=== PATIENT | male | born 1965 | race Two or more races ===

== ENCOUNTER → 2020-05-09 14:07 | Outpatient (BNVA) | payer OTHER, SELFPAY | PROVIDERS: PCP Internal Medicine; Visit Provider Internal Medicine | DX: Z95.2 Presence of prosthetic heart valve (principal); Z51.81 Encounter for therapeutic drug level monitoring; Z79.01 Long term (current) use of anticoagulants | CPT/HCPCS: 85610 ==

== ENCOUNTER → 2020-05-24 10:32 | Outpatient (BNVA) | payer OTHER, SELFPAY | PROVIDERS: PCP Internal Medicine; Visit Provider Internal Medicine | DX: Z95.2 Presence of prosthetic heart valve (principal); Z51.81 Encounter for therapeutic drug level monitoring; Z79.01 Long term (current) use of anticoagulants | CPT/HCPCS: 85610; 99211 ==

== ENCOUNTER → 2020-06-07 09:34 | Outpatient (BNVA) | payer OTHER, SELFPAY | PROVIDERS: PCP Internal Medicine; Visit Provider Internal Medicine | DX: Z95.2 Presence of prosthetic heart valve (principal); Z51.81 Encounter for therapeutic drug level monitoring; Z79.01 Long term (current) use of anticoagulants | CPT/HCPCS: 85610; 99211 ==

== ENCOUNTER → 2020-06-11 14:53 | Outpatient (BNVA) | payer OTHER, SELFPAY | PROVIDERS: PCP Internal Medicine; Referring Provider Internal Medicine; Visit Provider Internal Medicine Cardiovascular Disease | DX: I10 Essential (primary) hypertension (principal); Z95.2 Presence of prosthetic heart valve; Z79.01 Long term (current) use of anticoagulants | CPT/HCPCS: 99212 ==

== ENCOUNTER → 2020-06-21 09:33 | Outpatient (BNVA) | payer OTHER, SELFPAY | PROVIDERS: PCP Internal Medicine; Visit Provider Internal Medicine | DX: Z95.2 Presence of prosthetic heart valve (principal); Z51.81 Encounter for therapeutic drug level monitoring; Z79.01 Long term (current) use of anticoagulants | CPT/HCPCS: 85610; 99211 ==

== ENCOUNTER → 2020-07-05 09:32 | Outpatient (BNVA) | payer OTHER, SELFPAY | PROVIDERS: PCP Internal Medicine; Visit Provider Internal Medicine | DX: Z95.2 Presence of prosthetic heart valve (principal); Z51.81 Encounter for therapeutic drug level monitoring; Z79.01 Long term (current) use of anticoagulants | CPT/HCPCS: 85610; 99211 ==

== ENCOUNTER → 2020-07-19 09:28 | Outpatient (BNVA) | payer OTHER, SELFPAY | PROVIDERS: PCP Internal Medicine; Visit Provider Internal Medicine | DX: Z95.2 Presence of prosthetic heart valve (principal); Z51.81 Encounter for therapeutic drug level monitoring; Z79.01 Long term (current) use of anticoagulants | CPT/HCPCS: 85610; 99211 ==

== ENCOUNTER → 2020-08-02 09:11 | Outpatient (BNVA) | payer OTHER, SELFPAY | PROVIDERS: PCP Internal Medicine; Visit Provider Internal Medicine | DX: Z95.2 Presence of prosthetic heart valve (principal); Z51.81 Encounter for therapeutic drug level monitoring; Z79.01 Long term (current) use of anticoagulants | CPT/HCPCS: 85610; 99211 ==

== ENCOUNTER → 2020-08-16 09:21 | Outpatient (BNVA) | payer OTHER, SELFPAY | PROVIDERS: PCP Internal Medicine; Visit Provider Internal Medicine | DX: Z95.2 Presence of prosthetic heart valve (principal); Z51.81 Encounter for therapeutic drug level monitoring; Z79.01 Long term (current) use of anticoagulants | CPT/HCPCS: 85610; 99211 ==

== ENCOUNTER 2020-08-17 15:05 | Emergency (ER) | payer OTHER, SELFPAY ==
[2020-08-17 15:28] VITALS: BP 144/91; PULSE 89; RESP 20; TEMP 37.6; O2SAT 96; BMI 31.4
--- NOTE | 2020-08-17 15:31 | XR_ITS ---
EXAMINATION: XR CHEST CLINICAL INFORMATION: Fever and cough. COMPARISON: Chest x-ray 12/01/2019 TECHNIQUE: Frontal view of the chest was obtained. FINDINGS: The lungs are well-expanded with patchy opacity seen in the right lung base likely infiltrate or atelectasis. Rest of lungs are clear. The heart size and pulmonary vascularity is normal. There are median sternotomy sutures and valvular prosthesis. No gross bony abnormality. XR/XR chest 1V IMPRESSION: New patchy opacity right lower lobe, question infiltrate.
--- NOTE | 2020-08-17 15:55 | ED.URI ---
HPI - URI/Sore Throat General Chief Complaint: Upper Respiratory Symptoms Stated Complaint: SORE THROAT Time Seen by Provider: 08/17/20 15:31 Source: patient Mode of arrival: ambulatory Limitations: no limitations History of Present Illness HPI Narrative: 54 y/o male with history of HTN, hx mitral valve replacement on Coumadin who presents with fever, sore throat and dry cough that started last night. No known sick contacts or exposure to COVID-19. He reports mild chills last night, headache and body aches. He had 1 episode of SOB associated with a coughing fit. No hemoptysis. No abdominal pain, N/V/D. No urinary symptoms. MD elicited complaint: fever, cough and sore throat Onset (ago): day(s) (1) Consistency: intermittent Severity: moderate Description of mucous: clear Able to tolerate fluids by mouth: Yes Exacerbating factors: exertion Relieving factors: nothing Associated symptoms: fever, chills, myalgias, headache, sore throat, cough and shortness of breath Treatments prior to arrival: none Related Data Home Medications Medication Instructions Recorded Confirmed aspirin 81 mg tablet,delayed 81 mg PO DAILY 06/11/20 06/11/20 release lisinopril 10 mg tablet 10 mg PO DAILY 06/11/20 06/11/20 famotidine 20 mg tablet mg PO 08/17/20 Previous Rx's Medication Instructions Recorded warfarin 5 mg tablet 5 mg PO DAILY #90 tab 05/09/20 metoprolol tartrate 25 mg tablet 25 mg PO BID #180 tab 06/01/20 sildenafil 50 mg tablet 50 mg PO DAILY PRN #10 tab 06/08/20 doxycycline monohydrate 100 mg PO BID #14 cap 08/17/20 Allergies Allergy/AdvReac Type Severity Reaction Status Date / Time No Known Allergies Allergy Verified 08/17/20 14:28 [No Known Allergies*] Review of Systems Review of Systems: Constitutional: + Fever, + Chills ENT/Mouth: + sore throat, No Rhinorrhea, No Swallowing Difficulty Cardiovascular: No Chest Pain, + SOB, No Orthopnea, No Edema Respiratory:+ Cough, No Sputum, No Wheezing, No dyspnea Gastrointestinal: No Nausea, No Vomiting, No Diarrhea, No abdominal Pain Genitourinary: No Dysuria, No Urinary Frequency, No Hematuria Musculoskeletal: No joint pain, + Myalgias Skin: No Skin Lesions, No rash Neuro: No Weakness, No Numbness, No Dizziness, + Headache Psych: No Anxiety/Panic, No Depression [facility] Past Medical History Medical History HTN (hypertension) Surgical History H/O cardiac catheterization (~2018) H/O mitral valve repair H/O mitral valve replacement with mechanical valve Hx of varicose vein ligation and stripping Family History Family History Father CVD (cardiovascular disease) Mother HTN (hypertension) CVD (cardiovascular disease) Diabetes Social History Social History (Updated 08/17/20 @ 14:29 by MICHAEL Moore) Alcohol intake: never Smoking Status: Never smoker Advance Directives: No Advance Directives Information Provided: Yes Physical Exam Vital Signs: Vital Signs: Last Vital Signs Temp 99.7 F 08/17/20 15:28 Pulse 89 08/17/20 15:28 Resp 20 08/17/20 15:28 BP 144/91 H 08/17/20 15:28 Pulse Ox 96 08/17/20 15:28 Body Mass Index 31.4 Appearance: Alert. Oriented X3. No acute distress. Eyes: Pupils equal, round and reactive to light. ENT: Pharynx with moderate generalized erythema with bilateral tonsillar swelling, no exudates. voice is normal. Neck: Normal inspection. Neck supple. CVS: Normal heart rate and rhythm. Pulses normal. Respiratory: No respiratory distress. Breath sounds normal. Abdomen: Soft and nontender. +BS x4 Skin: Skin warm and dry. Normal skin color. Normal skin turgor. No rashes. Extremities: No lower extremity edema. Neuro: Oriented X 3. Non-focal Course Course Course Narrative: 54 y/o male presenting with fever, cough, sore throat x1 day. Low grade fever on arrival, otherwise VS and PE are unremarkable. Will get CXR, Resp panel and strep swab. Reevaluation(s) Reevaluation #1: COVID positive. CXR with ?RLL infiltrate - will treat with Doxycycline for possible evolving CAP. VSS. No hypoxia or respiratory distress. He has been counseled on his diagnosis, management and warning signs to prompt return to the ER. Stable for discharge. MDM - URI/Sore Throat Lab Data Labs: Lab Results 08/17/20 Range/Units 15:37 Coronavirus (PCR) POSITIVE A (Negative) Influenza Type A (PCR) NEGATIVE (Negative) Influenza Type B (PCR) NEGATIVE (Negative) RSV RNA Qual (PCR) NEGATIVE (Negative) Discharge Plan Discharge Clinical Impression: COVID-19 Patient Disposition: Home, Self-Care Instructions: COVID-19 (Coronavirus Disease 2019) (ED) Additional Instructions: You were found to be COVID-19 POSITIVE. Your chest x-ray showed a possible small area of pneumonia as well so you are being started on antibiotics for this. Take them as directed. Take over the counter cold/flu medications as needed for your symptoms. Take Tylenol every 6 hours for fever and body aches. Rest and stay hydrated. Follow up with your doctor next week. If you develop shortness of breath, difficulty breathing or any other concerning symptom come back to the ER for further evaluation. Prescriptions: New doxycycline monohydrate 100 mg capsule 100 mg PO BID Qty: 14 RF: 0 No Action metoprolol tartrate 25 mg tablet 25 mg PO BID Qty: 180 RF: 3 sildenafil 50 mg tablet 50 mg PO DAILY PRN (Reason: sexual activity) Qty: 10 RF: 3 famotidine 20 mg tablet PO RF: 0 aspirin 81 mg tablet,delayed release (DR/EC) 81 mg PO DAILY RF: 0 lisinopril 10 mg tablet 10 mg PO DAILY RF: 0 warfarin 5 mg tablet 5 mg PO DAILY Qty: 90 RF: 0
[2020-08-17 16:28] LABS: Influenza A PCR NEGATIVE (Negative); Influenza B PCR NEGATIVE (Negative); Resp Syncy Virus RNA Qual PCR NEGATIVE (Negative); SARS COV2 PCR INHOUSE POSITIVE (Negative)
== END 2020-08-17 16:49 | disposition home or self-care (01) ==
PROVIDERS: Physician Assistant; Emergency Provider Emergency Medicine; PCP Internal Medicine
DX: U07.1 COVID-19 (principal); I10 Essential (primary) hypertension; Z95.2 Presence of prosthetic heart valve; Z79.01 Long term (current) use of anticoagulants
CPT/HCPCS: 0241U; 36415; 71045; 87071; 87880; 99283

== ENCOUNTER → 2020-08-30 08:58 | Outpatient (BNVA) | payer OTHER, SELFPAY | PROVIDERS: PCP Internal Medicine; Visit Provider Internal Medicine | DX: Z95.2 Presence of prosthetic heart valve (principal); Z51.81 Encounter for therapeutic drug level monitoring; Z79.01 Long term (current) use of anticoagulants | CPT/HCPCS: 85610; 99211 ==

== ENCOUNTER → 2020-09-03 08:43 | Outpatient (BNVA) | payer OTHER, SELFPAY | PROVIDERS: PCP Internal Medicine; Visit Provider Internal Medicine | DX: Z95.2 Presence of prosthetic heart valve (principal); Z51.81 Encounter for therapeutic drug level monitoring; Z79.01 Long term (current) use of anticoagulants | CPT/HCPCS: 85610; 99211 ==

== ENCOUNTER → 2020-09-10 09:17 | Outpatient (BNVA) | payer OTHER, SELFPAY | PROVIDERS: PCP Internal Medicine; Visit Provider Internal Medicine | DX: Z95.2 Presence of prosthetic heart valve (principal); Z51.81 Encounter for therapeutic drug level monitoring; Z79.01 Long term (current) use of anticoagulants | CPT/HCPCS: 85610; 99211 ==

== ENCOUNTER → 2020-09-24 09:35 | Outpatient (BNVA) | payer OTHER, SELFPAY | PROVIDERS: PCP Internal Medicine; Visit Provider Internal Medicine | DX: Z95.2 Presence of prosthetic heart valve (principal); Z51.81 Encounter for therapeutic drug level monitoring; Z79.01 Long term (current) use of anticoagulants | CPT/HCPCS: 85610; 99211 ==

== ENCOUNTER → 2020-10-08 08:49 | Outpatient (BNVA) | payer OTHER, SELFPAY | PROVIDERS: PCP Internal Medicine; Visit Provider Internal Medicine | DX: Z95.2 Presence of prosthetic heart valve (principal); Z51.81 Encounter for therapeutic drug level monitoring; Z79.01 Long term (current) use of anticoagulants | CPT/HCPCS: 85610; 99211 ==

== ENCOUNTER → 2020-10-22 08:52 | Outpatient (BNVA) | payer OTHER, SELFPAY | PROVIDERS: PCP Internal Medicine; Visit Provider Internal Medicine | DX: Z95.2 Presence of prosthetic heart valve (principal); Z51.81 Encounter for therapeutic drug level monitoring; Z79.01 Long term (current) use of anticoagulants | CPT/HCPCS: 85610; 99211 ==

== ENCOUNTER 2020-10-24 09:44 | Outpatient (REF) | payer OTHER, SELFPAY ==
--- NOTE | ~2020-10-24 | XR_ITS ---
EXAMINATION: XR CHEST CLINICAL INFORMATION: Shortness of breath. Covid 19. COMPARISON: None TECHNIQUE: 2 views of the chest were obtained. FINDINGS: The lungs are well-expanded with patchy opacity seen right middle lobe. Rest of lungs are clear and expanded. The heart size and pulmonary vascularity is normal. There are median sternotomy sutures and aortic valve prosthesis in place. No gross bony abnormality seen. XR/XR chest 2V IMPRESSION: Stable right middle lobe patchy opacity likely atelectasis or scarring.
[2020-10-24 11:11] LABS: MANUAL DIFF FLAG NO
[2020-10-24 11:26] LABS: Basophils Percent Auto 0.4 % (0-2); Eosinophils Absolute Auto 0.2 X10*3/uL (0.0-0.4); Eosinophils Percent Auto 2.1 % (0-4); Hemoglobin 14.2 g/dl (14.0-18.0); Imm Gran Abs Auto 0.06 X10*3/uL (0.00-0.03); Imm Gran Pct Auto 0.7 % (0.0-0.4); Lymphocytes Absolute Auto 2.4 X10*3/uL (1.2-4.9); Lymphocytes Percent Auto 29.1 % (20-40); Mean Corpuscular HGB Conc 30.9 g/dl (31.0-36.0); Mean Corpuscular Hemoglobin 26.4 pg (27.0-33.0); Mean Corpuscular Volume 85.5 fL (80-98); Mean Platelet Volume 10.3 fL (9.4-12.4); Monocytes Absolute Auto 1.1 X10*3/uL (0.1-1.2); Monocytes Percent Auto 13.3 % (2-11); Neutrophils Absolute Auto 4.5 X10*3/uL (2.0-8.3); Neutrophils Percent Auto 54.4 % (45-73); Platelet Count 290 X10*3/uL (160-400); Red Blood Count 5.38 X10*6/uL (4.60-5.80); White Blood Count 8.3 X10*3/uL (4.8-10.8)
[2020-10-24 11:48] LABS: B Type Natriuretic Peptide 41 pg/mL (<100)
[2020-10-24 12:12] LABS: Thyroid Stimulating Hormone 2.07 uIU/mL (0.32-4.0)
[2020-10-24 12:13] LABS: Alanine Aminotransferase 23 U/L (0-40); Albumin Level 4.2 g/dL (3.5-5.0); Alkaline Phosphatase 83 U/L (39-117); Anion Gap 15 (12-20); Aspartate Amino Transferase 28 U/L (5-37); Bilirubin Total 0.8 mg/dL (0.0-1.0); Blood Urea Nitrogen 18 mg/dL (9-16); Calcium 9.2 mg/dL (8.4-10.2); Carbon Dioxide 25 mmol/L (22-29); Chloride 106 mmol/L (96-108); Estimated Glomerular Filt Rate > 60; Glucose Random 108 mg/dL (60-115); Potassium 4.5 mmol/L (3.3-5.1); Sodium 141 mmol/L (135-145); Total Protein 7.3 g/dL (6.5-8.0)
== END 2020-10-24 09:45 | disposition home or self-care (01) ==
LOC: HO.HMGCLDS 09:44
PROVIDERS: PCP Internal Medicine; Visit Provider Internal Medicine
DX: U07.1 COVID-19 (principal); Z95.2 Presence of prosthetic heart valve
CPT/HCPCS: 36415; 71046; 80053; 83880; 84443; 85025

== ENCOUNTER → 2020-11-06 08:29 | Outpatient (BNVA) | payer OTHER, SELFPAY | PROVIDERS: PCP Internal Medicine; Visit Provider Internal Medicine | DX: Z95.2 Presence of prosthetic heart valve (principal); Z79.01 Long term (current) use of anticoagulants; Z51.81 Encounter for therapeutic drug level monitoring | CPT/HCPCS: 85610; 99211 ==

== ENCOUNTER → 2020-11-20 09:49 | Outpatient (BNVA) | payer OTHER, SELFPAY | PROVIDERS: PCP Internal Medicine; Visit Provider Internal Medicine | DX: Z95.2 Presence of prosthetic heart valve (principal); Z79.01 Long term (current) use of anticoagulants; Z51.81 Encounter for therapeutic drug level monitoring | CPT/HCPCS: 85610; 99211 ==

== ENCOUNTER → 2020-11-27 08:45 | Outpatient (BNVA) | payer OTHER, SELFPAY | PROVIDERS: PCP Internal Medicine; Visit Provider Internal Medicine | DX: Z95.2 Presence of prosthetic heart valve (principal); Z51.81 Encounter for therapeutic drug level monitoring; Z79.01 Long term (current) use of anticoagulants | CPT/HCPCS: 85610; 99211 ==

== ENCOUNTER → 2020-12-11 09:01 | Outpatient (BNVA) | payer OTHER, SELFPAY | PROVIDERS: PCP Internal Medicine; Visit Provider Internal Medicine | DX: Z95.2 Presence of prosthetic heart valve (principal); Z51.81 Encounter for therapeutic drug level monitoring; Z79.01 Long term (current) use of anticoagulants | CPT/HCPCS: 85610; 99211 ==

== ENCOUNTER → 2020-12-13 08:18 | Outpatient (REF) | payer OTHER, SELFPAY ==
--- NOTE | 2020-12-13 08:23 | CA_ITS ---
Transthoracic Echocardiogram Patient (Last, First, Middle): Cinda Erazo, Gender: Male Date of : 1965 Age: 55 Procedure Date: 12/13/2020 Procedure Type: Transthoracic Echocardiogram Location: OP Height: 182.88 cm Weight: 102.51 kg BSA: 2.24 m2 Heart Rate: bpm BP: 134 / 90 mmHg Publishing Director: ERICA Referring MD: Juan David Samaniego MD Cement Loader: Juan David Samaniego MD Symptoms: Z95.2 - Presence of prosthetic heart valve Study Quality: Fair ECG Rhythm: Sinus Conclusions: - 1. Low normal LV systolic function with mild LVH with normal filling pattern 2. Left atrium at least mildly dilated 3. Mechanical mitral valve with mean gradient of 7 mm Hg, increased compared to last year's study 4. Normal RV systolic pressure 5. No pericardial effusion Findings Procedure Information The patient receives contrast. Left Ventricle Normal left ventricular cavity size. There is mildly increased left ventricular wall thickness. The left ventricular systolic function is low normal. The visually estimated ejection fraction is between 50-55%. Spectral Doppler is indicative of a pseudonormal filling pattern. Right Ventricle Normal right ventricular cavity size and systolic function. Atria The left atrium is mildly dilated. Interatrial shunt cannot be excluded. The right atrium is normal in size. Aortic Valve Normal aortic valve structure and function. There is no aortic valve stenosis. There is no aortic valve regurgitation. Mitral Valve The mechanical valve in the mitral position is seated well without any abnormal rocking motion. The leaflets are not well visualized. Mean gradient is 7 mm Hg which is increased compared to last year which was at 4 mm of mercury. There is no significant mitral regurgitation noted. Pulmonic Valve The pulmonic valve was not well visualized. There is trace to mild pulmonic valve regurgitation. Tricuspid Valve Normal tricuspid valve structure. There is mild tricuspid valve regurgitation. The right ventricular systolic pressure is normal. The right ventricular systolic pressure is 25 mmHg. There is no evidence of pulmonary hypertension. Great Vessels The pulmonary artery was not well visualized. There is mild dilatation of the ascending aorta measuring 3.90 cm. Venous The inferior vena cava is normal in size and collapses greater than 50% with inspiration. Pericardium/Pleural There is no evidence of pericardial effusion. Prior Study Comparison Changes noted compared to prior study dated: 09/06/2019. Mean gradient across the mitral prosthesis is increased to 7 mm of mercury. Measurements 2D Linear Measurements RVIDd: 3.15 RVIDd Index: 1.41 IVSd: 1.23 0.6-0.9/0.6-1.0 cm LVIDd: 5.86 3.9-5.3/4.2-5.9 cm LVIDd Index: 2.62 2.4-3.2/2.2-3.1 cm/m2 LVIDs: 4.02 2.0-3.6 cm LVPWd: 1.25 0.7-1.1 cm Ao Root: 3.80 2.1-3.5 cm LA Diam: 5.90 2.7-3.8/3.0-4.0 cm LAIDs Index: 2.63 1.5-2.3 cm/m2 LV Mass: 394.02 67-162/88-224 g LV Mass Index: 175.90 43-95/49-115 g/m2 LVOT Diam: 2.40 3.0+(-)1.3 cm 2D Systolic Function EF 4C: 39.20 >55% EF 2C: 53.00 >55% Mitral Valve MV VTI: 0.51 MV Pk Stewart: 1.89 MV Mn Stewart: 1.22 MV Pk Grad: 14.00 MV Mn Grad: 7.00 MV Pk E: 1.60 MV PK A: 1.39 MV Decel Time: 440.00 E/A: 1.20 E'Lateral: 4.54 E'Medial: 4.84 E/E' Med: 33.10 E/E' Lat: 35.20 PHT: 133.00 MVA PHT: 1.65 MVA Continuity: 1.66 Decel Russell: 4.12 Aortic Valve AoV Pk Stweart: 1.04 AoV Mn Stewart: 0.80 AoV VTI: 0.21 AoV Pk Grad: 4.00 Aov Mn Grad: 3.00 MINAL Cont.VTI: 4.03 LVOT LVOT Pk Stewart: 0.96 LVOT Mn Stewart: 0.57 LVOT VTI: 0.19 LVOT Pk Grad: 4.00 LVOT Mn Grad: 2.00 LVOT Diam: 2.40 LVOT Area: 4.52 Diastolic Function MV Pk E: 1.60 MV Pk A: 1.39 E/A: 1.20 E'Medial: 4.84 E/E' Med: 33.10 E' Laterial: 4.54 E/E' Lat: 35.20 Tricuspid Valve TR Pk Stewart: 2.32 TR Pk Grad: 22.00 RA Press: 3.00 RVSP: 25.00 Great Vessels Aorta Ao Root-2D: 3.80 2.0-3.7 cm Ao Asc: 3.90 2.1-3.4 cm Ao Arch: 3.50 Updated in Other Vendor System with Status of Final Juan David Samaniego MD electronically signed on 12/14/2020 12:32:58 PM with status of Final
== END ==
LOC: HO.CARD 08:18
PROVIDERS: PCP Internal Medicine; Visit Provider Internal Medicine
DX: I10 Essential (primary) hypertension (principal); Z95.2 Presence of prosthetic heart valve
CPT/HCPCS: 93306; Q9957

== ENCOUNTER → 2020-12-18 15:04 | Outpatient (BNVA) | payer OTHER, SELFPAY | PROVIDERS: PCP Internal Medicine; Referring Provider Internal Medicine; Visit Provider Internal Medicine Cardiovascular Disease | DX: I10 Essential (primary) hypertension (principal); R10.31 Right lower quadrant pain | CPT/HCPCS: 99212 ==

== ENCOUNTER → 2020-12-25 08:50 | Outpatient (BNVA) | payer OTHER, SELFPAY | PROVIDERS: PCP Internal Medicine; Visit Provider Internal Medicine | DX: Z95.2 Presence of prosthetic heart valve (principal); Z51.81 Encounter for therapeutic drug level monitoring; Z79.01 Long term (current) use of anticoagulants | CPT/HCPCS: 85610; 99211 ==

== ENCOUNTER 2021-01-07 | Outpatient (REF) | payer OTHER, SELFPAY | END 2021-01-07 00:01 | disposition home or self-care (01) | LOC: CF | PROVIDERS: Visit Provider Internal Medicine | DX: Z95.2 Presence of prosthetic heart valve (principal); Z51.81 Encounter for therapeutic drug level monitoring; Z79.01 Long term (current) use of anticoagulants | CPT/HCPCS: 85610; 99211 ==

== ENCOUNTER 2021-01-21 13:20 | Outpatient (REF) | payer OTHER, SELFPAY ==
--- NOTE | ~2021-01-21 | US_ITS ---
EXAMINATION: ULTRASOUND OF A RIGHT THIGH PALPABLE ABNORMALITY. CLINICAL INFORMATION: This is a 55-year-old male with pain in the thigh. COMPARISON: None TECHNIQUE: Ultrasound of the proximal thigh was performed and directed at the area of pain. Color Doppler flow was utilized with spectral waveform analysis. FINDINGS: There is a 2.7 x 0.8 x 1.7 cm soft tissue density seen that corresponds to the area of pain. The etiology for this soft tissue abnormality is not clearly identified with ultrasound. It may represent a lymph node. No pseudoaneurysm is seen. Good flow is seen within the adjacent vessels. US/US arterial duplex LE RT IMPRESSION: 1. The area indicated by the patient in the right thigh corresponds to a 2.7 x 0.8 x 1.7 cm oval soft tissue mass. The etiology for the mass is unclear. A follow-up study in one month is recommended to demonstrate resolution or better clarity.
== END 2021-01-21 13:21 | disposition home or self-care (01) ==
LOC: HO.US 13:20
PROVIDERS: Visit Provider Internal Medicine Cardiovascular Disease
DX: R10.31 Right lower quadrant pain (principal)
CPT/HCPCS: 85610; 93926; 99211

== ENCOUNTER 2021-02-05 08:45 | Outpatient (REF) | payer OTHER, SELFPAY ==
--- NOTE | ~2021-02-05 | US_ITS ---
EXAMINATION: ULTRASOUND EXTREMITY NONVASCULAR CLINICAL INFORMATION: Question soft tissue mass seen by ultrasound. Patient presents for biopsy. COMPARISON: Previous right lower extremity arterial ultrasound 01/21/2021 TECHNIQUE: Grayscale and color imaging of the right medial thigh using a linear transducer FINDINGS: There are 2 right thigh lymph nodes. The largest is measures 2.7 x 0.9 x 1.8 cm in sagittal AP and transverse dimension. This demonstrates a very thin cortex, largest central fatty hilum and normal hilar flow. This does not appear appreciably changed in size from January 2021 exam. There is an adjacent smaller lymph node. US/US extremity nonvascular lynn IMPRESSION: 2 right upper medial thigh lymph nodes. These demonstrate normal ultrasound morphology with fatty hilum and very thin peripheral cortex. This is similar to January 2021 exam. No soft tissue mass seen. Ultrasound-guided biopsy/fine-needle aspiration was not performed. Short-term follow-up exam in 3-6 months is recommended.
== END 2021-02-05 08:46 | disposition home or self-care (01) ==
LOC: HO.US 08:45
PROVIDERS: PCP Internal Medicine; Visit Provider Internal Medicine Medical Oncology
DX: R19.09 Other intra-abdominal and pelvic swelling, mass and lump (principal)
CPT/HCPCS: 76882

== ENCOUNTER → 2021-02-08 08:30 | Outpatient (BNVA) | payer OTHER, SELFPAY | PROVIDERS: PCP Internal Medicine; Visit Provider Internal Medicine | DX: Z95.2 Presence of prosthetic heart valve (principal); Z51.81 Encounter for therapeutic drug level monitoring; Z79.01 Long term (current) use of anticoagulants | CPT/HCPCS: 85610; 99211 ==

== ENCOUNTER → 2021-02-11 08:52 | Outpatient (BNVA) | payer OTHER, SELFPAY | PROVIDERS: PCP Internal Medicine; Visit Provider Internal Medicine | DX: Z95.2 Presence of prosthetic heart valve (principal); Z51.81 Encounter for therapeutic drug level monitoring; Z79.01 Long term (current) use of anticoagulants | CPT/HCPCS: 85610; 99211 ==

== ENCOUNTER → 2021-02-12 09:12 | Outpatient (BNVA) | payer OTHER, SELFPAY | PROVIDERS: PCP Internal Medicine; Visit Provider Internal Medicine | DX: Z95.2 Presence of prosthetic heart valve (principal); Z51.81 Encounter for therapeutic drug level monitoring; Z79.01 Long term (current) use of anticoagulants | CPT/HCPCS: 85610; 99211 ==

== ENCOUNTER → 2021-02-19 09:18 | Outpatient (BNVA) | payer OTHER, SELFPAY | PROVIDERS: PCP Internal Medicine; Visit Provider Internal Medicine | DX: Z95.2 Presence of prosthetic heart valve (principal); Z51.81 Encounter for therapeutic drug level monitoring; Z79.01 Long term (current) use of anticoagulants | CPT/HCPCS: 85610; 99211 ==

== ENCOUNTER → 2021-02-22 08:38 | Outpatient (BNVA) | payer OTHER, SELFPAY | PROVIDERS: PCP Internal Medicine; Visit Provider Internal Medicine | DX: Z95.2 Presence of prosthetic heart valve (principal); Z51.81 Encounter for therapeutic drug level monitoring; Z79.01 Long term (current) use of anticoagulants | CPT/HCPCS: 85610; 99211 ==

== ENCOUNTER → 2021-03-01 08:13 | Outpatient (BNVA) | payer OTHER, SELFPAY | PROVIDERS: PCP Internal Medicine; Visit Provider Internal Medicine | DX: Z95.2 Presence of prosthetic heart valve (principal); Z51.81 Encounter for therapeutic drug level monitoring; Z79.01 Long term (current) use of anticoagulants | CPT/HCPCS: 85610; 99211 ==

== ENCOUNTER → 2021-03-08 08:36 | Outpatient (BNVA) | payer OTHER, SELFPAY | PROVIDERS: PCP Internal Medicine; Visit Provider Internal Medicine | DX: Z95.2 Presence of prosthetic heart valve (principal); Z51.81 Encounter for therapeutic drug level monitoring; Z79.01 Long term (current) use of anticoagulants | CPT/HCPCS: 85610; 99211 ==

== ENCOUNTER → 2021-03-15 08:26 | Outpatient (BNVA) | payer OTHER, SELFPAY | PROVIDERS: PCP Internal Medicine; Visit Provider Internal Medicine | DX: Z95.2 Presence of prosthetic heart valve (principal); Z51.81 Encounter for therapeutic drug level monitoring; Z79.01 Long term (current) use of anticoagulants | CPT/HCPCS: 85610; 99212 ==

== ENCOUNTER → 2021-03-29 08:37 | Outpatient (BNVA) | payer OTHER, SELFPAY | PROVIDERS: PCP Internal Medicine; Visit Provider Internal Medicine | DX: Z95.2 Presence of prosthetic heart valve (principal); Z51.81 Encounter for therapeutic drug level monitoring; Z79.01 Long term (current) use of anticoagulants | CPT/HCPCS: 85610; 99211 ==

== ENCOUNTER → 2021-04-04 08:44 | Outpatient (BNVA) | payer OTHER, SELFPAY | PROVIDERS: PCP Internal Medicine; Visit Provider Internal Medicine | DX: Z95.2 Presence of prosthetic heart valve (principal); Z51.81 Encounter for therapeutic drug level monitoring; Z79.01 Long term (current) use of anticoagulants | CPT/HCPCS: 85610; 99211 ==

== ENCOUNTER → 2021-04-18 08:33 | Outpatient (BNVA) | payer OTHER, SELFPAY | PROVIDERS: PCP Internal Medicine; Visit Provider Internal Medicine | DX: Z95.2 Presence of prosthetic heart valve (principal); Z51.81 Encounter for therapeutic drug level monitoring; Z79.01 Long term (current) use of anticoagulants | CPT/HCPCS: 85610; 99211 ==

== ENCOUNTER → 2021-05-02 08:55 | Outpatient (BNVA) | payer OTHER, SELFPAY | PROVIDERS: PCP Internal Medicine; Visit Provider Internal Medicine | DX: Z95.2 Presence of prosthetic heart valve (principal); Z51.81 Encounter for therapeutic drug level monitoring; Z79.01 Long term (current) use of anticoagulants | CPT/HCPCS: 85610; 99211 ==

== ENCOUNTER → 2021-05-17 08:37 | Outpatient (BNVA) | payer OTHER, SELFPAY | PROVIDERS: PCP Internal Medicine; Visit Provider Internal Medicine | DX: Z95.2 Presence of prosthetic heart valve (principal); Z51.81 Encounter for therapeutic drug level monitoring; Z79.01 Long term (current) use of anticoagulants | CPT/HCPCS: 85610; 99211 ==

== ENCOUNTER 2021-05-28 08:07 | Outpatient (REF) | payer OTHER, SELFPAY ==
--- NOTE | ~2021-05-28 | US_ITS ---
CLINICAL INFORMATION: EXAMINATION: RIGHT and LEFT LOWER EXTREMITY VENOUS ULTRASOUND (Reflux Exam) CLINICAL INDICATION: Follow-up right thigh mass COMPARISON: Previous ultrasounds January and January 2021 TECHNIQUE: Color flow triplex imaging and compression Doppler was performed to evaluate both the deep and the superficial systems bilaterally. To evaluate the superficial system, the examination was performed in the upright position. Color-flow Doppler ultrasound and compression ultrasound were utilized. In addition, maneuvers were utilized to demonstrate reflux. FINDINGS: 1. DEEP VENOUS ULTRASOUND OF THE RIGHT LOWER EXTREMITY: Respiratory variation, normal compression and augmented flow are noted in the right common and mid femoral vein as well as the right popliteal vein and there is no evidence of deep venous thrombosis at these locations. There is no evidence of reflux in the deep system in either the common femoral vein or the popliteal vein. There is reflux in the mid femoral vein measuring 1.5 seconds. There is no evidence of a Peralta's cyst. 2. SUPERFICIAL ULTRASOUND WITH DOPPLER OF RIGHT LOWER EXTREMITY: The right great saphenous vein at the saphenofemoral junction measures 5 mm. The remainder of the right greater saphenous vein is not seen. There is an accessory lateral greater saphenous vein that measures 3 to 4 mm and does not demonstrate reflux. The right small saphenous vein measures 7-16 mm and demonstrates diffuse reflux, measuring maximum 2.5 seconds in the distal calf. There is a orthotist prosthetist in the distal calf that measures 6 mm and does not demonstrate reflux. There are 2 varicosities in the distal calf that measure 4 mm. One demonstrates 1.1 seconds reflux. No right thigh lymphadenopathy is seen. 3. DEEP VENOUS ULTRASOUND OF THE LEFT LOWER EXTREMITY: Respiratory variation, normal compression and augmented flow are noted in the left common and mid femoral vein as well as the left popliteal vein and there is no evidence of deep venous thrombosis at these locations. There is mid femoral vein reflux measuring 3.1 seconds. There is no evidence of reflux in the deep system in either the common femoral vein or the popliteal vein. . There is no evidence of a Peralta's cyst. 4. SUPERFICIAL ULTRASOUND WITH DOPPLER OF LEFT LOWER EXTREMITY: Left great saphenous vein at the saphenofemoral junction measures 9 mm, at the mid thigh 3 mm, [id number] 4 mm, [id number] 1 mm. The left greater saphenous vein is not seen in the mid calf and ankle. There is left greater saphenous vein reflux above the knee and at the knee measuring 0.9 and 0.8 seconds. There is an accessory lateral greater saphenous vein that measures 4 mm and does not demonstrate reflux.. The left small saphenous vein measures 6-12 mm and demonstrates reflux measuring maximum greater than 3.4 seconds at the saphenofemoral popliteal junction. There are perforators in the calf and thigh. There is a orthotist prosthetist in the mid calf that measures 3 mm and demonstrates 1.2 seconds reflux. There are varicosities in the calf that measure between 3 and 7 mm and demonstrate reflux, maximum 1.9 seconds. There is a varicosity There is a small left thigh lymph node that measures 2 x 0.7 x 0.9 cm in sagittal AP and transverse dimension. This is normal ultrasound morphology and flow. US/US venous duplex LE BI IMPRESSION: Right thigh lymph node not seen. Small normal-appearing left thigh lymph node. Right: Right greater saphenous vein is not seen. Dilated right lesser saphenous vein with reflux measuring maximum 2.5 seconds. Varicosity in the calf with reflux. Deep venous reflux in the right mid popliteal vein. Left: Left greater saphenous vein reflux. Dilated left lesser saphenous vein and reflux measuring maximum greater than 3.4 seconds. Floorworker and varicosities in the calf with reflux measuring maximum 1.9 seconds. Deep venous reflux in the mid left femoral vein.
== END 2021-05-28 08:08 | disposition home or self-care (01) ==
LOC: HO.US 08:07
PROVIDERS: PCP Internal Medicine; Visit Provider Internal Medicine Medical Oncology
DX: R19.09 Other intra-abdominal and pelvic swelling, mass and lump (principal)
CPT/HCPCS: 93970; 93971

== ENCOUNTER 2021-05-30 07:53 | Outpatient (REF) | payer OTHER, SELFPAY ==
[2021-05-30 11:20] LABS: MANUAL DIFF FLAG NO
[2021-05-30 11:24] LABS: Basophils Percent Auto 0.4 % (0-2); Eosinophils Absolute Auto 0.1 X10*3/uL (0.0-0.4); Eosinophils Percent Auto 1.8 % (0-4); Hematocrit 45.9 % (42-52); Hemoglobin 14.1 g/dl (14.0-18.0); Imm Gran Abs Auto 0.03 X10*3/uL (0.00-0.03); Imm Gran Pct Auto 0.4 % (0.0-0.4); Immature Retic Fraction 14.5 % (2.3-13.4); Lymphocytes Absolute Auto 2.2 X10*3/uL (1.2-4.9); Lymphocytes Percent Auto 28.5 % (20-40); Mean Corpuscular HGB Conc 30.7 g/dl (31.0-36.0); Mean Corpuscular Hemoglobin 26.2 pg (27.0-33.0); Mean Corpuscular Volume 85.3 fL (80-98); Mean Platelet Volume 10.3 fL (9.4-12.4); Monocytes Absolute Auto 0.9 X10*3/uL (0.1-1.2); Monocytes Percent Auto 12.3 % (2-11); Neutrophils Absolute Auto 4.3 X10*3/uL (2.0-8.3); Neutrophils Percent Auto 56.6 % (45-73); Platelet Count 281 X10*3/uL (160-400); Red Blood Count 5.38 X10*6/uL (4.60-5.80); Red Cell Distribution Width 15.4 % (11.0-16.0); Retic HGB Equivalent 30.6 pg (30.0-35.0); Reticulocyte Percent 1.7 % (0.5-1.8); Reticulocytes Absolute 0.093 X10*6/uL (0.026-0.095); White Blood Count 7.6 X10*3/uL (4.8-10.8)
[2021-05-30 11:36] LABS: Estimated Average Glucose 120 mg/dL; Hemoglobin A1c % 5.8 %
[2021-05-30 11:39] LABS: B Type Natriuretic Peptide 32 pg/mL (<100)
[2021-05-30 11:48] LABS: Alanine Aminotransferase 28 U/L (0-40); Albumin Level 4.1 g/dL (3.5-5.0); Alkaline Phosphatase 83 U/L (39-117); Anion Gap 11 (12-20); Aspartate Amino Transferase 28 U/L (5-37); Bilirubin Total 0.7 mg/dL (0.0-1.0); Blood Urea Nitrogen 18 mg/dL (9-16); Calcium 9.1 mg/dL (8.4-10.2); Carbon Dioxide 27 mmol/L (22-29); Chloride 109 mmol/L (96-108); Cholesterol 155 mg/dL; Estimated Glomerular Filt Rate > 60; Glucose Random 114 mg/dL (60-115); HDL Cholesterol 34 mg/dL; Iron 79 mcg/dL (45-160); LDL Cholesterol Calculated 94 mg/dl; Percent Iron Saturation 27 % (15-50); Potassium 4.7 mmol/L (3.3-5.1); Sodium 142 mmol/L (135-145); Total Iron Binding Capacity 297 mcg/dL (228-428); Total Protein 7.2 g/dL (6.5-8.0); Triglycerides 136 mg/dL; Unsaturated Iron Binding 218 ug/dL; Uric Acid 8.1 mg/dL (3.4-7.0)
[2021-05-30 12:03] LABS: Free T4 (Free Thyroxine) 0.98 ng/dL (0.71-1.85); Prostate Specific Antigen Scr 0.95 ng/mL (<0.05-4.0); Thyroid Stimulating Hormone 3.57 uIU/mL (0.32-4.0)
[2021-05-30 12:11] LABS: Folate 14.7 ng/mL (> or = 4.0); Vitamin B12 429 pg/mL (200-900)
[2021-05-30 12:33] LABS: Ferritin 125 ng/mL (20-250)
== END 2021-05-30 07:54 | disposition home or self-care (01) ==
LOC: HO.HMGCLDS 07:53
PROVIDERS: PCP Internal Medicine; Visit Provider Internal Medicine
DX: Z12.5 Encounter for screening for malignant neoplasm of prostate (principal); I10 Essential (primary) hypertension; R73.02 Impaired glucose tolerance (oral); E78.00 Pure hypercholesterolemia, unspecified
CPT/HCPCS: 36415; 80053; 80061; 82607; 82728; 82746; 83036; 83540; 83880; 84153; 84439; 84443; 84550; 85025; 85045

== ENCOUNTER → 2021-06-07 08:50 | Outpatient (BNVA) | payer OTHER, SELFPAY | PROVIDERS: PCP Internal Medicine; Visit Provider Internal Medicine | DX: Z95.2 Presence of prosthetic heart valve (principal); Z51.81 Encounter for therapeutic drug level monitoring; Z79.01 Long term (current) use of anticoagulants | CPT/HCPCS: 85610; 99211 ==

== ENCOUNTER → 2021-06-18 08:23 | Outpatient (BNVA) | payer OTHER, SELFPAY | PROVIDERS: PCP Internal Medicine; Referring Provider Internal Medicine; Visit Provider Internal Medicine Cardiovascular Disease | DX: I10 Essential (primary) hypertension (principal); I45.2 Bifascicular block; E66.3 Overweight; Z68.30 Body mass index [BMI] 30.0-30.9, adult; Z95.2 Presence of prosthetic heart valve; Z82.49 Family history of ischemic heart disease and other diseases of the circulatory system; Z83.3 Family history of diabetes mellitus; Z79.82 Long term (current) use of aspirin; Z79.01 Long term (current) use of anticoagulants; Z79.899 Other long term (current) drug therapy | CPT/HCPCS: 93005; 99212 ==

== ENCOUNTER → 2021-06-21 08:44 | Outpatient (BNVA) | payer OTHER, SELFPAY | PROVIDERS: PCP Internal Medicine; Visit Provider Internal Medicine | DX: Z95.2 Presence of prosthetic heart valve (principal); Z51.81 Encounter for therapeutic drug level monitoring; Z79.01 Long term (current) use of anticoagulants | CPT/HCPCS: 85610; 99211 ==

== ENCOUNTER → 2021-07-11 08:52 | Outpatient (BNVA) | payer OTHER, SELFPAY | PROVIDERS: PCP Internal Medicine; Visit Provider Internal Medicine | DX: Z95.2 Presence of prosthetic heart valve (principal); Z51.81 Encounter for therapeutic drug level monitoring; Z79.01 Long term (current) use of anticoagulants | CPT/HCPCS: 85610; 99211 ==

== ENCOUNTER → 2021-07-25 08:32 | Outpatient (BNVA) | payer OTHER, SELFPAY | PROVIDERS: PCP Internal Medicine; Visit Provider Internal Medicine | DX: Z95.2 Presence of prosthetic heart valve (principal); Z51.81 Encounter for therapeutic drug level monitoring; Z79.01 Long term (current) use of anticoagulants | CPT/HCPCS: 85610; 99211 ==

== ENCOUNTER → 2021-08-01 08:22 | Outpatient (BNVA) | payer OTHER, SELFPAY | PROVIDERS: PCP Internal Medicine; Visit Provider Internal Medicine | DX: Z95.2 Presence of prosthetic heart valve (principal); Z51.81 Encounter for therapeutic drug level monitoring; Z79.01 Long term (current) use of anticoagulants | CPT/HCPCS: 85610; 99211 ==

== ENCOUNTER → 2021-08-15 08:29 | Outpatient (BNVA) | payer OTHER, SELFPAY | PROVIDERS: PCP Internal Medicine; Visit Provider Internal Medicine | DX: Z95.2 Presence of prosthetic heart valve (principal); Z51.81 Encounter for therapeutic drug level monitoring; Z79.01 Long term (current) use of anticoagulants | CPT/HCPCS: 85610; 99211 ==

== ENCOUNTER 2021-09-03 10:39 | Outpatient (REF) | payer OTHER, SELFPAY ==
--- NOTE | ~2021-09-03 | US_ITS ---
EXAMINATION: ULTRASOUND EXTREMITY NON-VASCULAR CLINICAL INFORMATION: Right inguinal lymphadenopathy. COMPARISON: Previous right lower extremity venous ultrasound January 2021. TECHNIQUE: Grayscale and color imaging of the right inguinal region/upper thigh using a linear transducer FINDINGS: There are 3 small lymph nodes seen. These measure 2.8 x 0.7 x 1.8 cm, 2.2 x 0.6 x 1.2 cm and 0.9 x 1.6 x 2.4 cm. These demonstrate normal ultrasound morphology and flow. US/US extremity nonvascular lynn IMPRESSION: Stable normal-appearing right groin/inner thigh lymph nodes.
== END 2021-09-03 10:40 | disposition home or self-care (01) ==
LOC: HO.US 10:39
PROVIDERS: PCP Internal Medicine; Visit Provider Internal Medicine Medical Oncology
DX: R19.00 Intra-abdominal and pelvic swelling, mass and lump, unspecified site (principal)
CPT/HCPCS: 76882

== ENCOUNTER → 2021-09-05 08:41 | Outpatient (BNVA) | payer OTHER, SELFPAY | PROVIDERS: PCP Internal Medicine; Visit Provider Internal Medicine | DX: Z95.2 Presence of prosthetic heart valve (principal); Z51.81 Encounter for therapeutic drug level monitoring; Z79.01 Long term (current) use of anticoagulants | CPT/HCPCS: 85610; 99211 ==

== ENCOUNTER → 2021-09-19 09:25 | Outpatient (BNVA) | payer OTHER, SELFPAY | PROVIDERS: PCP Internal Medicine; Visit Provider Internal Medicine | DX: Z95.2 Presence of prosthetic heart valve (principal); Z51.81 Encounter for therapeutic drug level monitoring; Z79.01 Long term (current) use of anticoagulants | CPT/HCPCS: 85610; 99211 ==

== ENCOUNTER → 2021-10-02 08:31 | Outpatient (BNVA) | payer OTHER, SELFPAY | PROVIDERS: PCP Internal Medicine; Visit Provider Internal Medicine | DX: Z95.2 Presence of prosthetic heart valve (principal); Z51.81 Encounter for therapeutic drug level monitoring; Z79.01 Long term (current) use of anticoagulants | CPT/HCPCS: 85610; 99211 ==

== ENCOUNTER 2021-10-12 09:42 | Emergency (ER) | payer OTHER, SELFPAY ==
--- NOTE | ~2021-10-12 | XR_ITS ---
EXAMINATION: XR CHEST CLINICAL INFORMATION: Fever COMPARISON: None TECHNIQUE: Frontal view of the chest was obtained. FINDINGS: The lungs are well-expanded and clear of acute process. Heart size and pulmonary vascularity is normal. There are median sternotomy sutures from previous intervention. No gross bony abnormality seen. XR/XR chest 1V IMPRESSION: Unremarkable chest examination.
--- NOTE | 2021-10-12 10:41 | ECG_ITS ---
Test Reason : FEVER Blood Pressure : / mmHG Vent. Rate : 063 BPM Atrial Rate : 063 BPM P-R Int : 184 ms QRS Dur : 110 ms QT Int : 412 ms P-R-T Axes : 010 016 050 degrees QTc Int : 421 ms Normal sinus rhythm Possible Anterior infarct , age undetermined Abnormal ECG When compared with ECG of 29-NOV-2019 12:15, T wave amplitude has increased in Lateral leads Referred By: Juana Reed Electronically Signed By:ABRAHAM ARCEO MD
[2021-10-12 10:48] VITALS: BP 134/74; PULSE 66; RESP 19; TEMP 37.3; O2SAT 97; BMI 30.2
--- NOTE | 2021-10-12 10:49 | ED_ITS ---
HPI - General Adult General Chief complaint: Fever Stated complaint: Fever/rash Time Seen by Provider: 10/12/21 10:32 Source: patient and family (Spouse) Mode of arrival: ambulatory Limitations: no limitations History of Present Illness HPI narrative: 56-year-old male came in for evaluation of generalized weakness, fever, rash. Patient was on cruise trip with his last week, patient ate a beckham sandwich over there, shortly after felt abdominal pain and diarrhea, patient also had intermittent fever with rash, patient's symptoms resolved 2 days later, when patient come back home start to have intermittent fever and chills, patient overall feeling generalized weakness. Patient also admitted to sitting in the sun without good oral hydration while he was in his trip which was hot and humid. No sick contact. Complaining of mild headache, mild intermittent nonproductive cough. Also maculopapular rash on extremities that comes and goes currently in the ED there is no rash. Patient otherwise declined severe headache, no chest pain, no shortness of breath, no abdominal pain, no nausea, no vomiting, no diarrhea. No dysuria, no urinary frequency. Patient did not get medical consultation or advise before his travel, patient received 3 COVID vaccination. Related Data Home Medications Medication Instructions Recorded Confirmed aspirin 81 mg tablet,delayed 81 mg PO DAILY 06/11/20 10/01/21 release Previous Rx's Medication Instructions Recorded warfarin 5 mg tablet 5 mg PO DAILY #90 tab 11/04/20 sildenafil 50 mg tablet 50 mg PO DAILY PRN #10 tab 03/20/21 metoprolol tartrate 25 mg tablet 25 mg PO BID #180 tab 05/20/21 blood pressure monitor (Blood #1 ea 06/06/21 Pressure Kit) lisinopril 20 mg tablet 20 mg PO DAILY #90 tab 09/02/21 amoxicillin 500 mg capsule 2,000 mg PO ONCE #4 cap 09/17/21 Allergies Allergy/AdvReac Type Severity Reaction Status Date / Time No Known Allergies Allergy Verified 10/02/21 08:33 [No Known Allergies*] Review of Systems Review of Systems: All other systems are reviewed and are negative Constitutional: Reports as per HPI and Reports no additional constitutional complaints Eyes: Reports as per HPI and Reports no additional eye complaints Reports system reviewed and no additional complaints, except as documented Cardiovascular: Reports as per HPI and Reports no additional cardiovascular complaints Respiratory: Reports as per HPI and Reports no additional respiratory complaints Gastrointestinal: Reports as per HPI and Reports no additional gastrointestinal complaints Genitourinary: Reports no additional female genitourinary complaints Musculoskeletal: Reports no additional musculoskeletal complaints Skin/Breast: Reports system reviewed and no additional complaints, except as docu Psychiatric: Reports no additional psychiatric complaints Endocrine: Reports no additional endocrine complaints Hematologic/Lymphatic: Reports no additional hematologic/lymphatic complaints Allergic/Immunologic: Reports no additional allergic/immunologic complaints Reports system reviewed and no additional complaints, except as documented and Reports Abnormal speech present [facility] Past Medical History Medical History Anxiety COVID-19 Erectile dysfunction GERD (gastroesophageal reflux disease) HTN (hypertension) Impaired glucose tolerance Obesity (BMI 30-39.9) Overweight (BMI 25.0-29.9) Surgical History H/O cardiac catheterization (~2018) H/O mitral valve repair H/O mitral valve replacement with mechanical valve Hx laparoscopic cholecystectomy Hx of varicose vein ligation and stripping Family History Family History Father CVD (cardiovascular disease) Mother HTN (hypertension) CVD (cardiovascular disease) Diabetes Social History Social History Household Members: Spouse Housing: House Are you a primary post acute care nurse practitioner to a significant other at home: No Do you presently have visiting nurse or other home services: No Alcohol intake: former Patient Tobacco Use Status: Never used Tobacco e-Cigarette/Vaping Use: Never Used Second Hand Smoke Exposure: No Advance Directives: No Advance Directives Information Provided: No service: No Current occupational status: employed Current occupation: [employer] Physical Exam ED Vital Signs: Vital Signs - 24 hr 10/12/21 10:48 Temperature 99.2 F Pulse Rate 66 Respiratory Rate 19 Blood Pressure 134/74 Pulse Oximetry 97 BMI result Body Mass Index 30.2 Vital signs have been reviewed as appeared to be correct. Blood pressure no rmal. Heart rate normal. Respiration rate normal. Temperature normal. Oxygen saturation normal. Appearance: Alert. Oriented X3. No acute distress. Head: Normal external exam. Normocephalic. Atraumatic. No [place] signs noted. No raccoon eyes noted Eyes: PERRLA. EOMI. Conjunctiva and sclera normal. Eyelids normal. ENT: TM's Normal. Pharynx normal. Uvula midline. Dry mucous membranes. No trismus noted. No drooling noted. No muffled voice noted. Neck: Normal inspection. Neck supple. FROM. No adenopathy. Thyroid Normal. No meningeal signs. No neck mass noted. CVS: Normal heart rate and rhythm. Heart sound normal. No murmurs noted. Pulses normal throughout. Respiratory: No respiratory distress. Painless inspiration. Breath sounds normal. No wheezes/rales/rhonchi noted. Chest nontender. No accessory muscle usage noted or decreased air movement noted. Abdomen: Soft and nontender. Bowel sounds normal in all 4 quadrants. No distention noted. No organomegaly noted. No visible injury noted. Back: No CVA tenderness. Full range of motion noted. Skin: Skin warm and dry. Normal skin color. Normal skin turgor. No rashes/lesions/lacerations noted. Extremities: No lower extremity edema. Extremities exhibit normal range of motion. Extremities nontender. Neuro: Oriented X 3. Cranial nerve exam: II-XII are grossly intact No motor deficit. No sensory deficit. Reflexes normal. Course Course Course Narrative: Assessment and plan. 56-year-old male had a recent travel out of [facility], came back with subjective fever, generalized body ache, nonspecific rash, patient also was exposed recently to hot humid weather and bent outside in the sun for a longer time with decreased oral hydration as per patient. Patient emergency department received 2 L of IV fluid with significant improvement of patient's symptoms, patient now feels more energetic and hungry with good appetite able to tolerate p.o. intake in the ED. Patient remained afebrile with stable vital signs while in the emergency department, labs significant for leukocytosis which is likely reactionary to recent viral symptoms or dehydration. Patient was instructed to return to the ED if fever, coughing, persistent diarrhea or vomiting. Medical Decision Making Medical Records Medical records reviewed: Yes I reviewed the patient's medical records. Lab Data Lab results reviewed: Yes I reviewed the patient's lab results. Result diagrams: 10/12/21 11:08 10/12/21 11:08 Labs: Lab Results 10/12/21 10/12/21 10/12/21 Range/Units 11:08 11:08 11:08 WBC 14.5 H (4.8-10.8) X10*3/uL RBC 5.05 (4.60-5.80) X10*6/uL Hgb 13.3 L (14.0-18.0) g/dl Hct 42.3 (42.0-52.0) % MCV 83.8 (80.0-98.0) fL MCH 26.3 L (27.0-33.0) pg MCHC 31.4 (31.0-36.0) g/dl RDW 15.6 (11.0-16.0) % Plt Count 289 (160-400) X10*3/uL MPV 9.5 (9.4-12.4) fL Immature Gran % (Auto) 0.8 H (0.0-0.4) % Neut % (Auto) 76.0 H (45-73) % Lymph % (Auto) 9.7 L (20-40) % [place] % (Auto) 12.2 H (2-11) % Eos % (Auto) 0.9 (0-4) % Baso % (Auto) 0.4 (0-2) % Lymph # (Auto) 1.4 (1.2-4.9) X10*3/uL [place] # (Auto) 1.8 H (0.1-1.2) X10*3/uL Eos # (Auto) 0.1 (0.0-0.4) X10*3/uL Baso # (Auto) 0.1 (0.0-0.2) X10*3/uL Abs Immat Gran (auto) 0.12 H (0.00-0.03) X10*3/uL Absolute Neuts (auto) 11.0 H (2.0-8.3) x10*3/uL Absolute Nucleated RBC 0.000 (0.0-0.012) X10*3/uL Nucleated RBC % (auto) 0.0 (0.0-0.2) /100WBC Smear Tech's Comments VERIFIED PT (9.9-13.0) SEC INR (0.9-1.1) Sodium 139 (135-145) mmol/L Potassium 4.4 (3.3-5.1) mmol/L Chloride 106 (96-108) mmol/L Carbon Dioxide 25 (22-29) mmol/L Anion Gap 12 (12-20) BUN 15 (9-16) mg/dL Creatinine 1.08 (0.5-1.4) mg/dL Estim Creat Clear Calc 93.9 Estimated GFR > 60 Random Glucose 107 (60-115) mg/dL Calcium 8.9 (8.4-10.2) mg/dL Total Bilirubin 0.7 (0.0-1.0) mg/dL Direct Bilirubin 0.3 (0.0-0.5) mg/dL AST 30 (5-37) U/L ALT 36 (0-40) U/L Alkaline Phosphatase 101 D (39-117) U/L Troponin I High Sens 5.7 (<3.5-35.0) ng/L B-Natriuretic Peptide (<100) pg/mL Total Protein 6.7 (6.5-8.0) g/dL Albumin 3.5 (3.5-5.0) g/dL Lipase 22 (8-78) U/L Urine Color Urine Appearance Urine pH (5.0-8.0) Ur Specific [place] (1.005-1.025) Urine Protein (NEG-TRACE) MG/DL Urine Glucose (UA) (NEG) MG/DL Urine Ketones (NEG) MG/DL Urine Blood (NEG) Urine Nitrite (NEG) Ur Leukocyte Esterase (NEG) Urine RBC (0) /HPF Urine WBC (0-4) /HPF Ur Squamous Epith Cells /LPF Urine Bacteria /LPF Urine Mucus /LPF Influenza Type A (PCR) Influenza Type B (PCR) RSV RNA Qual (PCR) SARS-CoV-2 RNA (RT-PCR) 10/12/21 10/12/21 10/12/21 Range/Units 11:08 11:08 11:08 WBC (4.8-10.8) X10*3/uL RBC (4.60-5.80) X10*6/uL Hgb (14.0-18.0) g/dl Hct (42.0-52.0) % MCV (80.0-98.0) fL MCH (27.0-33.0) pg MCHC (31.0-36.0) g/dl RDW (11.0-16.0) % Plt Count (160-400) X10*3/uL MPV (9.4-12.4) fL Immature Gran % (Auto) (0.0-0.4) % Neut % (Auto) (45-73) % Lymph % (Auto) (20-40) % [place] % (Auto) (2-11) % Eos % (Auto) (0-4) % Baso % (Auto) (0-2) % Lymph # (Auto) (1.2-4.9) X10*3/uL [place] # (Auto) (0.1-1.2) X10*3/uL Eos # (Auto) (0.0-0.4) X10*3/uL Baso # (Auto) (0.0-0.2) X10*3/uL Abs Immat Gran (auto) (0.00-0.03) X10*3/uL Absolute Neuts (auto) (2.0-8.3) x10*3/uL Absolute Nucleated RBC (0.0-0.012) X10*3/uL Nucleated RBC % (auto) (0.0-0.2) /100WBC Smear Tech's Comments PT (9.9-13.0) SEC INR (0.9-1.1) Sodium (135-145) mmol/L Potassium (3.3-5.1) mmol/L Chloride (96-108) mmol/L Carbon Dioxide (22-29) mmol/L Anion Gap (12-20) BUN (9-16) mg/dL Creatinine (0.5-1.4) mg/dL Estim Creat Clear Calc Estimated GFR Random Glucose (60-115) mg/dL Calcium (8.4-10.2) mg/dL Total Bilirubin (0.0-1.0) mg/dL Direct Bilirubin (0.0-0.5) mg/dL AST (5-37) U/L ALT (0-40) U/L Alkaline Phosphatase (39-117) U/L Troponin I High Sens (<3.5-35.0) ng/L B-Natriuretic Peptide 138 H (<100) pg/mL Total Protein (6.5-8.0) g/dL Albumin (3.5-5.0) g/dL Lipase (8-78) U/L Urine Color YELLOW Urine Appearance HAZY Urine pH 6.5 (5.0-8.0) Ur Specific [place] 1.020 (1.005-1.025) Urine Protein NEG (NEG-TRACE) MG/DL Urine Glucose (UA) NEG (NEG) MG/DL Urine Ketones NEG (NEG) MG/DL Urine Blood 2+ H (NEG) Urine Nitrite NEG (NEG) Ur Leukocyte Esterase NEG (NEG) Urine RBC 1-4 (0) /HPF Urine WBC 0-2 (0-4) /HPF Ur Squamous Epith Cells 1+ /LPF Urine Bacteria NONE /LPF Urine Mucus 1+ /LPF Influenza Type A (PCR) Cancelled Influenza Type B (PCR) Cancelled RSV RNA Qual (PCR) Cancelled SARS-CoV-2 RNA (RT-PCR) Cancelled 10/12/21 Range/Units 11:18 WBC (4.8-10.8) X10*3/uL RBC (4.60-5.80) X10*6/uL Hgb (14.0-18.0) g/dl Hct (42.0-52.0) % MCV (80.0-98.0) fL MCH (27.0-33.0) pg MCHC (31.0-36.0) g/dl RDW (11.0-16.0) % Plt Count (160-400) X10*3/uL MPV (9.4-12.4) fL Immature Gran % (Auto) (0.0-0.4) % Neut % (Auto) (45-73) % Lymph % (Auto) (20-40) % [place] % (Auto) (2-11) % Eos % (Auto) (0-4) % Baso % (Auto) (0-2) % Lymph # (Auto) (1.2-4.9) X10*3/uL [place] # (Auto) (0.1-1.2) X10*3/uL Eos # (Auto) (0.0-0.4) X10*3/uL Baso # (Auto) (0.0-0.2) X10*3/uL Abs Immat Gran (auto) (0.00-0.03) X10*3/uL Absolute Neuts (auto) (2.0-8.3) x10*3/uL Absolute Nucleated RBC (0.0-0.012) X10*3/uL Nucleated RBC % (auto) (0.0-0.2) /100WBC Smear Tech's Comments PT 41.4 H (9.9-13.0) SEC INR 3.5 H (0.9-1.1) Sodium (135-145) mmol/L Potassium (3.3-5.1) mmol/L Chloride (96-108) mmol/L Carbon Dioxide (22-29) mmol/L Anion Gap (12-20) BUN (9-16) mg/dL Creatinine (0.5-1.4) mg/dL Estim Creat Clear Calc Estimated GFR Random Glucose (60-115) mg/dL Calcium (8.4-10.2) mg/dL Total Bilirubin (0.0-1.0) mg/dL Direct Bilirubin (0.0-0.5) mg/dL AST (5-37) U/L ALT (0-40) U/L Alkaline Phosphatase (39-117) U/L Troponin I High Sens (<3.5-35.0) ng/L B-Natriuretic Peptide (<100) pg/mL Total Protein (6.5-8.0) g/dL Albumin (3.5-5.0) g/dL Lipase (8-78) U/L Urine Color Urine Appearance Urine pH (5.0-8.0) Ur Specific [place] (1.005-1.025) Urine Protein (NEG-TRACE) MG/DL Urine Glucose (UA) (NEG) MG/DL Urine Ketones (NEG) MG/DL Urine Blood (NEG) Urine Nitrite (NEG) Ur Leukocyte Esterase (NEG) Urine RBC (0) /HPF Urine WBC (0-4) /HPF Ur Squamous Epith Cells /LPF Urine Bacteria /LPF Urine Mucus /LPF Influenza Type A (PCR) Influenza Type B (PCR) RSV RNA Qual (PCR) SARS-CoV-2 RNA (RT-PCR) Imaging Data Chest x-ray: Attestation: I personally reviewed and interpreted this imaging study as follows: Radiologist's impression: Unremarkable chest examination. ECG Data Attestation: I personally reviewed and interpreted this ECG as follows: Interpretation: Normal sinus rhythm at 63 beats per minute, normal intervals, no ST-T changes. Discharge Plan Discharge Clinical Impression: Dehydration, Acute viral syndrome Patient Disposition: Home, Self-Care Instructions: Viral Syndrome (ED) Prescriptions: No Action warfarin 5 mg tablet 5 mg PO DAILY Qty: 90 3RF Protocol: Dose Management Condition: Thursday (Week One) Dose/Route: 5 mg Instruction: 1 x 5 mg tablet Condition: Thursday Dose/Route: 5 mg Instruction: 1 x 5 mg tablet Condition: Thursday Dose/Route: 5 mg Instruction: 1 x 5 mg tablet Condition: Thursday Dose/Route: 7.5 mg Instruction: 1.5 x 5 mg tablets Condition: Dose/Route: 5 mg Instruction: 1 x 5 mg tablet Condition: Thursday Dose/Route: 5 mg Instruction: 1 x 5 mg tablet Condition: Thursday Dose/Route: 5 mg Instruction: 1 x 5 mg tablet Condition: Thursday (Week Two) Dose/Route: 5 mg Instruction: 1 x 5 mg tablet Condition: Thursday Dose/Route: 5 mg Instruction: 1 x 5 mg tablet Condition: Thursday Dose/Route: 5 mg Instruction: 1 x 5 mg tablet Condition: Thursday Dose/Route: 7.5 mg Instruction: 1.5 x 5 mg tablets Condition: Dose/Route: 5 mg Instruction: 1 x 5 mg tablet Condition: Thursday Dose/Route: 5 mg Instruction: 1 x 5 mg tablet Condition: Thursday Dose/Route: 5 mg Instruction: 1 x 5 mg tablet Protocol Text: Adjustment Start Date: Thursday10/02/21 INR Value: 3.2 INR Date: 10/02/21 Recheck Date: 10/16/21 Additional Instructions: CONT REG DOSING CALL WITH ANY MEDICATION CHANGES sildenafil 50 mg tablet 50 mg PO DAILY PRN (Reason: sexual activity) Qty: 10 4RF metoprolol tartrate 25 mg tablet 25 mg PO BID Qty: 180 3RF lisinopril 20 mg tablet 20 mg PO DAILY Qty: 90 2RF amoxicillin 500 mg capsule 2,000 mg PO ONCE Qty: 4 3RF Rx Instructions: Take 4 capsule 30 min to 1 hr prior to dental work (DME) blood pressure monitor [Blood Pressure Kit] Kit See Rx Instructions .ROUTE .MEDSUPPLY Qty: 1 0RF Rx Instructions: As directed aspirin 81 mg tablet,delayed release (DR/EC) 81 mg PO DAILY 0RF Referrals: Po,Kuldip Hung MD [Primary Care Provider] - 2 days
[2021-10-12] MEDS: 0.9 % Sodium Chloride 1,000 ML 999 ML IV ×2 (11:16→12:46)
[2021-10-12 11:21] LABS: Basophils Absolute Auto 0.1 X10*3/uL (0.0-0.2); Basophils Percent Auto 0.4 % (0-2); Eosinophils Absolute Auto 0.1 X10*3/uL (0.0-0.4); Eosinophils Percent Auto 0.9 % (0-4); Hematocrit 42.3 % (42.0-52.0); Hemoglobin 13.3 g/dl (14.0-18.0); Imm Gran Abs Auto 0.12 X10*3/uL (0.00-0.03); Imm Gran Pct Auto 0.8 % (0.0-0.4); Lymphocytes Absolute Auto 1.4 X10*3/uL (1.2-4.9); Lymphocytes Percent Auto 9.7 % (20-40); MANUAL DIFF FLAG SCAN; Mean Corpuscular HGB Conc 31.4 g/dl (31.0-36.0); Mean Corpuscular Hemoglobin 26.3 pg (27.0-33.0); Mean Corpuscular Volume 83.8 fL (80.0-98.0); Mean Platelet Volume 9.5 fL (9.4-12.4); Monocytes Absolute Auto 1.8 X10*3/uL (0.1-1.2); Monocytes Percent Auto 12.2 % (2-11); Platelet Count 289 X10*3/uL (160-400); Red Blood Count 5.05 X10*6/uL (4.60-5.80); Red Cell Distribution Width 15.6 % (11.0-16.0); SCAN SMEAR FLAG 1; White Blood Count 14.5 X10*3/uL (4.8-10.8)
[2021-10-12 11:24] LABS: Appearance Urine HAZY; Color Urine YELLOW; Glucose Urine UA NEG (NEG); Leukocyte Esterase Urine NEG (NEG); Nitrite Urine NEG (NEG); PH 6.5 (5.0-8.0); UACC Culture Trigger NO; Urine Blood 2+ (NEG); Urine Ketones NEG (NEG); Urine Protein NEG (NEG-TRACE)
[2021-10-12 11:32] LABS: INTERNATIONAL NORM RATIO 3.5 (0.9-1.1); Prothrombin Time 41.4 SEC (9.9-13.0)
[2021-10-12 11:37] LABS: Alanine Aminotransferase 36 U/L (0-40); Albumin Level 3.5 g/dL (3.5-5.0); Alkaline Phosphatase 101 U/L (39-117); Anion Gap 12 (12-20); Aspartate Amino Transferase 30 U/L (5-37); Bilirubin Direct 0.3 mg/dL (0.0-0.5); Bilirubin Total 0.7 mg/dL (0.0-1.0); Blood Urea Nitrogen 15 mg/dL (9-16); Calcium 8.9 mg/dL (8.4-10.2); Carbon Dioxide 25 mmol/L (22-29); Chloride 106 mmol/L (96-108); Creatinine Clr Calc Pharmacy 93.9; Estimated Glomerular Filt Rate > 60; Glucose Random 107 mg/dL (60-115); Lipase 22 U/L (8-78); Potassium 4.4 mmol/L (3.3-5.1); Sodium 139 mmol/L (135-145); Total Protein 6.7 g/dL (6.5-8.0)
[2021-10-12 11:41] LABS: SLIDE REVIEW VERIFIED
[2021-10-12 11:43] LABS: B Type Natriuretic Peptide 138 pg/mL (<100); Mucus Urine 1+ /LPF; Squamous Epithelial Cell Urine 1+ /LPF; Troponin-I High Sensitivity 5.7 ng/L (<3.5-35.0); WBC Urine 0-2 /HPF (0-4)
[2021-10-12 14:35] VITALS: BP 154/87; PULSE 79; RESP 18; TEMP 36.9; O2SAT 98
== END 2021-10-12 14:37 | disposition home or self-care (01) ==
PROVIDERS: Emergency Provider Emergency Medicine; PCP Internal Medicine
DX: R78.81 Bacteremia (principal); B34.9 Viral infection, unspecified; E86.0 Dehydration; R50.9 Fever, unspecified; R53.1 Weakness; I10 Essential (primary) hypertension; Z95.2 Presence of prosthetic heart valve; Z79.01 Long term (current) use of anticoagulants; Z79.82 Long term (current) use of aspirin
CPT/HCPCS: 36415; 71045; 80048; 80076; 81001; 83690; 83880; 84484; 85025; 85610; 87040; 87077; 87186; 87205; 93005; 96360; 96361; 99283; 99284

== ENCOUNTER 2021-10-13 10:51 | Inpatient (IN) | payer OTHER, SELFPAY ==
--- NOTE | ~2021-10-13 | CT_ITS ---
EXAMINATION: CT LUMBAR SPINE CLINICAL INFORMATION: Pain, bacteremia, question abscess COMPARISON: None TECHNIQUE: 85 mL Omnipaque 350 intravenous contrast was utilized. Multidetector helical imaging was performed through the lumbar spine. Coronal and sagittal reformatted images were created. This CT examination was performed using dose optimization techniques as appropriate, variously including the following: *Automated exposure control *Adjustment of mA and/or kV according to patient size (this includes techniques or standardized protocols for targeted exams where dose is matched to indication/reason for exam; i.e. extremities or head) *Use of iterative reconstruction technique DLP: 558 mGy-cm FINDINGS: There is grade 2 anterolisthesis of L5 on S1 with bilateral L5 pars defects. There is associated disc space narrowing and surrounding degenerative endplate change. Bilateral neural foraminal narrowing suspected at L5-S1. Remainder of the lumbar vertebral bodies demonstrate anatomic alignment. Vertebral body heights are maintained. No acute fracture is seen. Remaining intervertebral disc spaces are maintained. No abscess identified. Intramuscular lipoma noted in the right paraspinal musculature. Right renal calculi are present without hydronephrosis; these are difficult to measure due to motion artifact. Patient appears to be status post cholecystectomy. Trace atherosclerotic calcification noted. CT/CT lumbar spine w con IMPRESSION: 1. No abscess identified. If clinically warranted, MRI would provide better evaluation for possible abscess as well as for any changes of discitis/osteomyelitis. 2. Bilateral L5 pars defects with anterolisthesis of L5 on S1. Bilateral neural foraminal narrowing suspected.
--- NOTE | ~2021-10-13 | XR_ITS ---
EXAMINATION: XR CHEST CLINICAL INFORMATION: Bacteremia COMPARISON: Chest 10/12/2021 TECHNIQUE: Frontal view of the chest was obtained. FINDINGS: The lungs are well-expanded with slightly patchy density in the right middle lobe likely more obvious than previous exam suspicious for developing infiltrate. Rest of lungs are clear. The heart size and pulmonary vascularity is normal. There are median sternotomy sutures from previous intervention. No gross bony abnormality. XR/XR chest 1V IMPRESSION: Subtle small ill-defined opacity right middle lobe suspicious for developing infiltrate.
[2021-10-13 11:10] VITALS: BP 156/93; PULSE 70; RESP 20; TEMP 36.7; O2SAT 98; BMI 30.6
[2021-10-13 11:29] VITALS: BP 159/84; PULSE 67; RESP 19; TEMP 36.7; O2SAT 95
--- NOTE | 2021-10-13 11:31 | ED.RECABL ---
HPI - Recheck/Abnormal Lab/Rx General Chief Complaint: Recheck/Abnormal Lab/Rx Stated Complaint: blood work Time Seen by Provider: 10/13/21 11:15 Source: patient and family (Spouse) Mode of arrival: ambulatory Limitations: no limitations History of Present Illness HPI narrative: 56-year-old male return to the emergency department for further evaluation after had positive blood culture. Patient was in the emergency department yesterday for evaluation of generalized weakness and fever with unclear source, patient had a recent cruise trip that he start to develop fever and generalized weakness and overall not feeling well, no source of infection was found yesterday and patient felt better after 2 L of IV hydration, 2 bottles of blood culture tested positive for g positive cocci, patient last night still have low-grade fever and feeling generalized weakness with intermittent chills. Otherwise no other new symptoms. Patient is on Coumadin for metallic mitral valve. Related Data Home Medications Medication Instructions Recorded Confirmed aspirin 81 mg tablet,delayed 81 mg PO DAILY 06/11/20 10/13/21 release Previous Rx's Medication Instructions Recorded warfarin 5 mg tablet 5 mg PO DAILY #90 tab 11/04/20 sildenafil 50 mg tablet 50 mg PO DAILY PRN #10 tab 03/20/21 metoprolol tartrate 25 mg tablet 25 mg PO BID #180 tab 05/20/21 blood pressure monitor (Blood #1 ea 06/06/21 Pressure Kit) lisinopril 20 mg tablet 20 mg PO DAILY #90 tab 09/02/21 amoxicillin 500 mg capsule 2,000 mg PO ONCE #4 cap 09/17/21 Allergies Allergy/AdvReac Type Severity Reaction Status Date / Time No Known Allergies Allergy Verified 10/02/21 08:33 [No Known Allergies*] Review of Systems Review of Systems: All other systems are reviewed and are negative Constitutional: Reports as per HPI and Reports no additional constitutional complaints Eyes: Reports as per HPI and Reports no additional eye complaints Reports system reviewed and no additional complaints, except as documented Cardiovascular: Reports as per HPI and Reports no additional cardiovascular complaints Respiratory: Reports as per HPI and Reports no additional respiratory complaints Gastrointestinal: Reports as per HPI and Reports no additional gastrointestinal complaints Genitourinary: Reports no additional female genitourinary complaints Musculoskeletal: Reports no additional musculoskeletal complaints Skin/Breast: Reports system reviewed and no additional complaints, except as docu Psychiatric: Reports no additional psychiatric complaints Endocrine: Reports no additional endocrine complaints Hematologic/Lymphatic: Reports no additional hematologic/lymphatic complaints Allergic/Immunologic: Reports no additional allergic/immunologic complaints Reports system reviewed and no additional complaints, except as documented and Reports Abnormal speech present [facility] Past Medical History Medical History Anxiety COVID-19 Erectile dysfunction GERD (gastroesophageal reflux disease) HTN (hypertension) Impaired glucose tolerance Obesity (BMI 30-39.9) Overweight (BMI 25.0-29.9) Surgical History H/O cardiac catheterization (~2018) H/O mitral valve repair H/O mitral valve replacement with mechanical valve Hx laparoscopic cholecystectomy Hx of varicose vein ligation and stripping Family History Family History Father CVD (cardiovascular disease) Mother HTN (hypertension) CVD (cardiovascular disease) Diabetes Social History Social History Household Members: Spouse Housing: House Are you a primary coronary care unit nurse to a significant other at home: No Do you presently have visiting nurse or other home services: No Alcohol intake: never Patient Tobacco Use Status: Never used Tobacco e-Cigarette/Vaping Use: Never Used Second Hand Smoke Exposure: No Use of substances other than those prescribed or required for medical reasons: No Advance Directives: No Advance Directives Information Provided: No service: No Current occupational status: employed Current occupation: [employer] Physical Exam Vital Signs: Vital Signs: Last Vital Signs Temp 98.1 F 10/13/21 11:29 Pulse 67 10/13/21 11:29 Resp 19 10/13/21 11:29 BP 159/84 H 10/13/21 11:29 Pulse Ox 95 10/13/21 11:29 BMI result Body Mass Index 30.6 Vital signs have been reviewed as appeared to be correct. Blood pressure normal. Heart rate normal. Respiration rate normal. Temperature normal. Oxygen saturation normal. Appearance: Alert. Oriented X3. No acute distress. Head: Normal external exam. Normocephalic. Atraumatic. No [place] signs noted. No raccoon eyes noted Eyes: PERRLA. EOMI. Conjunctiva and sclera normal. Eyelids normal. ENT: TM's Normal. Pharynx normal. Uvula midline. Moist mucous membranes. No trismus noted. No drooling noted. No muffled voice noted. Neck: Normal inspection. Neck supple. FROM. No adenopathy. Thyroid Normal. No meningeal signs. No neck mass noted. CVS: Normal heart rate and rhythm. Heart sound normal. No murmurs noted. Pulses normal throughout. Respiratory: No respiratory distress. Painless inspiration. Breath sounds normal. No wheezes/rales/rhonchi noted. Chest nontender. No accessory muscle usage noted or decreased air movement noted. Abdomen: Soft and nontender. Bowel sounds normal in all 4 quadrants. No distention noted. No organomegaly noted. No visible injury noted. Back: No CVA tenderness. Full range of motion noted. Skin: Skin warm and dry. Normal skin color. Normal skin turgor. No rashes/lesions/lacerations noted. Extremities: No lower extremity edema. Extremities exhibit normal range of motion. Extremities nontender. Neuro: Oriented X 3. Cranial nerve exam: II-XII are grossly intact No motor deficit. No sensory deficit. Reflexes normal. Course Course Course Narrative: Assessment and plan. 56-year-old male recent cruise trip came in for fever, chills, rash, had leukocytosis, no source of infection, 2 bottles of his blood culture were positive patient was called to come back. Today's chest x-ray is showing had developing pneumonia is covered with Zosyn/vancomycin/zithromax, since patient has metallic mitral valve replaced. Admit the patient until negative cultures. MDM - Recheck/Abnormal Lab/Rx Lab Data Attestation: I reviewed the patient's lab results. Result diagrams: 10/13/21 11:50 10/13/21 11:50 Labs: Lab Results 10/13/21 10/13/21 10/13/21 Range/Units 11:50 11:50 11:50 WBC 11.8 H (4.8-10.8) X10*3/uL RBC 4.98 (4.60-5.80) X10*6/uL Hgb 13.0 L (14.0-18.0) g/dl Hct 42.2 (42.0-52.0) % MCV 84.7 (80.0-98.0) fL MCH 26.1 L (27.0-33.0) pg MCHC 30.8 L (31.0-36.0) g/dl RDW 15.6 (11.0-16.0) % Plt Count 337 (160-400) X10*3/uL MPV 9.3 L (9.4-12.4) fL Immature Gran % (Auto) 2.4 H (0.0-0.4) % Neut % (Auto) 65.3 (45-73) % Lymph % (Auto) 16.2 L (20-40) % [place] % (Auto) 13.4 H (2-11) % Eos % (Auto) 2.2 (0-4) % Baso % (Auto) 0.5 (0-2) % Lymph # (Auto) 1.9 (1.2-4.9) X10*3/uL [place] # (Auto) 1.6 H (0.1-1.2) X10*3/uL Eos # (Auto) 0.3 (0.0-0.4) X10*3/uL Baso # (Auto) 0.1 (0.0-0.2) X10*3/uL Abs Immat Gran (auto) 0.28 H (0.00-0.03) X10*3/uL Absolute Neuts (auto) 7.7 (2.0-8.3) x10*3/uL Absolute Nucleated RBC 0.000 (0.0-0.012) X10*3/uL Nucleated RBC % (auto) 0.0 (0.0-0.2) /100WBC Smear Tech's Comments VERIFIED PT (9.9-13.0) SEC INR (0.9-1.1) APTT (24.1-38.0) SEC Sodium 139 (135-145) mmol/L Potassium 4.1 (3.3-5.1) mmol/L Chloride 107 (96-108) mmol/L Carbon Dioxide 24 (22-29) mmol/L Anion Gap 12 (12-20) BUN 12 (9-16) mg/dL Creatinine 0.98 (0.5-1.4) mg/dL Estim Creat Clear Calc 104.2 Estimated GFR > 60 Random Glucose 122 H (60-115) mg/dL Calcium 8.9 (8.4-10.2) mg/dL Total Bilirubin 0.7 (0.0-1.0) mg/dL Direct Bilirubin 0.3 (0.0-0.5) mg/dL AST 30 (5-37) U/L ALT 44 H (0-40) U/L Alkaline Phosphatase 104 (39-117) U/L Troponin I High Sens 3.7 (<3.5-35.0) ng/L Total Protein 6.7 (6.5-8.0) g/dL Albumin 3.5 (3.5-5.0) g/dL COVID-19 (JEANNE) (Negative) COVID-19 Clin Com 10/13/21 10/13/21 Range/Units 11:50 11:50 WBC (4.8-10.8) X10*3/uL RBC (4.60-5.80) X10*6/uL Hgb (14.0-18.0) g/dl Hct (42.0-52.0) % MCV (80.0-98.0) fL MCH (27.0-33.0) pg MCHC (31.0-36.0) g/dl RDW (11.0-16.0) % Plt Count (160-400) X10*3/uL MPV (9.4-12.4) fL Immature Gran % (Auto) (0.0-0.4) % Neut % (Auto) (45-73) % Lymph % (Auto) (20-40) % [place] % (Auto) (2-11) % Eos % (Auto) (0-4) % Baso % (Auto) (0-2) % Lymph # (Auto) (1.2-4.9) X10*3/uL [place] # (Auto) (0.1-1.2) X10*3/uL Eos # (Auto) (0.0-0.4) X10*3/uL Baso # (Auto) (0.0-0.2) X10*3/uL Abs Immat Gran (auto) (0.00-0.03) X10*3/uL Absolute Neuts (auto) (2.0-8.3) x10*3/uL Absolute Nucleated RBC (0.0-0.012) X10*3/uL Nucleated RBC % (auto) (0.0-0.2) /100WBC Smear Tech's Comments PT 41.6 H (9.9-13.0) SEC INR 3.6 H (0.9-1.1) APTT 47.9 H (24.1-38.0) SEC Sodium (135-145) mmol/L Potassium (3.3-5.1) mmol/L Chloride (96-108) mmol/L Carbon Dioxide (22-29) mmol/L Anion Gap (12-20) BUN (9-16) mg/dL Creatinine (0.5-1.4) mg/dL Estim Creat Clear Calc Estimated GFR Random Glucose (60-115) mg/dL Calcium (8.4-10.2) mg/dL Total Bilirubin (0.0-1.0) mg/dL Direct Bilirubin (0.0-0.5) mg/dL AST (5-37) U/L ALT (0-40) U/L Alkaline Phosphatase (39-117) U/L Troponin I High Sens (<3.5-35.0) ng/L Total Protein (6.5-8.0) g/dL Albumin (3.5-5.0) g/dL COVID-19 (JEANNE) Negative (Negative) COVID-19 Clin Com See Note Imaging Data Chest x-ray: Attestation: I personally reviewed and interpreted this imaging study as follows: Radiologist's impression: Subtle small ill-defined opacity right middle lobe suspicious for developing infiltrate. ? Discharge Plan Discharge Clinical Impression: Bacteremia, Pneumonia Patient Disposition: Admitted As Inpatient Prescriptions: No Action warfarin 5 mg tablet 5 mg PO DAILY Qty: 90 3RF Protocol: Dose Management Condition: Thursday (Week One) Dose/Route: 5 mg Instruction: 1 x 5 mg tablet Condition: Thursday Dose/Route: 5 mg Instruction: 1 x 5 mg tablet Condition: Thursday Dose/Route: 5 mg Instruction: 1 x 5 mg tablet Condition: Thursday Dose/Route: 7.5 mg Instruction: 1.5 x 5 mg tablets Condition: Dose/Route: 5 mg Instruction: 1 x 5 mg tablet Condition: Thursday Dose/Route: 5 mg Instruction: 1 x 5 mg tablet Condition: Thursday Dose/Route: 5 mg Instruction: 1 x 5 mg tablet Condition: Thursday (Week Two) Dose/Route: 5 mg Instruction: 1 x 5 mg tablet Condition: Thursday Dose/Route: 5 mg Instruction: 1 x 5 mg tablet Condition: Thursday Dose/Route: 5 mg Instruction: 1 x 5 mg tablet Condition: Thursday Dose/Route: 7.5 mg Instruction: 1.5 x 5 mg tablets Condition: Dose/Route: 5 mg Instruction: 1 x 5 mg tablet Condition: Thursday Dose/Route: 5 mg Instruction: 1 x 5 mg tablet Condition: Thursday Dose/Route: 5 mg Instruction: 1 x 5 mg tablet Protocol Text: Adjustment Start Date: Thursday10/02/21 INR Value: 3.2 INR Date: 10/02/21 Recheck Date: 10/16/21 Additional Instructions: CONT REG DOSING CALL WITH ANY MEDICATION CHANGES sildenafil 50 mg tablet 50 mg PO DAILY PRN (Reason: sexual activity) Qty: 10 4RF metoprolol tartrate 25 mg tablet 25 mg PO BID Qty: 180 3RF lisinopril 20 mg tablet 20 mg PO DAILY Qty: 90 2RF amoxicillin 500 mg capsule 2,000 mg PO ONCE Qty: 4 3RF Rx Instructions: Take 4 capsule 30 min to 1 hr prior to dental work (DME) blood pressure monitor [Blood Pressure Kit] Kit See Rx Instructions .ROUTE .MEDSUPPLY Qty: 1 0RF Rx Instructions: As directed aspirin 81 mg tablet,delayed release (DR/EC) 81 mg PO DAILY 0RF
--- NOTE | 2021-10-13 11:33 | PHA.MEDREC ---
Pharmacy Consult ? Medication Reconciliation Pharmacy has completed the medication reconciliation.
[2021-10-13 12:01] LABS: Basophils Absolute Auto 0.1 X10*3/uL (0.0-0.2); Basophils Percent Auto 0.5 % (0-2); Eosinophils Absolute Auto 0.3 X10*3/uL (0.0-0.4); Eosinophils Percent Auto 2.2 % (0-4); Hematocrit 42.2 % (42.0-52.0); Imm Gran Abs Auto 0.28 X10*3/uL (0.00-0.03); Imm Gran Pct Auto 2.4 % (0.0-0.4); Lymphocytes Absolute Auto 1.9 X10*3/uL (1.2-4.9); Lymphocytes Percent Auto 16.2 % (20-40); MANUAL DIFF FLAG SCAN; Mean Corpuscular HGB Conc 30.8 g/dl (31.0-36.0); Mean Corpuscular Hemoglobin 26.1 pg (27.0-33.0); Mean Corpuscular Volume 84.7 fL (80.0-98.0); Mean Platelet Volume 9.3 fL (9.4-12.4); Monocytes Absolute Auto 1.6 X10*3/uL (0.1-1.2); Monocytes Percent Auto 13.4 % (2-11); Neutrophils Absolute Auto 7.7 x10*3/uL (2.0-8.3); Neutrophils Percent Auto 65.3 % (45-73); Platelet Count 337 X10*3/uL (160-400); Red Blood Count 4.98 X10*6/uL (4.60-5.80); Red Cell Distribution Width 15.6 % (11.0-16.0); SCAN SMEAR FLAG 1; White Blood Count 11.8 X10*3/uL (4.8-10.8)
[2021-10-13] MEDS: 0.9 % Sodium Chloride 1,000 ML 999 ML IV (12:02)
[2021-10-13] MEDS: Piperacillin Sodium/Tazobactam 4.5 GM in 0.9 % Sodium Chloride 100 ML IV ×2 (12:04→18:37)
[2021-10-13 12:08] LABS: INTERNATIONAL NORM RATIO 3.6 (0.9-1.1); Prothrombin Time 41.6 SEC (9.9-13.0)
[2021-10-13 12:11] LABS: Partial Thromboplastin Time 47.9 SEC (24.1-38.0)
[2021-10-13 12:15] LABS: COVID-19 Test Negative (Negative); IDNOW Serial# 16C4AD1C
[2021-10-13 12:21] LABS: Alanine Aminotransferase 44 U/L (0-40); Albumin Level 3.5 g/dL (3.5-5.0); Alkaline Phosphatase 104 U/L (39-117); Anion Gap 12 (12-20); Aspartate Amino Transferase 30 U/L (5-37); Bilirubin Direct 0.3 mg/dL (0.0-0.5); Bilirubin Total 0.7 mg/dL (0.0-1.0); Blood Urea Nitrogen 12 mg/dL (9-16); Calcium 8.9 mg/dL (8.4-10.2); Carbon Dioxide 24 mmol/L (22-29); Chloride 107 mmol/L (96-108); Creatinine Clr Calc Pharmacy 104.2; Estimated Glomerular Filt Rate > 60; Glucose Random 122 mg/dL (60-115); Potassium 4.1 mmol/L (3.3-5.1); Sodium 139 mmol/L (135-145); Total Protein 6.7 g/dL (6.5-8.0); Troponin-I High Sensitivity 3.7 ng/L (<3.5-35.0)
[2021-10-13 12:32] LABS: SLIDE REVIEW VERIFIED
[2021-10-13 13:14] VITALS: BP 167/97; PULSE 59; RESP 18; TEMP 36.8; O2SAT 97
--- NOTE | 2021-10-13 13:31 | PM.IMHP ---
History of Present Illness Date of Service: 10/13/21 Chief Complaint: Gram positive bacteremia 56-year-old male return to the emergency department for further evaluation after had positive blood culture.? Patient was in the emergency department yesterday for evaluation of generalized weakness and fever with unclear source, patient had a recent cruise trip that he start to develop fever and generalized weakness and overall not feeling well, no source of infection was found yesterday and patient felt better after 2 L of IV hydration, 2 bottles of blood culture tested positive for g positive cocci, patient last night still have low-grade fever and feeling generalized weakness with intermittent chills.? Otherwise no other new symptoms. Patient is on Coumadin for metallic mitral valve. In ER, CXR consistant with RML infilterate. Review of Systems Review of Systems: Denies chest pain Denies shortness of breath Denies nausea vomiting diarrhea Admits to fever chills and overall fatigue PMFSH Medical History Anxiety COVID-19 Erectile dysfunction GERD (gastroesophageal reflux disease) HTN (hypertension) Impaired glucose tolerance Obesity (BMI 30-39.9) Overweight (BMI 25.0-29.9) Family History Father CVD (cardiovascular disease) Mother HTN (hypertension) CVD (cardiovascular disease) Diabetes Surgical History H/O cardiac catheterization (~2019) H/O mitral valve repair H/O mitral valve replacement with mechanical valve Hx laparoscopic cholecystectomy Hx of varicose vein ligation and stripping Social History Household Members: Spouse Housing: House Are you a primary critical care nurse specialist to a significant other at home: No Do you presently have visiting nurse or other home services: No Alcohol intake: never Patient Tobacco Use Status: Never used Tobacco e-Cigarette/Vaping Use: Never Used Second Hand Smoke Exposure: No Use of substances other than those prescribed or required for medical reasons: No Advance Directives: No Advance Directives Information Provided: No service: No Current occupational status: employed Current occupation: [employer] Allergies Allergy/AdvReac Type Severity Reaction Status Date / Time No Known Allergies Allergy Verified 10/02/21 08:33 [No Known Allergies*] Active Medications: Current Medications Acetaminophen (Acetaminophen 325 Mg Tablet) 650 mg PO Q6H PRN PRN Reason: Pain, Mild (Pain Scale 1-3) Aspirin (Aspirin Enteric Coated 81 Mg Tablet.Dr) 81 mg PO DAILY [facility] Azithromycin 500 mg/ Sodium (Chloride) 250 mls @ 125 mls/hr IV ONCE ONE Stop: 10/13/21 15:09 Vancomycin HCl 1,000 mg/ (Sodium Chloride) 270 mls @ 270 mls/hr IV ONCE ONE Stop: 10/13/21 14:13 Piperacillin Sod/Tazobactam (Sod 4.5 gm/ Sodium Chloride) 100 mls @ 200 mls/hr IV RQ6H ONE Stop: 10/13/21 13:58 Lisinopril (Lisinopril 20 Mg Tablet) 20 mg PO DAILY [facility]; Protocol Melatonin (Melatonin 3 Mg Tablet) 6 mg PO BEDTIME PRN PRN Reason: Insomnia Metoprolol Tartrate (Metoprolol Tartrate 25 Mg Tablet) 25 mg PO BID [facility]; Protocol Ondansetron HCl (Ondansetron Hcl 4 Mg/2 Ml Vial) 4 mg IVPUSH Q8H PRN PRN Reason: Nausea and Vomiting Pharmacy Consult (Consult Rx Perform Med Rec) 1 each MISCELLANE ONCE PRN PRN Reason: Consult order Pharmacy Consult (Consult Rx Vancomycin Dosing) 1 each MISCELLANE DAILY PRN PRN Reason: Consult order Pharmacy Consult (Consult Rx Vancomycin Dosing) 1 each MISCELLANE DAILY PRN PRN Reason: Consult order Sodium Chloride (0.9 % Sodium Chloride Flush 3 Ml Syringe) 3 ml IVFLUSH QSHIFT [facility] Warfarin Sodium (Warfarin Sodium 5 Mg Tablet) 5 mg PO DAILY [facility] Home Medications Medication Instructions Recorded Confirmed Last Taken Type aspirin 81 mg tablet,delayed 81 mg PO DAILY 06/11/20 10/13/21 Unknown History release Physical Exam Vital Signs and Narrative: Vital Signs: Last Vital Signs Temp 98.3 F 10/13/21 13:14 Pulse 59 10/13/21 13:14 Resp 18 10/13/21 13:14 BP 167/97 H 10/13/21 13:14 Pulse Ox 97 10/13/21 13:14 BMI result Body Mass Index 30.6 Const: Other: Awake alert oriented x3 no acute distress Neck: Other: No JVD Resp: Other: Clear to auscultation bilaterally. No rales rhonchi or wheezes Cardio: Other: Mechanical heart sounds; no S4; positive S1-S2; no S3 murmurs rubs or gallops GI: Other: Soft nontender nondistended with normoactive bowel sounds x4 quadrants Neuro: Other: Cranial nerves 2-12 grossly intact as tested. Motor is 5/5 all extremities. Sensation intact. Cognition appropriate Extrem: Other: No edema bilaterally Results Labs CBC and Chem 7: 10/13/21 11:50 10/13/21 11:50 Labs: Laboratory Results - last 24 hr 10/13/21 10/13/21 10/13/21 11:50 11:50 11:50 MCV 84.7 MCH 26.1 L MCHC 30.8 L RDW 15.6 Plt Count 337 MPV 9.3 L Immature Gran % (Auto) 2.4 H Neut % (Auto) 65.3 Lymph % (Auto) 16.2 L [place] % (Auto) 13.4 H Eos % (Auto) 2.2 Baso % (Auto) 0.5 Lymph # (Auto) 1.9 [place] # (Auto) 1.6 H Eos # (Auto) 0.3 Baso # (Auto) 0.1 Abs Immat Gran (auto) 0.28 H Absolute Neuts (auto) 7.7 Absolute Nucleated RBC 0.000 Nucleated RBC % (auto) 0.0 Smear Tech's Comments VERIFIED PT INR APTT Anion Gap 12 Estim Creat Clear Calc 104.2 Estimated GFR > 60 Random Glucose 122 H Calcium 8.9 Total Bilirubin 0.7 Direct Bilirubin 0.3 AST 30 ALT 44 H Alkaline Phosphatase 104 Total Protein 6.7 Albumin 3.5 COVID-19 (JEANNE) Negative COVID-19 Clin Com See Note 10/13/21 11:50 MCV MCH MCHC RDW Plt Count MPV Immature Gran % (Auto) Neut % (Auto) Lymph % (Auto) [place] % (Auto) Eos % (Auto) Baso % (Auto) Lymph # (Auto) [place] # (Auto) Eos # (Auto) Baso # (Auto) Abs Immat Gran (auto) Absolute Neuts (auto) Absolute Nucleated RBC Nucleated RBC % (auto) Smear Tech's Comments PT 41.6 H INR 3.6 H APTT 47.9 H Anion Gap Estim Creat Clear Calc Estimated GFR Random Glucose Calcium Total Bilirubin Direct Bilirubin AST ALT Alkaline Phosphatase Total Protein Albumin COVID-19 (JEANNE) COVID-19 Clin Com Imaging Radiologist's Impressions: Impressions Chest X-Ray 10/13/21 12:18 IMPRESSION: Subtle small ill-defined opacity right middle lobe suspicious for developing infiltrate. Assessment and Plan (1) Bacteremia: Status: Acute (2) Pneumonia: Status: Acute (3) H/O mitral valve replacement with mechanical valve: Status: Acute (4) HTN (hypertension): Qualifiers: Hypertension type: essential hypertension Qualified Code(s): I10 - Essential (primary) hypertension Status: Acute Plan 56-year-old male with history of mitral valve replacement with mechanical valve approximately 2 years remote presents the emergency department secondary to call back for positive blood cultures. Patient was seen 312 for complaints of fever chills and overall unwellness. At that time workup was negative. This a.m. 2/2 bottles positive for Gram-positive cocci along with likely right middle lobe infiltrate. He will be admitted for treatment of same 1. Gram positive bacteremia -will cover with Vanco/Zosyn pending cultures -check 2d echo in am -conitinue coumadin with goal INR 2.5-3.5 -daily INRs 2. RML infiltrate -likely sourse of bacteremia -cover with Vanco/Zosyn pending ID/Sens -ID consult 3.HTN -acceptable control on current therapies -continue outpt regimen -adjust as indicated -follow renals/divalents Full code Coumadin Requires inpatient hospitalization secondary to Gram-positive bacteremia in the backdrop of mechanical valve. Will be admitted for IV antibiotics and ID consult Quality Stroke Does the patient have a stroke diagnosis?: No VTE Prior VTE?: No VTE Risk Level:: Medical - moderate - high VTE Device Contraindication: Treatment Not Indicated VTE Drug Contraindication: N/A - Med Ordered
[2021-10-13 13:52] VITALS: BP 167/73; PULSE 61; RESP 21; TEMP 36.6; O2SAT 97
[2021-10-13] MEDS: Azithromycin 500 MG in 0.9 % Sodium Chloride 250 ML 125 MG IV (14:12)
[2021-10-13] MEDS: Acetaminophen 325 MG TABLET 650 MG PO ×2 (15:52→21:06)
[2021-10-13] MEDS: 0.9 % Sodium Chloride Flush 3 ML SYRINGE IVFLUSH (16:27)
[2021-10-13] MEDS: vancomycin HCL 1,000 MG, vancomycin HCL 750 MG in 0.9 % Sodium Chloride 500 ML 267.5 MG IV (16:27)
[2021-10-13 19:46] VITALS: BP 138/84; PULSE 63; RESP 18; TEMP 37; O2SAT 97
[2021-10-13] MEDS: Metoprolol Tartrate 25 MG TABLET PO (20:58)
[2021-10-13] MEDS: hydrOXYzine HCL 25 MG TABLET PO (23:59)
[2021-10-13] MEDS: diphenhydrAMINE HCL 25 MG TABLET PO (23:59)
[2021-10-14] MEDS: Piperacillin Sodium/Tazobactam 4.5 GM in 0.9 % Sodium Chloride 100 ML IV ×5 (00:04→23:29)
[2021-10-14] MEDS: iohexoL 350 MG/ML 100 ML INFUS..BTL 85 ML IV (01:22)
[2021-10-14] MEDS: vancomycin HCL 1,000 MG in 0.9 % Sodium Chloride 250 ML 270 MG IV (03:07)
--- NOTE | 2021-10-14 03:11 | PC.NURSE ---
Patient's urinal emptied and antibiotic running.
[2021-10-14 04:00] VITALS: BP 140/92; PULSE 63; RESP 19; O2SAT 97
[2021-10-14] MEDS: Acetaminophen 325 MG TABLET 650 MG PO (05:41)
--- NOTE | 2021-10-14 05:43 | PC.NURSE ---
Patient complaining of back pain and asked for tylenol. Tylenol given for patient's back pain
[2021-10-14 07:13] LABS: Basophils Absolute Auto 0.1 X10*3/uL (0.0-0.2); Basophils Percent Auto 0.6 % (0-2); Eosinophils Absolute Auto 0.2 X10*3/uL (0.0-0.4); Eosinophils Percent Auto 2.2 % (0-4); Hematocrit 40.2 % (42.0-52.0); Hemoglobin 12.6 g/dl (14.0-18.0); Lymphocytes Percent Auto 19.7 % (20-40); MANUAL DIFF FLAG SCAN; Mean Corpuscular HGB Conc 31.3 g/dl (31.0-36.0); Mean Corpuscular Hemoglobin 26.2 pg (27.0-33.0); Mean Corpuscular Volume 83.6 fL (80.0-98.0); Mean Platelet Volume 9.3 fL (9.4-12.4); Monocytes Absolute Auto 1.5 X10*3/uL (0.1-1.2); Monocytes Percent Auto 14.8 % (2-11); Neutrophils Absolute Auto 6.2 x10*3/uL (2.0-8.3); Neutrophils Percent Auto 60.7 % (45-73); Platelet Count 372 X10*3/uL (160-400); Red Blood Count 4.81 X10*6/uL (4.60-5.80); Red Cell Distribution Width 15.4 % (11.0-16.0); SCAN SMEAR FLAG 1; White Blood Count 10.2 X10*3/uL (4.8-10.8)
[2021-10-14 07:20] LABS: Prothrombin Time 47.3 SEC (9.9-13.0)
[2021-10-14 07:37] LABS: Anion Gap 13 (12-20); Blood Urea Nitrogen 12 mg/dL (9-16); Calcium 8.9 mg/dL (8.4-10.2); Carbon Dioxide 24 mmol/L (22-29); Chloride 108 mmol/L (96-108); Creatinine Clr Calc Pharmacy 107.5; Estimated Glomerular Filt Rate > 60; Glucose Random 121 mg/dL (60-115); Sodium 140 mmol/L (135-145)
[2021-10-14 07:57] LABS: SLIDE REVIEW VERIFIED
[2021-10-14 08:00] VITALS: BP 144/90; PULSE 64; RESP 20; TEMP 36.7; O2SAT 96
[2021-10-14] MEDS: lisinopriL 20 MG TABLET PO (09:08)
[2021-10-14] MEDS: Metoprolol Tartrate 25 MG TABLET PO ×2 (09:08→21:01)
[2021-10-14] MEDS: 0.9 % Sodium Chloride Flush 3 ML SYRINGE IVFLUSH ×3 (09:08→21:01)
[2021-10-14] MEDS: Aspirin Enteric Coated 81 MG TABLET.DR PO (09:08)
--- NOTE | 2021-10-14 09:41 | MHC.CM.PN ---
met with pt and his with whom he lives pt is independent had no previous services and is not expected to need services when dcd pt will have own transportation home he is vax ax[facility] home no services..
[2021-10-14 11:03] VITALS: BP 161/88; PULSE 60; RESP 20; TEMP 36.9; O2SAT 94
[2021-10-14] MEDS: oxyCODONE HCl Immed Release 5 MG TABLET PO ×2 (13:06→19:43)
[2021-10-14 13:56] LABS: Vancomycin Trough 9.2 mcg/mL (10.0-20.0)
--- NOTE | 2021-10-14 14:14 | HE.PHANOTE ---
Patient level is 9.2, increase to 1250 mg q12 predicted auc is 424 and trough 7.7, next level to be drawn 10/15@1300
[2021-10-14] MEDS: vancomycin HCL 1,250 MG in 0.9 % Sodium Chloride 250 ML 166.67 MG IV (14:32)
[2021-10-14 15:17] VITALS: BP 142/77; PULSE 65; RESP 17; TEMP 37.4; O2SAT 95
--- NOTE | 2021-10-14 15:18 | P.PNIM_ITS ---
Subjective Subjective Date of Service: 10/14/21 Interval History: Feels better this a.m.. Remains afebrile Review of Systems Denies chest pain Denies shortness of breath Denies nausea vomiting diarrhea Denies fever chills and overall fatigue Physical Exam Vital Signs: Vital Signs: Last Vital Signs Temp 98.5 F 10/14/21 11:03 Pulse 60 10/14/21 11:03 Resp 20 10/14/21 11:03 BP 161/88 H 10/14/21 11:03 Pulse Ox 94 10/14/21 11:03 BMI result Body Mass Index 30.6 Const: Other: Awake alert oriented x3 no acute distress Neck: Other: No JVD Resp: Other: Clear to auscultation bilaterally. No rales rhonchi or wheezes Cardio: Other: Mechanical heart sounds; no S4; positive S1-S2; no S3 murmurs rubs or gallops GI: Other: Soft nontender nondistended with normoactive bowel sounds x4 quadrants Neuro: Other: Cranial nerves 2-12 grossly intact as tested. Motor is 5/5 all extremities. Sensation intact. Cognition appropriate Extrem: Other: No edema bilaterally Objective Data Active Medications Acetaminophen (Acetaminophen 325 Mg Tablet) 650 mg PO Q6H PRN PRN Reason: Pain, Mild (Pain Scale 1-3) Last Admin: 10/14/21 05:41 Dose: 650 mg Documented by: PRERNA Aspirin (Aspirin Enteric Coated 81 Mg Tablet.) 81 mg PO DAILY [facility] Last Admin: 10/14/21 09:08 Dose: 81 mg Documented by: ELHAM Hydroxyzine HCl (Hydroxyzine Hcl 25 Mg Tablet) 25 mg PO Q6H PRN PRN Reason: anxiety/restlessness Last Admin: 10/13/21 23:59 Dose: 25 mg Documented by: PRERNA Piperacillin Sod/Tazobactam (Sod 4.5 gm/ Sodium Chloride) 100 mls @ 200 mls/hr IV Q6H [facility] Last Infusion: 10/14/21 12:55 Dose: 0 mls/hr Documented by: AHSAN Vancomycin HCl 1,250 mg/ (Sodium Chloride) 250 mls @ 166.667 mls/hr IV Q12H [facility] Last Admin: 10/14/21 14:32 Dose: 166.67 mls/hr Documented by: AHSAN Lisinopril (Lisinopril 20 Mg Tablet) 20 mg PO DAILY [facility]; Protocol Last Admin: 10/14/21 09:08 Dose: 20 mg Documented by: ELHAM Melatonin (Melatonin 3 Mg Tablet) 6 mg PO BEDTIME PRN PRN Reason: Insomnia Metoprolol Tartrate (Metoprolol Tartrate 25 Mg Tablet) 25 mg PO BID [facility]; Protocol Last Admin: 10/14/21 09:08 Dose: 25 mg Documented by: ELHAM Ondansetron HCl (Ondansetron Hcl 4 Mg/2 Ml Vial) 4 mg IVPUSH Q8H PRN PRN Reason: Nausea and Vomiting Oxycodone HCl (Oxycodone Hcl Immed Release 5 Mg Tablet) 5 mg PO Q4H PRN PRN Reason: Pain, Moderate (Pain Scale 4-6 Last Admin: 10/14/21 13:06 Dose: 5 mg Documented by: AHSAN Pharmacy Consult (Consult Rx Perform Med Rec) 1 each MISCELLANE ONCE PRN PRN Reason: Consult order Pharmacy Consult (Consult Rx Vancomycin Dosing) 1 each MISCELLANE DAILY PRN PRN Reason: Consult order Pharmacy Consult (Consult Rx Other Drug Dosing) 1 each MISCELLANE DAILY PRN PRN Reason: Consult order Sodium Chloride (0.9 % Sodium Chloride Flush 3 Ml Sy[facility]) [facility] Last Admin: 10/14/21 09:08 Dose: 3 ml Documented by: ELHAM Warfarin Sodium (Warfarin Sodium 5 Mg Tablet) 5 mg PO DAILY@1800 [facility] Labs CBC & Chem 7: 10/14/21 06:51 10/14/21 06:51 Labs: Laboratory Results - last 24 hr 10/14/21 10/14/21 10/14/21 06:51 06:51 06:51 MCV 83.6 MCH 26.2 L MCHC 31.3 RDW 15.4 Plt Count 372 MPV 9.3 L Immature Gran % (Auto) 2.0 H Neut % (Auto) 60.7 Lymph % (Auto) 19.7 L Pepin % (Auto) 14.8 H Eos % (Auto) 2.2 Baso % (Auto) 0.6 Lymph # (Auto) 2.0 Pepin # (Auto) 1.5 H Eos # (Auto) 0.2 Baso # (Auto) 0.1 Abs Immat Gran (auto) 0.20 H Absolute Neuts (auto) 6.2 Absolute Nucleated RBC 0.000 Nucleated RBC % (auto) 0.0 Smear Tech's Comments VERIFIED PT 47.3 H INR 4.0 H Anion Gap 13 Estim Creat Clear Calc 107.5 Estimated GFR > 60 Random Glucose 121 H Calcium 8.9 Vancomycin Trough 10/14/21 13:01 MCV MCH MCHC RDW Plt Count MPV Immature Gran % (Auto) Neut % (Auto) Lymph % (Auto) Pepin % (Auto) Eos % (Auto) Baso % (Auto) Lymph # (Auto) Pepin # (Auto) Eos # (Auto) Baso # (Auto) Abs Immat Gran (auto) Absolute Neuts (auto) Absolute Nucleated RBC Nucleated RBC % (auto) Smear Tech's Comments PT INR Anion Gap Estim Creat Clear Calc Estimated GFR Random Glucose Calcium Vancomycin Trough 9.2 L Assessment and Plan (1) Bacteremia: Status: Acute (2) Pneumonia: Status: Acute (3) H/O mitral valve replacement with mechanical valve: Status: Acute (4) HTN (hypertension): Status: Acute Plan 56-year-old male with history of mitral valve replacement with mechanical valve approximately 2 years remote presents the emergency department secondary to call back for positive blood cultures. Patient was seen 312 for complaints of fever chills and overall unwellness. At that time workup was negative. This a.m. 2/2 bottles positive for Gram-positive cocci along with likely right middle lobe infiltrate. He will be admitted for treatment of same 1. Gram positive bacteremia( enterococcus) -will cover with Vanco/Zosyn -check 2d echo in am -conitinue coumadin with goal INR 2.5-3.5 -daily INRs 2. RML infiltrate -likely sourse of bacteremia -cover with Vanco/Zosyn pending ID -ID consult 3.HTN -acceptable control on current therapies -continue outpt regimen -adjust as indicated -follow renals/divalents Full code Coumadin Requires inpatient hospitalization likely 2 midnights going forward secondary to Gram-positive bacteremia in the backdrop of mechanical valve. Quality Stroke Does the patient have a stroke diagnosis?: No VTE Prior VTE?: No VTE Risk Level:: Medical - moderate - high VTE Device Contraindication: Treatment Not Indicated VTE Drug Contraindication: N/A - Med Ordered
--- NOTE | 2021-10-14 15:48 | W.PM.IDCN ---
History of Present Illness Data of Consult Service Date: 10/14/21 Requesting physician: Garfield Dominguez Primary Care Provider: Kuldip Pendleton MD HPI Reason for consult: bacteremia?enterococcus He presents with weakness and chills to ER He had been on a cruise ship one week ago. He has had fever at home and diarrhea and abdominal discomfort. Review of Systems Review of Systems: Yes all other systems are reviewed and are negative PMFSH Past Medical History Medical History Anxiety COVID-19 Erectile dysfunction GERD (gastroesophageal reflux disease) HTN (hypertension) Impaired glucose tolerance Obesity (BMI 30-39.9) Overweight (BMI 25.0-29.9) Family History Family History Father CVD (cardiovascular disease) Mother HTN (hypertension) CVD (cardiovascular disease) Diabetes Family history: reviewed and not pertinent Surgical History Surgical History H/O cardiac catheterization (~2018) H/O mitral valve repair H/O mitral valve replacement with mechanical valve Hx laparoscopic cholecystectomy Hx of varicose vein ligation and stripping Social History Social History Household Members: Spouse Housing: House Are you a primary home health aide caregiver to a significant other at home: No Do you presently have visiting nurse or other home services: No Alcohol intake: never Patient Tobacco Use Status: Never used Tobacco e-Cigarette/Vaping Use: Never Used Second Hand Smoke Exposure: No Use of substances other than those prescribed or required for medical reasons: No Currently Displaying Signs/Symptoms of Drug Intoxication Withdrawal: No Have you been hit, kicked, punched, or otherwise hurt by someone within the past year? If so, by whom?: No Do you feel safe in your current relationship?: Yes Is there a partner from a previous relationship who is making you feel unsafe now?: No Are you made to feel afraid or neglected: No Advance Directives: No Advance Directives Information Provided: No Do you have thoughts of harming others: None Do you have a plan to hurt others: No Plan Recently lost weight without trying: Yes How much weight loss: 2-13 pounds Eating poorly because of decreased appetite: Yes Nutrition screen score: 4 Nutrition Risks: No Nutritional Risk Poor oral hygiene: No service: No Current occupational status: employed Current occupation: [email or web address] Allergies Allergy/AdvReac Type Severity Reaction Status Date / Time No Known Allergies Allergy Verified 10/02/21 08:33 [No Known Allergies*] Active Medications: Current Medications Acetaminophen (Acetaminophen 325 Mg Tablet) 650 mg PO Q6H PRN PRN Reason: Pain, Mild (Pain Scale 1-3) Last Admin: 10/14/21 05:41 Dose: 650 mg Documented by: Aspirin (Aspirin Enteric Coated 81 Mg Tablet.) 81 mg PO DAILY [facility] Last Admin: 10/14/21 09:08 Dose: 81 mg Documented by: Hydroxyzine HCl (Hydroxyzine Hcl 25 Mg Tablet) 25 mg PO Q6H PRN PRN Reason: anxiety/restlessness Last Admin: 10/13/21 23:59 Dose: 25 mg Documented by: Piperacillin Sod/Tazobactam (Sod 4.5 gm/ Sodium Chloride) 100 mls @ 200 mls/hr IV Q6H [facility] Last Infusion: 10/14/21 12:55 Dose: Infused Documented by: Vancomycin HCl 1,250 mg/ (Sodium Chloride) 250 mls @ 166.667 mls/hr IV Q12H [facility] Last Admin: 10/14/21 14:32 Dose: 166.67 mls/hr Documented by: Lisinopril (Lisinopril 20 Mg Tablet) 20 mg PO DAILY [facility]; Protocol Last Admin: 10/14/21 09:08 Dose: 20 mg Documented by: Melatonin (Melatonin 3 Mg Tablet) 6 mg PO BEDTIME PRN PRN Reason: Insomnia Metoprolol Tartrate (Metoprolol Tartrate 25 Mg Tablet) 25 mg PO BID [facility]; Protocol Last Admin: 10/14/21 09:08 Dose: 25 mg Documented by: Ondansetron HCl (Ondansetron Hcl 4 Mg/2 Ml Vial) 4 mg IVPUSH Q8H PRN PRN Reason: Nausea and Vomiting Oxycodone HCl (Oxycodone Hcl Immed Release 5 Mg Tablet) 5 mg PO Q4H PRN PRN Reason: Pain, Moderate (Pain Scale 4-6 Last Admin: 10/14/21 13:06 Dose: 5 mg Documented by: Pharmacy Consult (Consult Rx Perform Med Rec) 1 each MISCELLANE ONCE PRN PRN Reason: Consult order Pharmacy Consult (Consult Rx Vancomycin Dosing) 1 each MISCELLANE DAILY PRN PRN Reason: Consult order Pharmacy Consult (Consult Rx Other Drug Dosing) 1 each MISCELLANE DAILY PRN PRN Reason: Consult order Sodium Chloride (0.9 % Sodium Chloride Flush 3 Ml Syringe) 3 ml IVFLUSH QSHIFT [facility] Last Admin: 10/14/21 09:08 Dose: 3 ml Documented by: Warfarin Sodium (Warfarin Sodium 5 Mg Tablet) 5 mg PO DAILY@1800 [facility] Home Medications Medication Instructions Recorded Confirmed Last Taken Type aspirin 81 mg tablet,delayed 81 mg PO DAILY 06/11/20 10/13/21 Unknown History release Physical Exam Vital Signs: Vital Signs: Last Vital Signs Temp 99.3 F 10/14/21 15:17 Pulse 65 10/14/21 15:17 Resp 17 10/14/21 15:17 BP 142/77 H 10/14/21 15:17 Pulse Ox 95 10/14/21 15:17 BMI result Body Mass Index 30.6 Const: General: cooperative HENMT: Head: Yes normal to inspection Mouth: Normal oral and palatal mucosa present Eyes: Pupils: Equal, round and reactive pupils present Resp: Effort & Inspection: normal respiratory effort Cardio: Rate: regular rate Rhythm: regular rhythm Heart sounds: Murmur heart sound present (2/6 BARBIE) GI: Palpation (GI): Soft to palpation and nontender Skin: General skin exam: no rashes or lesions noted Neuro: Cranial nerves: Yes Equal, round and reactive pupils present Results Labs CBC & Chem 7: 10/14/21 06:51 10/14/21 06:51 Labs: Short CBC 10/14/21 Range/Units 06:51 WBC 10.2 (4.8-10.8) X10*3/uL Hgb 12.6 L (14.0-18.0) g/dl Hct 40.2 L (42.0-52.0) % Plt Count 372 (160-400) X10*3/uL BMP 10/14/21 06:51 Sodium 140 Potassium 5.0 D Chloride 108 Carbon Dioxide 24 BUN 12 Creatinine 0.95 Calcium 8.9 Assessment and Plan (1) Bacteremia: Status: Acute He has mechanical valve and concern over endocarditis. He has enterococcus possibility. Pneumonia can be contributory (2) Pneumonia: Status: Acute Plan Vancomycin for six weeks depends on culture. Follow with Cardiology
[2021-10-14 19:37] VITALS: BP 157/90; PULSE 64; RESP 17; TEMP 36.6; O2SAT 96
[2021-10-15] VITALS: BP 130/83; PULSE 59; RESP 18; TEMP 37.1; O2SAT 96
[2021-10-15] MEDS: vancomycin HCL 1,250 MG in 0.9 % Sodium Chloride 250 ML 166.67 MG IV (02:45)
[2021-10-15] MEDS: oxyCODONE HCl Immed Release 5 MG TABLET PO ×2 (02:51→21:56)
[2021-10-15 03:04] VITALS: BP 129/81; PULSE 63; RESP 18; TEMP 36.9; O2SAT 95
[2021-10-15] MEDS: Piperacillin Sodium/Tazobactam 4.5 GM in 0.9 % Sodium Chloride 100 ML IV (05:38)
[2021-10-15 07:01] LABS: MANUAL DIFF FLAG NO
[2021-10-15 07:05] LABS: Basophils Absolute Auto 0.1 X10*3/uL (0.0-0.2); Eosinophils Absolute Auto 0.3 X10*3/uL (0.0-0.4); Eosinophils Percent Auto 3.8 % (0-4); Hematocrit 40.6 % (42.0-52.0); Hemoglobin 12.5 g/dl (14.0-18.0); Imm Gran Abs Auto 0.24 X10*3/uL (0.00-0.03); Imm Gran Pct Auto 2.7 % (0.0-0.4); Lymphocytes Percent Auto 22.3 % (20-40); Mean Corpuscular HGB Conc 30.8 g/dl (31.0-36.0); Mean Corpuscular Hemoglobin 26.2 pg (27.0-33.0); Mean Corpuscular Volume 84.9 fL (80.0-98.0); Mean Platelet Volume 9.2 fL (9.4-12.4); Monocytes Absolute Auto 1.2 X10*3/uL (0.1-1.2); Monocytes Percent Auto 13.9 % (2-11); Neutrophils Percent Auto 56.3 % (45-73); Platelet Count 439 X10*3/uL (160-400); Red Blood Count 4.78 X10*6/uL (4.60-5.80); Red Cell Distribution Width 15.6 % (11.0-16.0); White Blood Count 8.9 X10*3/uL (4.8-10.8)
[2021-10-15 07:24] LABS: Anion Gap 12 (12-20); Blood Urea Nitrogen 16 mg/dL (9-16); Calcium 8.6 mg/dL (8.4-10.2); Carbon Dioxide 26 mmol/L (22-29); Chloride 109 mmol/L (96-108); Creatinine Clr Calc Pharmacy 87.3; Estimated Glomerular Filt Rate > 60; Glucose Random 102 mg/dL (60-115); Potassium 4.8 mmol/L (3.3-5.1); Sodium 142 mmol/L (135-145)
[2021-10-15 07:30] LABS: Prothrombin Time 34.6 SEC (9.9-13.0)
--- NOTE | 2021-10-15 07:39 | CA_ITS ---
Transthoracic Echocardiogram Patient (Last, First, Middle): Cinda Erazo, Gender: Male Date of : 1965 Age: 56 Procedure Date: 10/15/2021 Procedure Type: Transthoracic Echocardiogram Location: [facility] Height: 182.88 cm Weight: 102.51 kg BSA: 2.24 m2 Heart Rate: bpm BP: 129 / 81 mmHg Manager Appointment: CP-TO Referring MD: Garfield Dominguez DO Symptoms: Enterococcus bacteremia Study Quality: Fair ECG Rhythm: Sinus Conclusions: - The left ventricular systolic function is normal. The calculated ejection fraction is 56% by biplane method. - A mechanical prosthetic mitral valve is present. The prosthetic mitral valve appears to be functioning normally. Findings Left Ventricle Mildly increased left ventricular cavity size. There is mildly increased left ventricular wall thickness. The left ventricular systolic function is normal. The calculated ejection fraction is 56% by biplane method. There is no evidence of regional wall motion abnormalities. Diastolic function is indeterminate on the basis of available data. Right Ventricle Mildly increased right ventricular cavity size. There is normal right ventricular systolic function. Atria The left atrium is moderately dilated. The right atrium is normal in size. Aortic Valve There is a normal trileaflet aortic valve. There is no aortic valve stenosis. There is trace (trivial) aortic valve regurgitation. Mitral Valve A mechanical prosthetic mitral valve is present. The prosthetic mitral valve appears to be functioning normally. Mean gradient across the mitral valve 6 mm Hg at 59/Min- similar to prior study. No significant regurgitation. Pulmonic Valve The pulmonic valve was not well visualized. Tricuspid Valve Normal tricuspid valve structure. There is trace tricuspid valve regurgitation. The pulmonary artery systolic pressure is normal. Great Vessels There is mild dilatation of the sinuses of Valsalva measuring 3.98 cm, no dilatation of the ascending aorta measuring 3.60 cm, and no dilatation of the aortic arch measuring 3.50 cm. Venous The inferior vena cava is normal in size and collapses greater than 50% with inspiration. Pericardium/Pleural There is no evidence of pericardial effusion. Prior Study Comparison No significant change compared to prior study dated: 12/13/2020. Recommendations, Care & Conclusions Consider a [place] if clinically appropriate. Measurements 2D Linear Measurements IVSd: 1.07 0.6-0.9/0.6-1.0 cm LVIDd: 6.11 3.9-5.3/4.2-5.9 cm LVIDd Index: 2.73 2.4-3.2/2.2-3.1 cm/m2 LVIDs: 3.49 2.0-3.6 cm LVPWd: 1.10 0.7-1.1 cm LA Diam: 5.80 2.7-3.8/3.0-4.0 cm LAIDs Index: 2.59 1.5-2.3 cm/m2 LV Mass: 353.15 67-162/88-224 g LV Mass Index: 157.65 43-95/49-115 g/m2 LVOT Diam: 2.40 3.0+(-)1.3 cm 2D Systolic Function EF 4C: 52.80 >55% EF 2C: 58.30 >55% EF BiP: 55.80 >55% Mitral Valve MV VTI: 0.69 MV Pk Stewart: 1.79 MV Mn Stewart: 1.20 MV Pk Grad: 13.00 MV Mn Grad: 6.00 MV Pk E: 1.74 MV PK A: 1.53 MV Decel Time: 553.00 E/A: 1.10 E'Lateral: 4.57 E'Medial: 5.11 E/E' Med: 34.10 E/E' Lat: 38.10 PHT: 162.00 MVA PHT: 1.36 MVA Continuity: 1.53 Decel Boundary: 3.15 Aortic Valve AoV Pk Stewart: 1.17 AoV Mn Stewart: 0.77 AoV VTI: 0.27 AoV Pk Grad: 5.00 Aov Mn Grad: 3.00 MINAL Cont.VTI: 3.88 LVOT LVOT Pk Stewart: 1.02 LVOT Mn Stewart: 0.76 LVOT VTI: 0.23 LVOT Pk Grad: 4.00 LVOT Mn Grad: 3.00 LVOT Diam: 2.40 LVOT Area: 4.52 Diastolic Function MV Pk E: 1.74 MV Pk A: 1.53 E/A: 1.10 E'Medial: 5.11 E/E' Med: 34.10 E' Laterial: 4.57 E/E' Lat: 38.10 Right Ventricle TAPSE (mm): 19.40 TVS' Stewart: 17.40 Tricuspid Valve TR Pk Stewart: 1.47 TR Pk Grad: 9.00 RA Press: 8.00 RVSP: 17.00 Great Vessels Aorta Sinus of Valsalva: 3.98 2.0-3.[address] [place]: 3.44 1.7-3.4 cm Ao Asc: 3.60 2.1-3.4 cm Ao Arch: 3.50 Updated in Other Vendor System with Status of Final Mitchell Gomez MD electronically signed on 10/15/2021 4:29:59 PM with status of Final
[2021-10-15 07:40] VITALS: BP 143/78; PULSE 60; RESP 16; TEMP 36.4; O2SAT 96
[2021-10-15] MEDS: Metoprolol Tartrate 25 MG TABLET PO ×2 (08:40→21:56)
[2021-10-15] MEDS: Acetaminophen 325 MG TABLET 650 MG PO ×2 (08:40→14:52)
[2021-10-15] MEDS: lisinopriL 20 MG TABLET PO (08:40)
[2021-10-15] MEDS: Aspirin Enteric Coated 81 MG TABLET.DR PO (08:41)
[2021-10-15] MEDS: 0.9 % Sodium Chloride Flush 3 ML SYRINGE IVFLUSH ×3 (08:41→21:57)
[2021-10-15 11:52] VITALS: BP 155/78; PULSE 57; RESP 16; TEMP 36.1; O2SAT 93
[2021-10-15 14:46] LABS: Vancomycin Trough 14.2 mcg/mL (10.0-20.0)
--- NOTE | 2021-10-15 14:52 | HE.PHANOTE ---
PT scr significantly jumped from 0.94 to 1.17, trough today was 14.2, lowering dose to 1000 mg q12 predicted auc 480, trough 17.4
--- NOTE | 2021-10-15 15:05 | P.PNIM_ITS ---
Subjective Subjective Date of Service: 10/15/21 Interval History: Feels better this a.m.. Remains afebrile Review of Systems Denies chest pain Denies shortness of breath Denies nausea vomiting diarrhea Denies fever chills and overall fatigue Physical Exam Vital Signs: Vital Signs: Last Vital Signs Temp 97.0 F 10/15/21 11:52 Pulse 57 10/15/21 11:52 Resp 16 10/15/21 11:52 BP 155/78 H 10/15/21 11:52 Pulse Ox 93 10/15/21 11:52 BMI result Body Mass Index 30.6 Const: Other: Awake alert oriented x3 no acute distress Neck: Other: No JVD Resp: Other: Clear to auscultation bilaterally. No rales rhonchi or wheezes Cardio: Other: Mechanical heart sounds; no S4; positive S1-S2; no S3 murmurs rubs or gallops GI: Other: Soft nontender nondistended with normoactive bowel sounds x4 quadrants Neuro: Other: Cranial nerves 2-12 grossly intact as tested. Motor is 5/5 all extremities. Sensation intact. Cognition appropriate Extrem: Other: No edema bilaterally Objective Data Active Medications Acetaminophen (Acetaminophen 325 Mg Tablet) 650 mg PO Q6H PRN PRN Reason: Pain, Mild (Pain Scale 1-3) Last Admin: 10/15/21 14:52 Dose: 650 mg Documented by: TOMMIE Aspirin (Aspirin Enteric Coated 81 Mg Tablet.) 81 mg PO DAILY [facility] Last Admin: 10/15/21 08:41 Dose: 81 mg Documented by: TOMMIE Hydroxyzine HCl (Hydroxyzine Hcl 25 Mg Tablet) 25 mg PO Q6H PRN PRN Reason: anxiety/restlessness Last Admin: 10/13/21 23:59 Dose: 25 mg Documented by: PRERNA Vancomycin HCl 1,000 mg/ (Sodium Chloride) 270 mls @ 270 mls/hr IV Q12H [facility] Lisinopril (Lisinopril 20 Mg Tablet) 20 mg PO DAILY [facility]; Protocol Last Admin: 10/15/21 08:40 Dose: 20 mg Documented by: TOMMIE Melatonin (Melatonin 3 Mg Tablet) 6 mg PO BEDTIME PRN PRN Reason: Insomnia Metoprolol Tartrate (Metoprolol Tartrate 25 Mg Tablet) 25 mg PO BID [facility]; Protocol Last Admin: 10/15/21 08:40 Dose: 25 mg Documented by: TOMMIE Ondansetron HCl (Ondansetron Hcl 4 Mg/2 Ml Vial) 4 mg IVPUSH Q8H PRN PRN Reason: Nausea and Vomiting Oxycodone HCl (Oxycodone Hcl Immed Release 5 Mg Tablet) 5 mg PO Q4H PRN PRN Reason: Pain, Moderate (Pain Scale 4-6 Last Admin: 10/15/21 02:51 Dose: 5 mg Documented by: RASHARD Pharmacy Consult (Consult Rx Perform Med Rec) 1 each MISCELLANE ONCE PRN PRN Reason: Consult order Pharmacy Consult (Consult Rx Vancomycin Dosing) 1 each MISCELLANE DAILY PRN PRN Reason: Consult order Pharmacy Consult (Consult Rx Other Drug Dosing) 1 each MISCELLANE DAILY PRN PRN Reason: Consult order Sodium Chloride (0.9 % Sodium Chloride Flush 3 Ml Syringe) 3 ml IVFLUSH [facility] Last Admin: 10/15/21 08:41 Dose: 3 ml Documented by: TOMMIE Warfarin Sodium (Warfarin Sodium 5 Mg Tablet) 5 mg PO DAILY@1800 [facility] Labs CBC & Chem 7: 10/15/21 06:35 10/15/21 06:35 Labs: Laboratory Results - last 24 hr 10/15/21 10/15/21 10/15/21 06:35 06:35 06:35 MCV 84.9 MCH 26.2 L MCHC 30.8 L RDW 15.6 Plt Count 439 H MPV 9.2 L Immature Gran % (Auto) 2.7 H Neut % (Auto) 56.3 Lymph % (Auto) 22.3 Lee % (Auto) 13.9 H Eos % (Auto) 3.8 Baso % (Auto) 1.0 Lymph # (Auto) 2.0 Lee # (Auto) 1.2 Eos # (Auto) 0.3 Baso # (Auto) 0.1 Abs Immat Gran (auto) 0.24 H Absolute Neuts (auto) 5.0 Absolute Nucleated RBC 0.000 Nucleated RBC % (auto) 0.0 PT 34.6 H INR 3.0 H Anion Gap 12 Estim Creat Clear Calc 87.3 Estimated GFR > 60 Random Glucose 102 Calcium 8.6 Vancomycin Trough 10/15/21 13:30 MCV MCH MCHC RDW Plt Count MPV Immature Gran % (Auto) Neut % (Auto) Lymph % (Auto) Lee % (Auto) Eos % (Auto) Baso % (Auto) Lymph # (Auto) Lee # (Auto) Eos # (Auto) Baso # (Auto) Abs Immat Gran (auto) Absolute Neuts (auto) Absolute Nucleated RBC Nucleated RBC % (auto) PT INR Anion Gap Estim Creat Clear Calc Estimated GFR Random Glucose Calcium Vancomycin Trough 14.2 Assessment and Plan (1) Bacteremia: Status: Acute (2) Pneumonia: Status: Acute Plan 56-year-old male with history of mitral valve replacement with mechanical valve approximately 2 years remote presents the emergency department secondary to call back for positive blood cultures. Patient was seen 312 for complaints of fever chills and overall unwellness. At that time workup was negative. This a.m. 2/2 bottles positive for Gram-positive cocci along with likely right middle lobe infiltrate. He will be admitted for treatment of same 1. Gram positive bacteremia( enterococcus) -will cover with Vanco (6 wekks) -check 2d echo in am -conitinue coumadin with goal INR 2.5-3.5 -daily INRs 2. RML infiltrate -likely sourse of bacteremia -cover with Vanco/Zosyn pending ID -ID consult 3.HTN -acceptable control on current therapies -continue outpt regimen -adjust as indicated -follow renals/divalents Full code Coumadin Requires inpatient hospitalization likely 2 midnights going forward secondary to Gram-positive bacteremia in the backdrop of mechanical valve. Quality Stroke Does the patient have a stroke diagnosis?: No VTE Prior VTE?: No VTE Risk Level:: Medical - moderate - high VTE Device Contraindication: Treatment Not Indicated VTE Drug Contraindication: N/A - Med Ordered
[2021-10-15] MEDS: vancomycin HCL 1,000 MG in 0.9 % Sodium Chloride 250 ML 270 MG IV (15:49)
[2021-10-15] MEDS: Warfarin Sodium 5 MG TABLET PO (17:22)
[2021-10-15 19:55] VITALS: BP 133/84; PULSE 68; RESP 16; TEMP 36.5; O2SAT 94
[2021-10-15 23:12] VITALS: BP 127/82; PULSE 70; RESP 16; TEMP 37; O2SAT 94
[2021-10-16 03:20] VITALS: BP 140/83; PULSE 67; RESP 18; TEMP 36.9; O2SAT 96
[2021-10-16] MEDS: vancomycin HCL 1,000 MG in 0.9 % Sodium Chloride 250 ML 270 MG IV ×2 (03:25→15:15)
[2021-10-16] MEDS: oxyCODONE HCl Immed Release 5 MG TABLET PO ×2 (03:25→20:15)
[2021-10-16 06:39] LABS: MANUAL DIFF FLAG NO
[2021-10-16 06:45] LABS: Basophils Absolute Auto 0.1 X10*3/uL (0.0-0.2); Basophils Percent Auto 0.8 % (0-2); Eosinophils Absolute Auto 0.4 X10*3/uL (0.0-0.4); Hematocrit 41.6 % (42.0-52.0); Hemoglobin 12.9 g/dl (14.0-18.0); Imm Gran Abs Auto 0.28 X10*3/uL (0.00-0.03); Imm Gran Pct Auto 2.3 % (0.0-0.4); Lymphocytes Absolute Auto 2.1 X10*3/uL (1.2-4.9); Lymphocytes Percent Auto 17.7 % (20-40); Mean Corpuscular Hemoglobin 26.3 pg (27.0-33.0); Mean Corpuscular Volume 84.7 fL (80.0-98.0); Monocytes Absolute Auto 1.3 X10*3/uL (0.1-1.2); Monocytes Percent Auto 10.5 % (2-11); Neutrophils Absolute Auto 7.8 x10*3/uL (2.0-8.3); Neutrophils Percent Auto 65.7 % (45-73); Platelet Count 476 X10*3/uL (160-400); Red Blood Count 4.91 X10*6/uL (4.60-5.80); Red Cell Distribution Width 15.7 % (11.0-16.0)
[2021-10-16 06:51] LABS: INTERNATIONAL NORM RATIO 2.5 (0.9-1.1); Prothrombin Time 28.4 SEC (9.9-13.0)
[2021-10-16 07:08] LABS: Blood Urea Nitrogen 21 mg/dL (9-16)
[2021-10-16 07:11] LABS: Anion Gap 10 (12-20); Calcium 9.3 mg/dL (8.4-10.2); Carbon Dioxide 26 mmol/L (22-29); Chloride 111 mmol/L (96-108); Creatinine Clr Calc Pharmacy 86.5; Estimated Glomerular Filt Rate > 60; Glucose Random 111 mg/dL (60-115); Potassium 4.9 mmol/L (3.3-5.1); Sodium 142 mmol/L (135-145)
[2021-10-16 07:19] VITALS: BP 123/87; PULSE 71; RESP 18; TEMP 36.6; O2SAT 98
[2021-10-16] MEDS: Acetaminophen 325 MG TABLET 650 MG PO ×2 (09:52→15:20)
[2021-10-16] MEDS: lisinopriL 20 MG TABLET PO (09:53)
[2021-10-16] MEDS: Aspirin Enteric Coated 81 MG TABLET.DR PO (09:53)
[2021-10-16] MEDS: 0.9 % Sodium Chloride Flush 3 ML SYRINGE IVFLUSH ×3 (09:54→20:15)
[2021-10-16] MEDS: Metoprolol Tartrate 25 MG TABLET PO ×2 (09:54→20:14)
--- NOTE | 2021-10-16 10:28 | P.PNIM_ITS ---
Subjective Subjective Date of Service: 10/16/21 Interval History: Feels better this a.m.. Remains afebrile Review of Systems Denies chest pain Denies shortness of breath Denies nausea vomiting diarrhea Denies fever chills and overall fatigue Physical Exam Vital Signs: Vital Signs: Last Vital Signs Temp 97.8 F 10/16/21 07:19 Pulse 71 10/16/21 07:19 Resp 18 10/16/21 07:19 BP 123/87 10/16/21 07:19 Pulse Ox 98 10/16/21 07:19 BMI result Body Mass Index 30.6 Const: Other: Awake alert oriented x3 no acute distress Neck: Other: No JVD Resp: Other: Clear to auscultation bilaterally. No rales rhonchi or wheezes Cardio: Other: Mechanical heart sounds; no S4; positive S1-S2; no S3 murmurs rubs or gallops GI: Other: Soft nontender nondistended with normoactive bowel sounds x4 quadrants Neuro: Other: Cranial nerves 2-12 grossly intact as tested. Motor is 5/5 all extremities. Sensation intact. Cognition appropriate Extrem: Other: No edema bilaterally Objective Data Active Medications Acetaminophen (Acetaminophen 325 Mg Tablet) 650 mg PO Q6H PRN PRN Reason: Pain, Mild (Pain Scale 1-3) Last Admin: 10/16/21 09:52 Dose: 650 mg Documented by: NATTY Aspirin (Aspirin Enteric Coated 81 Mg Tablet.) 81 mg PO DAILY [facility] Last Admin: 10/16/21 09:53 Dose: 81 mg Documented by: NATTY Hydroxyzine HCl (Hydroxyzine Hcl 25 Mg Tablet) 25 mg PO Q6H PRN PRN Reason: anxiety/restlessness Last Admin: 10/13/21 23:59 Dose: 25 mg Documented by: PRERNA Vancomycin HCl 1,000 mg/ (Sodium Chloride) 270 mls @ 270 mls/hr IV Q12H [facility] Last Infusion: 10/16/21 04:44 Dose: 0 mls/hr Documented by: DIOGENES Lisinopril (Lisinopril 20 Mg Tablet) 20 mg PO DAILY [facility]; Protocol Last Admin: 10/16/21 09:53 Dose: 20 mg Documented by: NATTY Melatonin (Melatonin 3 Mg Tablet) 6 mg PO BEDTIME PRN PRN Reason: Insomnia Metoprolol Tartrate (Metoprolol Tartrate 25 Mg Tablet) 25 mg PO BID [facility]; Protocol Last Admin: 10/16/21 09:54 Dose: 25 mg Documented by: NATTY Ondansetron HCl (Ondansetron Hcl 4 Mg/2 Ml Vial) 4 mg IVPUSH Q8H PRN PRN Reason: Nausea and Vomiting Oxycodone HCl (Oxycodone Hcl Immed Release 5 Mg Tablet) 5 mg PO Q4H PRN PRN Reason: Pain, Moderate (Pain Scale 4-6 Last Admin: 10/16/21 03:25 Dose: 5 mg Documented by: DIOGENES Pharmacy Consult (Consult Rx Perform Med Rec) 1 each MISCELLANE ONCE PRN PRN Reason: Consult order Pharmacy Consult (Consult Rx Vancomycin Dosing) 1 each MISCELLANE DAILY PRN PRN Reason: Consult order Pharmacy Consult (Consult Rx Other Drug Dosing) 1 each MISCELLANE DAILY PRN PRN Reason: Consult order Sodium Chloride (0.9 % Sodium Chloride Flush 3 Ml Syringe) 3 ml IVFLUSH QSHIFT [facility] Last Admin: 10/16/21 09:54 Dose: 3 ml Documented by: NATTY Warfarin Sodium (Warfarin Sodium 5 Mg Tablet) 5 mg PO DAILY@1800 [facility] Last Admin: 10/15/21 17:22 Dose: 5 mg Documented by: TOMMIE Labs CBC & Chem 7: 10/16/21 06:23 10/16/21 06:23 Labs: Laboratory Results - last 24 hr 10/15/21 10/16/21 10/16/21 13:30 06:23 06:23 MCV 84.7 MCH 26.3 L MCHC 31.0 RDW 15.7 Plt Count 476 H MPV 9.0 L Immature Gran % (Auto) 2.3 H Neut % (Auto) 65.7 Lymph % (Auto) 17.7 L [place] % (Auto) 10.5 Eos % (Auto) 3.0 Baso % (Auto) 0.8 Lymph # (Auto) 2.1 [place] # (Auto) 1.3 H Eos # (Auto) 0.4 Baso # (Auto) 0.1 Abs Immat Gran (auto) 0.28 H Absolute Neuts (auto) 7.8 Absolute Nucleated RBC 0.000 Nucleated RBC % (auto) 0.0 PT INR Anion Gap 10 L Estim Creat Clear Calc 86.5 Estimated GFR > 60 Random Glucose 111 Calcium 9.3 D Vancomycin Trough 14.2 10/16/21 06:23 MCV MCH MCHC RDW Plt Count MPV Immature Gran % (Auto) Neut % (Auto) Lymph % (Auto) [place] % (Auto) Eos % (Auto) Baso % (Auto) Lymph # (Auto) [place] # (Auto) Eos # (Auto) Baso # (Auto) Abs Immat Gran (auto) Absolute Neuts (auto) Absolute Nucleated RBC Nucleated RBC % (auto) PT 28.4 H INR 2.5 H Anion Gap Estim Creat Clear Calc Estimated GFR Random Glucose Calcium Vancomycin Trough Assessment and Plan (1) Bacteremia: Status: Acute (2) Pneumonia: Status: Acute Plan 56-year-old male with history of mitral valve replacement with mechanical valve approximately 2 years remote presents the emergency department secondary to call back for positive blood cultures. Patient was seen 312 for complaints of fever chills and overall unwellness. At that time workup was negative. This a.m. 2/2 bottles positive for Gram-positive cocci along with likely right middle lobe inf iltrate. He will be admitted for treatment of same 1. Gram positive bacteremia( enterococcus) -will cover with Vanco (6 wekks) -2d echo unremarkable -conitinue coumadin with goal INR 2.5-3.5 -daily INRs -PICC line in am 2. RML infiltrate -likely sourse of bacteremia -cover with Vanco/Zosyn pending ID -ID consult 3.HTN -acceptable control on current therapies -continue outpt regimen -adjust as indicated -follow renals/divalents Full code Coumadin Requires inpatient hospitalization likely 1 midnights going forward secondary to Gram-positive bacteremia ;cultures negative x 24. Will book PICC for am Quality Stroke Does the patient have a stroke diagnosis?: No VTE Prior VTE?: No VTE Risk Level:: Medical - moderate - high VTE Device Contraindication: Treatment Not Indicated VTE Drug Contraindication: N/A - Med Ordered
[2021-10-16 11:38] VITALS: BP 126/81; PULSE 65; RESP 18; TEMP 36.4; O2SAT 98
[2021-10-16 13:59] LABS: Vancomycin Random 11.2 mcg/mL (15-20)
--- NOTE | 2021-10-16 14:06 | HE.PHANOTE ---
Vancomycin Dosing Addendum Based on Random of 11.2 10/16 dose continued at 1 gram q 12h for a predicted AUC for 473. Next trough of 10/17 @ 1300
--- NOTE | 2021-10-16 14:13 | MHC.CM.PN ---
Male 44DX Gram+ Bacteremia DP home with IV Vanco x 6 weeks. [facility] is the Home infusion Co. The liason is here to teach the Pt and his . A VNA has not yet been obtained. Multiple referrals have been added to the original referral. [facility] is checking into the availability of their nurse. CM will continue to search for a home care agency.
[2021-10-16 15:03] VITALS: BP 140/86; PULSE 68; RESP 20; TEMP 36.8; O2SAT 94
[2021-10-16] MEDS: Warfarin Sodium 5 MG TABLET PO (17:44)
[2021-10-16 19:50] VITALS: BP 135/80; PULSE 63; RESP 18; TEMP 37.1; O2SAT 96
[2021-10-16 23:34] VITALS: BP 133/79; PULSE 62; RESP 16; TEMP 37.1; O2SAT 96
[2021-10-17] MEDS: oxyCODONE HCl Immed Release 5 MG TABLET PO ×2 (02:55→20:34)
[2021-10-17] MEDS: vancomycin HCL 1,000 MG in 0.9 % Sodium Chloride 250 ML 270 MG IV (02:55)
[2021-10-17 03:18] VITALS: BP 140/89; PULSE 102; RESP 16; TEMP 36.3; O2SAT 95
[2021-10-17 06:15] LABS: MANUAL DIFF FLAG NO
[2021-10-17 06:19] LABS: Basophils Absolute Auto 0.1 X10*3/uL (0.0-0.2); Basophils Percent Auto 0.6 % (0-2); Eosinophils Absolute Auto 0.4 X10*3/uL (0.0-0.4); Eosinophils Percent Auto 3.4 % (0-4); Hematocrit 40.3 % (42.0-52.0); Hemoglobin 12.2 g/dl (14.0-18.0); Imm Gran Abs Auto 0.25 X10*3/uL (0.00-0.03); Lymphocytes Absolute Auto 1.9 X10*3/uL (1.2-4.9); Lymphocytes Percent Auto 15.3 % (20-40); Mean Corpuscular HGB Conc 30.3 g/dl (31.0-36.0); Mean Corpuscular Hemoglobin 25.7 pg (27.0-33.0); Mean Platelet Volume 8.8 fL (9.4-12.4); Monocytes Absolute Auto 1.1 X10*3/uL (0.1-1.2); Monocytes Percent Auto 9.3 % (2-11); Neutrophils Absolute Auto 8.6 x10*3/uL (2.0-8.3); Neutrophils Percent Auto 69.4 % (45-73); Platelet Count 472 X10*3/uL (160-400); Red Blood Count 4.74 X10*6/uL (4.60-5.80); Red Cell Distribution Width 15.6 % (11.0-16.0); White Blood Count 12.3 X10*3/uL (4.8-10.8)
[2021-10-17 06:41] LABS: Alanine Aminotransferase 69 U/L (0-40); Albumin Level 3.2 g/dL (3.5-5.0); Alkaline Phosphatase 179 U/L (39-117); Anion Gap 11 (12-20); Aspartate Amino Transferase 35 U/L (5-37); Bilirubin Total 0.5 mg/dL (0.0-1.0); Blood Urea Nitrogen 21 mg/dL (9-16); Calcium 9.3 mg/dL (8.4-10.2); Carbon Dioxide 25 mmol/L (22-29); Chloride 109 mmol/L (96-108); Creatinine Clr Calc Pharmacy 86.5; Estimated Glomerular Filt Rate > 60; Glucose Fasting 104 mg/dL (60-99); Sodium 140 mmol/L (135-145); Total Protein 6.2 g/dL (6.5-8.0)
[2021-10-17 07:45] VITALS: BP 135/92; PULSE 69; RESP 18; TEMP 36.7; O2SAT 96
[2021-10-17 08:49] LABS: INTERNATIONAL NORM RATIO 2.9 (0.9-1.1); Prothrombin Time 33.6 SEC (9.9-13.0)
[2021-10-17] MEDS: 0.9 % Sodium Chloride Flush 3 ML SYRINGE IVFLUSH ×3 (09:54→20:35)
[2021-10-17] MEDS: lisinopriL 20 MG TABLET PO (09:55)
[2021-10-17] MEDS: Aspirin Enteric Coated 81 MG TABLET.DR PO (09:55)
[2021-10-17] MEDS: Metoprolol Tartrate 25 MG TABLET PO ×2 (09:55→20:35)
[2021-10-17] MEDS: Acetaminophen 325 MG TABLET 650 MG PO (09:55)
--- NOTE | 2021-10-17 10:55 | P.CONCA_ITS ---
History of Present Illness History of Present Illness Date of Service: 10/17/21 Chief complaint: Gram positive bactermia Narrative: This is a cardiology consultation regarding bacteremia. Patient has a history of mechanical mitral valve placement. It seems that he actually had mitral re pair 1st but then had recurrent mitral regurgitation leading to a mitral valve replacement. Few months ago, he was seen by Dr. 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 It seems that he came for generalized weakness and fever. He went for recent cruise trip and then developed fever and weakness and not feeling well. Blood cultures had shown positive for enterococci. Then he was admitted. It seems that the 1st set of cultures are positive but the seconds that has come back n egative. He is on IV antibiotics as get by ID. We have been asked to see him because of the prosthetic valve. Patient himself has no specific symptoms from cardiac including shortness of breath or palpitations or in fact anything else. Review of Systems Review of Systems: Yes all other systems are reviewed and are negative Cardiovascular: Cardiovascular: Reports as per HPI, Reports no additional cardiovascular complaints, Denies acrocyanosis, Denies cool extremities, Denies chest pain, Denies diaphoresis, Denies syncope, Denies claudication, Denies leg edema, Denies lightheadedness, Denies palpitations and Denies dyspnea Respiratory: Respiratory: Denies dyspnea Neurologic: Denies syncope Endocrine: Endocrine: Denies palpitations PMFSH Past Medical History Medical History Anxiety COVID-19 Erectile dysfunction GERD (gastroesophageal reflux disease) HTN (hypertension) Impaired glucose tolerance Obesity (BMI 30-39.9) Overweight (BMI 25.0-29.9) Family History Family History Father CVD (cardiovascular disease) Mother HTN (hypertension) CVD (cardiovascular disease) Diabetes Family history: reviewed and not pertinent Surgical History Surgical History H/O cardiac catheterization (~2019) H/O mitral valve repair H/O mitral valve replacement with mechanical valve Hx laparoscopic cholecystectomy Hx of varicose vein ligation and stripping Social History Social History Household Members: Spouse Housing: House Are you a primary overnight caregiver to a significant other at home: No Do you presently have visiting nurse or other home services: No Alcohol intake: never Patient Tobacco Use Status: Never used Tobacco e-Cigarette/Vaping Use: Never Used Second Hand Smoke Exposure: No Use of substances other than those prescribed or required for medical reasons: No Currently Displaying Signs/Symptoms of Drug Intoxication Withdrawal: No Have you been hit, kicked, punched, or otherwise hurt by someone within the past year? If so, by whom?: No Do you feel safe in your current relationship?: Yes Is there a partner from a previous relationship who is making you feel unsafe now?: No Are you made to feel afraid or neglected: No Advance Directives: No Advance Directives Information Provided: No Do you have thoughts of harming others: None Do you have a plan to hurt others: No Plan Recently lost weight without trying: Yes How much weight loss: 2-13 pounds Eating poorly because of decreased appetite: Yes Nutrition screen score: 4 Nutrition Risks: No Nutritional Risk Poor oral hygiene: No service: No Current occupational status: employed Current occupation: [employer] Allergies Allergy/AdvReac Type Severity Reaction Status Date / Time No Known Allergies Allergy Verified 10/02/21 08:33 [No Known Allergies*] Active Medications: Current Medications Acetaminophen (Acetaminophen 325 Mg Tablet) 650 mg PO Q6H PRN PRN Reason: Pain, Mild (Pain Scale 1-3) Last Admin: 10/17/21 09:55 Dose: 650 mg Documented by: Aspirin (Aspirin Enteric Coated 81 Mg Tablet.) 81 mg PO DAILY [facility] Last Admin: 10/17/21 09:55 Dose: 81 mg Documented by: Hydroxyzine HCl (Hydroxyzine Hcl 25 Mg Tablet) 25 mg PO Q6H PRN PRN Reason: anxiety/restlessness Last Admin: 10/13/21 23:59 Dose: 25 mg Documented by: Vancomycin HCl 1,000 mg/ (Sodium Chloride) 270 mls @ 270 mls/hr IV Q12H [facility] Last Infusion: 10/17/21 04:08 Dose: Infused Documented by: Lisinopril (Lisinopril 20 Mg Tablet) 20 mg PO DAILY [facility]; Protocol Last Admin: 10/17/21 09:55 Dose: 20 mg Documented by: Melatonin (Melatonin 3 Mg Tablet) 6 mg PO BEDTIME PRN PRN Reason: Insomnia Metoprolol Tartrate (Metoprolol Tartrate 25 Mg Tablet) 25 mg PO BID [facility]; Protocol Last Admin: 10/17/21 09:55 Dose: 25 mg Documented by: Ondansetron HCl (Ondansetron Hcl 4 Mg/2 Ml Vial) 4 mg IVPUSH Q8H PRN PRN Reason: Nausea and Vomiting Oxycodone HCl (Oxycodone Hcl Immed Release 5 Mg Tablet) 5 mg PO Q4H PRN PRN Reason: Pain, Moderate (Pain Scale 4-6 Last Admin: 10/17/21 02:55 Dose: 5 mg Documented by: Pharmacy Consult (Consult Rx Perform Med Rec) 1 each MISCELLANE ONCE PRN PRN Reason: Consult order Pharmacy Consult (Consult Rx Vancomycin Dosing) 1 each MISCELLANE DAILY PRN PRN Reason: Consult order Pharmacy Consult (Consult Rx Other Drug Dosing) 1 each MISCELLANE DAILY PRN PRN Reason: Consult order Sodium Chloride (0.9 % Sodium Chloride Flush 3 Ml Syringe) 3 ml IVFLUSH QSHIFT [facility] Last Admin: 10/17/21 09:54 Dose: 3 ml Documented by: Warfarin Sodium (Warfarin Sodium 5 Mg Tablet) 5 mg PO DAILY@1800 [facility] Last Admin: 10/16/21 17:44 Dose: 5 mg Documented by: Home Medications Medication Instructions Recorded Confirmed Last Taken Type aspirin 81 mg tablet,delayed 81 mg PO DAILY 06/11/20 10/13/21 Unknown History release Physical Exam Vital Signs: Vital Signs: Last Vital Signs Temp 98.1 F 10/17/21 07:45 Pulse 69 10/17/21 07:45 Resp 18 10/17/21 07:45 BP 135/92 H 10/17/21 07:45 Pulse Ox 96 10/17/21 07:45 BMI result Body Mass Index 30.6 Const: General: comfortable HENMT: Other: Unremarkable Neck: Neck: Yes normal visual inspection Chest: Chest palpation & inspection: normal inspection of the chest Resp: Auscultation: clear to auscultation bilaterally Cardio: Other: Normal prosthetic valve sounds without any clear signs of valvular dysfunction on examination. There is also no signs of any emboli in skin, skin rash petechial bleeds extra. Palpation: normal PMI GI: Palpation (GI): Soft to palpation Back/Spine/Pelvis: Other: unremarkable Skin: Lesions: other Neuro: General: other Extrem: General: Yes other Psych: Mental Status: other Objective Labs and Meds Result diagrams: 10/17/21 05:56 10/17/21 05:56 Lab results: Laboratory Results - last 24 hr 10/16/21 10/17/21 10/17/21 13:17 05:56 05:56 WBC 12.3 H RBC 4.74 Hgb 12.2 L Hct 40.3 L MCV 85.0 MCH 25.7 L MCHC 30.3 L RDW 15.6 Plt Count 472 H MPV 8.8 L Immature Gran % (Auto) 2.0 H Neut % (Auto) 69.4 Lymph % (Auto) 15.3 L [place] % (Auto) 9.3 Eos % (Auto) 3.4 Baso % (Auto) 0.6 Lymph # (Auto) 1.9 [place] # (Auto) 1.1 Eos # (Auto) 0.4 Baso # (Auto) 0.1 Abs Immat Gran (auto) 0.25 H Absolute Neuts (auto) 8.6 H Absolute Nucleated RBC 0.000 Nucleated RBC % (auto) 0.0 PT INR Sodium 140 Potassium 5.0 Chloride 109 H Carbon Dioxide 25 Anion Gap 11 L BUN 21 H Creatinine 1.18 Estim Creat Clear Calc 86.5 Estimated GFR > 60 Fasting Glucose 104 H Calcium 9.3 Total Bilirubin 0.5 AST 35 ALT 69 H Alkaline Phosphatase 179 H D Total Protein 6.2 L Albumin 3.2 L Random Vancomycin 11.2 L 10/17/21 08:28 WBC RBC Hgb Hct MCV MCH MCHC RDW Plt Count MPV Immature Gran % (Auto) Neut % (Auto) Lymph % (Auto) [place] % (Auto) Eos % (Auto) Baso % (Auto) Lymph # (Auto) [place] # (Auto) Eos # (Auto) Baso # (Auto) Abs Immat Gran (auto) Absolute Neuts (auto) Absolute Nucleated RBC Nucleated RBC % (auto) PT 33.6 H INR 2.9 H Sodium Potassium Chloride Carbon Dioxide Anion Gap BUN Creatinine Estim Creat Clear Calc Estimated GFR Fasting Glucose Calcium Total Bilirubin AST ALT Alkaline Phosphatase Total Protein Albumin Random Vancomycin ECG Interpretation: EKG with sinus rhythm at 63/Min; mild nonspecific QRS widening. Otherwise unremarkable. Assessment and Plan (1) Bacteremia: Status: Acute (2) H/O mitral valve replacement with mechanical valve: Status: Acute Plan Chest x-ray suspected to have a right middle lobe infiltrate. Labs reviewed. With regard to microbiology, cultures from 10/12-came back for Enterococcus faecalis x2. However, subsequent blood cultures from 10/15 are negative. In the transthoracic echocardiogram, LVEF was 56%. The mechanical mitral valve appeared to be functioning normally. The mean gradient across the valve was 6 mm Hg and there was no significant regurgitation on Doppler. Clinically, he does not seem toxic and there is no evidence of any peripheral embolic phenomenon. Overall, low suspicion of any endocarditis. Discussed with ID as well. At this time, there is already a plan for PICC line and IV antibiotic course of at least 6 weeks. As there is already clearance of blood cultures and no other signs of valvular dysfunction or embolic phenomenon, no absolute indication for [place] at this time and clarified this with ID. If however, any further repeat blood cultures indeed come back positive or any other concerns like embolic phenomenon, then will certainly need a [place]. Procedures Date of Service Date of Service: 10/17/21
[2021-10-17 11:12] VITALS: BP 138/83; PULSE 77; RESP 18; TEMP 37.2; O2SAT 96
--- NOTE | 2021-10-17 14:03 | HO.PM.IMPN ---
Subjective Subjective Date of Service: 10/17/21 Interval History: No fever/cough No dyspnea No chest pain BCx cleared @ 48hr per Micro Review of Systems Review of Systems: Yes all other systems are reviewed and are negative Physical Exam Vital Signs: Vital Signs: Last Vital Signs Temp 99.0 F 10/17/21 11:12 Pulse 77 10/17/21 11:12 Resp 18 10/17/21 11:12 BP 138/83 10/17/21 11:12 Pulse Ox 96 10/17/21 11:12 BMI result Body Mass Index 30.6 Gen: in no acute distress HEENT: sclera anicteric, moist mucus membranes Neck: supple Lungs: clear to auscultation bilaterally Heart: regular rate and rhythm, mechanical S1, no murmurs Abd: soft, non-tender, non-distended Ext: no edema Skin: warm/well-perfused Neuro: alert and oriented x3, no focal findings Psych: appropriate affect Objective Data Active Medications Acetaminophen (Acetaminophen 325 Mg Tablet) 650 mg PO Q6H PRN PRN Reason: Pain, Mild (Pain Scale 1-3) Last Admin: 10/17/21 09:55 Dose: 650 mg Documented by: ADELA Aspirin (Aspirin Enteric Coated 81 Mg Tablet.) 81 mg PO DAILY [facility] Last Admin: 10/17/21 09:55 Dose: 81 mg Documented by: ADELA Hydroxyzine HCl (Hydroxyzine Hcl 25 Mg Tablet) 25 mg PO Q6H PRN PRN Reason: anxiety/restlessness Last Admin: 10/13/21 23:59 Dose: 25 mg Documented by: PRERNA Vancomycin HCl 1,000 mg/ (Sodium Chloride) 270 mls @ 270 mls/hr IV Q12H [facility] Last Infusion: 10/17/21 04:08 Dose: 0 mls/hr Documented by: SIVA Lisinopril (Lisinopril 20 Mg Tablet) 20 mg PO DAILY [facility]; Protocol Last Admin: 10/17/21 09:55 Dose: 20 mg Documented by: ADELA Melatonin (Melatonin 3 Mg Tablet) 6 mg PO BEDTIME PRN PRN Reason: Insomnia Metoprolol Tartrate (Metoprolol Tartrate 25 Mg Tablet) 25 mg PO BID [facility]; Protocol Last Admin: 10/17/21 09:55 Dose: 25 mg Documented by: ADELA Ondansetron HCl (Ondansetron Hcl 4 Mg/2 Ml Vial) 4 mg IVPUSH Q8H PRN PRN Reason: Nausea and Vomiting Oxycodone HCl (Oxycodone Hcl Immed Release 5 Mg Tablet) 5 mg PO Q4H PRN PRN Reason: Pain, Moderate (Pain Scale 4-6 Last Admin: 10/17/21 02:55 Dose: 5 mg Documented by: SIVA Pharmacy Consult (Consult Rx Perform Med Rec) 1 each MISCELLANE ONCE PRN PRN Reason: Consult order Pharmacy Consult (Consult Rx Vancomycin Dosing) 1 each MISCELLANE DAILY PRN PRN Reason: Consult order Pharmacy Consult (Consult Rx Other Drug Dosing) 1 each MISCELLANE DAILY PRN PRN Reason: Consult order Sodium Chloride (0.9 % Sodium Chloride Flush 3 Ml Syringe) 3 ml IVFLUSH QSHIFT [facility] Last Admin: 10/17/21 09:54 Dose: 3 ml Documented by: ADELA Warfarin Sodium (Warfarin Sodium 5 Mg Tablet) 5 mg PO DAILY@1800 [facility] Last Admin: 10/16/21 17:44 Dose: 5 mg Documented by: NATTY Labs CBC & Chem 7: 10/17/21 05:56 10/17/21 05:56 Labs: Laboratory Results - last 24 hr 10/17/21 10/17/21 10/17/21 05:56 05:56 08:28 MCV 85.0 MCH 25.7 L MCHC 30.3 L RDW 15.6 Plt Count 472 H MPV 8.8 L Immature Gran % (Auto) 2.0 H Neut % (Auto) 69.4 Lymph % (Auto) 15.3 L [place] % (Auto) 9.3 Eos % (Auto) 3.4 Baso % (Auto) 0.6 Lymph # (Auto) 1.9 [place] # (Auto) 1.1 Eos # (Auto) 0.4 Baso # (Auto) 0.1 Abs Immat Gran (auto) 0.25 H Absolute Neuts (auto) 8.6 H Absolute Nucleated RBC 0.000 Nucleated RBC % (auto) 0.0 PT 33.6 H INR 2.9 H Anion Gap 11 L Estim Creat Clear Calc 86.5 Estimated GFR > 60 Fasting Glucose 104 H Calcium 9.3 Total Bilirubin 0.5 AST 35 ALT 69 H Alkaline Phosphatase 179 H D Total Protein 6.2 L Albumin 3.2 L Microbiology Microbiology Results: Microbiology 10/15/21 10:47 Blood Culture - Preliminary Blood - Venous No growth after 48 hours. 10/15/21 10:47 Blood Culture - Preliminary Blood - Venous No growth after 48 hours. Assessment and Plan (1) Bacteremia: Status: Acute (2) Pneumonia: Status: Acute Plan hospital d#5 56yo M with mechanical mitral valve called back to hospital for positive blood cultures, found to have Enterococcus faecalis bacteremia # Enterococcus faecalis bacteremia # RML PNA - concern for prosthetic valve IE. BCx cleared. on vancomycin d#5. discuss final ABX plan with ID and will get PICC today # mechanical mitral valve - continue warfarin, goal INR 2.5-3.5 - continue ASA # HTN - continue metoprolol + lisinopril # VTE ppx - warfarin In my clinical judgment, the patient requires continued hospitalization for the following reasons: IV antibiotics, PICC line placement Quality Stroke Does the patient have a stroke diagnosis?: No VTE Prior VTE?: No VTE Risk Level:: Medical - moderate - high VTE Device Contraindication: Treatment Not Indicated VTE Drug Contraindication: N/A - Med Ordered
--- NOTE | 2021-10-17 14:34 | HO.PICC ---
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 Following completion of [place] Protocol the skin and soft tissues were anesthetized with 1% Lidocaine plain. Using ultrasound guidance, [right basilic] vein access was obtained in single attempt by this RN. Over an 0.018 wire through peel-away sheath, a [4 cymraes single lumen] PICC line was positioned. Catheter length is [49 cm] internal length, [1 cm ] external length, for a total trimmed length of [50 cm]. The procedure was performed in [S272]. Tip verification was performed by Matt Harris with [employer] 3CG. Tip located in SVC. Ultrasound was used to document vein patency and for needle entry. A formal ultrasound picture and cardiac rhythm strip was recorded. Vascular Shake Splitter has released the line for use and it is currently dressed with a StatLock, Tegaderm, and CHG disc. Verification has been performed for blood return and line patency. Arm Circumference: [33 cm] Equipment: AppTrigger Powerpicc solo Catheter Type: [4 cymraes single lumen PASV ] Lot #: [[id number]]
--- NOTE | 2021-10-17 14:53 | MHC.CM.PN ---
PICC line insertion complete. Documentation of PICC insertion sent to [facility]. The final med will be VANCO. The patient will receive AM dose here @ [facility]. He will discharge home. Supplies will be delivered. The 2nd infusion will be administered at home, in the evening. [facility] is providing a nurse for education, labs and dressing changes. Referral were sent for a VNA. Short staffing issues were the explanation of denial.
[2021-10-17 15:38] LABS: Vancomycin Trough 10.6 mcg/mL (10.0-20.0)
[2021-10-17 16:00] VITALS: BP 145/87; PULSE 65; RESP 16; TEMP 37.2; O2SAT 97
--- NOTE | 2021-10-17 16:08 | HE.PHANOTE ---
vancomycin addenedum: Level came back at 10.6 and estimated AUC of 398, increased dose back to 1250 mg q 12 hours, pt still has elevated wbc
[2021-10-17] MEDS: vancomycin HCL 1,250 MG in 0.9 % Sodium Chloride 250 ML 166.67 MG IV (17:18)
[2021-10-17] MEDS: Warfarin Sodium 5 MG TABLET PO (17:18)
[2021-10-17 19:35] VITALS: BP 163/91; PULSE 68; RESP 18; TEMP 37.4; O2SAT 99
[2021-10-17 23:29] VITALS: BP 134/67; PULSE 63; RESP 16; TEMP 35.9; O2SAT 94
[2021-10-18] MEDS: oxyCODONE HCl Immed Release 5 MG TABLET PO (00:23)
[2021-10-18 03:16] VITALS: BP 121/60; PULSE 74; RESP 16; TEMP 37.1; O2SAT 95
[2021-10-18] MEDS: vancomycin HCL 1,250 MG in 0.9 % Sodium Chloride 250 ML 166.67 MG IV (05:29)
[2021-10-18] MEDS: Acetaminophen 325 MG TABLET 650 MG PO (05:32)
[2021-10-18 06:31] LABS: MANUAL DIFF FLAG NO
[2021-10-18 07:05] LABS: Basophils Absolute Auto 0.1 X10*3/uL (0.0-0.2); Basophils Percent Auto 0.6 % (0-2); Eosinophils Absolute Auto 0.3 X10*3/uL (0.0-0.4); Eosinophils Percent Auto 2.2 % (0-4); Hematocrit 40.4 % (42.0-52.0); Hemoglobin 12.6 g/dl (14.0-18.0); Imm Gran Abs Auto 0.17 X10*3/uL (0.00-0.03); Imm Gran Pct Auto 1.1 % (0.0-0.4); Lymphocytes Absolute Auto 1.3 X10*3/uL (1.2-4.9); Lymphocytes Percent Auto 8.7 % (20-40); Mean Corpuscular HGB Conc 31.2 g/dl (31.0-36.0); Mean Corpuscular Hemoglobin 26.2 pg (27.0-33.0); Mean Platelet Volume 8.9 fL (9.4-12.4); Monocytes Absolute Auto 1.4 X10*3/uL (0.1-1.2); Monocytes Percent Auto 8.8 % (2-11); Neutrophils Percent Auto 78.6 % (45-73); Platelet Count 503 X10*3/uL (160-400); Red Blood Count 4.81 X10*6/uL (4.60-5.80); Red Cell Distribution Width 15.3 % (11.0-16.0); White Blood Count 15.3 X10*3/uL (4.8-10.8)
[2021-10-18 07:22] VITALS: BP 137/87; PULSE 67; RESP 18; TEMP 36.7; O2SAT 95
[2021-10-18 07:31] LABS: Alanine Aminotransferase 98 U/L (0-40); Albumin Level 3.4 g/dL (3.5-5.0); Alkaline Phosphatase 201 U/L (39-117); Anion Gap 16 (12-20); Aspartate Amino Transferase 67 U/L (5-37); Bilirubin Total 0.7 mg/dL (0.0-1.0); Blood Urea Nitrogen 19 mg/dL (9-16); Calcium 9.4 mg/dL (8.4-10.2); Carbon Dioxide 22 mmol/L (22-29); Chloride 107 mmol/L (96-108); Creatinine Clr Calc Pharmacy 94.5; Estimated Glomerular Filt Rate > 60; Glucose Fasting 118 mg/dL (60-99); Potassium 4.5 mmol/L (3.3-5.1); Sodium 140 mmol/L (135-145); Total Protein 6.5 g/dL (6.5-8.0)
--- NOTE | 2021-10-18 07:45 | HE.PHANOTE ---
VANCOMYCIN DOSING ADDENDUM: Patients Scr is 1.08 and current regimen is predicting a AUC of 450/trough of 11.3. Will continue with current regimen of 1250 mg Q12H. Next trough is set to be drawn 10/19 @ 0300.
[2021-10-18 08:31] LABS: INTERNATIONAL NORM RATIO 3.2 (0.9-1.1); Prothrombin Time 37.4 SEC (9.9-13.0)
[2021-10-18] MEDS: Metoprolol Tartrate 25 MG TABLET PO (09:13)
[2021-10-18] MEDS: 0.9 % Sodium Chloride Flush 3 ML SYRINGE IVFLUSH (09:13)
[2021-10-18] MEDS: lisinopriL 20 MG TABLET PO (09:13)
[2021-10-18] MEDS: Aspirin Enteric Coated 81 MG TABLET.DR PO (09:13)
[2021-10-18] MEDS: 0.9 % Sodium Chloride Flush 10 ML SYRINGE 5 ML IVFLUSH (09:26)
--- NOTE | 2021-10-18 10:17 | P.F2F_ITS ---
Service Date Service Date: 10/18/21 Encounter Date of encounter: 10/18/21 Reasons for Services Signs and symptoms assessed: IV ABX INR monitoring Reason for detention: administration of IV, SQ, or IM injection, central line care, monitoring of PT/INR and medication treatment MD Overseeing Care: Kuldip Pendleton Homebound: Leaving the home is medically contraindicated at this time without the asist of a device and/or another person due th the listed conditions above and below. Reason homebound: immunosuppression / infection risk and other (IV antibiotic infusion) Certification: Based on the above findings, I certify that this patient is confined to the home and needs intermittent detention care, physical therapy and/or speech therapy, or continues to need occupational therapy. The patient is under my care, and I have initiated the establishment of the plan of care. The patient will be followed by a physician who will periodically review the plan of care.
--- NOTE | 2021-10-18 10:34 | PM.DS ---
DS: Providers Provider Date of Service: 10/18/21 Date of admission: 10/13/21 13:24 Date of discharge: 10/18/21 Primary care physician: Kuldip Pendleton MD Consults: 10/14/21 08:56 Consult to Infectious Diseases Routine Consulting Provider: Sandrine Chou Reason for consultation: enterococcus bacteremia Has provider been notified: No 10/17/21 08:49 Consult to Cardiology Routine Consulting Provider: [facility] Reason for consultation: Pt with mechanical MV admitted with Enterococcus faecalis bateremia; cleare DS: Diagnosis Discharge Diagnosis (1) Bacteremia: Status: Acute (2) Pneumonia: Status: Acute (3) Enterococcus faecalis infection: Status: Acute (4) H/O mitral valve replacement with mechanical valve: Status: Acute (5) Current use of anticoagulant therapy: Status: Acute DS: Summary Hospital Course Hospital Course: from admission history and physical by hospitalist Garfield Dominguez DO, 10/13/21: 56-year-old male return to the emergency department for further evaluation after had positive blood culture.? Patient was in the emergency department yesterday for evaluation of generalized weakness and fever with unclear source, patient had a recent cruise trip that he start to develop fever and generalized weakness and overall not feeling well, no source of infection was found yesterday and patient felt better after 2 L of IV hydration, 2 bottles of blood culture tested positive for g positive cocci, patient last night still have low-grade fever and feeling generalized weakness with intermittent chills.? Otherwise no other new symptoms. Patient is on Coumadin for metallic mitral valve. This 56yo M with a mechanical mitral valve was called back to hospital for positive blood cultures. He was found to have Enterococcus faecalis bacteremia. ID was consulted. Recommendation was for 42 days of IV vancomycin after culture clearance, which was 10/15/21. TTE negative for vegetations and there were no embolic events. He had evidence of RML pneumonia on CXR, though did not have cough or dyspnea. Fever and chills resolved. PICC was placed. He was discharged home with VNA services to complete antibiotic therapy at home. He needs weekly labs while on vancomycin: CBCd, CMP, vancomycin trough [target 15-20], and PT/INR [target 2.5-3.5]. 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 Time Spent with Patient Time attestation: Total time spent providing and/or coordinating discharge services: Discharge coordination time: Greater than 30 minutes Quality: Stroke Does the patient have a stroke diagnosis?: No Physical Exam Vital Signs: Vital Signs: Last Vital Signs Temp 98.1 F 10/18/21 07:22 Pulse 67 10/18/21 07:22 Resp 18 10/18/21 07:22 BP 137/87 10/18/21 07:22 Pulse Ox 95 10/18/21 07:22 BMI result Body Mass Index 30.6 Gen: in no acute distress HEENT: sclera anicteric, moist mucus membranes Neck: supple Lungs: clear to auscultation bilaterally Heart: regular rate and rhythm, mechanical S1, no murmurs Abd: soft, non-tender, non-distended Ext: no edema, RUE PICC Skin: warm/well-perfused Neuro: alert and oriented x3, no focal findings Psych: appropriate affect DS: Data Data Completed and Pending Completed studies during hospitalization [Text1]: Microbiology 10/15/21 10:47 Blood - Venous Blood Culture - Preliminary No growth after 48 hours. 10/15/21 10:47 Blood - Venous Blood Culture - Preliminary No growth after 48 hours. 10/12/21 Organism 1 Enterococcus faecalis Results of Blood Culture gram stain called to and read back by JALEN at 0317 on 10/13/21 by ASHLEY. Enterococcus Faecalis Synergy Screen Gentamicin High Level (synergy) SACHI: INTERPRETATION: SYN-S SUSCEPTIBLE Streptomycin High Level (synergy) SACHI: INTERPRETATION: SYN-S SUSCEPTIBLE E faecalis M.I.C. RX --------- --- Ampicillin <=2 S Vancomycin 1 S Laboratory Results WBC 15.3 X10*3/uL (4.8-10.8) H 10/18/21 06:18 RBC 4.81 X10*6/uL (4.60-5.80) 10/18/21 06:18 Hgb 12.6 g/dl (14.0-18.0) L 10/18/21 06:18 Hct 40.4 % (42.0-52.0) L 10/18/21 06:18 MCV 84.0 fL (80.0-98.0) 10/18/21 06:18 MCH 26.2 pg (27.0-33.0) L 10/18/21 06:18 MCHC 31.2 g/dl (31.0-36.0) 10/18/21 06:18 RDW 15.3 % (11.0-16.0) 10/18/21 06:18 Plt Count 503 X10*3/uL (160-400) H 10/18/21 06:18 MPV 8.9 fL (9.4-12.4) L 10/18/21 06:18 Immature Gran % (Auto) 1.1 % (0.0-0.4) H 10/18/21 06:18 Neut % (Auto) 78.6 % (45-73) H 10/18/21 06:18 Lymph % (Auto) 8.7 % (20-40) L 10/18/21 06:18 Stearns % (Auto) 8.8 % (2-11) 10/18/21 06:18 Eos % (Auto) 2.2 % (0-4) 10/18/21 06:18 Baso % (Auto) 0.6 % (0-2) 10/18/21 06:18 Lymph # (Auto) 1.3 X10*3/uL (1.2-4.9) 10/18/21 06:18 Stearns # (Auto) 1.4 X10*3/uL (0.1-1.2) H 10/18/21 06:18 Eos # (Auto) 0.3 X10*3/uL (0.0-0.4) 10/18/21 06:18 Baso # (Auto) 0.1 X10*3/uL (0.0-0.2) 10/18/21 06:18 Abs Immat Gran (auto) 0.17 X10*3/uL (0.00-0.03) H 10/18/21 06:18 Absolute Neuts (auto) 12.0 x10*3/uL (2.0-8.3) H 10/18/21 06:18 Absolute Nucleated RBC 0.000 X10*3/uL (0.0-0.012) 10/18/21 06:18 Nucleated RBC % (auto) 0.0 /100WBC (0.0-0.2) 10/18/21 06:18 Smear Tech's Comments VERIFIED 10/14/21 06:51 PT 37.4 SEC (9.9-13.0) H 10/18/21 08:16 INR 3.2 (0.9-1.1) H 10/18/21 08:16 APTT 47.9 SEC (24.1-38.0) H 10/13/21 11:50 Sodium 140 mmol/L (135-145) 10/18/21 06:18 Potassium 4.5 mmol/L (3.3-5.1) 10/18/21 06:18 Chloride 107 mmol/L (96-108) 10/18/21 06:18 Carbon Dioxide 22 mmol/L (22-29) 10/18/21 06:18 Anion Gap 16 (12-20) 10/18/21 06:18 BUN 19 mg/dL (9-16) H 10/18/21 06:18 Creatinine 1.08 mg/dL (0.5-1.4) 10/18/21 06:18 Estim Creat Clear Calc 94.5 10/18/21 06:18 Estimated GFR > 60 10/18/21 06:18 Random Glucose 111 mg/dL (60-115) 10/16/21 06:23 Fasting Glucose 118 mg/dL (60-99) H 10/18/21 06:18 Calcium 9.4 mg/dL (8.4-10.2) 10/18/21 06:18 Total Bilirubin 0.7 mg/dL (0.0-1.0) 10/18/21 06:18 Direct Bilirubin 0.3 mg/dL (0.0-0.5) 10/13/21 11:50 AST 67 U/L (5-37) H 10/18/21 06:18 ALT 98 U/L (0-40) H 10/18/21 06:18 Alkaline Phosphatase 201 U/L (39-117) H 10/18/21 06:18 Troponin I High Sens 3.7 ng/L (<3.5-35.0) 10/13/21 11:50 Total Protein 6.5 g/dL (6.5-8.0) 10/18/21 06:18 Albumin 3.4 g/dL (3.5-5.0) L 10/18/21 06:18 Vancomycin Trough 10.6 mcg/mL (10.0-20.0) 10/17/21 14:46 Random Vancomycin 11.2 mcg/mL (15-20) L 10/16/21 13:17 COVID-19 (JEANNE) Negative (Negative) 10/13/21 11:50 COVID-19 Clin Com See Note 10/13/21 11:50 Impressions Chest X-Ray 10/13/21 12:18 IMPRESSION: Subtle small ill-defined opacity right middle lobe suspicious for developing infiltrate. Lumbar Spine CT 10/14/21 01:15 IMPRESSION: 1. No abscess identified. If clinically warranted, MRI would provide better evaluation for possible abscess as well as for any changes of discitis/osteomyelitis. 2. Bilateral L5 pars defects with anterolisthesis of L5 on S1. Bilateral neural foraminal narrowing suspected. Discharge Plan Discharge Patient Disposition: Home Health Service Discharge Diagnosis: Enterococcus faecalis bacteremia with prosthetic mitral valve in place Referrals: Sandrine Chou MD [Physician] - 2 Weeks Po,Kuldip Hung MD [Primary Care Provider] - 1 Week Juan David Samaniego MD [Physician] - 2 Weeks Discharge Medications: New oxycodone 5 mg Tablet 5 mg PO Q12H PRN (Reason: Pain, Moderate (Pain Scale 4-6) Qty: 6 0RF sodium chloride 0.9 % (flush) [Normal Saline Flush] Syringe 5 ml IVFLUSH TID Qty: 111 0RF vancomycin 1.25 gram recon soln 1.25 g IV Q12H 38 Days Qty: 76 0RF Continued warfarin 5 mg tablet 5 mg PO DAILY Qty: 90 3RF Protocol: Dose Management Condition: Thursday (Week One) Dose/Route: 5 mg Instruction: 1 x 5 mg tablet Condition: Thursday Dose/Route: 5 mg Instruction: 1 x 5 mg tablet Condition: Thursday Dose/Route: 5 mg Instruction: 1 x 5 mg tablet Condition: Thursday Dose/Route: 7.5 mg Instruction: 1.5 x 5 mg tablets Condition: Dose/Route: 5 mg Instruction: 1 x 5 mg tablet Condition: Thursday Dose/Route: 5 mg Instruction: 1 x 5 mg tablet Condition: Thursday Dose/Route: 5 mg Instruction: 1 x 5 mg tablet Condition: Thursday (Week Two) Dose/Route: 5 mg Instruction: 1 x 5 mg tablet Condition: Thursday Dose/Route: 5 mg Instruction: 1 x 5 mg tablet Condition: Thursday Dose/Route: 5 mg Instruction: 1 x 5 mg tablet Condition: Thursday Dose/Route: 7.5 mg Instruction: 1.5 x 5 mg tablets Condition: Dose/Route: 5 mg Instruction: 1 x 5 mg tablet Condition: Thursday Dose/Route: 5 mg Instruction: 1 x 5 mg tablet Condition: Thursday Dose/Route: 5 mg Instruction: 1 x 5 mg tablet Protocol Text: Adjustment Start Date: Thursday10/02/21 INR Value: 3.2 INR Date: 10/02/21 Recheck Date: 10/16/21 Additional Instructions: CONT REG DOSING CALL WITH ANY MEDICATION CHANGES sildenafil 50 mg tablet 50 mg PO DAILY PRN (Reason: sexual activity) Qty: 10 4RF metoprolol tartrate 25 mg tablet 25 mg PO BID Qty: 180 3RF lisinopril 20 mg tablet 20 mg PO DAILY Qty: 90 2RF amoxicillin 500 mg capsule 2,000 mg PO ONCE Qty: 4 3RF Rx Instructions: Take 4 capsule 30 min to 1 hr prior to dental work (DME) blood pressure monitor [Blood Pressure Kit] Kit See Rx Instructions .ROUTE .MEDSUPPLY Qty: 1 0RF Rx Instructions: As directed aspirin 81 mg tablet,delayed release (DR/EC) 81 mg PO DAILY 0RF Discharge Orders: Discharge Order (Routine); Ordered 10/18/21 Ordered By: Viky Nunn Diet: advance to usual diet Activity on Discharge: As tolerated Stand Alone Forms: Patient Portal Discharge page Other Ambulatory Orders: Complete Blood Count Auto Diff (QWEEK) Timeframe: 20211021 Facility: [facility] - Location: Laboratory Ordered By: Viky Nunn Complete Blood Count Auto Diff (QWEEK) Timeframe: 20211028 Facility: [facility] - Location: Laboratory Ordered By: Viky Nunn Complete Blood Count Auto Diff (QWEEK) Timeframe: 20211104 Facility: [facility] - Location: Laboratory Ordered By: Viky Nunn Complete Blood Count Auto Diff (QWEEK) Timeframe: 20211111 Facility: [facility] - Location: Laboratory Ordered By: Viky Nunn Complete Blood Count Auto Diff (QWEEK) Timeframe: 20211118 Facility: [facility] - Location: Laboratory Ordered By: Maria De Jesusygold Arline Comprehensive Met. Panel (DAILY@0600) Timeframe: 20211022 Facility: [facility] - Location: Laboratory Ordered By: Maria De Jesusygold Arline Comprehensive Met. Panel (DAILY@0600) Timeframe: 20211023 Facility: [facility] - Location: Laboratory Ordered By: Jossehyun Arline Comprehensive Met. Panel (DAILY@0600) Timeframe: 20211024 Facility: [facility] - Location: Laboratory Ordered By: Maria De Jesusygold Arline Comprehensive Met. Panel (DAILY@0600) Timeframe: 20211025 Facility: [facility] - Location: Laboratory Ordered By: Viky Arline Comprehensive Met. Panel (DAILY@0600) Timeframe: 20211026 Facility: [facility] - Location: Laboratory Ordered By: Viky Arline Prothrombin Time INR (QWEEK) Timeframe: 20211021 Facility: [facility] - Location: Laboratory Ordered By: Maria De Jesusygold Arline Prothrombin Time INR (QWEEK) Timeframe: 20211028 Facility: [facility] - Location: Laboratory Ordered By: Jossehyun Arline Prothrombin Time INR (QWEEK) Timeframe: 20211104 Facility: [facility] - Location: Laboratory Ordered By: Maria De Jesusygold Arline Prothrombin Time INR (QWEEK) Timeframe: 20211111 Facility: [facility] - Location: Laboratory Ordered By: Jaehyun Arline Prothrombin Time INR (QWEEK) Timeframe: [id number] Facility: [facility] - Location: Laboratory Ordered By: Jossehyun Arline Vancomycin Trough (QWEEK) Timeframe: 20211028 Facility: [facility] - Location: Laboratory Ordered By: Jaehyun Arline Vancomycin Trough (QWEEK) Timeframe: 20211104 Facility: [facility] - Location: Laboratory Ordered By: Jaehyun Arline Vancomycin Trough (QWEEK) Timeframe: 20211111 Facility: [facility] - Location: Laboratory Ordered By: Jaehyun Arline Vancomycin Trough (QWEEK) Timeframe: [id number] Facility: [facility] - Location: Laboratory Ordered By: Viky Nunn Vancomycin Trough (QWEEK) Timeframe: 20211021 Facility: [facility] - Location: Laboratory Ordered By: Viky Nunn Care Plan Goals: cure of bacteremia prevention of valve infection/thrombosis Health Concerns: Enterococcus faecalis bacteremia, prosthetic mitral valve Plan of Treatment: vancomycin 1.25 grams IV every 12 hours, start date 10/15/21, end date 11/26/21 weekly labs while on vancomycin: CBCd, CMP, vancomycin trough [goal 15-20], PT/INR [goal 2.5-3.5] see your primary care doctor in 1-2 weeks, your employment assistant in 2 weeks, and the infectious disease specialist in 2 weeks Assessment: see Discharge Summary Patient Instructions: Bacteremia (DC), PICC (Peripherally Inserted Central Catheter) (DC)
--- NOTE | 2021-10-18 11:58 | MHC.CM.PN ---
Male 56 DX Bacteremia discharged today to home. [facility] will provide Medication, supplies and a nurse for IV home infusion education, lab draws and dressing changes. The patients provided transport home. All dc info has been sent to [facility].
== END 2021-10-18 11:41 | disposition home health service (06) | DRG 139 ==
LOC: HO.ED 13:15 → HO.EDOVER 13:34 → HO.IMC 10-14 07:38
PROVIDERS: Admitting Provider Hospitalist; Emergency Provider Emergency Medicine; PCP Internal Medicine; Visit Provider Family Medicine
DX: J18.9 Pneumonia, unspecified organism (principal); R78.81 Bacteremia; B95.2 Enterococcus as the cause of diseases classified elsewhere; I10 Essential (primary) hypertension; K21.9 Gastro-esophageal reflux disease without esophagitis; Z20.822 Contact with and (suspected) exposure to COVID-19; Z86.16 Personal history of COVID-19; Z95.2 Presence of prosthetic heart valve; Z79.01 Long term (current) use of anticoagulants; Z79.82 Long term (current) use of aspirin; Z79.899 Other long term (current) drug therapy
CPT/HCPCS: 36415; 36573; 71045; 72132; 80048; 80053; 80076; 80202; 84484; 85025; 85610; 85730; 87040; 87635; 93306; 96361; 96365; 96366; 96375; 99285; C1751; J0456; J2543; J3370; Q0163; Q9967

== ENCOUNTER 2021-11-06 14:51 | Outpatient (REF) | payer OTHER, SELFPAY | END 2021-11-06 14:52 | disposition home or self-care (01) | LOC: HO.LAB 14:51 | PROVIDERS: PCP Internal Medicine; Visit Provider Internal Medicine | DX: I38 Endocarditis, valve unspecified (principal); B95.2 Enterococcus as the cause of diseases classified elsewhere; R78.81 Bacteremia | CPT/HCPCS: 87040; 99212 ==

== ENCOUNTER → 2021-11-08 08:34 | Outpatient (BNVA) | payer OTHER, SELFPAY | PROVIDERS: PCP Internal Medicine; Visit Provider Internal Medicine | DX: Z95.2 Presence of prosthetic heart valve (principal); Z51.81 Encounter for therapeutic drug level monitoring; Z79.01 Long term (current) use of anticoagulants | CPT/HCPCS: 85610; 99211 ==

== ENCOUNTER → 2021-11-15 08:10 | Outpatient (BNVA) | payer OTHER, SELFPAY | PROVIDERS: PCP Internal Medicine; Visit Provider Internal Medicine | DX: Z95.2 Presence of prosthetic heart valve (principal); Z79.01 Long term (current) use of anticoagulants; Z51.81 Encounter for therapeutic drug level monitoring | CPT/HCPCS: 85610; 99211 ==

== ENCOUNTER → 2021-11-20 14:09 | Outpatient (BNVA) | payer OTHER, SELFPAY | PROVIDERS: PCP Internal Medicine; Visit Provider Internal Medicine | DX: I38 Endocarditis, valve unspecified (principal); B95.2 Enterococcus as the cause of diseases classified elsewhere | CPT/HCPCS: 99212 ==

== ENCOUNTER → 2021-11-22 08:17 | Outpatient (BNVA) | payer OTHER, SELFPAY | PROVIDERS: PCP Internal Medicine; Visit Provider Internal Medicine | DX: Z95.2 Presence of prosthetic heart valve (principal); Z79.01 Long term (current) use of anticoagulants; Z51.81 Encounter for therapeutic drug level monitoring | CPT/HCPCS: 85610; 99211 ==

== ENCOUNTER → 2021-11-29 09:09 | Outpatient (BNVA) | payer OTHER, SELFPAY | PROVIDERS: PCP Internal Medicine; Visit Provider Internal Medicine | DX: Z95.2 Presence of prosthetic heart valve (principal); Z79.01 Long term (current) use of anticoagulants; Z51.81 Encounter for therapeutic drug level monitoring | CPT/HCPCS: 85610; 99211 ==

== ENCOUNTER → 2021-12-06 08:46 | Outpatient (BNVA) | payer OTHER, SELFPAY | PROVIDERS: PCP Internal Medicine; Visit Provider Internal Medicine | DX: Z95.2 Presence of prosthetic heart valve (principal); Z79.01 Long term (current) use of anticoagulants; Z51.81 Encounter for therapeutic drug level monitoring | CPT/HCPCS: 85610; 99211 ==

== ENCOUNTER → 2021-12-17 08:19 | Outpatient (BNVA) | payer OTHER, SELFPAY | PROVIDERS: PCP Internal Medicine; Referring Provider Internal Medicine; Visit Provider Internal Medicine Cardiovascular Disease | DX: I10 Essential (primary) hypertension (principal); Z95.2 Presence of prosthetic heart valve | CPT/HCPCS: 99212 ==

== ENCOUNTER → 2021-12-18 08:30 | Outpatient (BNVA) | payer OTHER, SELFPAY | PROVIDERS: PCP Internal Medicine; Visit Provider Internal Medicine | DX: Z95.2 Presence of prosthetic heart valve (principal); Z79.01 Long term (current) use of anticoagulants; Z51.81 Encounter for therapeutic drug level monitoring | CPT/HCPCS: 85610; 99211 ==

== ENCOUNTER → 2022-01-01 08:57 | Outpatient (BNVA) | payer OTHER, SELFPAY | PROVIDERS: PCP Internal Medicine; Visit Provider Internal Medicine | DX: Z95.2 Presence of prosthetic heart valve (principal); Z79.01 Long term (current) use of anticoagulants; Z51.81 Encounter for therapeutic drug level monitoring | CPT/HCPCS: 85610; 99211 ==

== ENCOUNTER 2022-01-02 08:20 | Outpatient (REF) | payer OTHER, SELFPAY ==
--- NOTE | ~2022-01-02 | XR_ITS ---
EXAMINATION: XR CHEST CLINICAL INFORMATION: Presence of prosthetic heart valve. COMPARISON: 10/13/2021 TECHNIQUE: 2 views of the chest were obtained. FINDINGS: Median sternotomy wires appear intact. Mitral annular hardware. The lungs are well expanded. Partial improvement of the previously visualized right middle lobe opacity, with minimal streaky opacity remaining. No edema or effusion. No pneumothorax. The cardiomediastinal silhouette is within normal limits. No acute osseous abnormality. XR/XR chest 2V IMPRESSION: Improving right middle lobe opacity, with minimal streaky appearance remaining.
[2022-01-02 11:19] LABS: MANUAL DIFF FLAG NO
[2022-01-02 11:27] LABS: Basophils Percent Auto 0.6 % (0-2); Eosinophils Absolute Auto 0.2 X10*3/uL (0.0-0.4); Eosinophils Percent Auto 2.3 % (0-4); Hematocrit 45.2 % (42.0-52.0); Hemoglobin 14.1 g/dl (14.0-18.0); Imm Gran Abs Auto 0.02 X10*3/uL (0.00-0.03); Imm Gran Pct Auto 0.3 % (0.0-0.4); Lymphocytes Absolute Auto 2.1 X10*3/uL (1.2-4.9); Mean Corpuscular HGB Conc 31.2 g/dl (31.0-36.0); Mean Corpuscular Hemoglobin 26.4 pg (27.0-33.0); Mean Corpuscular Volume 84.5 fL (80.0-98.0); Mean Platelet Volume 10.4 fL (9.4-12.4); Monocytes Absolute Auto 0.9 X10*3/uL (0.1-1.2); Neutrophils Percent Auto 55.8 % (45-73); Platelet Count 270 X10*3/uL (160-400); Red Blood Count 5.35 X10*6/uL (4.60-5.80); Red Cell Distribution Width 15.6 % (11.0-16.0); White Blood Count 7.1 X10*3/uL (4.8-10.8)
[2022-01-02 12:03] LABS: Alanine Aminotransferase 25 U/L (0-40); Albumin Level 4.1 g/dL (3.5-5.0); Alkaline Phosphatase 90 U/L (39-117); Anion Gap 12 (12-20); Aspartate Amino Transferase 27 U/L (5-37); Blood Urea Nitrogen 19 mg/dL (9-16); Calcium 9.4 mg/dL (8.4-10.2); Carbon Dioxide 21 mmol/L (22-29); Chloride 109 mmol/L (96-108); Estimated Glomerular Filt Rate > 60; Glucose Random 113 mg/dL (60-115); Potassium 4.1 mmol/L (3.3-5.1); Sodium 138 mmol/L (135-145); Thyroid Stimulating Hormone 2.95 uIU/mL (0.32-4.0); Total Protein 7.4 g/dL (6.5-8.0)
== END 2022-01-02 08:21 | disposition home or self-care (01) ==
LOC: HO.HMGCX 08:20
PROVIDERS: Absent Provider Internal Medicine; PCP Internal Medicine; Visit Provider Internal Medicine
DX: B95.2 Enterococcus as the cause of diseases classified elsewhere (principal); Z95.2 Presence of prosthetic heart valve
CPT/HCPCS: 36415; 71046; 80053; 84443; 85025; 87040

== ENCOUNTER → 2022-01-16 08:04 | Outpatient (BNVA) | payer OTHER, SELFPAY | PROVIDERS: PCP Internal Medicine; Visit Provider Internal Medicine | DX: Z95.2 Presence of prosthetic heart valve (principal); Z79.01 Long term (current) use of anticoagulants; Z51.81 Encounter for therapeutic drug level monitoring | CPT/HCPCS: 85610; 99211 ==

== ENCOUNTER → 2022-01-30 08:47 | Outpatient (BNVA) | payer OTHER, SELFPAY | PROVIDERS: PCP Internal Medicine; Visit Provider Internal Medicine | DX: Z95.2 Presence of prosthetic heart valve (principal); Z51.81 Encounter for therapeutic drug level monitoring; Z79.01 Long term (current) use of anticoagulants | CPT/HCPCS: 85610; 99211 ==

== ENCOUNTER → 2022-02-04 09:49 | Outpatient (BNVA) | payer OTHER, SELFPAY | PROVIDERS: PCP Internal Medicine; Visit Provider Internal Medicine | DX: Z95.2 Presence of prosthetic heart valve (principal); Z51.81 Encounter for therapeutic drug level monitoring; Z79.01 Long term (current) use of anticoagulants | CPT/HCPCS: 85610; 99211 ==

== ENCOUNTER → 2022-02-13 08:14 | Outpatient (BNVA) | payer OTHER, SELFPAY | PROVIDERS: PCP Internal Medicine; Visit Provider Internal Medicine | DX: Z95.2 Presence of prosthetic heart valve (principal); Z51.81 Encounter for therapeutic drug level monitoring; Z79.01 Long term (current) use of anticoagulants | CPT/HCPCS: 85610; 99211 ==

== ENCOUNTER → 2022-02-20 08:35 | Outpatient (BNVA) | payer OTHER, SELFPAY | PROVIDERS: PCP Internal Medicine; Visit Provider Internal Medicine | DX: Z95.2 Presence of prosthetic heart valve (principal); Z51.81 Encounter for therapeutic drug level monitoring; Z79.01 Long term (current) use of anticoagulants | CPT/HCPCS: 85610; 99211 ==

== ENCOUNTER → 2022-03-06 08:36 | Outpatient (BNVA) | payer OTHER, SELFPAY | PROVIDERS: PCP Internal Medicine; Visit Provider Internal Medicine | DX: Z95.2 Presence of prosthetic heart valve (principal); Z79.01 Long term (current) use of anticoagulants; Z51.81 Encounter for therapeutic drug level monitoring | CPT/HCPCS: 85610; 99211 ==

== ENCOUNTER → 2022-03-13 08:36 | Outpatient (BNVA) | payer OTHER, SELFPAY | PROVIDERS: PCP Internal Medicine; Visit Provider Internal Medicine | DX: Z95.2 Presence of prosthetic heart valve (principal); Z79.01 Long term (current) use of anticoagulants; Z51.81 Encounter for therapeutic drug level monitoring | CPT/HCPCS: 85610; 99211 ==

== ENCOUNTER → 2022-03-18 11:21 | Outpatient (BNVA) | payer OTHER, SELFPAY | PROVIDERS: PCP Internal Medicine; Visit Provider Internal Medicine | DX: Z95.2 Presence of prosthetic heart valve (principal); Z79.01 Long term (current) use of anticoagulants; Z51.81 Encounter for therapeutic drug level monitoring | CPT/HCPCS: 85610; 99211 ==

== ENCOUNTER → 2022-03-25 09:06 | Outpatient (BNVA) | payer OTHER, SELFPAY | PROVIDERS: PCP Internal Medicine; Visit Provider Internal Medicine | DX: Z95.2 Presence of prosthetic heart valve (principal); Z51.81 Encounter for therapeutic drug level monitoring; Z79.01 Long term (current) use of anticoagulants | CPT/HCPCS: 85610; 99211 ==

== ENCOUNTER → 2022-04-08 08:45 | Outpatient (BNVA) | payer OTHER, SELFPAY | PROVIDERS: PCP Internal Medicine; Visit Provider Internal Medicine | DX: Z95.2 Presence of prosthetic heart valve (principal); Z79.01 Long term (current) use of anticoagulants; Z51.81 Encounter for therapeutic drug level monitoring | CPT/HCPCS: 85610; 99211 ==

== ENCOUNTER → 2022-04-22 09:07 | Outpatient (BNVA) | payer OTHER, SELFPAY | PROVIDERS: PCP Internal Medicine; Visit Provider Internal Medicine | DX: Z95.2 Presence of prosthetic heart valve (principal); Z79.01 Long term (current) use of anticoagulants; Z51.81 Encounter for therapeutic drug level monitoring | CPT/HCPCS: 85610; 99211 ==

== ENCOUNTER → 2022-05-06 09:04 | Outpatient (BNVA) | payer OTHER, SELFPAY | PROVIDERS: PCP Internal Medicine; Visit Provider Internal Medicine | DX: Z95.2 Presence of prosthetic heart valve (principal); Z51.81 Encounter for therapeutic drug level monitoring; Z79.01 Long term (current) use of anticoagulants | CPT/HCPCS: 85610; 99211 ==

== ENCOUNTER → 2022-05-22 09:36 | Outpatient (BNVA) | payer OTHER, SELFPAY | PROVIDERS: PCP Internal Medicine; Visit Provider Internal Medicine | DX: Z95.2 Presence of prosthetic heart valve (principal); Z79.01 Long term (current) use of anticoagulants; Z51.81 Encounter for therapeutic drug level monitoring | CPT/HCPCS: 85610; 99211 ==

== ENCOUNTER → 2022-06-04 08:56 | Outpatient (BNVA) | payer OTHER, SELFPAY | PROVIDERS: PCP Internal Medicine; Visit Provider Internal Medicine | DX: Z95.2 Presence of prosthetic heart valve (principal); Z79.01 Long term (current) use of anticoagulants; Z51.81 Encounter for therapeutic drug level monitoring | CPT/HCPCS: 85610; 99211 ==

== ENCOUNTER → 2022-06-18 08:36 | Outpatient (BNVA) | payer OTHER, SELFPAY | PROVIDERS: PCP Internal Medicine; Visit Provider Internal Medicine | DX: Z95.2 Presence of prosthetic heart valve (principal); Z79.01 Long term (current) use of anticoagulants; Z51.81 Encounter for therapeutic drug level monitoring | CPT/HCPCS: 85610; 99211 ==

== ENCOUNTER → 2022-07-02 08:27 | Outpatient (BNVA) | payer OTHER, SELFPAY | PROVIDERS: PCP Internal Medicine; Visit Provider Internal Medicine | DX: Z95.2 Presence of prosthetic heart valve (principal); Z79.01 Long term (current) use of anticoagulants; Z51.81 Encounter for therapeutic drug level monitoring | CPT/HCPCS: 85610; 99211 ==

== ENCOUNTER → 2022-07-16 08:44 | Outpatient (BNVA) | payer OTHER, SELFPAY | PROVIDERS: PCP Internal Medicine; Visit Provider Internal Medicine | DX: Z95.2 Presence of prosthetic heart valve (principal); Z51.81 Encounter for therapeutic drug level monitoring; Z79.01 Long term (current) use of anticoagulants | CPT/HCPCS: 85610; 99211 ==

== ENCOUNTER → 2022-07-30 08:42 | Outpatient (BNVA) | payer OTHER, SELFPAY | PROVIDERS: PCP Internal Medicine; Visit Provider Internal Medicine | DX: Z95.2 Presence of prosthetic heart valve (principal); Z79.01 Long term (current) use of anticoagulants; Z51.81 Encounter for therapeutic drug level monitoring | CPT/HCPCS: 85610; 99211 ==

== ENCOUNTER → 2022-08-13 08:33 | Outpatient (BNVA) | payer OTHER, SELFPAY | PROVIDERS: PCP Internal Medicine; Visit Provider Internal Medicine | DX: Z95.2 Presence of prosthetic heart valve (principal); Z51.81 Encounter for therapeutic drug level monitoring; Z79.01 Long term (current) use of anticoagulants | CPT/HCPCS: 85610; 99211 ==

== ENCOUNTER → 2022-08-27 08:41 | Outpatient (BNVA) | payer OTHER, SELFPAY | PROVIDERS: PCP Internal Medicine; Visit Provider Internal Medicine | DX: Z95.2 Presence of prosthetic heart valve (principal); Z79.01 Long term (current) use of anticoagulants; Z51.81 Encounter for therapeutic drug level monitoring | CPT/HCPCS: 85610; 99211 ==

== ENCOUNTER → 2022-09-10 08:54 | Outpatient (BNVA) | payer OTHER, SELFPAY | PROVIDERS: PCP Internal Medicine; Visit Provider Internal Medicine | DX: Z95.2 Presence of prosthetic heart valve (principal); Z79.01 Long term (current) use of anticoagulants; Z51.81 Encounter for therapeutic drug level monitoring | CPT/HCPCS: 85610; 99211 ==

== ENCOUNTER → 2022-09-24 08:43 | Outpatient (BNVA) | payer OTHER, SELFPAY | PROVIDERS: PCP Internal Medicine; Visit Provider Internal Medicine | DX: Z95.2 Presence of prosthetic heart valve (principal); Z79.01 Long term (current) use of anticoagulants; Z51.81 Encounter for therapeutic drug level monitoring | CPT/HCPCS: 85610; 99211 ==

== ENCOUNTER 2022-10-07 06:33 | Outpatient (REF) | payer OTHER, SELFPAY ==
[2022-10-07 11:25] LABS: MANUAL DIFF FLAG NO
[2022-10-07 11:44] LABS: Basophils Absolute Auto 0.1 X10*3/uL (0.0-0.2); Basophils Percent Auto 0.6 % (0-2); Eosinophils Absolute Auto 0.2 X10*3/uL (0.0-0.4); Eosinophils Percent Auto 2.1 % (0-4); Hematocrit 44.7 % (42.0-52.0); Hemoglobin 14.2 g/dl (14.0-18.0); Imm Gran Abs Auto 0.03 X10*3/uL (0.00-0.03); Imm Gran Pct Auto 0.4 % (0.0-0.4); Lymphocytes Absolute Auto 2.5 X10*3/uL (1.2-4.9); Lymphocytes Percent Auto 30.7 % (20-40); Mean Corpuscular HGB Conc 31.8 g/dl (31.0-36.0); Mean Corpuscular Hemoglobin 26.8 pg (27.0-33.0); Mean Corpuscular Volume 84.5 fL (80.0-98.0); Mean Platelet Volume 10.6 fL (9.4-12.4); Neutrophils Absolute Auto 4.4 x10*3/uL (2.0-8.3); Neutrophils Percent Auto 54.2 % (45-73); Platelet Count 282 X10*3/uL (160-400); Red Blood Count 5.29 X10*6/uL (4.60-5.80); Red Cell Distribution Width 15.5 % (11.0-16.0); White Blood Count 8.1 X10*3/uL (4.8-10.8)
[2022-10-07 12:45] LABS: Alanine Aminotransferase 25 U/L (0-40); Albumin Level 3.9 g/dL (3.5-5.0); Alkaline Phosphatase 78 U/L (39-117); Anion Gap 11 (12-20); Aspartate Amino Transferase 27 U/L (5-37); Bilirubin Total 0.9 mg/dL (0.0-1.0); Blood Urea Nitrogen 24 mg/dL (9-16); Calcium 8.5 mg/dL (8.4-10.2); Carbon Dioxide 26 mmol/L (22-29); Chloride 110 mmol/L (96-108); Cholesterol 170 mg/dL; Estimated Glomerular Filt Rate > 60; Glucose Random 104 mg/dL (60-115); HDL Cholesterol 37 mg/dL; LDL Cholesterol Calculated 102 mg/dl; Potassium 4.6 mmol/L (3.3-5.1); Sodium 142 mmol/L (135-145); Total Protein 6.8 g/dL (6.5-8.0); Triglycerides 155 mg/dL
[2022-10-07 13:06] LABS: Free T4 (Free Thyroxine) 0.95 ng/dL (0.71-1.85); Prostate Specific Antigen Scr 1.32 ng/mL (<0.05-4.0); Thyroid Stimulating Hormone 3.17 uIU/mL (0.32-4.0); Vitamin B12 445 pg/mL (200-900)
== END 2022-10-07 06:34 | disposition home or self-care (01) ==
LOC: HO.HMGCLDS 06:33
PROVIDERS: PCP Internal Medicine; Visit Provider Internal Medicine
DX: Z12.5 Encounter for screening for malignant neoplasm of prostate (principal); R73.02 Impaired glucose tolerance (oral); E78.00 Pure hypercholesterolemia, unspecified
CPT/HCPCS: 36415; 80053; 80061; 82607; 82746; 84153; 84439; 84443; 85025

== ENCOUNTER → 2022-10-08 08:31 | Outpatient (BNVA) | payer OTHER, SELFPAY | PROVIDERS: PCP Internal Medicine; Visit Provider Internal Medicine | DX: Z95.2 Presence of prosthetic heart valve (principal); Z79.01 Long term (current) use of anticoagulants; Z51.81 Encounter for therapeutic drug level monitoring | CPT/HCPCS: 85610; 99211 ==

== ENCOUNTER → 2022-10-16 09:48 | Outpatient (REF) | payer OTHER, SELFPAY ==
--- NOTE | 2022-10-16 09:52 | CA_ITS ---
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 Normal LV systolic function with impaired relaxation filling pattern 2. Mildly dilated left atrium 3. Mechanical prosthesis in mitral position with mean good of 6 mm Hg which is stable compared to prior study in appears to have normal function 4. Normal RV systolic pressure 5. Mildly dilated ascending aorta 6. No pericardial effusion Findings Left Ventricle Normal left ventricular size, thickness, and systolic function. The visually estimated ejection fraction is between 55-60%. Diastolic function is indeterminate on the basis of available data. Spectral Doppler is indicative of an impaired relaxation filling pattern. Right Ventricle Normal right ventricular cavity size. There is moderately decreased right ventricular systolic function. Atria The left atrium is mildly dilated. There is no evidence of interatrial shunt. The right atrium is normal in size. Aortic Valve The aortic valve structure and function is likely normal. There is no aortic valve stenosis. There is no aortic valve regurgitation. Mitral Valve A mechanical prosthetic mitral valve is present. The prosthetic mitral valve appears to be functioning normally. The mean mitral valve gradient is 6.00 mmHg. The mechanical prosthetic valve is well seated without abnormal rocking motion with mean gradient of 6 mm Hg which are pretty much stable compared to prior year's study. Stable function Pulmonic Valve The pulmonic valve was not well visualized. Tricuspid Valve Normal tricuspid valve structure. There is mild tricuspid valve regurgitation. The right ventricular systolic pressure is normal. The right ventricular systolic pressure is 26 mmHg. Normal right atrial pressure. There is no evidence of pulmonary hypertension. Great Vessels The pulmonary artery was not well visualized. There is mild dilatation of the ascending aorta measuring 4.10 cm. Venous The inferior vena cava is normal in size and collapses greater than 50% with inspiration. Pericardium/Pleural There is no evidence of pericardial effusion. Prior Study Comparison Changes noted compared to prior study dated: 10/15/2021. ascending aorta is measured at 4.1 cm on this study Measurements 2D Linear Measurements IVSd: 1.45 0.6-0.9/0.6-1.0 cm LVIDd: 5.74 3.9-5.3/4.2-5.9 cm LVIDd Index: 2.60 2.4-3.2/2.2-3.1 cm/m2 LVIDs: 3.66 2.0-3.6 cm LVPWd: 1.04 0.7-1.1 cm LA Diam: 5.30 2.7-3.8/3.0-4.0 cm LAIDs Index: 2.40 1.5-2.3 cm/m2 LV Mass: 383.06 67-162/88-224 g LV Mass Index: 173.33 43-95/49-115 g/m2 LVOT Diam: 2.30 3.0+(-)1.3 cm 2D Systolic Function EF 4C: 55.50 >55% EF 2C: 53.40 >55% EF BiP: 55.60 >55% Mitral Valve MV VTI: 0.58 MV Pk Stewart: 1.86 MV Mn Stewart: 1.12 MV Pk Grad: 14.00 MV Mn Grad: 6.00 MV Pk E: 1.60 MV PK A: 1.28 MV Decel Time: 453.00 E/A: 1.30 E'Lateral: 5.00 E'Medial: 4.90 E/E' Med: 32.70 E/E' Lat: 32.00 PHT: 133.00 MVA PHT: 1.65 MVA Continuity: 1.59 Decel Swain: 3.53 Aortic Valve AoV Pk Stewart: 1.15 AoV Mn Stewart: 0.81 AoV VTI: 0.26 AoV Pk Grad: 5.00 Aov Mn Grad: 3.00 MINAL Cont.VTI: 3.58 LVOT LVOT Pk Stewart: 0.92 LVOT Mn Stewart: 0.66 LVOT VTI: 0.22 LVOT Pk Grad: 3.00 LVOT Mn Grad: 2.00 LVOT Diam: 2.30 LVOT Area: 4.15 Diastolic Function MV Pk E: 1.60 MV Pk A: 1.28 E/A: 1.30 E'Medial: 4.90 E/E' Med: 32.70 E' Laterial: 5.00 E/E' Lat: 32.00 Right Ventricle TVS' Stewart: 11.20 Tricuspid Valve TR Pk Stewart: 2.39 TR Pk Grad: 23.00 RA Press: 3.00 RVSP: 26.00 Great Vessels Aorta Sinus of Valsalva: 4.05 2.0-3.[address] Ridge: 3.42 1.7-3.4 cm Ao Asc: 4.10 2.1-3.4 cm Updated in Other Vendor System with Status of Final Juan David Samaniego MD electronically signed on 10/17/2022 9:48:24 AM with status of Final
== END ==
LOC: HO.CARD 09:48
PROVIDERS: Visit Provider Internal Medicine Cardiovascular Disease
DX: Z95.2 Presence of prosthetic heart valve (principal)
CPT/HCPCS: 93306

== ENCOUNTER → 2022-10-22 08:46 | Outpatient (BNVA) | payer OTHER, SELFPAY | PROVIDERS: PCP Internal Medicine; Visit Provider Internal Medicine | DX: Z95.2 Presence of prosthetic heart valve (principal); Z79.01 Long term (current) use of anticoagulants; Z51.81 Encounter for therapeutic drug level monitoring | CPT/HCPCS: 85610; 99211 ==

== ENCOUNTER → 2022-11-05 08:48 | Outpatient (BNVA) | payer OTHER, SELFPAY | PROVIDERS: PCP Internal Medicine; Visit Provider Internal Medicine | DX: Z95.2 Presence of prosthetic heart valve (principal); Z79.01 Long term (current) use of anticoagulants; Z51.81 Encounter for therapeutic drug level monitoring | CPT/HCPCS: 85610; 99211 ==

== ENCOUNTER → 2022-11-19 08:50 | Outpatient (BNVA) | payer OTHER, SELFPAY | PROVIDERS: PCP Internal Medicine; Visit Provider Internal Medicine | DX: Z95.2 Presence of prosthetic heart valve (principal); Z79.01 Long term (current) use of anticoagulants; Z51.81 Encounter for therapeutic drug level monitoring | CPT/HCPCS: 85610; 99211 ==

== ENCOUNTER → 2022-12-03 08:49 | Outpatient (BNVA) | payer OTHER, SELFPAY | PROVIDERS: PCP Internal Medicine; Visit Provider Internal Medicine | DX: Z95.2 Presence of prosthetic heart valve (principal); Z79.01 Long term (current) use of anticoagulants; Z51.81 Encounter for therapeutic drug level monitoring | CPT/HCPCS: 85610; 99211 ==

== ENCOUNTER → 2022-12-17 08:35 | Outpatient (BNVA) | payer OTHER, SELFPAY | PROVIDERS: PCP Internal Medicine; Visit Provider Internal Medicine | DX: Z95.2 Presence of prosthetic heart valve (principal); Z79.01 Long term (current) use of anticoagulants; Z51.81 Encounter for therapeutic drug level monitoring | CPT/HCPCS: 85610; 99211 ==

== ENCOUNTER → 2022-12-31 08:24 | Outpatient (BNVA) | payer OTHER, SELFPAY | PROVIDERS: PCP Internal Medicine; Visit Provider Internal Medicine | DX: Z95.2 Presence of prosthetic heart valve (principal); Z79.01 Long term (current) use of anticoagulants; Z51.81 Encounter for therapeutic drug level monitoring | CPT/HCPCS: 85610; 99211 ==

== ENCOUNTER → 2023-01-05 08:44 | Outpatient (BNVA) | payer OTHER, SELFPAY | PROVIDERS: PCP Internal Medicine; Referring Provider Internal Medicine; Visit Provider Internal Medicine Cardiovascular Disease | DX: I10 Essential (primary) hypertension (principal); Z95.2 Presence of prosthetic heart valve | CPT/HCPCS: 93005; 99212 ==

== ENCOUNTER → 2023-01-14 08:33 | Outpatient (BNVA) | payer OTHER, SELFPAY | PROVIDERS: PCP Internal Medicine; Visit Provider Internal Medicine | DX: Z95.2 Presence of prosthetic heart valve (principal); Z79.01 Long term (current) use of anticoagulants; Z51.81 Encounter for therapeutic drug level monitoring | CPT/HCPCS: 85610; 99211 ==

== ENCOUNTER → 2023-02-04 08:30 | Outpatient (BNVA) | payer OTHER, SELFPAY | PROVIDERS: PCP Internal Medicine; Visit Provider Internal Medicine | DX: Z95.2 Presence of prosthetic heart valve (principal); Z79.01 Long term (current) use of anticoagulants; Z51.81 Encounter for therapeutic drug level monitoring | CPT/HCPCS: 85610; 99211 ==

== ENCOUNTER 2023-02-11 08:35 | Outpatient (AMB) | payer OTHER, SELFPAY ==
--- NOTE | 2023-02-11 08:43 | MHC.OFFVISCO ---
Intake Intake Visit Reasons: Anticoagulation Allergies No Known Allergies [No Known Allergies*] Allergy (Verified 02/11/23 08:40) Medication List - Last Reconciled 02/11/23 by Jossie Robbins RN amoxicillin 2,000 mg PO DIRECTED aspirin 81 mg PO DAILY lisinopril 20 mg PO DAILY metoprolol tartrate 25 mg PO BID sildenafil 50 mg PO DAILY PRN warfarin 5 mg See Protocol PO DAILY Nursing Note INR: 3.2-in therapeutic range Medications and supplements reviewed- no changes No changes in health, diet, medications, or supplements, Denies any signs and symptoms of bleeding or bruising or clotting. 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
[2023-02-11 08:44] LABS: Prothrombin Time Whole Bld POC 38.6 sec (11.1-13.5); ~PT, ~INR - Anti Coag Clinic 3.2 (0.9-1.1)
== END 2023-02-11 08:47 | disposition home or self-care (01) ==
LOC: HO.ACS 08:35
PROVIDERS: PCP Internal Medicine; Visit Provider Internal Medicine
DX: Z79.01 Long term (current) use of anticoagulants (principal)

== ENCOUNTER → 2023-02-11 08:35 | Outpatient (BNVA) | payer OTHER, SELFPAY | PROVIDERS: PCP Internal Medicine; Visit Provider Internal Medicine | DX: Z95.2 Presence of prosthetic heart valve (principal); Z79.01 Long term (current) use of anticoagulants; Z51.81 Encounter for therapeutic drug level monitoring | CPT/HCPCS: 85610; 99211 ==

== ENCOUNTER 2023-02-25 08:24 | Outpatient (AMB) | payer OTHER, SELFPAY ==
[2023-02-25 08:39] LABS: Prothrombin Time Whole Bld POC 47.6 sec (11.1-13.5)
--- NOTE | 2023-02-25 08:43 | MHC.OFFVISCO ---
Intake Intake Visit Reasons: Anticoagulation Allergies No Known Allergies [No Known Allergies*] Allergy (Verified 02/25/23 08:35) Medication List - Last Reconciled 02/25/23 by Kamla Petersen RN amoxicillin 2,000 mg PO DIRECTED aspirin 81 mg PO DAILY lisinopril 20 mg PO DAILY metoprolol tartrate 25 mg PO BID sildenafil 50 mg PO DAILY PRN warfarin 5 mg See Protocol PO DAILY Nursing Note PT.STATES THAT HE HAS HAD LARGE AMTS.OF MELON. NO CP,SOB,MED CHANGES,FALLS OR SX OF BLEEDING. DECREASE TO 5MGM TODAY THEN RESUME USUAL DOSING AND FOLLOW-UP IN 2 WEEKS. GOOD UNDERSTANDING OF DOSING INSTR. 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
== END 2023-02-25 08:45 | disposition home or self-care (01) ==
LOC: HO.ACS 08:24
PROVIDERS: PCP Internal Medicine; Visit Provider Internal Medicine
DX: Z79.01 Long term (current) use of anticoagulants (principal)

== ENCOUNTER → 2023-02-25 08:24 | Outpatient (BNVA) | payer OTHER, SELFPAY | PROVIDERS: PCP Internal Medicine; Visit Provider Internal Medicine | DX: Z95.2 Presence of prosthetic heart valve (principal); Z79.01 Long term (current) use of anticoagulants; Z51.81 Encounter for therapeutic drug level monitoring | CPT/HCPCS: 85610; 99211 ==

== ENCOUNTER 2023-03-11 08:45 | Outpatient (AMB) | payer OTHER, SELFPAY ==
--- NOTE | 2023-03-11 08:48 | MHC.OFFVISCO ---
Intake Intake Visit Reasons: Anticoagulation Allergies No Known Allergies [No Known Allergies*] Allergy (Verified 03/11/23 08:46) Medication List - Last Reconciled 03/11/23 by Jossie Robbins RN amoxicillin 2,000 mg PO DIRECTED aspirin 81 mg PO DAILY lisinopril 20 mg PO DAILY metoprolol tartrate 25 mg PO BID sildenafil 50 mg PO DAILY PRN warfarin 5 mg See Protocol PO DAILY Nursing Note INR: 2.9- in therapeutic range Medications and supplements reviewed- no changes No changes in health, diet, medications, or supplements, Denies any signs and symptoms of bleeding or bruising or clotting. Bleeding, bruising, clotting discussed Nutritional guidance given Dose: 7.5mg x 1, 5mg x 6 F/U INR: pt req 2 weeks Patient verbalizes understanding of instructions given Anti-Coag Initial Assessment Social Hx Patient Tobacco Use Status: Never used Tobacco alcohol intake: never Alcohol intake frequency: does not drink Coding Level of Care Code Est Patient Level 1 Diagnoses Current use of anticoagulant therapy Z79.01 Results AMB INR Fingerstick AMB INR Fingerstick 2.9 Last Edit by Jossie Robbins RN on 03/11/23 08:50 Assessment & Plan Assessment & Plan (1) Current use of anticoagulant therapy: Code(s): Z79.01 - 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
[2023-03-11 08:50] LABS: Prothrombin Time Whole Bld POC 34.6 sec (11.1-13.5); ~PT, ~INR - Anti Coag Clinic 2.9 (0.9-1.1)
== END 2023-03-11 08:55 | disposition home or self-care (01) ==
LOC: HO.ACS 08:45
PROVIDERS: PCP Internal Medicine; Visit Provider Internal Medicine
DX: Z79.01 Long term (current) use of anticoagulants (principal)

== ENCOUNTER → 2023-03-11 08:45 | Outpatient (BNVA) | payer OTHER, SELFPAY | PROVIDERS: PCP Internal Medicine; Visit Provider Internal Medicine | DX: Z95.2 Presence of prosthetic heart valve (principal); Z79.01 Long term (current) use of anticoagulants; Z51.81 Encounter for therapeutic drug level monitoring | CPT/HCPCS: 85610; 99211 ==

== ENCOUNTER 2023-03-25 08:41 | Outpatient (AMB) | payer OTHER, SELFPAY ==
[2023-03-25 08:53] LABS: Prothrombin Time Whole Bld POC 43.7 sec (11.1-13.5); ~PT, ~INR - Anti Coag Clinic 3.6 (0.9-1.1)
--- NOTE | 2023-03-25 08:54 | MHC.OFFVISCO ---
Intake Intake Visit Reasons: Anticoagulation Allergies No Known Allergies [No Known Allergies*] Allergy (Verified 03/25/23 08:49) Medication List - Last Reconciled 03/25/23 by Kamla Petersen RN amoxicillin 2,000 mg PO DIRECTED aspirin 81 mg PO DAILY lisinopril 20 mg PO DAILY metoprolol tartrate 25 mg PO BID sildenafil 50 mg PO DAILY PRN warfarin 5 mg See Protocol PO DAILY Nursing Note NO CP,SOB,DIET/MED CHANGES,FALLS OR SX OF BLEEDING. CONTINUE PRESENT DOSE AND FOLLOW-UP IN 2 WEEKS. GOOD UNDERSTANDING OF DOSING INSTR. Anti-Coag Initial Assessment Social Hx Patient Tobacco Use Status: Never used Tobacco alcohol intake: never Alcohol intake frequency: does not drink Coding Level of Care Code Est Patient Level 1 Diagnoses Current use of anticoagulant therapy Z79.01 Assessment & Plan Assessment & Plan (1) Current use of anticoagulant therapy: Code(s): Z79.01 - [facility] (current) use of anticoagulants Category: Medical
== END 2023-03-25 08:58 | disposition home or self-care (01) ==
LOC: HO.ACS 08:41
PROVIDERS: PCP Internal Medicine; Visit Provider Internal Medicine
DX: Z79.01 Long term (current) use of anticoagulants (principal)

== ENCOUNTER → 2023-03-25 08:41 | Outpatient (BNVA) | payer OTHER, SELFPAY | PROVIDERS: PCP Internal Medicine; Visit Provider Internal Medicine | DX: Z95.2 Presence of prosthetic heart valve (principal); Z79.01 Long term (current) use of anticoagulants; Z51.81 Encounter for therapeutic drug level monitoring | CPT/HCPCS: 85610; 99211 ==

== ENCOUNTER 2023-04-08 08:46 | Outpatient (AMB) | payer OTHER, SELFPAY ==
--- NOTE | 2023-04-08 08:49 | MHC.OFFVISCO ---
Intake Intake Visit Reasons: Anticoagulation Allergies No Known Allergies [No Known Allergies*] Allergy (Verified 04/08/23 08:46) Medication List - Last Reconciled 04/08/23 by Jossie Robbins RN amoxicillin 2,000 mg PO DIRECTED aspirin 81 mg PO DAILY lisinopril 20 mg PO DAILY metoprolol tartrate 25 mg PO BID sildenafil 50 mg PO DAILY PRN warfarin 5 mg See Protocol PO DAILY Nursing Note INR: 3.3- in therapeutic range Medications and supplements reviewed No changes in health, diet, medications, or supplements, Denies any signs and symptoms of bleeding or bruising or clotting. Bleeding, bruising, clotting discussed Nutritional guidance given Dose: 5mg x 6, 7.5mg x 1 F/U INR: 2 weeks Patient verbalizes understanding of instructions given upcoming cruise 04/23/23 Anti-Coag Initial Assessment Social Hx Patient Tobacco Use Status: Never used Tobacco alcohol intake: never Alcohol intake frequency: does not drink Coding Level of Care Code Est Patient Level 1 Diagnoses Current use of anticoagulant therapy Z79.01 Assessment & Plan Assessment & Plan (1) Current use of anticoagulant therapy: Code(s): Z79.01 - long-term (current) use of anticoagulants Category: Medical
[2023-04-08 08:50] LABS: Prothrombin Time Whole Bld POC 39.6 sec (11.1-13.5); ~PT, ~INR - Anti Coag Clinic 3.3 (0.9-1.1)
== END 2023-04-08 08:56 | disposition home or self-care (01) ==
LOC: HO.ACS 08:46
PROVIDERS: PCP Internal Medicine; Visit Provider Internal Medicine
DX: Z79.01 Long term (current) use of anticoagulants (principal)

== ENCOUNTER → 2023-04-08 08:46 | Outpatient (BNVA) | payer OTHER, SELFPAY | PROVIDERS: PCP Internal Medicine; Visit Provider Internal Medicine | DX: Z95.2 Presence of prosthetic heart valve (principal); Z79.01 Long term (current) use of anticoagulants; Z51.81 Encounter for therapeutic drug level monitoring | CPT/HCPCS: 85610; 99211 ==

== ENCOUNTER 2023-04-15 09:56 | Outpatient (AMB) | payer OTHER, SELFPAY ==
[2023-04-15 10:08] VITALS: BP 130/68; PULSE 75; O2SAT 98; BMI 30.4
--- NOTE | 2023-04-15 10:08 | MHC.PC.OV ---
Vital Signs 04/15/23 10:08 Height 6 ft Weight 224 lb BMI 30.4 BP 130/68 Blood Pressure Location Lt brachial Position Sitting Pulse 75 Pulse Source Pulse Oximeter Pulse Oximetry (%) 98 Oxygen Delivery Method Room Air Intake Visit Reasons: MVR Allergies No Known Allergies [No Known Allergies*] Allergy (Verified 04/15/23 10:09) Medication List - Last Reconciled 04/15/23 by Kuldip Pendleton MD alprazolam 0.25 mg PO DAILY PRN amoxicillin 2,000 mg PO DIRECTED lisinopril 20 mg PO DAILY metoprolol tartrate 25 mg PO BID sildenafil 50 mg PO DAILY PRN warfarin 5 mg See Protocol PO DAILY Tobacco use date assessed: 10/10/22 Dental Screening Dental Screen Date: 04/15/23 Did you have a dental visit in the last 12 months?: Yes Did you have a dental problem in the last 6 months where you did not have access to dental care?: No Was dental information given to patient?: Patient has dentist HPI MVR HPI Details 57-year-old obese male with GERD impaired glucose tolerance mechanical valve replacement for the mitral hypertension coming in for follow-up last seen in October 2022. Colonoscopy is up-to-date patient has followed up with Cardiology January 2023 echocardiogram October normal mechanical mitral valve on anticoagulation INR goal of 2.5-3.5 blood pressure on lisinopril/metoprolol. PAtient is going for a trip [place] and Psychiatric Medical History Anxiety COVID-19 Erectile dysfunction GERD (gastroesophageal reflux disease) HTN (hypertension) Impaired glucose tolerance Obesity (BMI 30-39.9) Obesity (BMI 30-39.9) Overweight (BMI 25.0-29.9) Pneumonia Surgical History H/O cardiac catheterization (~2019) H/O mitral valve repair H/O mitral valve replacement with mechanical valve Hx laparoscopic cholecystectomy Hx of varicose vein ligation and stripping Family History Father CVD (cardiovascular disease) Mother HTN (hypertension) CVD (cardiovascular disease) Diabetes Social History Household Members: Spouse Housing: House Are you a primary healthcare management to a significant other at home: No Do you presently have visiting nurse or other home services: No Alcohol intake: never Patient Tobacco Use Status: Never used Tobacco e-Cigarette/Vaping Use: Never Used Second Hand Smoke Exposure: No service: No Current occupational status: employed Current occupation: Cognitive needs: No Hearing needs: No Vision needs: Yes (reading glasses) Questionnaire PHQ-9 Over the last 2 weeks, how often have you been bothered by any of the following problems? 1. Little interest or pleasure in doing things: not at all 2. Feeling down, depressed, or hopeless: not at all 3. Trouble falling or staying asleep, or sleeping too much: not at all 4. Feeling tired or having little energy: not at all 5. Poor appetite or overeating: not at all 6. Feeling bad about yourself - or that you are a failure or have let yourself or your family down: not at all 7. Trouble concentrating on things, such as reading the newspaper or watching television: not at all 8. Moving or speaking so slowly that other people could have noticed. Or the opposite - being so fidgety or restless that you have been moving around a lot more than usual: not at all 9. Thoughts that you would be better off or of hurting yourself in some way: not at all Total score: 0 Depression Screening Interpretation: Negative Source: Developed by Drs. Jasper Hanna, Amber Cooper, Sumanth Zhang and colleagues, with an educational reuben from [employer]. Thrive Questionnaire Date Thrive assessed: 10/10/22 AUDIT C Alcohol Use Questionnaire (AUDIT-C) 1. How often do you have a drink containing alcohol?: Never 2. How many drinks containing alcohol do you have on a typical day when you are drinking?: 1 or 2 (0) 3. How often do you have six or more drinks on one occasion?: Never Total Score: 0 LISET-7 AMB Questionnaire LISET-7 Date LISET - 7 assessed: 10/10/22 Source: Developed by Drs. Jasper Hanna, Amber Cooper, Sumanth Zhang and colleagues, with an educational reuben from [employer]. Physical exam (Primary Care) Vital Signs: Last Vital Signs Pulse 75 04/15/23 10:08 BP 130/68 04/15/23 10:08 Pulse Ox 98 04/15/23 10:08 Oxygen Delivery Method Room Air 04/15/23 10:08 BMI result Body Mass Index 30.4 Tobacco/Smoking Status: Tobacco use Status Tobacco use date assessed 10/10/22 04/15/23 10:11 Patient Tobacco Use Status Never used Tobacco 04/15/23 10:11 e-Cigarette/Vaping Use Never Used 04/15/23 10:11 PHQ-9: PHQ-9 Score PHQ-9: Total score 0 04/15/23 12:10 Depression Screening Interpretation: Negative Thrive Assessment: Date of Thrive Assessment Date Thrive assessed 10/10/22 04/15/23 10:11 Const General: alert; No acute distress Eyes Conjunctivae: conjunctivae normal Resp Auscultation: clear to auscultation bilaterally Cardio Rate: regular rate Rhythm: regular rhythm GI Inspection: Yes normal to inspection Extrem General: Yes normal to inspection and No edema Assessment and Plan Assessment & Plan (1) HTN (hypertension): Code(s): I10 - Essential (primary) hypertension Qualifiers: Hypertension type: essential hypertension Qualified Code(s): I10 - Essential (primary) hypertension Plan: Continue with blood pressure medication. Decrease salt intake and exercise patient is presently on lisinopril 20 mg once a day and metoprolol 25 mg twice a day (2) H/O mitral valve replacement with mechanical valve: Comment: recurrent mitral regurgitation leading to [place] mitral valve replacement with 25 mm valve INR 2.5-3.5 Code(s): Z95.2 - Presence of prosthetic heart valve Plan: Continue with anticoagulation with Coumadin INR goal of 2.5-3.5 (3) Obesity (BMI 30.0-34.9): Code(s): E66.9 - Obesity, unspecified Plan: Diet and exercise (4) GERD (gastroesophageal reflux disease): Code(s): K21.9 - Gastro-esophageal reflux disease without esophagitis Qualifiers: Esophagitis presence: without esophagitis Qualified Code(s): K21.9 - Gastro-esophageal reflux disease without esophagitis Plan: Avoid the foods that causes that usually spicy foods, tomato products, juices, coffee, soda and foods that your sensitive to. After eating do not lie down, allow 3-4 hours before in lie down. And keep the head of bed above 30 degrees to avoid the acid from going up. (5) Impaired glucose tolerance: Code(s): R73.02 - Impaired glucose tolerance (oral) Plan: Decrease the amount of carbohydrate intake, pasta, bread, rice and potatoes are all sugar and that is aside from all the sweet stuff, remember that fruits are good but they are Sweet also. Orders: Orders Lipid Panel Today E78.00 - Pure hypercholesterolemia, unspecified, R73.02 - Impaired glucose tolerance (oral) Thyroid Stimulating Hormone Today R73.02 - Impaired glucose tolerance (oral) Free T4 (Free Thyroxine) Today R73.02 - Impaired glucose tolerance (oral) Complete Blood Count Auto Diff Today R73.02 - Impaired glucose tolerance (oral) Comprehensive Met. Panel Today R73.02 - Impaired glucose tolerance (oral) Hemoglobin A1c Today R73.02 - Impaired glucose tolerance (oral) Medications: New alprazolam 0.25 mg PO DAILY PRN 10 tabs 0RF anxiety Refilled metoprolol tartrate 25 mg PO BID 180 tabs 3RF R73.02 - Impaired glucose tolerance (oral) Coding Level of Care Code Est Pt Level 4 (44822) Diagnoses Essential hypertension I10 Hypertension type: essential hypertension H/O mitral valve replacement with mechanical valve Z95.2 Obesity (BMI 30.0-34.9) E66.9 Gastroesophageal reflux disease without esophagitis K21.9 Esophagitis presence: without esophagitis Impaired glucose tolerance R73.02
== END 2023-04-15 10:49 | disposition home or self-care (01) ==
PROVIDERS: PCP Internal Medicine; Visit Provider Internal Medicine
DX: I10 Essential (primary) hypertension (principal); E66.9 Obesity, unspecified; K21.9 Gastro-esophageal reflux disease without esophagitis; Z68.30 Body mass index [BMI] 30.0-30.9, adult; Z95.2 Presence of prosthetic heart valve; R73.02 Impaired glucose tolerance (oral)
CPT/HCPCS: 99214

== ENCOUNTER 2023-04-22 08:43 | Outpatient (AMB) | payer OTHER, SELFPAY ==
[2023-04-22 08:55] LABS: Prothrombin Time Whole Bld POC 39.3 sec (11.1-13.5); ~PT, ~INR - Anti Coag Clinic 3.3 (0.9-1.1)
--- NOTE | 2023-04-22 09:00 | MHC.OFFVISCO ---
Intake Intake Visit Reasons: Anticoagulation Allergies No Known Allergies [No Known Allergies*] Allergy (Verified 04/22/23 08:50) Medication List - Last Reconciled 04/22/23 by Kamla Petersen RN alprazolam 0.25 mg PO DAILY PRN amoxicillin 2,000 mg PO DIRECTED lisinopril 20 mg PO DAILY metoprolol tartrate 25 mg PO BID sildenafil 50 mg PO DAILY PRN warfarin 5 mg See Protocol PO DAILY Nursing Note ASA IS DC'D PER . NO CP,SOB,DIET/MED CHANGES,FALLS OR SX OF BLEEDING. CONTINUE PRESENTY DOSE AND FOLLOW UP IN 2 WEEKS. GOOD UNDETRSTANDING OF DOSING INSTR. LEAVING TOMORROW FOR HEIDI FOR 10 DAYS. 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
== END 2023-04-22 09:02 | disposition home or self-care (01) ==
LOC: HO.ACS 08:43
PROVIDERS: PCP Internal Medicine; Visit Provider Internal Medicine
DX: Z79.01 Long term (current) use of anticoagulants (principal)

== ENCOUNTER → 2023-04-22 08:43 | Outpatient (BNVA) | payer OTHER, SELFPAY | PROVIDERS: PCP Internal Medicine; Visit Provider Internal Medicine | DX: Z95.2 Presence of prosthetic heart valve (principal); Z51.81 Encounter for therapeutic drug level monitoring; Z79.01 Long term (current) use of anticoagulants | CPT/HCPCS: 85610; 99211 ==

== ENCOUNTER → 2023-05-04 15:08 | Outpatient (BNVA) | payer OTHER, SELFPAY | PROVIDERS: PCP Internal Medicine; Visit Provider Internal Medicine ==

== ENCOUNTER → 2023-05-07 10:21 | Outpatient (BNVA) | payer OTHER, SELFPAY | PROVIDERS: PCP Internal Medicine; Visit Provider Internal Medicine ==

== ENCOUNTER 2023-05-13 08:44 | Outpatient (AMB) | payer OTHER, SELFPAY ==
--- NOTE | 2023-05-13 09:00 | MHC.OFFVISCO ---
Intake Intake Visit Reasons: Anticoagulation Allergies No Known Allergies [No Known Allergies*] Allergy (Verified 05/13/23 08:48) Medication List - Last Reconciled 05/13/23 by Ingrid Cisneros RN alprazolam 0.25 mg PO DAILY PRN amoxicillin 2,000 mg PO DIRECTED lisinopril 20 mg PO DAILY metoprolol tartrate 25 mg PO BID nirmatrelvir-ritonavir 300 mg (150 mg x 2)-100 mg (Paxlovid) 0 ea PO sildenafil 50 mg PO DAILY PRN warfarin 5 mg See Protocol PO DAILY Nursing Note INR: 3.7 just out of therapeutic range Derrek brought home meter in for correlation his meter 3.8 - his usually performs , gave brief instructions with good technique s/p covid and paxlovid last week - he only took paxlovid x 3 days, feeling better just fatigued Medications and supplements reviewed - off aspirin x 1 month appetite is good Denies any signs and symptoms of bleeding or bruising or clotting. Bleeding, bruising, clotting discussed Nutritional guidance given - eat greens today. Dose: keep dose the same 7.5mg x 1 day/ 10mg x 6 days - rather INR slightly higher due to covid and paxlovid F/U INR: 1 week Patient verbalizes understanding of instructions given Anti-Coag Initial Assessment Social Hx Patient Tobacco Use Status: Never used Tobacco alcohol intake: never Alcohol intake frequency: does not drink Coding Level of Care Code Est Patient Level 1 Diagnoses Current use of anticoagulant therapy Z79.01 Assessment & Plan Assessment & Plan (1) Current use of anticoagulant therapy: Code(s): Z79.01 - retirement (current) use of anticoagulants Category: Medical
== END 2023-05-13 09:05 | disposition home or self-care (01) ==
LOC: HO.ACS 08:44
PROVIDERS: PCP Internal Medicine; Visit Provider Internal Medicine
DX: Z79.01 Long term (current) use of anticoagulants (principal)

== ENCOUNTER → 2023-05-13 08:44 | Outpatient (BNVA) | payer OTHER, SELFPAY | PROVIDERS: PCP Internal Medicine; Visit Provider Internal Medicine | DX: Z95.2 Presence of prosthetic heart valve (principal); Z79.01 Long term (current) use of anticoagulants; Z51.81 Encounter for therapeutic drug level monitoring | CPT/HCPCS: 85610; 99211 ==

== ENCOUNTER 2023-05-21 08:28 | Outpatient (AMB) | payer OTHER, SELFPAY ==
--- NOTE | 2023-05-21 08:33 | MHC.OFFVISCO ---
Intake Intake Visit Reasons: Anticoagulation Allergies No Known Allergies [No Known Allergies*] Allergy (Verified 05/21/23 08:29) Medication List - Last Reconciled 05/21/23 by Jossie Robbins RN alprazolam 0.25 mg PO DAILY PRN amoxicillin 2,000 mg PO DIRECTED lisinopril 20 mg PO DAILY metoprolol tartrate 25 mg PO BID sildenafil 50 mg PO DAILY PRN warfarin 5 mg See Protocol PO DAILY Nursing Note INR 5.0-?? out of therapeutic range- ref lab draw Medications and supplements reviewed Patient status: pt s/p covid/paxlovid Medications or supplements: asa d/c, flu shot yesterday Diet: appetite is good Denies any signs and symptoms of bleeding or clotting or unusual bruising Bleeding, bruising, clotting discussed - aware at risk for bleeding, avoid high risk activity Nutritional guidance given: eat greens today Dose: hold warfarin today, check inr tomm with home meter F/U INR Date : tomm 05/22/23?? Patient verbalizing understanding of instructions given. pcp dr infante- called with elev inr/dosing and retest tomm. 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
[2023-05-21 08:34] LABS: Prothrombin Time Whole Bld POC 60.4 sec (11.1-13.5)
== END 2023-05-21 08:44 | disposition home or self-care (01) ==
LOC: HO.ACS 08:28
PROVIDERS: PCP Internal Medicine; Visit Provider Internal Medicine
DX: Z79.01 Long term (current) use of anticoagulants (principal)

== ENCOUNTER → 2023-05-21 08:28 | Outpatient (BNVA) | payer OTHER, SELFPAY | PROVIDERS: PCP Internal Medicine; Visit Provider Internal Medicine | DX: Z95.2 Presence of prosthetic heart valve (principal); Z79.01 Long term (current) use of anticoagulants; Z51.81 Encounter for therapeutic drug level monitoring | CPT/HCPCS: 85610; 99211 ==

== ENCOUNTER → 2023-05-22 14:30 | Outpatient (BNVA) | payer OTHER, SELFPAY | PROVIDERS: PCP Internal Medicine; Visit Provider Internal Medicine ==

== ENCOUNTER 2023-05-25 10:07 | Outpatient (AMB) | payer OTHER, SELFPAY ==
[2023-05-25 10:14] LABS: Prothrombin Time Whole Bld POC 39.4 sec (11.1-13.5); ~PT, ~INR - Anti Coag Clinic 3.3 (0.9-1.1)
--- NOTE | 2023-05-25 10:20 | MHC.OFFVISCO ---
Intake Intake Visit Reasons: Anticoagulation Allergies No Known Allergies [No Known Allergies*] Allergy (Verified 05/25/23 10:08) Medication List - Last Reconciled 05/25/23 by Ingrid Cisneros RN alprazolam 0.25 mg PO DAILY PRN amoxicillin 2,000 mg PO DIRECTED lisinopril 20 mg PO DAILY metoprolol tartrate 25 mg PO BID sildenafil 50 mg PO DAILY PRN warfarin 5 mg See Protocol PO DAILY Nursing Note INR: 3.3 in therapeutic range S/P COVID AND 3 DAY COURSE OF PAXLOVID, HE HAD WARFARIN DOSES HELD LAST Thu- MAY STILL HAVE EFFECT ON INR TOMORROW AND THU. PT ADIVSED TO WAIT A FEW DAYS BEFORE EATING GREENS Medications and supplements reviewed No changes in health, diet, medications, or supplements, Denies any signs and symptoms of bleeding or bruising or clotting. 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
== END 2023-05-25 10:25 | disposition home or self-care (01) ==
LOC: HO.ACS 10:07
PROVIDERS: PCP Internal Medicine; Visit Provider Internal Medicine
DX: Z79.01 Long term (current) use of anticoagulants (principal)

== ENCOUNTER → 2023-05-25 10:07 | Outpatient (BNVA) | payer OTHER, SELFPAY | PROVIDERS: PCP Internal Medicine; Visit Provider Internal Medicine | DX: Z95.2 Presence of prosthetic heart valve (principal); Z79.01 Long term (current) use of anticoagulants; Z51.81 Encounter for therapeutic drug level monitoring | CPT/HCPCS: 85610; 99211 ==

== ENCOUNTER 2023-06-02 09:28 | Outpatient (AMB) | payer OTHER, SELFPAY ==
--- NOTE | 2023-06-02 09:32 | MHC.OFFVISCO ---
Intake Intake Visit Reasons: Anticoagulation Allergies No Known Allergies [No Known Allergies*] Allergy (Verified 06/02/23 09:28) Medication List - Last Reconciled 06/02/23 by Jossie Robbins RN alprazolam 0.25 mg PO DAILY PRN amoxicillin 2,000 mg PO DIRECTED lisinopril 20 mg PO DAILY metoprolol tartrate 25 mg PO BID sildenafil 50 mg PO DAILY PRN warfarin 5 mg See Protocol PO DAILY Nursing Note INR 4.0-?? out of therapeutic range 2.5-3.5 Medications and supplements reviewed Patient status: pt s/p covid Medications or supplements: no changes Diet: good Denies any signs and symptoms of bleeding or clotting or unusual bruising Bleeding, bruising, clotting discussed Nutritional guidance given: eat a green today, no reds for 2 days Dose: 2.5mg today then cont reg dosing 7.5mg x 1, 5mg x 6 F/U INR Date : 1 week Patient verbalizing understanding of instructions given. 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
== END 2023-06-02 09:37 | disposition home or self-care (01) ==
LOC: HO.ACS 09:28
PROVIDERS: PCP Internal Medicine; Visit Provider Internal Medicine
DX: Z79.01 Long term (current) use of anticoagulants (principal)

== ENCOUNTER → 2023-06-02 09:28 | Outpatient (BNVA) | payer OTHER, SELFPAY | PROVIDERS: PCP Internal Medicine; Visit Provider Internal Medicine | DX: Z95.2 Presence of prosthetic heart valve (principal); Z79.01 Long term (current) use of anticoagulants; Z51.81 Encounter for therapeutic drug level monitoring | CPT/HCPCS: 85610; 99211 ==

== ENCOUNTER 2023-06-10 08:46 | Outpatient (AMB) | payer OTHER, SELFPAY ==
--- NOTE | 2023-06-10 09:00 | MHC.OFFVISCO ---
Intake Intake Visit Reasons: Anticoagulation Allergies No Known Allergies [No Known Allergies*] Allergy (Verified 06/10/23 08:55) Medication List - Last Reconciled 06/10/23 by Jossie Robbins RN alprazolam 0.25 mg PO DAILY PRN amoxicillin 2,000 mg PO DIRECTED lisinopril 20 mg PO DAILY metoprolol tartrate 25 mg PO BID sildenafil 50 mg PO DAILY PRN warfarin 5 mg See Protocol PO DAILY Nursing Note INR 3.7-?? out of therapeutic range of 2.5- 3.5 Medications and supplements reviewed Patient status: no c.o Medications or supplements: no changes Diet: no changes, pt states diet is consistent Denies any signs and symptoms of bleeding or clotting or unusual bruising Bleeding, bruising, clotting discussed Nutritional guidance given: pt req dietary management to lower inr, eat greens to lower inr Dose: 5mg x 6, 7.5mg x 1 F/U INR Date : 1 week Patient verbalizing understanding of instructions given. 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
[2023-06-10 09:01] LABS: Prothrombin Time Whole Bld POC 44.3 sec (11.1-13.5); ~PT, ~INR - Anti Coag Clinic 3.7 (0.9-1.1)
== END 2023-06-10 09:07 | disposition home or self-care (01) ==
LOC: HO.ACS 08:46
PROVIDERS: PCP Internal Medicine; Visit Provider Internal Medicine
DX: Z79.01 Long term (current) use of anticoagulants (principal)

== ENCOUNTER → 2023-06-10 08:46 | Outpatient (BNVA) | payer OTHER, SELFPAY | PROVIDERS: PCP Internal Medicine; Visit Provider Internal Medicine | DX: Z95.2 Presence of prosthetic heart valve (principal); Z79.01 Long term (current) use of anticoagulants; Z51.81 Encounter for therapeutic drug level monitoring | CPT/HCPCS: 85610; 99211 ==

== ENCOUNTER 2023-06-17 09:04 | Outpatient (AMB) | payer OTHER, SELFPAY ==
--- NOTE | 2023-06-17 09:15 | MHC.OFFVISCO ---
Intake Intake Visit Reasons: Anticoagulation Allergies No Known Allergies [No Known Allergies*] Allergy (Verified 06/17/23 09:12) Medication List - Last Reconciled 06/17/23 by Jossie Robbins RN alprazolam 0.25 mg PO DAILY PRN amoxicillin 2,000 mg PO DIRECTED lisinopril 20 mg PO DAILY metoprolol tartrate 25 mg PO BID sildenafil 50 mg PO DAILY PRN warfarin 5 mg See Protocol PO DAILY Nursing Note INR: 3.3- in therapeutic range of 2.5-3.5 Medications and supplements reviewed- no changes No changes in health, diet, medications, or supplements, Denies any signs and symptoms of bleeding or bruising or clotting. 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
[2023-06-18 13:34] LABS: Prothrombin Time Whole Bld POC 39.4 sec (11.1-13.5); ~PT, ~INR - Anti Coag Clinic 3.3 (0.9-1.1)
== END 2023-06-17 09:22 | disposition home or self-care (01) ==
LOC: HO.ACS 09:04
PROVIDERS: PCP Internal Medicine; Visit Provider Internal Medicine
DX: Z79.01 Long term (current) use of anticoagulants (principal)

== ENCOUNTER → 2023-06-17 09:04 | Outpatient (BNVA) | payer OTHER, SELFPAY | PROVIDERS: PCP Internal Medicine; Visit Provider Internal Medicine | DX: Z95.2 Presence of prosthetic heart valve (principal); Z79.01 Long term (current) use of anticoagulants; Z51.81 Encounter for therapeutic drug level monitoring | CPT/HCPCS: 85610; 99211 ==

== ENCOUNTER 2023-07-01 09:01 | Outpatient (AMB) | payer OTHER, SELFPAY ==
--- NOTE | 2023-07-01 09:11 | MHC.OFFVISCO ---
Intake Intake Visit Reasons: Anticoagulation Allergies No Known Allergies [No Known Allergies*] Allergy (Verified 07/01/23 09:08) Medication List - Last Reconciled 07/01/23 by Jossie Robbins RN alprazolam 0.25 mg PO DAILY PRN amoxicillin 2,000 mg PO DIRECTED lisinopril 20 mg PO DAILY metoprolol tartrate 25 mg PO BID sildenafil 50 mg PO DAILY PRN warfarin 5 mg See Protocol PO DAILY Nursing Note INR: 3.4- in therapeutic range of 2.5-3.5 Medications and supplements reviewed- no changes No changes in health, diet, medications, or supplements, Denies any signs and symptoms of bleeding or bruising or clotting. Bleeding, bruising, clotting discussed Nutritional guidance given Dose: 5mg x 6, 7.5mg x 1 F/U INR: 2 weeks Patient verbalizes understanding of instructions given pt traveling 07/09/23- will check poc inr prior Anti-Coag Initial Assessment Social Hx Patient Tobacco Use Status: Never used Tobacco alcohol intake: never Alcohol intake frequency: does not drink Coding Level of Care Code Est Patient Level 1 Results AMB INR Fingerstick AMB INR Fingerstick 3.4 Last Edit by Jossie Robbins RN on 07/01/23 09:12
[2023-07-01 09:13] LABS: Prothrombin Time Whole Bld POC 40.6 sec (11.1-13.5); ~PT, ~INR - Anti Coag Clinic 3.4 (0.9-1.1)
== END 2023-07-01 09:18 | disposition home or self-care (01) ==
LOC: HO.ACS 09:01
PROVIDERS: PCP Internal Medicine; Visit Provider Internal Medicine
DX: Z79.01 Long term (current) use of anticoagulants (principal)

== ENCOUNTER → 2023-07-01 09:01 | Outpatient (BNVA) | payer OTHER, SELFPAY | PROVIDERS: PCP Internal Medicine; Visit Provider Internal Medicine | DX: Z95.2 Presence of prosthetic heart valve (principal); Z79.01 Long term (current) use of anticoagulants; Z51.81 Encounter for therapeutic drug level monitoring | CPT/HCPCS: 85610; 99211 ==

== ENCOUNTER 2023-07-08 08:57 | Outpatient (AMB) | payer OTHER, SELFPAY ==
[2023-07-08 09:11] LABS: Prothrombin Time Whole Bld POC 36.7 sec (11.1-13.5); ~PT, ~INR - Anti Coag Clinic 3.1 (0.9-1.1)
--- NOTE | 2023-07-08 09:13 | MHC.OFFVISCO ---
Intake Intake Visit Reasons: Anticoagulation Allergies No Known Allergies [No Known Allergies*] Allergy (Verified 07/08/23 09:07) Medication List - Last Reconciled 07/08/23 by Kamla Petersen RN alprazolam 0.25 mg PO DAILY PRN amoxicillin 2,000 mg PO DIRECTED lisinopril 20 mg PO DAILY metoprolol tartrate 25 mg PO BID sildenafil 50 mg PO DAILY PRN warfarin 5 mg See Protocol PO DAILY Nursing Note NO CP,SOB,DIET/MED CHANGES,FALLS OR SX OF BLEEDING. CONTINUE PRESENT DOSE AND FOLLOW-UP IN 2 WEEKS AFTER RETURNING FROM TRIP GOOD UNDERSTANDING OF DOSING INSTR. 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
== END 2023-07-08 09:16 | disposition home or self-care (01) ==
LOC: HO.ACS 08:57
PROVIDERS: PCP Internal Medicine; Visit Provider Internal Medicine
DX: Z79.01 Long term (current) use of anticoagulants (principal)

== ENCOUNTER → 2023-07-08 08:57 | Outpatient (BNVA) | payer OTHER, SELFPAY | PROVIDERS: PCP Internal Medicine; Visit Provider Internal Medicine | DX: Z95.2 Presence of prosthetic heart valve (principal); Z79.01 Long term (current) use of anticoagulants; Z51.81 Encounter for therapeutic drug level monitoring | CPT/HCPCS: 85610; 99211 ==

== ENCOUNTER 2023-07-08 09:30 | Outpatient (AMB) | payer OTHER, SELFPAY ==
--- NOTE | 2023-07-08 10:54 | AM.OFFWIN_ITS ---
Intake Vital Signs 07/08/23 10:55 Height 6 ft Weight 101.605 kg BMI 30.4 BP 140/80 H Blood Pressure Location Rt brachial Position Sitting Pulse 68 Pulse Source Pulse Oximeter Temp 98.0 F Temp Source Temporal Artery Scan Pulse Oximetry (%) 97 Oxygen Delivery Method Room Air Intake Visit Reasons: EP body ache sore throat [id number] Intake Note: pt is here for c.o sore throat and body ache Patient Tobacco Use Status: Never used Tobacco Allergies No Known Allergies [No Known Allergies*] Allergy (Verified 07/08/23 10:55) Do you need a note to return to daycare/school/sports/work: Yes HPI HPI Comments History of Present Illness Details [id number] 57-year-old male presents with fatigue, malaise, myalgias, sore throat w/ radiation to ears when swallowing, ongoing for the past few days (3). The sore throat is worse when eating and swallowing. No known sick contacts. No changes in voice, drooling, fevers, chills, chest pain, shortness of breath, nausea, vomiting, abdominal pain, cough, ear pain. physical examination with erythematous oropharynx. No abscess, or exudate noted. Uvula midline. Speaking full sentences controlling secretions well. Likely viral illness versus strep pharyngitis. Unlikely retropharyngeal abscess, peritonsillar abscess, epiglottitis, threat to airway. Plan will discharge home with antibiotics despite negative rapid strep test due to high suspicion for strep pharyngitis based on patient history and physical exam. Will also add prednisone Educated patient on diagnosis and treatment plan, answered all question, patient verbalizes understanding. At this time patient will be discharged home, advised to return with new or worsening symptoms. Educated on worrisome signs and symptoms and when to return. At this time I feel comfortable discharge home. [facility] Medical History Pneumonia Obesity (BMI 30-39.9) Overweight (BMI 25.0-29.9) GERD (gastroesophageal reflux disease) Erectile dysfunction Obesity (BMI 30-39.9) Impaired glucose tolerance Anxiety COVID-19 HTN (hypertension) Surgical History Hx laparoscopic cholecystectomy H/O mitral valve replacement with mechanical valve H/O mitral valve repair Hx of varicose vein ligation and stripping H/O cardiac catheterization (~2019) Family History Father CVD (cardiovascular disease) Mother HTN (hypertension) CVD (cardiovascular disease) Diabetes Social History Household Members: Spouse Housing: House Are you a primary acute care nursing assistant to a significant other at home: No Do you presently have visiting nurse or other home services: No Alcohol intake: never Patient Tobacco Use Status: Never used Tobacco e-Cigarette/Vaping Use: Never Used Second Hand Smoke Exposure: No service: No Current occupational status: employed Current occupation: [employer] Cognitive needs: No Hearing needs: No Vision needs: Yes (reading glasses) Review of Systems Const Details: Constitutional : No Weight loss, No Fever, No Chills, + Fatigue, + Malaise ENT/Mouth : + sore throat, No Rhinorrhea Eyes: No Eye Pain, No Swelling, No Redness Cardiovascular : No Chest Pain, No SOB, No Dyspnea on Exertion, No Orthopnea, No Edema, No Palpitations Respiratory : No Cough, No Sputum, No Wheezing Gastrointestinal : No Nausea, No Vomiting, No Diarrhea, No Constipation, No abdominal Pain, No Hematochezia, No Melena Genitourinary : No Dysuria, No Urinary Frequency, No Hematuria, Musculoskeletal : No joint pain, No Myalgias, No Joint Swelling Skin : No Skin Lesions, No rash Neuro : No Weakness, No Numbness, No Dizziness, No Headache Psych : No Anxiety/Panic, No Depression All other systems reviewed and are negative All systems reviewed & are unremarkable except as noted in HPI and below Physical Exam Vital Signs: Last Vital Signs Temp 98.0 F 07/08/23 10:55 Pulse 68 07/08/23 10:55 BP 140/80 H 07/08/23 10:55 Pulse Ox 97 07/08/23 10:55 Oxygen Delivery Method Room Air 07/08/23 10:55 BMI result Body Mass Index 30.4 vss Appearance: Alert.? Oriented X3.? No acute distress.? Head: Normocephalic, atraumatic, no step-offs or deformities Eyes: Pupils equal, round and reactive to light.? ENT: Pharynx normal.? erythematous oropharynx. No abscess, or exudate noted. Uvula midline. Speaking full sentences controlling secretions well. Neck: Normal inspection.? Neck supple.? CVS: Normal heart rate and rhythm.? Pulses normal.? Respiratory: No respiratory distress.? Breath sounds normal.? Abdomen: Soft and nontender.? Skin: Skin warm and dry.? Normal skin color.? Normal skin turgor.? Extremities: No lower extremity edema.? No calf ttp. 5/5 strength to bilateral upper and lower extremities Neuro: Oriented X 3.? No motor deficit.? No sensory deficit. CN 2-12 intact Results AMB Rapid Strep AMB Rapid Strep Negative Last Edit by Jeramie Ridley CMA on 07/08/23 11 :07 Results Reviewed Results Reviewed: Laboratory Last Values Strep Scn Rapid Clinic Negative 07/08/23 11:06 Assessment & Plan Assessment & Plan (1) Pharyngitis: Code(s): J02.9 - Acute pharyngitis, unspecified Plan Take your medications as prescribed. If you were prescribed antibiotics today, it is important that you take your medication to their entirety, do not skip any doses, do not finish them early. Follow-up with your primary care provider this week. Return to the emergency department with new or worsening symptoms. In case of emergency call 911 Orders: Orders AMB Rapid Strep Screen Today Z13.9 - Encounter for screening, unspecified Medications: New prednisone 20 mg PO DAILY 5 days 5 tabs 0RF amoxicillin-pot clavulanate 875-125 mg 1 tab PO BID 10 days 20 tabs 0RF Coding Level of Care Code Est Pt Level 3 (57943) Diagnoses Pharyngitis J02.9
[2023-07-08 10:55] VITALS: BP 140/80; PULSE 68; TEMP 36.7; O2SAT 97; BMI 30.4
== END 2023-07-08 11:30 | disposition home or self-care (01) ==
PROVIDERS: PCP Internal Medicine; Visit Provider Physician Assistant
DX: J02.9 Acute pharyngitis, unspecified (principal)
CPT/HCPCS: 87880; 99213

== ENCOUNTER 2023-07-22 09:00 | Outpatient (AMB) | payer OTHER, SELFPAY ==
[2023-07-22 09:08] LABS: Prothrombin Time Whole Bld POC 30.1 sec (11.1-13.5); ~PT, ~INR - Anti Coag Clinic 2.5 (0.9-1.1)
--- NOTE | 2023-07-22 09:10 | MHC.OFFVISCO ---
Intake Intake Visit Reasons: Anticoagulation Allergies No Known Allergies [No Known Allergies*] Allergy (Verified 07/22/23 09:01) Medication List - Last Reconciled 07/22/23 by Ingrid Cisneros RN alprazolam 0.25 mg PO DAILY PRN lisinopril 20 mg PO DAILY metoprolol tartrate 25 mg PO BID sildenafil 50 mg PO DAILY PRN warfarin 5 mg See Protocol PO DAILY Nursing Note Pt is s/p URI had sore throat and cough, put on prednisone and antbx - has 2 more days of antbx left -can have delayed onset with effecting the INR INR: 2.5 in therapeutic range Medications and supplements reviewed No changes in health, diet, medications, or supplements, Denies any signs and symptoms of bleeding or bruising or clotting. Bleeding, bruising, clotting discussed Nutritional guidance given - increase greens next week due to delayed onset with effecting the INR - pt can chk INR at home prn and can call to be seen if elevated Dose: keep same for now 7.5mg x 1 day/ 5mg x 6 days F/U INR: 2 weeks Patient verbalizes understanding of instructions given Anti-Coag Initial Assessment Social Hx Patient Tobacco Use Status: Never used Tobacco alcohol intake: never Alcohol intake frequency: does not drink Coding Level of Care Code Est Patient Level 1 Diagnoses Current use of anticoagulant therapy Z79.01 Assessment & Plan Assessment & Plan (1) Current use of anticoagulant therapy: Code(s): Z79.01 - half-way (current) use of anticoagulants Category: Medical
== END 2023-07-22 09:17 | disposition home or self-care (01) ==
LOC: HO.ACS 09:00
PROVIDERS: PCP Internal Medicine; Visit Provider Internal Medicine
DX: Z79.01 Long term (current) use of anticoagulants (principal)

== ENCOUNTER → 2023-07-22 09:00 | Outpatient (BNVA) | payer OTHER, SELFPAY | PROVIDERS: PCP Internal Medicine; Visit Provider Internal Medicine | DX: Z95.2 Presence of prosthetic heart valve (principal); Z51.81 Encounter for therapeutic drug level monitoring; Z79.01 Long term (current) use of anticoagulants | CPT/HCPCS: 85610; 99211 ==

== ENCOUNTER 2023-08-05 08:34 | Outpatient (AMB) | payer OTHER, SELFPAY ==
--- NOTE | 2023-08-05 08:39 | MHC.OFFVISCO ---
Intake Intake Visit Reasons: Anticoagulation Allergies No Known Allergies [No Known Allergies*] Allergy (Verified 08/05/23 08:36) Medication List - Last Reconciled 08/05/23 by Jossie Robbins RN alprazolam 0.25 mg PO DAILY PRN lisinopril 20 mg PO DAILY metoprolol tartrate 25 mg PO BID sildenafil 50 mg PO DAILY PRN warfarin 5 mg See Protocol PO DAILY Nursing Note INR: 3.2- in therapeutic range of 2.5-3.5 Medications and supplements reviewed No changes in health, diet, medications, or supplements, Denies any signs and symptoms of bleeding or bruising or clotting. Bleeding, bruising, clotting discussed Nutritional guidance given Dose: 5mg x 6, 7.5mg x 1 F/U INR: 2 weeks Patient verbalizes understanding of instructions given Anti-Coag Initial Assessment Social Hx Patient Tobacco Use Status: Never used Tobacco alcohol intake: never Alcohol intake frequency: does not drink Coding Level of Care Code Est Patient Level 1 Diagnoses Current use of anticoagulant therapy Z79.01 Results AMB INR Fingerstick AMB INR Fingerstick 3.2 Last Edit by Jossie Robbins RN on 08/05/23 08:40 Assessment & Plan Assessment & Plan (1) Current use of anticoagulant therapy: Code(s): 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
[2023-08-05 08:40] LABS: Prothrombin Time Whole Bld POC 38.3 sec (11.1-13.5); ~PT, ~INR - Anti Coag Clinic 3.2 (0.9-1.1)
== END 2023-08-05 08:48 | disposition home or self-care (01) ==
LOC: HO.ACS 08:34
PROVIDERS: PCP Internal Medicine; Visit Provider Internal Medicine
DX: Z79.01 Long term (current) use of anticoagulants (principal)

== ENCOUNTER → 2023-08-05 08:34 | Outpatient (BNVA) | payer OTHER, SELFPAY | PROVIDERS: PCP Internal Medicine; Visit Provider Internal Medicine | DX: Z95.2 Presence of prosthetic heart valve (principal); Z51.81 Encounter for therapeutic drug level monitoring; Z79.01 Long term (current) use of anticoagulants | CPT/HCPCS: 85610; 99211 ==

== ENCOUNTER 2023-08-19 08:39 | Outpatient (AMB) | payer OTHER, SELFPAY ==
[2023-08-19 08:45] LABS: Prothrombin Time Whole Bld POC 36.3 sec (11.1-13.5)
--- NOTE | 2023-08-19 08:47 | MHC.OFFVISCO ---
Intake Intake Visit Reasons: Anticoagulation Allergies No Known Allergies [No Known Allergies*] Allergy (Verified 08/19/23 08:40) Medication List - Last Reconciled 08/19/23 by Kamla Petersen RN alprazolam 0.25 mg PO DAILY PRN lisinopril 20 mg PO DAILY metoprolol tartrate 25 mg PO BID sildenafil 50 mg PO DAILY PRN warfarin 5 mg See Protocol PO DAILY Nursing Note NO CP,SOB,DIET/MED CHANGES,FALLS OR SX OF BLEEDING.\CONTINUE PREWSENT DOSE AND FOLLOW-UP IN 2 WEEKS. 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
== END 2023-08-19 08:49 | disposition home or self-care (01) ==
LOC: HO.ACS 08:39
PROVIDERS: PCP Internal Medicine; Visit Provider Internal Medicine
DX: Z79.01 Long term (current) use of anticoagulants (principal)

== ENCOUNTER → 2023-08-19 08:39 | Outpatient (BNVA) | payer OTHER, SELFPAY | PROVIDERS: PCP Internal Medicine; Visit Provider Internal Medicine | DX: Z95.2 Presence of prosthetic heart valve (principal); Z79.01 Long term (current) use of anticoagulants; Z51.81 Encounter for therapeutic drug level monitoring | CPT/HCPCS: 85610; 99211 ==

== ENCOUNTER 2023-09-02 08:46 | Outpatient (AMB) | payer OTHER, SELFPAY ==
--- NOTE | 2023-09-02 08:58 | MHC.OFFVISCO ---
Intake Intake Visit Reasons: Anticoagulation Allergies No Known Allergies [No Known Allergies*] Allergy (Verified 09/02/23 08:55) Medication List - Last Reconciled 09/02/23 by Jossie Robbins RN alprazolam 0.25 mg PO DAILY PRN lisinopril 20 mg PO DAILY metoprolol tartrate 25 mg PO BID sildenafil 50 mg PO DAILY PRN warfarin 5 mg See Protocol PO DAILY Nursing Note INR: 3.1- in therapeutic range of 2.5-3.5 Medications and supplements reviewed- no changes No changes in health, diet, medications, or supplements, Denies any signs and symptoms of bleeding or bruising or clotting. Bleeding, bruising, clotting discussed Nutritional guidance given Dose: 5mg x 6, 7.5mg x 1 F/U INR: 2 weeks Patient verbalizes understanding of instructions given Anti-Coag Initial Assessment Social Hx Patient Tobacco Use Status: Never used Tobacco alcohol intake: never Alcohol intake frequency: does not drink Coding Level of Care Code Est Patient Level 1 Diagnoses Current use of anticoagulant therapy Z79.01 Results AMB INR Fingerstick AMB INR Fingerstick 3.1 Last Edit by Jossie Robbins RN on 09/02/23 09:00 Assessment & Plan Assessment & Plan (1) Current use of anticoagulant therapy: Code(s): Z79.01 - 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
[2023-09-02 09:00] LABS: Prothrombin Time Whole Bld POC 37.3 sec (11.1-13.5); ~PT, ~INR - Anti Coag Clinic 3.1 (0.9-1.1)
== END 2023-09-02 09:03 | disposition home or self-care (01) ==
LOC: HO.ACS 08:46
PROVIDERS: PCP Internal Medicine; Visit Provider Internal Medicine
DX: Z79.01 Long term (current) use of anticoagulants (principal)

== ENCOUNTER → 2023-09-02 08:46 | Outpatient (BNVA) | payer OTHER, SELFPAY | PROVIDERS: PCP Internal Medicine; Visit Provider Internal Medicine | DX: Z95.2 Presence of prosthetic heart valve (principal); Z79.01 Long term (current) use of anticoagulants; Z51.81 Encounter for therapeutic drug level monitoring | CPT/HCPCS: 85610; 99211 ==

== ENCOUNTER 2023-09-16 08:44 | Outpatient (AMB) | payer OTHER, SELFPAY ==
--- NOTE | 2023-09-16 08:49 | MHC.OFFVISCO ---
Intake Intake Visit Reasons: Anticoagulation Allergies No Known Allergies [No Known Allergies*] Allergy (Verified 09/16/23 08:45) Medication List - Last Reconciled 09/16/23 by Josise Robbins RN alprazolam 0.25 mg PO DAILY PRN lisinopril 20 mg PO DAILY metoprolol tartrate 25 mg PO BID sildenafil 50 mg PO DAILY PRN warfarin 5 mg See Protocol PO DAILY Nursing Note INR: 3.4- in therapeutic range of 2.5-3.5 Medications and supplements reviewed- no changes No changes in health, diet, medications, or supplements pt has home meter- he states he check poc inr last week and it was 4.0 and he ate greens to lower Denies any signs and symptoms of bleeding or bruising or clotting. some bruising Bleeding, bruising, clotting discussed Nutritional guidance given Dose: 7.5mg x 1. 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
[2023-09-16 08:51] LABS: Prothrombin Time Whole Bld POC 40.5 sec (11.1-13.5); ~PT, ~INR - Anti Coag Clinic 3.4 (0.9-1.1)
== END 2023-09-16 08:55 | disposition home or self-care (01) ==
LOC: HO.ACS 08:44
PROVIDERS: PCP Internal Medicine; Visit Provider Internal Medicine
DX: Z79.01 Long term (current) use of anticoagulants (principal)

== ENCOUNTER → 2023-09-16 08:44 | Outpatient (BNVA) | payer OTHER, SELFPAY | PROVIDERS: PCP Internal Medicine; Visit Provider Internal Medicine | DX: Z95.2 Presence of prosthetic heart valve (principal); Z79.01 Long term (current) use of anticoagulants; Z51.81 Encounter for therapeutic drug level monitoring | CPT/HCPCS: 85610; 99211 ==

== ENCOUNTER 2023-09-30 08:44 | Outpatient (AMB) | payer OTHER, SELFPAY ==
[2023-09-30 09:01] LABS: Prothrombin Time Whole Bld POC 32.8 sec (11.1-13.5); ~PT, ~INR - Anti Coag Clinic 2.7 (0.9-1.1)
--- NOTE | 2023-09-30 09:01 | MHC.OFFVISCO ---
Intake Intake Visit Reasons: Anticoagulation Allergies No Known Allergies [No Known Allergies*] Allergy (Verified 09/30/23 09:01) Medication List - Last Reconciled 09/30/23 by Jossie Robbins RN alprazolam 0.25 mg PO DAILY PRN lisinopril 20 mg PO DAILY metoprolol tartrate 25 mg PO BID sildenafil 50 mg PO DAILY PRN warfarin 5 mg See Protocol PO DAILY Nursing Note INR: 2.7- in therapeutic range of 2.5-3.5 Medications and supplements reviewed- no changes No changes in health, diet, medications, or supplements, Denies any signs and symptoms of bleeding pt states has large bruise upper right arm last week- denies trauma, states had pain in the arm and developed spontaneous bruise he has home meter and checked inr which he states was 4.3- thursday he reduced his warfarin to 2.5mg. he denies arm pain at this time and no further bruising. instructed to call acs with any further bruising Bleeding, bruising, clotting discussed Nutritional guidance given Dose: 7.5mg x 1. 5mg x 6 F/U INR: 2 weeks Patient verbalizes understanding of instructions given composed note to pcp regarding bruise Anti-Coag Initial Assessment Social Hx Patient Tobacco Use Status: Never used Tobacco alcohol intake: never Alcohol intake frequency: does not drink Coding Level of Care Code Est Patient Level 1 Diagnoses Current use of anticoagulant therapy Z79.01 Assessment & Plan Assessment & Plan (1) Current use of anticoagulant therapy: Code(s): Z79.01 - assisted (current) use of anticoagulants Category: Medical
== END 2023-09-30 09:14 | disposition home or self-care (01) ==
LOC: HO.ACS 08:44
PROVIDERS: PCP Internal Medicine; Visit Provider Internal Medicine
DX: Z79.01 Long term (current) use of anticoagulants (principal)

== ENCOUNTER → 2023-09-30 08:44 | Outpatient (BNVA) | payer OTHER, SELFPAY | PROVIDERS: PCP Internal Medicine; Visit Provider Internal Medicine | DX: Z95.2 Presence of prosthetic heart valve (principal); Z79.01 Long term (current) use of anticoagulants; Z51.81 Encounter for therapeutic drug level monitoring | CPT/HCPCS: 85610; 99211 ==

== ENCOUNTER 2023-10-10 09:14 | Outpatient (AMB) | payer OTHER, SELFPAY ==
--- NOTE | 2023-10-10 10:06 | AM.OFFWIN_ITS ---
Intake Vital Signs 10/10/23 10:07 Height 6 ft Weight 226 lb 4 oz BMI 30.7 BP 140/82 H Blood Pressure Location Lt brachial Position Sitting Pulse 68 Pulse Source Pulse Oximeter Temp 98.1 F Temp Source Oral Pulse Oximetry (%) 96 Intake Visit Reasons: EP, WHHEEZING, CHEST TIGHTNESS Intake Note: Patient is here with wheezing in chest for a week, and chest tightness. Patient Tobacco Use Status: Never used Tobacco Allergies No Known Allergies [No Known Allergies*] Allergy (Verified 10/10/23 10:44) Medication List - Last Reconciled 10/10/23 by Tamia Luevano CNP alprazolam 0.25 mg PO DAILY PRN lisinopril 20 mg PO DAILY metoprolol tartrate 25 mg PO BID sildenafil 50 mg PO DAILY PRN warfarin 5 mg See Protocol PO DAILY Do you need a note to return to daycare/school/sports/work: No HPI HPI Comments History of Present Illness Details 58-year-old male [facility], complaining of wheezing, cough x 1 week, and ongoing intermittent chest discomfort. He reports dry cough, non productive, denies fever, chills, sinus pressure or tenderness, nasal discharge, general body aches, SOB, orthopnea, PND, leg edema, palpitations, exertional chest pain, abdominal pain, changes in bowels or bladder. He describes the chest tightness as intermittent mild discomfort, localized to the center of his chest, non radiating to jaw or arm, and not feeling like heaviness . He does see a [employer] for prosthetic Mitral valve replacement, last visit in January,. [facility] Medical History Pneumonia Obesity (BMI 30-39.9) Overweight (BMI 25.0-29.9) GERD (gastroesophageal reflux disease) Erectile dysfunction Obesity (BMI 30-39.9) Impaired glucose tolerance Anxiety COVID-19 HTN (hypertension) Surgical History Hx laparoscopic cholecystectomy H/O mitral valve replacement with mechanical valve H/O mitral valve repair Hx of varicose vein ligation and stripping H/O cardiac catheterization (~2018) Family History Father CVD (cardiovascular disease) Mother HTN (hypertension) CVD (cardiovascular disease) Diabetes Social History Household Members: Spouse Housing: House Are you a primary respiratory care assistant to a significant other at home: No Do you presently have visiting nurse or other home services: No Alcohol intake: never Patient Tobacco Use Status: Never used Tobacco e-Cigarette/Vaping Use: Never Used Second Hand Smoke Exposure: No service: No Current occupational status: employed Current occupation: [employer] Cognitive needs: No Hearing needs: No Vision needs: Yes (reading glasses) Review of Systems Const All systems reviewed & are unremarkable except as noted in HPI and below Physical Exam Vital Signs: Last Vital Signs Temp 98.1 F 10/10/23 10:07 Pulse 68 10/10/23 10:07 BP 140/82 H 10/10/23 10:07 Pulse Ox 96 10/10/23 10:07 BMI result Body Mass Index 30.7 Const General: healthy appearing and no acute distress Nutritional Appearance: average body habitus Orientation/consciousness: patient oriented x3 Limitations: no limitations HEENT Head: Yes normal to inspection, Yes normocephalic and Yes atraumatic Ears: hearing grossly normal bilaterally and TM's normal bilaterally General nose exam: Normal nasal mucous membranes and turbinates present Face and sinus: Yes sinuses nontender Mouth: moist mucous membranes Throat: Yes posterior oropharynx normal Eyes General: appearance normal, both eyes and all related structures Conjunctivae: conjunctivae normal Sclerae: sclerae normal Corneas: corneas normal Neck Neck: Yes normal visual inspection, Yes full ROM, Yes no lymphadenopathy and Yes supple Chest Chest palpation & inspection: normal inspection of the chest and no crepitus Resp Effort & Inspection: normal respiratory effort, no audible wheezes, Actively coughing Quality: dry, no respiratory distress and not tachypneic Auscultation: clear to auscultation bilaterally, no rales, no rhonchi and no wheezes Cardio Rate: regular rate Rhythm: regular rhythm Heart sounds: S1 normal heart sound present and S2 normal heart sound present Peripheral pulses: Peripheral pulses 2+ throughout GI Palpation (GI): Soft to palpation and nontender Auscultation: normal bowel sounds Skin General skin exam: no rashes or lesions noted and turgor normal Neuro General: patient oriented x3, gait normal and moves all extremities Extrem General: Yes normal to inspection, Yes full ROM, Yes capillary refill normal, Yes no clubbing, cyanosis or edema and Yes no calf tenderness Psych Appearance: well kempt Mental Status: mental status grossly normal Speech and movement: Normal speech and movement present Affect: normal affect Attitude: cooperative Assessment & Plan Assessment & Plan (1) Upper respiratory infection, viral: Code(s): J06.9 - Acute upper respiratory infection, unspecified Plan: 50-year-old male seen today in office for symptoms of viral respiratory infection, physical exam reveals clear lung sounds, and no wheezes. No bacterial infection suspected. Intermittent chest discomfort sounds more like anxiety then cardiac. Encouraged to drink plenty of fluids and get plenty of rest, [id number] Tylenol and ibuprofen, cold medicine for viral infection. If CP continues or worsens encouraged to go to the ER, if Viral symptoms worsen or unresolved with rest, hydration and over the counter cold medicines encouraged to return to office or follow up with PCP Medications: New benzonatate 100 mg PO BID 7 days PRN 14 caps 0RF cough R05.3 - Chronic cough Coding Level of Care Code Est Pt Level 3 (20376) Diagnoses Upper respiratory infection, viral J06.9
[2023-10-10 10:07] VITALS: BP 140/82; PULSE 68; TEMP 36.7; O2SAT 96; BMI 30.7
== END 2023-10-10 11:02 | disposition home or self-care (01) ==
PROVIDERS: PCP Internal Medicine; Visit Provider Nurse Practitioner Acute Care
DX: J06.9 Acute upper respiratory infection, unspecified (principal)
CPT/HCPCS: 99051; 99213

== ENCOUNTER 2023-10-14 08:43 | Outpatient (AMB) | payer OTHER, SELFPAY ==
[2023-10-14 08:59] LABS: Prothrombin Time Whole Bld POC 41.6 sec (11.1-13.5); ~PT, ~INR - Anti Coag Clinic 3.5 (0.9-1.1)
--- NOTE | 2023-10-14 09:04 | MHC.OFFVISCO ---
Intake Intake Visit Reasons: Anticoagulation Allergies No Known Allergies [No Known Allergies*] Allergy (Verified 10/14/23 08:52) Medication List - Last Reconciled 10/14/23 by Ingrid Cisneros RN alprazolam 0.25 mg PO DAILY PRN benzonatate 100 mg PO BID PRN 7 days lisinopril 20 mg PO DAILY metoprolol tartrate 25 mg PO BID sildenafil 50 mg PO DAILY PRN warfarin 5 mg See Protocol PO DAILY Nursing Note PT leaving for cruise this thursday x 7 days INR: 3.5 in therapeutic range Medications and supplements reviewed No changes in health, diet, medications, or supplements, Denies any signs and symptoms of bleeding or bruising or clotting. 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
== END 2023-10-14 09:06 | disposition home or self-care (01) ==
LOC: HO.ACS 08:43
PROVIDERS: PCP Internal Medicine; Visit Provider Internal Medicine
DX: Z79.01 Long term (current) use of anticoagulants (principal)

== ENCOUNTER → 2023-10-14 08:43 | Outpatient (BNVA) | payer OTHER, SELFPAY | PROVIDERS: PCP Internal Medicine; Visit Provider Internal Medicine | DX: Z95.2 Presence of prosthetic heart valve (principal); Z79.01 Long term (current) use of anticoagulants; Z51.81 Encounter for therapeutic drug level monitoring | CPT/HCPCS: 85610; 99211 ==

== ENCOUNTER 2023-10-28 08:35 | Outpatient (AMB) | payer OTHER, SELFPAY ==
[2023-10-28 08:41] LABS: ~PT, ~INR - Anti Coag Clinic 3.5 (0.9-1.1)
--- NOTE | 2023-10-28 08:50 | MHC.OFFVISCO ---
Intake Intake Visit Reasons: Anticoagulation Allergies No Known Allergies [No Known Allergies*] Allergy (Verified 10/28/23 08:37) Medication List - Last Reconciled 10/28/23 by Kamla Petersen RN alprazolam 0.25 mg PO DAILY PRN benzonatate 100 mg PO BID PRN 7 days lisinopril 20 mg PO DAILY metoprolol tartrate 25 mg PO BID sildenafil 50 mg PO DAILY PRN warfarin 5 mg See Protocol PO DAILY Nursing Note NO CP,SWOB,DIET/MED CHANGES,FALLS OR SX OF BLEEDING. CONTINUE PRESENT DOSE AND FOLLOW-UP IN 2 WEEKS. GOOD UNDERSTANDING OF DOSING INSTR. 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
== END 2023-10-28 08:51 | disposition home or self-care (01) ==
LOC: HO.ACS 08:35
PROVIDERS: PCP Internal Medicine; Visit Provider Internal Medicine
DX: Z79.01 Long term (current) use of anticoagulants (principal)

== ENCOUNTER → 2023-10-28 08:35 | Outpatient (BNVA) | payer OTHER, SELFPAY | PROVIDERS: PCP Internal Medicine; Visit Provider Internal Medicine | DX: Z95.2 Presence of prosthetic heart valve (principal); Z79.01 Long term (current) use of anticoagulants; Z51.81 Encounter for therapeutic drug level monitoring | CPT/HCPCS: 85610; 99211 ==

== ENCOUNTER 2023-11-11 08:59 | Outpatient (AMB) | payer OTHER, SELFPAY ==
[2023-11-11 09:06] LABS: Prothrombin Time Whole Bld POC 51.2 sec (11.1-13.5); ~PT, ~INR - Anti Coag Clinic 4.3 (0.9-1.1)
--- NOTE | 2023-11-11 09:14 | MHC.OFFVISCO ---
Intake Intake Visit Reasons: Anticoagulation Allergies No Known Allergies [No Known Allergies*] Allergy (Verified 11/11/23 09:01) Medication List - Last Reconciled 11/11/23 by Kamla Petersen RN alprazolam 0.25 mg PO DAILY PRN benzonatate 100 mg PO BID PRN 7 days lisinopril 20 mg PO DAILY metoprolol tartrate 25 mg PO BID sildenafil 50 mg PO DAILY PRN warfarin 5 mg See Protocol PO DAILY Nursing Note PT.HAS JUST RETURNED FROM A CRUISE WHERE DIET HAS BEEN DIFFERENT. PT.DENIES ANY CP,SOB,MED CHANGES,FALLS OR SX OF BLEEDING. HOLD WARFARIN TODAY THEN RESUME USUAL DOSE AND FOLLOW-UP IN 1 WEEK. GOOD UNDERSTANDING OF DOSING INSTR. Anti-Coag Initial Assessment Social Hx Patient Tobacco Use Status: Never used Tobacco alcohol intake: never Alcohol intake frequency: does not drink Coding Level of Care Code Est Patient Level 1 Diagnoses Current use of anticoagulant therapy Z79.01 Assessment & Plan Assessment & Plan (1) Current use of anticoagulant therapy: Code(s): Z79.01 - detention (current) use of anticoagulants Category: Medical
== END 2023-11-11 09:17 | disposition home or self-care (01) ==
LOC: HO.ACS 08:59
PROVIDERS: PCP Internal Medicine; Visit Provider Internal Medicine
DX: Z79.01 Long term (current) use of anticoagulants (principal)

== ENCOUNTER → 2023-11-11 08:59 | Outpatient (BNVA) | payer OTHER, SELFPAY | PROVIDERS: PCP Internal Medicine; Visit Provider Internal Medicine | DX: Z95.2 Presence of prosthetic heart valve (principal); Z79.01 Long term (current) use of anticoagulants; Z51.81 Encounter for therapeutic drug level monitoring | CPT/HCPCS: 85610; 99211 ==

== ENCOUNTER 2023-11-18 09:34 | Outpatient (AMB) | payer OTHER, SELFPAY ==
[2023-11-18 09:42] LABS: Prothrombin Time Whole Bld POC 40.6 sec (11.1-13.5); ~PT, ~INR - Anti Coag Clinic 3.4 (0.9-1.1)
--- NOTE | 2023-11-18 09:45 | MHC.OFFVISCO ---
Intake Intake Visit Reasons: Anticoagulation Allergies No Known Allergies [No Known Allergies*] Allergy (Verified 11/18/23 09:38) Medication List - Last Reconciled 11/18/23 by Kamla Petersen RN alprazolam 0.25 mg PO DAILY PRN benzonatate 100 mg PO BID PRN 7 days lisinopril 20 mg PO DAILY metoprolol tartrate 25 mg PO BID sildenafil 50 mg PO DAILY PRN warfarin 5 mg See Protocol PO DAILY Nursing Note NO CP,SOB,DIET/MED CHANGES,FALLS OR SX OF BLEEDING. CONTINUE PRESENT DOSE AND FOLLOW-UP IN 2 WEEKS. GOOD UNDERSTSNDING OF DOSING INSTR. Anti-Coag Initial Assessment Social Hx Patient Tobacco Use Status: Never used Tobacco alcohol intake: never Alcohol intake frequency: does not drink Coding Level of Care Code Est Patient Level 1 Diagnoses Current use of anticoagulant therapy Z79.01 Assessment & Plan Assessment & Plan (1) Current use of anticoagulant therapy: Code(s): Z79.01 - longterm (current) use of anticoagulants Category: Medical
== END 2023-11-18 09:46 | disposition home or self-care (01) ==
LOC: HO.ACS 09:34
PROVIDERS: PCP Internal Medicine; Visit Provider Internal Medicine
DX: Z79.01 Long term (current) use of anticoagulants (principal)

== ENCOUNTER → 2023-11-18 09:34 | Outpatient (BNVA) | payer OTHER, SELFPAY | PROVIDERS: PCP Internal Medicine; Visit Provider Internal Medicine | DX: Z95.2 Presence of prosthetic heart valve (principal); Z79.01 Long term (current) use of anticoagulants; Z51.81 Encounter for therapeutic drug level monitoring | CPT/HCPCS: 85610; 99211 ==

== ENCOUNTER 2023-12-02 08:45 | Outpatient (AMB) | payer OTHER, SELFPAY ==
[2023-12-02 09:01] LABS: Prothrombin Time Whole Bld POC 38.5 sec (11.1-13.5); ~PT, ~INR - Anti Coag Clinic 3.2 (0.9-1.1)
--- NOTE | 2023-12-02 09:03 | MHC.OFFVISCO ---
Intake Intake Visit Reasons: Anticoagulation Allergies No Known Allergies [No Known Allergies*] Allergy (Verified 12/02/23 08:56) Medication List - Last Reconciled 12/02/23 by Kamla Petersen RN alprazolam 0.25 mg PO DAILY PRN benzonatate 100 mg PO BID PRN 7 days lisinopril 20 mg PO DAILY metoprolol tartrate 25 mg PO BID sildenafil 50 mg PO DAILY PRN warfarin 5 mg See Protocol PO DAILY Nursing Note NBO CP,SOB,DIET/MED CHANGES,FALLS OR SX OF BLEEDING. CONTINUE PRESENT DOSE AND FOLLOW-UP IN 2 WEEKS. GOOD UNDERSTANDING OF DOSING INSTR. Anti-Coag Initial Assessment Social Hx Patient Tobacco Use Status: Never used Tobacco alcohol intake: never Alcohol intake frequency: does not drink Coding Level of Care Code Est Patient Level 1 Diagnoses Current use of anticoagulant therapy Z79.01 Results AMB INR Fingerstick AMB INR Fingerstick 3.2 Last Edit by Kamla Petersen RN on 12/02/23 09:01 Assessment & Plan Assessment & Plan (1) Current use of anticoagulant therapy: Code(s): Z79.01 - penitentiary (current) use of anticoagulants Category: Medical
== END 2023-12-02 09:05 | disposition home or self-care (01) ==
LOC: HO.ACS 08:45
PROVIDERS: PCP Internal Medicine; Visit Provider Internal Medicine
DX: Z79.01 Long term (current) use of anticoagulants (principal)

== ENCOUNTER → 2023-12-02 08:45 | Outpatient (BNVA) | payer OTHER, SELFPAY | PROVIDERS: PCP Internal Medicine; Visit Provider Internal Medicine | DX: Z95.2 Presence of prosthetic heart valve (principal); Z51.81 Encounter for therapeutic drug level monitoring; Z79.01 Long term (current) use of anticoagulants | CPT/HCPCS: 85610; 99211 ==

== ENCOUNTER 2023-12-16 08:47 | Outpatient (AMB) | payer OTHER, SELFPAY ==
--- NOTE | 2023-12-16 08:51 | MHC.OFFVISCO ---
Intake Intake Visit Reasons: Anticoagulation Allergies No Known Allergies [No Known Allergies*] Allergy (Verified 12/16/23 08:48) Medication List - Last Reconciled 12/16/23 by Jossie Robbins RN alprazolam 0.25 mg PO DAILY PRN benzonatate 100 mg PO BID PRN 7 days lisinopril 20 mg PO DAILY metoprolol tartrate 25 mg PO BID sildenafil 50 mg PO DAILY PRN warfarin 5 mg See Protocol PO DAILY Nursing Note INR: 3.5- in therapeutic range of 2.5-3.5 Medications and supplements reviewed- no changes No changes in health, diet, medications, or supplements, Denies any signs and symptoms of bleeding or bruising or clotting. Bleeding, bruising, clotting discussed Nutritional guidance given - eat a green today Dose: 7.5mg x 1. 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
[2023-12-16 08:52] LABS: Prothrombin Time Whole Bld POC 41.5 sec (11.1-13.5); ~PT, ~INR - Anti Coag Clinic 3.5 (0.9-1.1)
== END 2023-12-16 09:12 | disposition home or self-care (01) ==
LOC: HO.ACS 08:47
PROVIDERS: PCP Internal Medicine; Visit Provider Internal Medicine
DX: Z79.01 Long term (current) use of anticoagulants (principal)

== ENCOUNTER → 2023-12-16 08:47 | Outpatient (BNVA) | payer OTHER, SELFPAY | PROVIDERS: PCP Internal Medicine; Visit Provider Internal Medicine | DX: Z95.2 Presence of prosthetic heart valve (principal); Z51.81 Encounter for therapeutic drug level monitoring; Z79.01 Long term (current) use of anticoagulants | CPT/HCPCS: 85610; 99211 ==

== ENCOUNTER 2023-12-17 07:51 | Outpatient (REF) | payer OTHER, SELFPAY ==
[2023-12-17 10:09] LABS: MANUAL DIFF FLAG NO
[2023-12-17 10:20] LABS: Basophils Absolute Auto 0.1 X10*3/uL (0.0-0.2); Basophils Percent Auto 0.6 % (0-2); Eosinophils Absolute Auto 0.2 X10*3/uL (0.0-0.4); Eosinophils Percent Auto 2.8 % (0-4); Hemoglobin 14.1 g/dl (14.0-18.0); Imm Gran Abs Auto 0.03 X10*3/uL (0.00-0.03); Imm Gran Pct Auto 0.4 % (0.0-0.4); Lymphocytes Absolute Auto 2.1 X10*3/uL (1.2-4.9); Lymphocytes Percent Auto 26.6 % (20-40); Mean Corpuscular Hemoglobin 26.8 pg (27.0-33.0); Mean Corpuscular Volume 83.5 fL (80.0-98.0); Mean Platelet Volume 10.5 fL (9.4-12.4); Monocytes Percent Auto 12.2 % (2-11); Neutrophils Absolute Auto 4.6 x10*3/uL (2.0-8.3); Neutrophils Percent Auto 57.4 % (45-73); Platelet Count 242 X10*3/uL (160-400); Red Blood Count 5.27 X10*6/uL (4.60-5.80); Red Cell Distribution Width 15.7 % (11.0-16.0); White Blood Count 7.9 X10*3/uL (4.8-10.8)
[2023-12-17 10:46] LABS: Alanine Aminotransferase 29 U/L (0-40); Albumin Level 3.9 g/dL (3.5-5.0); Alkaline Phosphatase 70 U/L (39-117); Anion Gap 12 (12-20); Aspartate Amino Transferase 32 U/L (5-37); Bilirubin Total 0.8 mg/dL (0.0-1.0); Blood Urea Nitrogen 21 mg/dL (9-16); Calcium 9.2 mg/dL (8.4-10.2); Carbon Dioxide 26 mmol/L (22-29); Chloride 108 mmol/L (96-108); Cholesterol 159 mg/dL (<200); Estimated Glomerular Filt Rate > 60; Glucose Random 111 mg/dL (60-115); HDL Cholesterol 40 mg/dL (>40); LDL Cholesterol Calculated 95 mg/dL (<100); Potassium 4.6 mmol/L (3.3-5.1); Sodium 141 mmol/L (135-145); Total Protein 7.1 g/dL (6.5-8.0); Triglycerides 124 mg/dL (<150)
[2023-12-17 11:03] LABS: Free T4 (Free Thyroxine) 0.97 ng/dL (0.71-1.85); Thyroid Stimulating Hormone 2.29 uIU/mL (0.32-4.0)
[2023-12-17 11:04] LABS: Estimated Average Glucose 123 mg/dL; Hemoglobin A1c % 5.9 % (<6.0)
== END 2023-12-17 07:52 | disposition home or self-care (01) ==
LOC: HO.HMGCLDS 07:51
PROVIDERS: PCP Internal Medicine; Visit Provider Internal Medicine
DX: R73.02 Impaired glucose tolerance (oral) (principal); E78.00 Pure hypercholesterolemia, unspecified
CPT/HCPCS: 36415; 80053; 80061; 83036; 84439; 84443; 85025

== ENCOUNTER → 2023-12-21 08:51 | Outpatient (REF) | payer OTHER, SELFPAY ==
--- NOTE | 2023-12-21 08:53 | CA_ITS ---
Transthoracic Echocardiogram Patient (Last, First, Middle): Cinda Erazo, Gender: Male Date of : 1965 Age: 58 Procedure Date: 12/21/2023 Procedure Type: Transthoracic Echocardiogram Location: OP Height: 182.88 cm Weight: 100.7 kg BSA: 2.23 m2 Heart Rate: bpm BP: 130 / 84 mmHg Sock Liner: RAYMOND Referring MD: Juan David Samaniego MD Symptoms: Z95.2 - Presence of prosthetic heart valve Study Quality: Fair Conclusions: - The left ventricular systolic function is normal. The calculated ejection fraction is 64% by biplane method. - A mechanical prosthetic mitral valve is present. The prosthetic mitral valve appears to be functioning normally. - There is mild dilatation of the sinuses of Valsalva measuring 4.31 cm and mild dilatation of the ascending aorta measuring 4.10 cm. Findings Left Ventricle Mildly increased left ventricular cavity size. There is mildly increased left ventricular wall thickness. The left ventricular systolic function is normal. The calculated ejection fraction is 64% by biplane method. There is no evidence of regional wall motion abnormalities. Diastolic function is indeterminate on the basis of available data. LV peak GLS -17.3%. Right Ventricle Mildly increased right ventricular cavity size. There is normal right ventricular systolic function. Atria The left atrium is moderately dilated. The right atrium is mildly dilated. Aortic Valve There is a normal trileaflet aortic valve. There is no aortic valve stenosis. There is mild aortic valve regurgitation. Mitral Valve A mechanical prosthetic mitral valve is present. The prosthetic mitral valve appears to be functioning normally. Mean gradient across the mitral valve 6 mmHg at 60/min. No overt regurgitation, but difficult to assess. Pulmonic Valve There is trace pulmonic valve regurgitation. Tricuspid Valve There is mild tricuspid valve regurgitation. There is no evidence of pulmonary hypertension. Great Vessels There is mild dilatation of the sinuses of Valsalva measuring 4.31 cm and mild dilatation of the ascending aorta measuring 4.10 cm. Venous The inferior vena cava is normal in size and collapses greater than 50% with inspiration. Pericardium/Pleural There is no evidence of pericardial effusion. Prior Study Comparison No significant change compared to prior study dated: 10/16/2022. Measurements 2D Linear Measurements IVSd: 1.09 0.6-0.9/0.6-1.0 cm LVIDd: 5.74 3.9-5.3/4.2-5.9 cm LVIDd Index: 2.57 2.4-3.2/2.2-3.1 cm/m2 LVIDs: 3.76 2.0-3.6 cm LVPWd: 1.21 0.7-1.1 cm LA Diam: 5.80 2.7-3.8/3.0-4.0 cm LAIDs Index: 2.60 1.5-2.3 cm/m2 LV Mass: 343.82 67-162/88-224 g LV Mass Index: 154.18 43-95/49-115 g/m2 LVOT Diam: 2.20 3.0+(-)1.3 cm 2D Systolic Function EF 4C: 59.00 >55% EF 2C: 67.60 >55% EF BiP: 63.60 >55% Mitral Valve MV VTI: 0.68 MV Pk Stewart: 1.98 MV Mn Stewart: 1.16 MV Pk Grad: 16.00 MV Mn Grad: 6.00 MV Pk E: 1.71 MV PK A: 1.38 MV Decel Time: 489.00 E/A: 1.20 E'Lateral: 9.03 E'Medial: 4.57 E/E' Med: 37.40 E/E' Lat: 18.90 PHT: 143.00 MVA PHT: 1.54 MVA Continuity: 1.26 Decel [place]: 3.50 Aortic Valve AoV Pk Stewart: 1.38 AoV Mn Stewart: 0.93 AoV VTI: 0.30 AoV Pk Grad: 8.00 Aov Mn Grad: 4.00 MINAL Cont.VTI: 2.91 LVOT LVOT Pk Stewart: 1.01 LVOT Mn Stewart: 0.62 LVOT VTI: 0.23 LVOT Pk Grad: 4.00 LVOT Mn Grad: 2.00 LVOT Diam: 2.20 LVOT Area: 3.80 Diastolic Function MV Pk E: 1.71 MV Pk A: 1.38 E/A: 1.20 E'Medial: 4.57 E/E' Med: 37.40 E' Laterial: 9.03 E/E' Lat: 18.90 Right Ventricle TAPSE (mm): 23.90 TVS' Stewart: 11.60 Tricuspid Valve TR Pk Stewart: 2.20 TR Pk Grad: 19.00 RA Press: 3.00 RVSP: 22.00 Great Vessels Aorta Sinus of Valsalva: 4.31 2.0-3.[address] [place]: 3.64 1.7-3.4 cm Ao Asc: 4.10 2.1-3.4 cm Ao Arch: 3.50 Updated in Other Vendor System with Status of Final Mitchell Gomez MD electronically signed on 12/21/2023 3:23:21 PM with status of Final
== END ==
LOC: HO.CARD 08:51
PROVIDERS: PCP Internal Medicine; Visit Provider Internal Medicine Cardiovascular Disease
DX: Z95.2 Presence of prosthetic heart valve (principal)
CPT/HCPCS: 93306; 93356

== ENCOUNTER → 2023-12-21 08:53 | Outpatient (BNV) | payer OTHER, SELFPAY | PROVIDERS: PCP Internal Medicine; Visit Provider Internal Medicine | DX: I36.1 Nonrheumatic tricuspid (valve) insufficiency (principal); I35.1 Nonrheumatic aortic (valve) insufficiency; Z95.2 Presence of prosthetic heart valve | CPT/HCPCS: 93306; 93356 ==

== ENCOUNTER 2023-12-25 12:55 | Outpatient (AMB) | payer OTHER, SELFPAY ==
[2023-12-25 12:57] VITALS: BP 114/72; PULSE 69; O2SAT 95; BMI 30.2
--- NOTE | 2023-12-25 12:57 | A.OFFPC_ITS ---
Vital Signs 12/25/23 12:57 Height 6 ft Weight 223 lb 0.8 oz BMI 30.2 BP 114/72 Blood Pressure Location Lt brachial Position Sitting Pulse 69 Pulse Source Pulse Oximeter Pulse Oximetry (%) 95 Oxygen Delivery Method Room Air Intake Visit Reasons: PE Intake Note: Patient is here today for a physical. 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: Patient has dentist HPI PE HPI Details 58-year-old obese male with hypertension history of mitral valve replacement with mechanical valve GERD impaired glucose tolerance last seen in 04/22/2023. Echocardiogram done in 12/21/2023 The left ventricular systolic function is normal. The calculated ejection fraction is 64% by biplane method. - A mechanical prosthetic mitral valve i s present. The prosthetic mitral valve appears to be functioning normally. - There is mild dilatation of the sinuse s of Valsalva measuring 4.31 cm and mild dilatation of the ascen ding aorta measuring 4.10 cm. occ dizzy PFSH Medical History Pneumonia Obesity (BMI 30-39.9) Overweight (BMI 25.0-29.9) GERD (gastroesophageal reflux disease) Erectile dysfunction Obesity (BMI 30-39.9) Impaired glucose tolerance Anxiety COVID-19 HTN (hypertension) Surgical History Hx laparoscopic cholecystectomy H/O mitral valve replacement with mechanical valve H/O mitral valve repair Hx of varicose vein ligation and stripping H/O cardiac catheterization (~2019) Family History (Updated 12/25/23 @ 13:30 by Kuldip Pendleton MD) Father CVD (cardiovascular disease) Mother HTN (hypertension) CVD (cardiovascular disease) Diabetes Brother CVD (cardiovascular disease) Brother CVD (cardiovascular disease) Social History Household Members: Spouse Housing: House Are you a primary point of care specialist to a significant other at home: No Do you presently have visiting nurse or other home services: No Alcohol intake: never Patient Tobacco Use Status: Never used Tobacco e-Cigarette/Vaping Use: Never Used Second Hand Smoke Exposure: No service: No Current occupational status: employed Current occupation: Cognitive needs: No Hearing needs: No Vision needs: Yes (reading glasses) Questionnaire Thrive Questionnaire Date Thrive assessed: 12/25/23 I am a: Patient What is your living situation today?: I have a steady place to live Within the past 12 months, did the food you bought not last and you didn't have the money to get more?: Never true Within the past 12 months, did you worry whether your food would run out before you got money to buy more?: Never true Do you have trouble paying for medicines?: No Do you have trouble getting transportation to medical appointments?: No Do you have trouble paying your heating and electricity bill?: No Do you have trouble taking care of your child, family member or friend?: No Do you have trouble with day-to-day activities such as bathing, preparing meals, shopping, managing finances, etc.?: No Are you currently unemployed and looking for a job?: No Are you interested in more education?: No Please select the resources that you would like help with: None Currently or been in a relationship where the following occur: no concerns reported THRIVE Score: 0 AUDIT C Alcohol Use Questionnaire (AUDIT-C) 1. How often do you have a drink containing alcohol?: Never 2. How many drinks containing alcohol do you have on a typical day when you are drinking?: 1 or 2 (0) 3. How often do you have six or more drinks on one occasion?: Never Total Score: 0 LISET-7 AMB Questionnaire LISET-7 Date LISET - 7 assessed: 12/25/23 Feeling nervous, anxious, or on edge: 0 = Not at all Not being able to stop or control worryin = Not at all Worrying too much about different things: 0 = Not at all Trouble relaxin = Not at all Being so restless that it is hard to sit still: 0 = Not at all Becoming easily annoyed or irritable: 0 = Not at all Source: Developed by Drs. Jasper Hanna, Amber Cooper, Sumanth Zhang and colleagues, with an educational reuben from [employer]. Review of Systems Const Denies poor appetite and Denies weakness Eyes Denies no additional complaints ENT Reports Normal hearing present, Denies dizziness, Denies nasal congestion, Denies tinnitus and Denies sore throat Card Denies chest pain, Denies syncope, Denies rapid heart rate and Denies dyspnea Resp Denies cough and Denies dyspnea GI Denies change in stool character, Reports constipation, Denies diarrhea, Denies nausea and Denies vomiting Denies dysuria and Denies urinary frequency Neuro Reports Normal hearing present, Denies confusion, Denies dizziness, Denies syncope and Denies weakness Psych Denies confusion Physical exam (Primary Care) Vital Signs: Last Vital Signs Pulse 69 12/25/23 12:57 BP 114/72 12/25/23 12:57 Pulse Ox 95 12/25/23 12:57 Oxygen Delivery Method Room Air 12/25/23 12:57 BMI result Body Mass Index 30.2 Tobacco/Smoking Status: Tobacco use Status Tobacco use date assessed 12/25/23 12/25/23 12:58 Patient Tobacco Use Status Never used Tobacco 12/25/23 12:58 e-Cigarette/Vaping Use Never Used 12/25/23 12:58 Thrive Assessment: Date of Thrive Assessment Date Thrive assessed 12/25/23 12/25/23 12:59 Currently or been in a relationship where the following occur: no concerns reported Const General: No confusion Orientation/consciousness: No confusion HENMT Head: Yes normocephalic Ears: external ears normal and TM's normal bilaterally Face and sinus: Yes normal facial exam Mouth: moist mucous membranes Throat: Yes tonsils normal Eyes Conjunctivae: conjunctivae normal Pupils: Equal, round and reactive pupils present and Pupil accommodation reflex normal Direct Ophthalmoscopy: normal light reflex Neck Neck: No lymphadenopathy Thyroid: Thyroid normal Chest Chest palpation & inspection: normal inspection of the chest Resp Effort & Inspection: normal respiratory effort and no audible wheezes Auscultation: clear to auscultation bilaterally, no crackles, no wheezes and lung sounds not diminished Cardio Other: systolic click noted Rate: regular rate Rhythm: regular rhythm Peripheral pulses: radial pulses present and dorsalis pedis present GI Other: guaiac negative prostate N Palpation (GI): no masses Auscultation: normal bowel sounds and normoactive bowel sounds Male General Exam: Yes normal external exam Skin General skin exam: no rashes or lesions noted Rashes: no rashes Neuro General: No confusion Cranial nerves: Yes Equal, round and reactive pupils present and Yes Normal hearing present Cognition (Neuro): normal cognition Gait exam (Neuro): Normal gait present Motor exam (neuro): 5/5 motor strength present throughout Deep tendon reflexes (DTR's): Right brachioradialis reflex intensity grade: 2+, Left brachioradialis reflex intensity grade: 2+, Right patellar reflex intensity grade: 2+ and Left patellar reflex intensity grade: 2+ Extrem General: No edema Assessment and Plan Assessment & Plan (1) Annual physical exam: Code(s): Z00.00 - Encounter for general adult medical examination without abnormal findings (2) Obesity (BMI 30.0-34.9): Code(s): E66.9 - Obesity, unspecified Plan: Diet and exercise (3) HTN (hypertension): Code(s): I10 - Essential (primary) hypertension Qualifiers: Hypertension type: essential hypertension Qualified Code(s): I10 - Essential (primary) hypertension Plan: Continue with blood pressure medication. Decrease salt intake and exercise on lisinopril 20 mg once a day metoprolol tartrate 25 mg twice a day (4) H/O mitral valve replacement with mechanical valve: Comment: recurrent mitral regurgitation leading to [place] mitral valve replacement with 25 mm valve INR 2.5-3.5 Code(s): Z95.2 - Presence of prosthetic heart valve Plan: Continue with Coumadin anticoagulation (5) GERD (gastroesophageal reflux disease): Code(s): K21.9 - Gastro-esophageal reflux disease without esophagitis Qualifiers: Esophagitis presence: without esophagitis Qualified Code(s): K21.9 - Gastro-esophageal reflux disease without esophagitis Plan: Avoid the foods that causes that usually spicy foods, tomato products, juices, coffee, soda and foods that your sensitive to. After eating do not lie down, allow 3-4 hours before in lie down. And keep the head of bed above 30 degrees to avoid the acid from going up. (6) Impaired glucose tolerance: Code(s): R73.02 - Impaired glucose tolerance (oral) Plan: Decrease the amount of carbohydrate intake, pasta, bread, rice and potatoes are all sugar and that is aside from all the sweet stuff, remember that fruits are good but they are Sweet also. (7) Ascending aorta dilatation: Comment: 12/21/2023 4.1 cm Code(s): I77.810 - Thoracic aortic ectasia Medications: Changed From warfarin 5 mg See Protocol PO DAILY 90 tabs 1RF Z95.2 - Presence of prosthetic heart valve To warfarin or as directed 7.5 mg See Protocol PO DAILY 90 days 135 tabs 3RF Z95.2 - Presence of prosthetic heart valve Coding Level of Care Code Est Pt Prev Care 40-64y(38577) Diagnoses Annual physical exam Z00.00 Obesity (BMI 30.0-34.9) E66.9 Essential hypertension I10 Hypertension type: essential hypertension H/O mitral valve replacement with mechanical valve Z95.2 Gastroesophageal reflux disease without esophagitis K21.9 Esophagitis presence: without esophagitis Impaired glucose tolerance R73.02 Ascending aorta dilatation I77.810
== END 2023-12-25 13:48 | disposition home or self-care (01) ==
PROVIDERS: PCP Internal Medicine; Visit Provider Internal Medicine
DX: Z00.00 Encounter for general adult medical examination without abnormal findings (principal); I77.810 Thoracic aortic ectasia; E66.9 Obesity, unspecified; Z68.30 Body mass index [BMI] 30.0-30.9, adult; I10 Essential (primary) hypertension; Z95.2 Presence of prosthetic heart valve; K21.9 Gastro-esophageal reflux disease without esophagitis; R73.02 Impaired glucose tolerance (oral)
CPT/HCPCS: 99396

== ENCOUNTER 2023-12-30 08:45 | Outpatient (AMB) | payer OTHER, SELFPAY ==
--- NOTE | 2023-12-30 08:53 | MHC.OFFVISCO ---
Intake Intake Visit Reasons: Anticoagulation Allergies No Known Allergies [No Known Allergies*] Allergy (Verified 12/30/23 08:49) Medication List - Last Reconciled 12/30/23 by Jossie Robbins RN alprazolam 0.25 mg PO DAILY PRN lisinopril 20 mg PO DAILY metoprolol tartrate 25 mg PO BID sildenafil 50 mg PO DAILY PRN warfarin 7.5 mg See Protocol PO DAILY 90 days Nursing Note INR: 2.9- in therapeutic range of 2.5-3.5 Medications and supplements reviewed- no changes No changes in health, diet, medications, or supplements, Denies any signs and symptoms of bleeding or bruising or clotting. Bleeding, bruising, clotting discussed Nutritional guidance given Dose: 7.5mg x 1. 5mg x 6 F/U INR: pt req 2 weeks Patient verbalizes understanding of instructions given Anti-Coag Initial Assessment Social Hx Patient Tobacco Use Status: Never used Tobacco alcohol intake: never Alcohol intake frequency: does not drink Coding Level of Care Code Est Patient Level 1 Diagnoses Current use of anticoagulant therapy Z79.01 Assessment & Plan Assessment & Plan (1) Current use of anticoagulant therapy: Code(s): Z79.01 - long-term (current) use of anticoagulants Category: Medical
[2023-12-30 08:54] LABS: Prothrombin Time Whole Bld POC 35.1 sec (11.1-13.5); ~PT, ~INR - Anti Coag Clinic 2.9 (0.9-1.1)
== END 2023-12-30 08:57 | disposition home or self-care (01) ==
LOC: HO.ACS 08:45
PROVIDERS: PCP Internal Medicine; Visit Provider Internal Medicine
DX: Z79.01 Long term (current) use of anticoagulants (principal)

== ENCOUNTER → 2023-12-30 08:45 | Outpatient (BNVA) | payer OTHER, SELFPAY | PROVIDERS: PCP Internal Medicine; Visit Provider Internal Medicine | DX: Z95.2 Presence of prosthetic heart valve (principal); Z51.81 Encounter for therapeutic drug level monitoring; Z79.01 Long term (current) use of anticoagulants | CPT/HCPCS: 85610; 99211 ==

== ENCOUNTER 2024-01-12 09:14 | Outpatient (AMB) | payer OTHER, SELFPAY ==
--- NOTE | 2024-01-12 09:24 | A.OFFVIS_ITS ---
Vital Signs 01/12/24 09:25 Height 6 ft Weight 222 lb 10.67 oz BMI 30.2 BP 122/80 Blood Pressure Location Lt brachial Position Sitting Pulse 68 Intake Visit Reasons: 1 year f/ up after echo Intake Note: 1 year follow-up with ekg after echo feeling good Game Protector Required: No Allergies No Known Allergies [No Known Allergies*] Allergy (Verified 12/30/23 08:49) Medication List - Last Reconciled 01/12/24 by Juan David Samaniego MD alprazolam 0.25 mg PO DAILY PRN lisinopril 20 mg PO DAILY metoprolol tartrate 25 mg PO BID sildenafil 50 mg PO DAILY PRN warfarin 7.5 mg See Protocol PO DAILY 90 days HPI Comments Details: Cinda comes for follow up. He denies any new symptoms. He denies any exertional chest pain or shortness of breath. Denies any prolonged palpitation irregular heartbeat. Takes all his medications. No bleeding issues or neurologic events. INRs have been well controlled. Takes antibiotics during dental workup. Recent echocardiogram shows good function of the mechanical mitral valve unstable ascending aortic aneurysm. [facility] Medical History Pneumonia Obesity (BMI 30-39.9) Overweight (BMI 25.0-29.9) GERD (gastroesophageal reflux disease) Erectile dysfunction Obesity (BMI 30-39.9) Impaired glucose tolerance Anxiety COVID-19 HTN (hypertension) Surgical History Hx laparoscopic cholecystectomy H/O mitral valve replacement with mechanical valve H/O mitral valve repair Hx of varicose vein ligation and stripping H/O cardiac catheterization (~2019) Family History Father CVD (cardiovascular disease) Mother HTN (hypertension) CVD (cardiovascular disease) Diabetes Brother CVD (cardiovascular disease) Brother CVD (cardiovascular disease) Social History Household Members: Spouse Housing: House Are you a primary farm or ranch animal caretaker to a significant other at home: No Do you presently have visiting nurse or other home services: No Alcohol intake: never Patient Tobacco Use Status: Never used Tobacco e-Cigarette/Vaping Use: Never Used Second Hand Smoke Exposure: No service: No Current occupational status: employed Current occupation: Cognitive needs: No Hearing needs: No Vision needs: Yes (reading glasses) Review of Systems Const Denies chills, Denies fatigue, Denies fever(s), Denies frequent falls, Denies weakness, Denies weight gain and Denies weight loss ENT Denies dizziness Card Denies chest pain, Denies leg edema, Denies lightheadedness, Denies palpitations, Denies dyspnea, Denies dyspnea on exertion, Denies orthopnea and D enies other (loss of consciousness) Resp Denies cough, Denies dyspnea and Denies dyspnea on exertion GI Denies hematochezia and Denies change in stool character Musc Denies abnormal gait, Denies muscle weakness, Denies numbness, Denies radiating pain into limb and Denies tingling Neuro Denies abnormal gait, Denies dizziness, Denies frequent falls, Denies numbness, Denies tingling and Denies weakness Endo Denies fatigue and Denies palpitations Physical Exam Vital Signs: Last Vital Signs Pulse 68 01/12/24 09:25 BP 122/80 01/12/24 09:25 BMI result Body Mass Index 30.2 Office Procedures EKG Details: EKG shows normal sinus rhythm with incomplete right bundle-branch block and left posterior fascicular block poor R-wave progression due to lead placement [id number], Complete Assessment & Plan Assessment & Plan (1) H/O mitral valve replacement with mechanical valve: Comment: recurrent mitral regurgitation leading to [place] mitral valve replacement with 25 mm valve INR 2.5-3.5 Code(s): Z95.2 - Presence of prosthetic heart valve Category: Surgical Plan: Mechanical mitral valve replacement after failed mitral valve repair, clinically doing well. Echocardiogram shows stable function of the mechanical mitral valve. Continue full oral anticoagulation with warfarin. Target INR between 2.5 and 3.5 being followed by [facility]. SBE prophylaxis as per [facility] guidelines. Follow-up echocardiogram in 1 year's time. (2) Ascending aorta dilatation: Comment: 12/21/2023 4.1 cm Code(s): I77.810 - Thoracic aortic ectasia Category: Medical Plan: Ascending aortic aneurysm mild has remained stable. In conjunction with mitral valve prolapse possibly of underlying cardiac connective tissue disorder. He has no other features for Marfan or Albert-Danlos. Can consider genetic testing for the same. Continue aggressive blood pressure control. Blood pressure is currently well optimized on current therapy. Advised to monitor it at home. Encouraged to continue to participate in physical activity as tolerated except for avoiding strenuous isometric exercise. Follow-up echocardiogram in 1 year's time. Will follow up in the clinic in 1 year's time, sooner p.r.n.. Thank you for allowing me to partake in his care Coding Level of Care Code Est Pt Level 4 (37988) Diagnoses H/O mitral valve replacement with mechanical valve Z95.2 Ascending aorta dilatation I77.810 CPT Codes EKG - CPT: 59599-[id number], Complete ([id number])
[2024-01-12 09:25] VITALS: BP 122/80; PULSE 68; BMI 30.2
== END 2024-01-12 09:40 | disposition home or self-care (01) ==
PROVIDERS: PCP Internal Medicine; Visit Provider Internal Medicine Cardiovascular Disease
DX: Z95.2 Presence of prosthetic heart valve (principal); I77.810 Thoracic aortic ectasia
CPT/HCPCS: 93010; 99214

== ENCOUNTER → 2024-01-12 09:14 | Outpatient (BNVA) | payer OTHER, SELFPAY | PROVIDERS: PCP Internal Medicine; Visit Provider Internal Medicine Cardiovascular Disease | DX: I77.810 Thoracic aortic ectasia (principal); Z95.2 Presence of prosthetic heart valve; I45.19 Other right bundle-branch block; I44.5 Left posterior fascicular block; R94.31 Abnormal electrocardiogram [ECG] [EKG] | CPT/HCPCS: 93005; 99212 ==

== ENCOUNTER 2024-01-13 08:41 | Outpatient (AMB) | payer OTHER, SELFPAY ==
[2024-01-13 08:45] LABS: Prothrombin Time Whole Bld POC 44.6 sec (11.1-13.5); ~PT, ~INR - Anti Coag Clinic 3.7 (0.9-1.1)
--- NOTE | 2024-01-13 08:49 | MHC.OFFVISCO ---
Intake Intake Visit Reasons: Anticoagulation Allergies No Known Allergies [No Known Allergies*] Allergy (Verified 01/13/24 08:41) Medication List - Last Reconciled 01/13/24 by Kamla Petersen RN alprazolam 0.25 mg PO DAILY PRN lisinopril 20 mg PO DAILY metoprolol tartrate 25 mg PO BID sildenafil 50 mg PO DAILY PRN warfarin 7.5 mg See Protocol PO DAILY 90 days Nursing Note NO CP,SOB,DIET/MED CHANGES,FALLS OR SX OF BLEEDING. REDUCE TO 5MGM TODAY WITH [facility] THEN RESUME USUAL DOSE AND FOLLOW-UP IN 2 WEEKS GOOD UNDERSTANDING OF DOSING INSTR. 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
== END 2024-01-13 08:51 | disposition home or self-care (01) ==
LOC: HO.ACS 08:41
PROVIDERS: PCP Internal Medicine; Visit Provider Internal Medicine
DX: Z79.01 Long term (current) use of anticoagulants (principal)

== ENCOUNTER → 2024-01-13 08:41 | Outpatient (BNVA) | payer OTHER, SELFPAY | PROVIDERS: PCP Internal Medicine; Visit Provider Internal Medicine | DX: Z95.2 Presence of prosthetic heart valve (principal); Z79.01 Long term (current) use of anticoagulants; Z51.81 Encounter for therapeutic drug level monitoring | CPT/HCPCS: 85610; 99211 ==

== ENCOUNTER 2024-02-01 08:34 | Outpatient (AMB) | payer OTHER, SELFPAY ==
--- NOTE | 2024-02-01 08:39 | MHC.OFFVISCO ---
Intake Intake Visit Reasons: Anticoagulation Allergies No Known Allergies [No Known Allergies*] Allergy (Verified 02/01/24 08:35) Medication List - Last Reconciled 02/01/24 by Jossie Robbins RN alprazolam 0.25 mg PO DAILY PRN lisinopril 20 mg PO DAILY metoprolol tartrate 25 mg PO BID sildenafil 50 mg PO DAILY PRN warfarin 7.5 mg See Protocol PO DAILY 90 days Nursing Note INR: 3.5- in therapeutic range of 2.5-3.5 Medications and supplements reviewed No changes in health, diet, medications, or supplements, Denies any signs and symptoms of bleeding or bruising or clotting. Bleeding, bruising, clotting discussed Nutritional guidance given - have a green today Dose: 7.5mg x 1, 5mg x 6 F/U INR: 2 weeks Patient verbalizes understanding of instructions given Anti-Coag Initial Assessment Social Hx Patient Tobacco Use Status: Never used Tobacco alcohol intake: never Alcohol intake frequency: does not drink Coding Level of Care Code Est Patient Level 1 Diagnoses Current use of anticoagulant therapy Z79.01 Results AMB INR Fingerstick AMB INR Fingerstick 3.5 Last Edit by Jossie Robbins RN on 02/01/24 08:40 Assessment & Plan Assessment & Plan (1) Current use of anticoagulant therapy: 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
[2024-02-01 08:40] LABS: Prothrombin Time Whole Bld POC 41.6 sec (11.1-13.5); ~PT, ~INR - Anti Coag Clinic 3.5 (0.9-1.1)
== END 2024-02-01 08:44 | disposition home or self-care (01) ==
LOC: HO.ACS 08:34
PROVIDERS: PCP Internal Medicine; Visit Provider Internal Medicine
DX: Z79.01 Long term (current) use of anticoagulants (principal)

== ENCOUNTER → 2024-02-01 08:34 | Outpatient (BNVA) | payer OTHER, SELFPAY | PROVIDERS: PCP Internal Medicine; Visit Provider Internal Medicine | DX: Z95.2 Presence of prosthetic heart valve (principal); Z51.81 Encounter for therapeutic drug level monitoring; Z79.01 Long term (current) use of anticoagulants | CPT/HCPCS: 85610; 99211 ==

== ENCOUNTER 2024-02-15 08:30 | Outpatient (AMB) | payer OTHER, SELFPAY ==
[2024-02-15 08:54] LABS: Prothrombin Time Whole Bld POC 40.6 sec (11.1-13.5); ~PT, ~INR - Anti Coag Clinic 3.4 (0.9-1.1)
--- NOTE | 2024-02-15 08:56 | MHC.OFFVISCO ---
Intake Intake Visit Reasons: Anticoagulation Allergies No Known Allergies [No Known Allergies*] Allergy (Verified 02/15/24 08:49) Medication List - Last Reconciled 02/15/24 by Ciara Salguero RN alprazolam 0.25 mg PO DAILY PRN lisinopril 20 mg PO DAILY metoprolol tartrate 25 mg PO BID sildenafil 50 mg PO DAILY PRN warfarin 7.5 mg See Protocol PO DAILY 90 days Nursing Note INR: 3.4 in therapeutic range of 2.5-3.5 Medications and supplements reviewed No changes in health, diet, medications, or supplements, Denies any signs and symptoms of bleeding or bruising or clotting. Bleeding, bruising, clotting discussed Nutritional guidance given Dose: 5mg X 6 days and 7.5mg X 1 day F/U INR: 2 weeks Patient verbalizes understanding of instructions given Anti-Coag Initial Assessment Social Hx Patient Tobacco Use Status: Never used Tobacco alcohol intake: never Alcohol intake frequency: does not drink Coding Level of Care Code Est Patient Level 1 Diagnoses Current use of anticoagulant therapy Z79.01 Results AMB INR Fingerstick AMB INR Fingerstick 3.4 Last Edit by Ciara Salguero RN on 02/15/24 08:55 interface delay Assessment & Plan Assessment & Plan (1) Current use of anticoagulant therapy: Code(s): Z79.01 - [facility] (current) use of anticoagulants Category: Medical
== END 2024-02-15 09:00 | disposition home or self-care (01) ==
LOC: HO.ACS 08:30
PROVIDERS: PCP Internal Medicine; Visit Provider Internal Medicine
DX: Z79.01 Long term (current) use of anticoagulants (principal)

== ENCOUNTER → 2024-02-15 08:30 | Outpatient (BNVA) | payer OTHER, SELFPAY | PROVIDERS: PCP Internal Medicine; Visit Provider Internal Medicine | DX: Z95.2 Presence of prosthetic heart valve (principal); Z79.01 Long term (current) use of anticoagulants; Z51.81 Encounter for therapeutic drug level monitoring | CPT/HCPCS: 85610; 99211 ==

== ENCOUNTER 2024-02-29 08:40 | Outpatient (AMB) | payer OTHER, SELFPAY ==
[2024-02-29 09:01] LABS: Prothrombin Time Whole Bld POC 49.2 sec (11.1-13.5); ~PT, ~INR - Anti Coag Clinic 4.1 (0.9-1.1)
--- NOTE | 2024-02-29 09:01 | MHC.OFFVISCO ---
Intake Intake Visit Reasons: Anticoagulation Allergies No Known Allergies [No Known Allergies*] Allergy (Verified 02/29/24 08:53) Medication List - Last Reconciled 02/29/24 by Kamla Petersen RN alprazolam 0.25 mg PO DAILY PRN lisinopril 20 mg PO DAILY metoprolol tartrate 25 mg PO BID sildenafil 50 mg PO DAILY PRN warfarin 7.5 mg See Protocol PO DAILY 90 days Nursing Note NO CP,SOB,DIET/MED CHANGES,FALLS OR S OF BLEEDING. REDUCE TO 2.5MGM TODAY THEN RESUME USUAL DOSE AND FOLLOW-UP IN 2 WEEKS. GOOD UNDERSTANDING OF DOSING INSTR. 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
== END 2024-02-29 09:03 | disposition home or self-care (01) ==
LOC: HO.ACS 08:40
PROVIDERS: PCP Internal Medicine; Visit Provider Internal Medicine
DX: Z79.01 Long term (current) use of anticoagulants (principal)

== ENCOUNTER → 2024-02-29 08:40 | Outpatient (BNVA) | payer OTHER, SELFPAY | PROVIDERS: PCP Internal Medicine; Visit Provider Internal Medicine | DX: Z95.2 Presence of prosthetic heart valve (principal); Z79.01 Long term (current) use of anticoagulants; Z51.81 Encounter for therapeutic drug level monitoring | CPT/HCPCS: 85610; 99211 ==

== ENCOUNTER 2024-03-14 08:43 | Outpatient (AMB) | payer OTHER, SELFPAY ==
[2024-03-14 08:49] LABS: Prothrombin Time Whole Bld POC 45.1 sec (11.1-13.5); ~PT, ~INR - Anti Coag Clinic 3.8 (0.9-1.1)
--- NOTE | 2024-03-14 09:01 | MHC.OFFVISCO ---
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 Patient verbalizing understanding of instructions given. Anti-Coag Initial Assessment Social Hx Patient Tobacco Use Status: Never used Tobacco alcohol intake: never Alcohol intake frequency: does not drink Coding Level of Care Code Est Patient Level 1 Diagnoses Current use of anticoagulant therapy Z79.01 Assessment & Plan Assessment & Plan (1) Current use of anticoagulant therapy: Code(s): Z79.01 - assisted (current) use of anticoagulants Category: Medical
== END 2024-03-14 09:07 | disposition home or self-care (01) ==
LOC: HO.ACS 08:43
PROVIDERS: PCP Internal Medicine; Visit Provider Internal Medicine
DX: Z79.01 Long term (current) use of anticoagulants (principal)

== ENCOUNTER → 2024-03-14 08:43 | Outpatient (BNVA) | payer OTHER, SELFPAY | PROVIDERS: PCP Internal Medicine; Visit Provider Internal Medicine | DX: Z95.2 Presence of prosthetic heart valve (principal); Z79.01 Long term (current) use of anticoagulants; Z51.81 Encounter for therapeutic drug level monitoring | CPT/HCPCS: 85610; 99211 ==

== ENCOUNTER 2024-03-28 08:38 | Outpatient (AMB) | payer OTHER, SELFPAY ==
--- NOTE | 2024-03-28 08:56 | MHC.OFFVISCO ---
Intake Intake Visit Reasons: Anticoagulation Allergies No Known Allergies [No Known Allergies*] Allergy (Verified 03/28/24 08:40) Medication List - Last Reconciled 03/28/24 by Ingrid Cisneros RN alprazolam 0.25 mg PO DAILY PRN lisinopril 20 mg PO DAILY metoprolol tartrate 25 mg PO BID sildenafil 50 mg PO DAILY PRN warfarin 7.5 mg See Protocol PO DAILY 90 days Nursing Note INR 2.3? 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 Patient verbalizing understanding of instructions given. Anti-Coag Initial Assessment Social Hx Patient Tobacco Use Status: Never used Tobacco alcohol intake: never Alcohol intake frequency: does not drink Questionnaires HAS-BLED Does the patient had uncontrolled Hypertension?: No Does the patient have renal disease?: No Does the patient have liver disease?: No Does the patient have a history of stroke?: No Has the patient had major bleeding or predisposition to bleeding?: No Does the patient have labile INRs?: Yes Is the patient over 65 years of age?: No Is the patient on medications that gives them a predisposition to bleeding?: Yes Does the patient use alcohol?: No HAS-BLED Score: 2 CHADSVASC Age: <65 Gender: Male Does the patient have a history of CHF?: No Does the patient have a history of Hypertension?: Yes Does the patient have a history of Stroke/TIA/Thromboembolism?: No Does the patient have a history of Vascular Disease (prior TX, PAD or aortic plaque)?: No Does the patient have a history of Diabetes?: No CHADS VACS Score: 1 Keo Prediction Score Rsk VTE Active Cancer: No Previous VTE, excluding superficial vein thrombosis: No Reduced mobility: No 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 , hx of acute infections in the past ) With-in last month Trauma and/or Surgery: No Elderly 70 year or older: No Heart and/or Respiratory Failure: No Acute Myocardial infarction and/or Ischemic Stroke: No Acute Infection and/or Rheumatologic Disorder: No Obesity (BMI 30 or greater): No Ongoing Hormonal Treatment: No Score: 3 Keo Score less than 4; Low Risk of VTE Keo Score 4 or greater; High Risk of VTE Coding Level of Care Code Est Patient Level 1 Diagnoses Current use of anticoagulant therapy Z79.01 Results AMB INR Fingerstick AMB INR Fingerstick 2.3 Last Edit by Ingrid Cisneros RN on 03/28/24 08:50 MANUAL ENTRY Assessment & Plan Assessment & Plan (1) Current use of anticoagulant therapy: Code(s): Z79.01 - nursing home (current) use of anticoagulants Category: Medical
[2024-03-28 09:19] LABS: ~PT, ~INR - Anti Coag Clinic 2.3 (0.9-1.1)
== END 2024-03-28 09:05 | disposition home or self-care (01) ==
LOC: HO.ACS 08:38
PROVIDERS: PCP Internal Medicine; Visit Provider Internal Medicine
DX: Z79.01 Long term (current) use of anticoagulants (principal)

== ENCOUNTER → 2024-03-28 08:38 | Outpatient (BNVA) | payer OTHER, SELFPAY | PROVIDERS: PCP Internal Medicine; Visit Provider Internal Medicine | DX: Z79.52 Long term (current) use of systemic steroids (principal); Z79.01 Long term (current) use of anticoagulants; Z51.81 Encounter for therapeutic drug level monitoring | CPT/HCPCS: 85610; 99211 ==

== ENCOUNTER 2024-04-11 08:46 | Outpatient (AMB) | payer OTHER, SELFPAY ==
--- NOTE | 2024-04-11 08:57 | MHC.OFFVISCO ---
Intake Intake Visit Reasons: Anticoagulation Allergies No Known Allergies [No Known Allergies*] Allergy (Verified 04/11/24 08:49) Medication List - Last Reconciled 04/11/24 by Jossie Robbins RN alprazolam 0.25 mg PO DAILY PRN lisinopril 20 mg PO DAILY metoprolol tartrate 25 mg PO BID sildenafil 50 mg PO DAILY PRN warfarin 7.5 mg See Protocol PO DAILY 90 days Nursing Note INR: 2.9- in therapeutic range of 2.5-3.5 Medications and supplements reviewed- no changes No changes in health, diet, medications, or supplements, Denies any signs and symptoms of bleeding or bruising or clotting. Bleeding, bruising, clotting discussed Nutritional guidance given Dose: 5mg x 6, 7.5mg x 1 F/U INR: 2 weeks Patient verbalizes understanding of instructions given pt here with spouse, pt has home meter and request meter to meter correlation pt spouse does testing- date/time accurate, she demonstrates good technique. pt meter 2.9/acs meter 2.9 spoke to pt and spouse regarding calling out of range inr's when testing at home. they state they use dietary management and retest risks of clotting with low inr and risks of bleeding with elev inr discussed, enc to call changes in medications. Anti-Coag Initial Assessment Social Hx Patient Tobacco Use Status: Never used Tobacco alcohol intake: never Alcohol intake frequency: does not drink Coding Level of Care Code Est Patient Level 1 Diagnoses Current use of anticoagulant therapy Z79.01 Assessment & Plan Assessment & Plan (1) Current use of anticoagulant therapy: Code(s): Z79.01 - [facility] (current) use of anticoagulants Category: Medical
[2024-04-11 08:58] LABS: Prothrombin Time Whole Bld POC 34.5 sec (11.1-13.5); ~PT, ~INR - Anti Coag Clinic 2.9 (0.9-1.1)
== END 2024-04-11 09:11 | disposition home or self-care (01) ==
LOC: HO.ACS 08:46
PROVIDERS: PCP Internal Medicine; Visit Provider Internal Medicine
DX: Z79.01 Long term (current) use of anticoagulants (principal)

== ENCOUNTER → 2024-04-11 08:46 | Outpatient (BNVA) | payer OTHER, SELFPAY | PROVIDERS: PCP Internal Medicine; Visit Provider Internal Medicine | DX: Z95.2 Presence of prosthetic heart valve (principal); Z79.01 Long term (current) use of anticoagulants; Z51.81 Encounter for therapeutic drug level monitoring | CPT/HCPCS: 85610; 99211 ==

== ENCOUNTER 2024-04-25 09:08 | Outpatient (AMB) | payer OTHER, SELFPAY ==
--- NOTE | 2024-04-25 09:14 | MHC.OFFVISCO ---
Intake Intake Visit Reasons: Anticoagulation Allergies No Known Allergies [No Known Allergies*] Allergy (Verified 04/25/24 09:11) Medication List - Last Reconciled 04/25/24 by Jossie Robbins RN alprazolam 0.25 mg PO DAILY PRN lisinopril 20 mg PO DAILY metoprolol tartrate 25 mg PO BID sildenafil 50 mg PO DAILY PRN warfarin 7.5 mg See Protocol PO DAILY 90 days Nursing Note INR: 3.4- in therapeutic range of 2.5-3.5 Medications and supplements reviewed- no changes No changes in health, diet, medications, or supplements, Denies any signs and symptoms of bleeding or bruising or clotting. Bleeding, bruising, clotting discussed Nutritional guidance given Dose: 7.5mg x 1. 5mg x 6 F/U INR: 2 weeks Patient and spouse verbalizes understanding of instructions given Anti-Coag Initial Assessment Social Hx Patient Tobacco Use Status: Never used Tobacco alcohol intake: never Alcohol intake frequency: does not drink Coding Level of Care Code Est Patient Level 1 Diagnoses Current use of anticoagulant therapy Z79.01 Assessment & Plan Assessment & Plan (1) Current use of anticoagulant therapy: Code(s): Z79.01 - skilled nursing (current) use of anticoagulants Category: Medical
[2024-04-25 09:15] LABS: ~PT, ~INR - Anti Coag Clinic 3.4 (0.9-1.1)
== END 2024-04-25 09:55 | disposition home or self-care (01) ==
LOC: HO.ACS 09:08
PROVIDERS: PCP Internal Medicine; Visit Provider Internal Medicine
DX: Z79.01 Long term (current) use of anticoagulants (principal)

== ENCOUNTER → 2024-04-25 09:08 | Outpatient (BNVA) | payer OTHER, SELFPAY | PROVIDERS: PCP Internal Medicine; Visit Provider Internal Medicine | DX: Z95.2 Presence of prosthetic heart valve (principal); Z79.01 Long term (current) use of anticoagulants; Z51.81 Encounter for therapeutic drug level monitoring | CPT/HCPCS: 85610; 99211 ==

== ENCOUNTER 2024-05-09 08:47 | Outpatient (AMB) | payer OTHER, SELFPAY ==
--- NOTE | 2024-05-09 09:01 | MHC.OFFVISCO ---
Intake Intake Visit Reasons: Anticoagulation Allergies No Known Allergies [No Known Allergies*] Allergy (Verified 05/09/24 08:51) Medication List - Last Reconciled 05/09/24 by Ciara Salguero RN alprazolam 0.25 mg PO DAILY PRN lisinopril 20 mg PO DAILY metoprolol tartrate 25 mg PO BID sildenafil 50 mg PO DAILY PRN warfarin 7.5 mg See Protocol PO DAILY 90 days Nursing Note INR 3.9?out of therapeutic range of 2.5-3.5 Medications and supplements reviewed Patient status: well Medications or supplements: no changes Diet: usual diet for pt Denies any signs and symptoms of bleeding or clotting or unusual bruising Bleeding, bruising, clotting discussed Nutritional guidance given: to have a serving of greens today. Pt states he will have a serving of cooked spinach. Dose: 5mg X 6 days and 7.5 X 1 day (Thu). F/U INR Date : 2 weeks Patient verbalizing understanding of instructions given. Anti-Coag Initial Assessment Social Hx Patient Tobacco Use Status: Never used Tobacco alcohol intake: never Alcohol intake frequency: does not drink Coding Level of Care Code Est Patient Level 1 Diagnoses Current use of anticoagulant therapy Z79.01 Results AMB INR Fingerstick AMB INR Fingerstick 3.9 Last Edit by Ciara Salguero RN on 05/09/24 08:58 interface delay Assessment & Plan Assessment & Plan (1) Current use of anticoagulant therapy: Code(s): Z79.01 - retirement (current) use of anticoagulants Category: Medical
[2024-05-09 09:03] LABS: Prothrombin Time Whole Bld POC 46.3 sec (11.1-13.5); ~PT, ~INR - Anti Coag Clinic 3.9 (0.9-1.1)
== END 2024-05-09 09:03 | disposition home or self-care (01) ==
LOC: HO.ACS 08:47
PROVIDERS: PCP Internal Medicine; Visit Provider Internal Medicine
DX: Z79.01 Long term (current) use of anticoagulants (principal)

== ENCOUNTER → 2024-05-09 08:47 | Outpatient (BNVA) | payer OTHER, SELFPAY | PROVIDERS: PCP Internal Medicine; Visit Provider Internal Medicine | DX: Z95.2 Presence of prosthetic heart valve (principal); Z79.01 Long term (current) use of anticoagulants; Z51.81 Encounter for therapeutic drug level monitoring | CPT/HCPCS: 85610; 99211 ==

== ENCOUNTER 2024-05-23 08:34 | Outpatient (AMB) | payer OTHER, SELFPAY ==
--- NOTE | 2024-05-23 08:42 | MHC.OFFVISCO ---
Intake Intake Visit Reasons: Anticoagulation Allergies No Known Allergies [No Known Allergies*] Allergy (Verified 05/23/24 08:38) Medication List - Last Reconciled 05/23/24 by Jossie Robbins RN alprazolam 0.25 mg PO DAILY PRN lisinopril 20 mg PO DAILY metoprolol tartrate 25 mg PO BID sildenafil 50 mg PO DAILY PRN warfarin 7.5 mg See Protocol PO DAILY 90 days Nursing Note INR: 2.8- in therapeutic range 2.5-3.5 Medications and supplements reviewed No changes in health, diet, medications, or supplements, Denies any signs and symptoms of bleeding or bruising or clotting. Bleeding, bruising, clotting discussed Nutritional guidance given Dose: cont reg dosing 5mg x 6, 7.5mg x 1 F/U INR: pt req 2 weeks Patient verbalizes understanding of instructions given Anti-Coag Initial Assessment Social Hx Patient Tobacco Use Status: Never used Tobacco alcohol intake: never Alcohol intake frequency: does not drink Coding Level of Care Code Est Patient Level 1 Diagnoses Current use of anticoagulant therapy Z79.01 Results AMB INR Fingerstick AMB INR Fingerstick 2.8 Last Edit by Jossie Robbins RN on 05/23/24 08:43 interface delay Assessment & Plan Assessment & Plan (1) Current use of anticoagulant therapy: 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
[2024-05-23 08:43] LABS: Prothrombin Time Whole Bld POC 33.7 sec (11.1-13.5); ~PT, ~INR - Anti Coag Clinic 2.8 (0.9-1.1)
== END 2024-05-23 09:18 | disposition home or self-care (01) ==
LOC: HO.ACS 08:34
PROVIDERS: PCP Internal Medicine; Visit Provider Internal Medicine
DX: Z79.01 Long term (current) use of anticoagulants (principal)

== ENCOUNTER → 2024-05-23 08:34 | Outpatient (BNVA) | payer OTHER, SELFPAY | PROVIDERS: PCP Internal Medicine; Visit Provider Internal Medicine | DX: Z95.2 Presence of prosthetic heart valve (principal); Z79.01 Long term (current) use of anticoagulants; Z51.81 Encounter for therapeutic drug level monitoring | CPT/HCPCS: 85610; 99211 ==

== ENCOUNTER 2024-06-02 08:02 | Outpatient (AMB) | payer OTHER, SELFPAY ==
[2024-06-02 08:05] VITALS: BP 130/90; PULSE 64; O2SAT 98; BMI 30.2
--- NOTE | 2024-06-02 08:05 | AM.OFFWIN_ITS ---
Intake Vital Signs 06/02/24 08:05 Height 6 ft Weight 223 lb BMI 30.2 BP 130/90 H Blood Pressure Location Lt brachial Position Sitting Pulse 64 Pulse Source Pulse Oximeter Pulse Oximetry (%) 98 Oxygen Delivery Method Room Air Intake Visit Reasons: EP-rt foot pain/swollen Intake Note: PAtient here for right swollen foot that has been present for about 1 week. Patient Tobacco Use Status: Never used Tobacco Allergies No Known Allergies [No Known Allergies*] Allergy (Verified 06/02/24 08:05) Do you need a note to return to daycare/school/sports/work: No HPI HPI Comments History of Present Illness Details PATIENT IS A 58-YEAR-OLD MALE COMPLAINING OF RIGHT FOOT PAIN FOR THE PAST WEEK. HIS TELLS ME HE HAS PREVIOUSLY REQUIRED CORTISONE INJECTIONS BUT THE LAST 1 WAS ABOUT 10 YEARS AGO. THEY DENY ANY INJURY TO THE RIGHT FOOT. HE STATES HE CAN WALK ON IT BUT IT IS PAINFUL MOSTLY ON THE TOP OF THE FOOT. Patient has not tried taking any medications or using ice or wrapping it. [facility] Medical History Pneumonia Obesity (BMI 30-39.9) Overweight (BMI 25.0-29.9) GERD (gastroesophageal reflux disease) Erectile dysfunction Obesity (BMI 30-39.9) Impaired glucose tolerance Anxiety COVID-19 HTN (hypertension) Surgical History Hx laparoscopic cholecystectomy H/O mitral valve replacement with mechanical valve H/O mitral valve repair Hx of varicose vein ligation and stripping H/O cardiac catheterization (~2019) Family History Father CVD (cardiovascular disease) Mother HTN (hypertension) CVD (cardiovascular disease) Diabetes Brother CVD (cardiovascular disease) Brother CVD (cardiovascular disease) Social History Household Members: Spouse Housing: House Are you a primary lpn care manager to a significant other at home: No Do you presently have visiting nurse or other home services: No Alcohol intake: never Patient Tobacco Use Status: Never used Tobacco e-Cigarette/Vaping Use: Never Used Second Hand Smoke Exposure: No service: No Current occupational status: employed Current occupation: Cognitive needs: No Hearing needs: No Vision needs: Yes (reading glasses) Review of Systems Const All systems reviewed & are unremarkable except as noted in HPI and below Physical Exam Vital Signs: Last Vital Signs Pulse 64 06/02/24 08:05 BP 130/90 H 06/02/24 08:05 Pulse Ox 98 06/02/24 08:05 Oxygen Delivery Method Room Air 06/02/24 08:05 BMI result Body Mass Index 30.2 Const General: cooperative, healthy appearing, comfortable and no acute distress Orientation/consciousness: patient oriented x3 Limitations: no limitations HEENT Head: Yes normal to inspection Resp Effort & Inspection: normal respiratory effort and able to speak in complete sentences Neuro General: patient oriented x3 Extrem Left lower extremity: foot Details: normal capillary refill, normal to inspection, tenderness Location: of the mid foot, toes with normal ROM, no edema, tendon exam Details: active flexion normal and active extension normal and motor-sensory exam Details: light-touch normal; no unusual warmth, no abrasions, no lacerations and no ecchymosis Assessment & Plan Assessment & Plan (1) Acute pain of right foot: Code(s): M79.671 - Pain in right foot Plan: No indication for imaging. Ricardo wrapped foot into ankle and recommended he use ice and Aleve ATC for the next few days as long as he does not have a contraindication to use NSAIDs. If no improvement in his pain, he should follow up with his PCP Plan see above Coding Level of Care Code Est Pt Level 3 (23381) Diagnoses Acute pain of right foot M79.671
== END 2024-06-02 08:55 | disposition home or self-care (01) ==
PROVIDERS: PCP Internal Medicine; Visit Provider Physician Assistant
DX: M79.671 Pain in right foot (principal)

== ENCOUNTER → 2024-06-02 08:02 | Outpatient (BNVA) | payer OTHER, SELFPAY | PROVIDERS: PCP Internal Medicine; Visit Provider Physician Assistant | DX: M79.671 Pain in right foot (principal) | CPT/HCPCS: 99212 ==

== ENCOUNTER 2024-06-08 08:32 | Outpatient (AMB) | payer OTHER, SELFPAY ==
--- NOTE | 2024-06-08 08:36 | MHC.OFFVISCO ---
Intake Intake Visit Reasons: Anticoagulation Allergies No Known Allergies [No Known Allergies*] Allergy (Verified 06/02/24 08:05) Medication List - Last Reconciled 06/08/24 by Jossie Robbins RN alprazolam 0.25 mg PO DAILY PRN lisinopril 20 mg PO DAILY metoprolol tartrate 25 mg PO BID sildenafil 50 mg PO DAILY PRN warfarin 7.5 mg See Protocol PO DAILY 90 days Nursing Note INR 2.3- out of therapeutic range of 2.5-3.5 Medications and supplements reviewed Patient status: pt has home meter , states inr 4.2 last week, ate increased greens Medications or supplements: no changes Diet: had increased greens Denies any signs and symptoms of bleeding or clotting or unusual bruising Bleeding, bruising, clotting discussed Nutritional guidance given: no greens for 2 days, eat reds to raise Dose: 10mg today then 5mg x 5, 7.5mg x 1 F/U INR Date : 1 week?? Patient verbalizing understanding of instructions given. Anti-Coag Initial Assessment Social Hx Patient Tobacco Use Status: Never used Tobacco alcohol intake: never Alcohol intake frequency: does not drink Coding Level of Care Code Est Patient Level 1 Diagnoses Current use of anticoagulant therapy Z79.01 Assessment & Plan Assessment & Plan (1) Current use of anticoagulant therapy: Code(s): Z79.01 - long-term (current) use of anticoagulants Category: Medical
[2024-06-08 08:37] LABS: Prothrombin Time Whole Bld POC 27.1 sec (11.1-13.5); ~PT, ~INR - Anti Coag Clinic 2.3 (0.9-1.1)
== END 2024-06-08 09:00 | disposition home or self-care (01) ==
LOC: HO.ACS 08:32
PROVIDERS: PCP Internal Medicine; Visit Provider Internal Medicine
DX: Z79.01 Long term (current) use of anticoagulants (principal)

== ENCOUNTER → 2024-06-08 08:32 | Outpatient (BNVA) | payer OTHER, SELFPAY | PROVIDERS: PCP Internal Medicine; Visit Provider Internal Medicine | DX: M79.671 Pain in right foot (principal); I77.810 Thoracic aortic ectasia; E66.9 Obesity, unspecified; I10 Essential (primary) hypertension; R73.02 Impaired glucose tolerance (oral); K21.9 Gastro-esophageal reflux disease without esophagitis; M20.41 Other hammer toe(s) (acquired), right foot; Z95.2 Presence of prosthetic heart valve; Z79.01 Long term (current) use of anticoagulants; Z51.81 Encounter for therapeutic drug level monitoring | CPT/HCPCS: 85610; 99211; 99212 ==

== ENCOUNTER 2024-06-08 09:44 | Outpatient (AMB) | payer OTHER, SELFPAY ==
[2024-06-08 09:46] VITALS: BP 136/72; PULSE 73; O2SAT 98; BMI 30.2
--- NOTE | 2024-06-08 09:46 | MHC.PC.OV ---
Vital Signs 06/08/24 09:46 Height 6 ft Weight 223 lb BMI 30.2 BP 136/72 Blood Pressure Location Lt brachial Position Sitting Pulse 73 Pulse Source Pulse Oximeter Pulse Oximetry (%) 98 Oxygen Delivery Method Room Air Intake Visit Reasons: Right foot pain Allergies No Known Allergies [No Known Allergies*] Allergy (Verified 06/08/24 09:47) Tobacco use date assessed: 12/25/23 Dental Screening Dental Screen Date: 12/25/23 HPI Right foot pain HPI Details 58-year-old obese male with a history of hypertension with mitral valve replacement with a mechanical valve on Coumadin GERD impaired glucose tolerance coming in for follow-up. Last seen in 12/21/2023. Patient's last colonoscopy 2018. Review of the notes 06/02/2024 urgent care visit for right foot pain denies any injury NSAIDs advised. 06/22/2024 seen by cardiology following echo anticoagulation INR goal of 2.5-3.5. Patient also has been noted to have an ascending aorta dilatation last echocardiogram December 2023 at 4.1 cm. Advise blood pressure monitor.. Discussed with the patient that because he is going on a cruise discussed on eating better as well as exercising. Concern about ascending aorta dilatation, blood pressure and blood work showing impaired glucose tolerance. Patient complains of this pain on the right foot which is migrating complains also of having burning sensation. Examination of the foot showing the hammertoe and pulses though is felt and strong. So good circulation. FOR[facility]LY [facility] Medical History Pneumonia Obesity (BMI 30-39.9) Overweight (BMI 25.0-29.9) GERD (gastroesophageal reflux disease) Erectile dysfunction Obesity (BMI 30-39.9) Impaired glucose tolerance Anxiety COVID-19 HTN (hypertension) Surgical History Hx laparoscopic cholecystectomy H/O mitral valve replacement with mechanical valve H/O mitral valve repair Hx of varicose vein ligation and stripping H/O cardiac catheterization (~2019) Family History Father CVD (cardiovascular disease) Mother HTN (hypertension) CVD (cardiovascular disease) Diabetes Brother CVD (cardiovascular disease) Brother CVD (cardiovascular disease) Social History Household Members: Spouse Housing: House Are you a primary career guidance counselor to a significant other at home: No Do you presently have visiting nurse or other home services: No Alcohol intake: never Patient Tobacco Use Status: Never used Tobacco Tobacco use type: Cigarette e-Cigarette/Vaping Use: Never Used Second Hand Smoke Exposure: No service: No Current occupational status: employed Current occupation: [employer] Cognitive needs: No Hearing needs: No Vision needs: Yes (reading glasses) Questionnaire PHQ-9 Over the last 2 weeks, how often have you been bothered by any of the following problems? 1. Little interest or pleasure in doing things: not at all 2. Feeling down, depressed, or hopeless: not at all 3. Trouble falling or staying asleep, or sleeping too much: not at all 4. Feeling tired or having little energy: not at all 5. Poor appetite or overeating: not at all 6. Feeling bad about yourself - or that you are a failure or have let yourself or your family down: not at all 7. Trouble concentrating on things, such as reading the newspaper or watching television: not at all 8. Moving or speaking so slowly that other people could have noticed. Or the opposite - being so fidgety or restless that you have been moving around a lot more than usual: not at all 9. Thoughts that you would be better off or of hurting yourself in some way: not at all Total score: 0 Depression Screening Interpretation: Negative Depression Screening Done: Yes Source: Developed by Drs. Jasper Hanna, Amber Cooper, Sumanth Zhang and colleagues, with an educational reuben from [employer]. Thrive Questionnaire Date Thrive assessed: 12/25/23 AUDIT C Alcohol Use Questionnaire (AUDIT-C) 1. How often do you have a drink containing alcohol?: Never 2. How many drinks containing alcohol do you have on a typical day when you are drinking?: 1 or 2 (0) 3. How often do you have six or more drinks on one occasion?: Never Total Score: 0 LISET-7 AMB Questionnaire LISET-7 Date LISET - 7 assessed: 12/25/23 Source: Developed by Drs. Jasper Hanna, Sumanth Bright and colleagues, with an educational reuben from [employer]. Physical exam (Primary Care) Vital Signs: Last Vital Signs Pulse 73 06/08/24 09:46 BP 136/72 06/08/24 09:46 Pulse Ox 98 06/08/24 09:46 Oxygen Delivery Method Room Air 06/08/24 09:46 BMI result Body Mass Index 30.2 Tobacco/Smoking Status: Tobacco use Status Tobacco use date assessed 12/25/23 06/08/24 09:47 Patient Tobacco Use Status Never used Tobacco 06/08/24 09:47 Tobacco use type Cigarette 06/08/24 09:47 e-Cigarette/Vaping Use Never Used 06/08/24 09:47 PHQ-9: PHQ-9 Score PHQ-9: Total score 0 06/08/24 09:55 Depression Screening Interpretation: Negative Thrive Assessment: Date of Thrive Assessment Date Thrive assessed 12/25/23 06/08/24 09:47 Const General: alert; No acute distress Eyes Conjunctivae: conjunctivae normal Resp Auscultation: clear to auscultation bilaterally Cardio Rate: regular rate Rhythm: regular rhythm GI Inspection: Yes normal to inspection Extrem General: No edema Ankle/foot/toe images: 1. Foot have a hammertoe and bunion right, right 2nd toe over the big toe Coding Level of Care Code Est Pt Level 4 (80859) Complex EM visit Add On G2211 Diagnoses Acute pain of right foot M79.671 Ascending aorta dilatation I77.810 Obesity (BMI 30.0-34.9) E66.9 Essential hypertension I10 Hypertension type: essential hypertension H/O mitral valve replacement with mechanical valve Z95.2 Impaired glucose tolerance R73.02 Gastroesophageal reflux disease without esophagitis K21.9 Esophagitis presence: without esophagitis Hammer toe of right foot M20.41 Assessment & Plan Assessment & Plan (1) Acute pain of right foot: Code(s): M79.671 - Pain in right foot Category: Medical Plan: xray of the foot requested (2) Ascending aorta dilatation: Comment: 12/21/2023 4.1 cm Code(s): I77.810 - Thoracic aortic ectasia Category: Medical Plan: Continue to monitor. 12/21/2023 last echocardiogram. (3) Obesity (BMI 30.0-34.9): Code(s): E66.9 - Obesity, unspecified Category: Medical Plan: Diet and exercise (4) HTN (hypertension): Code(s): I10 - Essential (primary) hypertension Category: Medical Qualifiers: Hypertension type: essential hypertension Qualified Code(s): I10 - Essential (primary) hypertension Plan: Patient on lisinopril 20 mg once a day metoprolol 25 mg twice a day (5) H/O mitral valve replacement with mechanical valve: Comment: recurrent mitral regurgitation leading to [place] mitral valve replacement with 25 mm valve INR 2.5-3.5 Code(s): Z95.2 - Presence of prosthetic heart valve Category: Surgical Plan: Continue with anticoagulation with Coumadin (6) Impaired glucose tolerance: Code(s): R73.02 - Impaired glucose tolerance (oral) Category: Medical Plan: Decrease the amount of carbohydrate intake, pasta, bread, rice and potatoes are all sugar and that is aside from all the sweet stuff, remember that fruits are good but they are Sweet also. (7) GERD (gastroesophageal reflux disease): Code(s): K21.9 - Gastro-esophageal reflux disease without esophagitis Category: Medical Qualifiers: Esophagitis presence: without esophagitis Qualified Code(s): K21.9 - Gastro-esophageal reflux disease without esophagitis Plan: Avoid the foods that causes that usually spicy foods, tomato products, juices, coffee, soda and foods that your sensitive to. After eating do not lie down, allow 3-4 hours before in lie down. And keep the head of bed above 30 degrees to avoid the acid from going up. (8) Hammer toe of right foot: Code(s): M20.41 - Other hammer toe(s) (acquired), right foot Category: Medical Plan: referral to podiatry Orders: Orders XR foot RT 2V Today M20.41 - Other hammer toe(s) (acquired), right foot Referrals Podiatry Referral M20.41 - Other hammer toe(s) (acquired), right foot Medications: Refilled alprazolam 0.25 mg PO DAILY PRN 10 tabs 0RF anxiety M20.41 - Other hammer toe(s) (acquired), right foot
== END 2024-06-08 10:20 | disposition home or self-care (01) ==
LOC: HO.HMCH 09:45
PROVIDERS: PCP Internal Medicine; Visit Provider Internal Medicine
DX: M79.671 Pain in right foot (principal); I77.810 Thoracic aortic ectasia; E66.9 Obesity, unspecified; Z68.30 Body mass index [BMI] 30.0-30.9, adult; I10 Essential (primary) hypertension; Z95.2 Presence of prosthetic heart valve; R73.02 Impaired glucose tolerance (oral); K21.9 Gastro-esophageal reflux disease without esophagitis; M20.41 Other hammer toe(s) (acquired), right foot

== ENCOUNTER 2024-06-09 08:05 | Outpatient (REF) | payer OTHER, SELFPAY | END 2024-06-09 08:06 | disposition home or self-care (01) | LOC: HO.HMGCX 08:05 | PROVIDERS: PCP Internal Medicine; Visit Provider Internal Medicine | DX: M20.41 Other hammer toe(s) (acquired), right foot (principal) | CPT/HCPCS: 73630 ==

== ENCOUNTER 2024-06-15 08:31 | Outpatient (AMB) | payer OTHER, SELFPAY ==
--- NOTE | 2024-06-15 08:43 | MHC.OFFVISCO ---
Intake Intake Visit Reasons: Anticoagulation Allergies No Known Allergies [No Known Allergies*] Allergy (Verified 06/15/24 08:39) Medication List - Last Reconciled 06/15/24 by Jossie Robbins RN alprazolam 0.25 mg PO DAILY PRN lisinopril 20 mg PO DAILY metoprolol tartrate 25 mg PO BID sildenafil 50 mg PO DAILY PRN warfarin 7.5 mg See Protocol PO DAILY 90 days Nursing Note INR: 2.8- in therapeutic range of 2.5-3.5 Medications and supplements reviewed- no changes No changes in health, diet, medications, or supplements, Denies any signs and symptoms of bleeding or bruising or clotting. Bleeding, bruising, clotting discussed Nutritional guidance given Dose: 5mg x 6, 7.5mg x 1 F/U INR: 2 weeks Patient verbalizes understanding of instructions given Anti-Coag Initial Assessment Social Hx Patient Tobacco Use Status: Never used Tobacco Tobacco use type: Cigarette alcohol intake: never Alcohol intake frequency: does not drink Coding Level of Care Code Est Patient Level 1 Diagnoses Current use of anticoagulant therapy Z79.01 Results AMB INR Fingerstick AMB INR Fingerstick 2.8 Last Edit by Jossie Robbins RN on 06/15/24 08:45 interface delay Assessment & Plan Assessment & Plan (1) Current use of anticoagulant therapy: Code(s): Z79.01 - [facility] (current) use of anticoagulants Category: Medical
[2024-06-15 08:45] LABS: Prothrombin Time Whole Bld POC 33.9 sec (11.1-13.5); ~PT, ~INR - Anti Coag Clinic 2.8 (0.9-1.1)
== END 2024-06-15 08:48 | disposition home or self-care (01) ==
LOC: HO.ACS 08:31
PROVIDERS: PCP Internal Medicine; Visit Provider Internal Medicine
DX: Z79.01 Long term (current) use of anticoagulants (principal)

== ENCOUNTER → 2024-06-15 08:31 | Outpatient (BNVA) | payer OTHER, SELFPAY | PROVIDERS: PCP Internal Medicine; Visit Provider Internal Medicine | DX: Z95.2 Presence of prosthetic heart valve (principal); Z79.01 Long term (current) use of anticoagulants; Z51.81 Encounter for therapeutic drug level monitoring | CPT/HCPCS: 85610; 99211 ==

== ENCOUNTER 2024-06-29 08:46 | Outpatient (AMB) | payer OTHER, SELFPAY ==
--- NOTE | 2024-06-29 08:50 | MHC.OFFVISCO ---
Intake Intake Visit Reasons: Anticoagulation Allergies No Known Allergies [No Known Allergies*] Allergy (Verified 06/29/24 08:47) Medication List - Last Reconciled 06/29/24 by Jossie Robbins RN alprazolam 0.25 mg PO DAILY PRN lisinopril 20 mg PO DAILY metoprolol tartrate 25 mg PO BID sildenafil 50 mg PO DAILY PRN warfarin 7.5 mg See Protocol PO DAILY 90 days Nursing Note INR 2.4-?? out of therapeutic range of 2.5- 3.5 Medications and supplements reviewed Patient status: pt recent cruise, pt with home meter and tests inr - pt states inr elev and he self dosed to half tab, unsure of date enc to call acs with out of range inr's, pt will test inr next week with home meter Medications or supplements: covid vaccine on 06/17/24- general malaise for couple of days Diet: good Denies any signs and symptoms of bleeding or clotting or unusual bruising Bleeding, bruising, clotting discussed Nutritional guidance given: pt req dietary adj to raise rather than dose adj, eat reds to raise, no greens for 2 days Dose: 7.5mg x 1, 5mg x 6 F/U INR Date : 2 weeks Patient verbalizing understanding of instructions given. 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
[2024-06-29 08:51] LABS: Prothrombin Time Whole Bld POC 28.9 sec (11.1-13.5); ~PT, ~INR - Anti Coag Clinic 2.4 (0.9-1.1)
== END 2024-06-29 09:15 | disposition home or self-care (01) ==
LOC: HO.ACS 08:46
PROVIDERS: PCP Internal Medicine; Visit Provider Internal Medicine
DX: Z79.01 Long term (current) use of anticoagulants (principal)

== ENCOUNTER → 2024-06-29 08:46 | Outpatient (BNVA) | payer OTHER, SELFPAY | PROVIDERS: PCP Internal Medicine; Visit Provider Internal Medicine | DX: Z95.2 Presence of prosthetic heart valve (principal); Z51.81 Encounter for therapeutic drug level monitoring; Z79.01 Long term (current) use of anticoagulants | CPT/HCPCS: 85610; 99211 ==

== ENCOUNTER 2024-07-13 08:28 | Outpatient (AMB) | payer OTHER, SELFPAY ==
[2024-07-13 08:48] LABS: Prothrombin Time Whole Bld POC 30.9 sec (11.1-13.5); ~PT, ~INR - Anti Coag Clinic 2.6 (0.9-1.1)
--- NOTE | 2024-07-13 08:50 | MHC.OFFVISCO ---
Intake Intake Visit Reasons: Anticoagulation Allergies No Known Allergies [No Known Allergies*] Allergy (Verified 07/13/24 08:42) Medication List - Last Reconciled 07/13/24 by Kamla Petersen RN alprazolam 0.25 mg PO DAILY PRN lisinopril 20 mg PO DAILY metoprolol tartrate 25 mg PO BID sildenafil 50 mg PO DAILY PRN warfarin 7.5 mg See Protocol PO DAILY 90 days Nursing Note NO CP,SOB,DIET/MED CHANGES,FALLS OR SX OF BLEEDING. CONTINUE PRESENT DOSE AND FOLLOW-UP IN 2 WEEKS. GOOD UNDERSTANDING OF DOSING INSTR. 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
== END 2024-07-13 08:53 | disposition home or self-care (01) ==
LOC: HO.ACS 08:28
PROVIDERS: PCP Internal Medicine; Visit Provider Internal Medicine
DX: Z79.01 Long term (current) use of anticoagulants (principal)

== ENCOUNTER → 2024-07-13 08:28 | Outpatient (BNVA) | payer OTHER, SELFPAY | PROVIDERS: PCP Internal Medicine; Visit Provider Internal Medicine | DX: Z95.2 Presence of prosthetic heart valve (principal); Z79.01 Long term (current) use of anticoagulants; Z51.81 Encounter for therapeutic drug level monitoring | CPT/HCPCS: 85610; 99211 ==

== ENCOUNTER 2024-07-26 08:38 | Outpatient (AMB) | payer OTHER, SELFPAY ==
[2024-07-26 08:46] LABS: Prothrombin Time Whole Bld POC 32.2 sec (11.1-13.5); ~PT, ~INR - Anti Coag Clinic 2.7 (0.9-1.1)
--- NOTE | 2024-07-26 08:52 | MHC.OFFVISCO ---
Intake Intake Visit Reasons: Anticoagulation Allergies No Known Allergies [No Known Allergies*] Allergy (Verified 07/26/24 08:39) Medication List - Last Reconciled 07/26/24 by Ingrid Cisneros RN alprazolam 0.25 mg PO DAILY PRN lisinopril 20 mg PO DAILY metoprolol tartrate 25 mg PO BID sildenafil 50 mg PO DAILY PRN warfarin 7.5 mg See Protocol PO DAILY 90 days Nursing Note INR: 2.7 in therapeutic range Medications and supplements reviewed No changes in health, diet, medications, or supplements, Denies any signs and symptoms of bleeding or bruising or clotting. 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
== END 2024-07-26 09:16 | disposition home or self-care (01) ==
LOC: HO.ACS 08:38
PROVIDERS: PCP Internal Medicine; Visit Provider Internal Medicine
DX: Z79.01 Long term (current) use of anticoagulants (principal)

== ENCOUNTER → 2024-07-26 08:38 | Outpatient (BNVA) | payer OTHER, SELFPAY | PROVIDERS: PCP Internal Medicine; Visit Provider Internal Medicine | DX: Z95.2 Presence of prosthetic heart valve (principal); Z79.01 Long term (current) use of anticoagulants; Z51.81 Encounter for therapeutic drug level monitoring | CPT/HCPCS: 85610; 99211 ==

== ENCOUNTER 2024-08-09 08:33 | Outpatient (AMB) | payer OTHER, SELFPAY ==
[2024-08-09 08:45] LABS: ~PT, ~INR - Anti Coag Clinic 2.9 (0.9-1.1)
--- NOTE | 2024-08-09 08:47 | MHC.OFFVISCO ---
Intake Intake Visit Reasons: Anticoagulation Allergies No Known Allergies [No Known Allergies*] Allergy (Verified 08/09/24 08:39) Medication List - Last Reconciled 08/09/24 by Ciara Mcdonald RN alprazolam 0.25 mg PO DAILY PRN lisinopril 20 mg PO DAILY metoprolol tartrate 25 mg PO BID sildenafil 50 mg PO DAILY PRN warfarin 7.5 mg See Protocol PO DAILY 90 days Nursing Note Amb to ACS feeling well Medications and supplements reviewed No changes in health, diet, medications, or supplements, Denies any unusual signs and symptoms of bleeding, bruising, or clotting. Bleeding, bruising, clotting discussed INR 2.9 in therapeutic range (2.5-3.5) Dose: continue usual dosing 7.5mg on Thursday and 5mg all other days Balance greens and reds in diet, be consistent F/U INR: 2 weeks Patient verbalizes understanding of instructions given Anti-Coag Initial Assessment Social Hx Patient Tobacco Use Status: Never used Tobacco Tobacco use type: Cigarette alcohol intake: never Alcohol intake frequency: does not drink Coding Level of Care Code Est Patient Level 1 Diagnoses Current use of anticoagulant therapy Z79.01 Time Spent (min) 15 Assessment & Plan Assessment & Plan (1) Current use of anticoagulant therapy: Code(s): Z79.01 - 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
== END 2024-08-09 08:51 | disposition home or self-care (01) ==
LOC: HO.ACS 08:33
PROVIDERS: PCP Internal Medicine; Visit Provider Internal Medicine
DX: Z79.01 Long term (current) use of anticoagulants (principal)

== ENCOUNTER → 2024-08-09 08:33 | Outpatient (BNVA) | payer OTHER, SELFPAY | PROVIDERS: PCP Internal Medicine; Visit Provider Internal Medicine | DX: Z95.2 Presence of prosthetic heart valve (principal); Z79.01 Long term (current) use of anticoagulants; Z51.81 Encounter for therapeutic drug level monitoring | CPT/HCPCS: 85610; 99211 ==

== ENCOUNTER 2024-08-24 08:39 | Outpatient (AMB) | payer OTHER, SELFPAY ==
[2024-08-24 08:45] LABS: Prothrombin Time Whole Bld POC 31.1 sec (11.1-13.5); ~PT, ~INR - Anti Coag Clinic 2.6 (0.9-1.1)
--- NOTE | 2024-08-24 08:48 | MHC.OFFVISCO ---
Intake Intake Visit Reasons: Anticoagulation Allergies No Known Allergies [No Known Allergies*] Allergy (Verified 08/24/24 08:41) Medication List - Last Reconciled 08/24/24 by Kamla Petersen RN alprazolam 0.25 mg PO DAILY PRN lisinopril 20 mg PO DAILY metoprolol tartrate 25 mg PO BID sildenafil 50 mg PO DAILY PRN warfarin 7.5 mg See Protocol PO DAILY 90 days Nursing Note NO CP,SOB,DIET/MED CHANGES,FALLS OR SX OF BLEEDING. PT.HAS A HEAD COLD SINCE YESTERDAY.HE IS AFEBRILE, BUT HAS ONGOING COUGH. WILL INCREASE FLUIDS,TYLENOL PRN TO CALL PCP IF SX DO NOT IMPROVE AFTER 3-4 DAYS GOOD UNDERSTANDING OF DOSING INSTR. 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
--- OUTSIDE RECORDS SUMMARY | 2024-08-24 08:55 | XMS_ITS | Clinical Summary ---
Author Organization 175 [facility] Address [address] [place] [address] Phone Care Team Providers Care Data Coder Operator Name Role Phone Kuldip Pendleton MD Primary Care Provider [phone] Social History Tobacco Use Types Packs/Day Years Used Date Smoking Tobacco: Never Assessed Sex and Gender Information Value Date Recorded Sex Assigned at Not on file Gender Identity Not on file Sexual Orientation Not on file Plan of Treatment Upcoming Encounters Date Type Department Care Team ([facility] Contact Info) Description 09/27/2024 9:30 AM EST Office Visit Orthopedic Surgery [facility] [address] [facility] [address] [place] [id number] Bogdan Linn, DPM [address] [place] [address] Health Maintenance Due Date Last Done Comments DTaP,Tdap,and Td Vaccines (1 - Tdap) 1984 Hepatitis B Vaccines (1 of 3 - 19+ 3-dose series) 1984 Zoster Vaccines (1 of 2) 2015 COVID-19 Vaccine (2023-2 5 season) 2024 Influenza Vaccine (#1) 2024 Cholesterol Screening (Lipid Panel) 06/13/2024 Colorectal Cancer Screening: Colonoscopy 06/13/2024 Depression Screening 06/13/2024 HIV Screening 06/13/2024 Hepatitis C Screening 06/13/2024 Social Influencers of Health Screening 06/13/2024 HIB Vaccines Aged Out No longer eligi ble based on patient's age to complete this topic HPV Vaccines Aged Out No longer eligi ble based on patient's age to complete this topic Hepatitis A Vaccines Aged Out No long er eligible based on patient's age to complete this topic IPV Vaccines Aged Out No longer eligi ble based on patient's age to complete this topic MMR Vaccines Aged Out No longer eligi ble based on patient's age to complete this topic Meningococcal ACWY Vaccine Aged Out N o longer eligible based on patient's age to complete this topic Pneumococcal Vaccine: Pediat rics (0 to 5 Years) and At-Risk Patients (6 to 64 Years) Aged Out No longer eligible b ased on patient's age to complete this topic RSV Immunization Patients Un rafael 20 months Aged Out No longer eligible b ased on patient's age to complete this topic Varicella Vaccines Aged Out No longer eligible based on patient's age to complete this topic Care Teams Data Coder Operator Relationship Specialty Start Date End Date Kuldip Pendleton MD [address] [place] [address] [address] [facility] [place] [address] PCP - General Internal Medicine 06/13/24
--- OUTSIDE RECORDS SUMMARY | 2024-08-24 08:55 | XMS_ITS | Clinical Summary ---
Author Organization [facility] Address [address] [place] [id number] Care Team Providers Care Traffic Rate Analyst Name Role Phone Juan David Samaniego MD Primary Care Provider [phone] Allergies No known active allergies Medications aspirin (ST DALILA) 81 MG EC tablet Take 1 tablet by mouth 1 (one) time each day Active metoprolol tartrate (LOPRESSOR) 25 MG tablet Take 1 tablet by mouth 2 (two) times a day Active warfarin (COUMADIN) 5 MG tablet Active lisinopril (PRINIVIL,ZESTRI L) 10 MG tablet Take 10 mg by mouth 1 (one) time each day 10/28/2020 Active sildenafil (VIAGRA) 50 MG tablet TAKE 1 TABLET BY MOUTH EVERY DAY NEEDED 11/11/2020 Active Active Problems Problem Noted Date Diagnosed Date Chronic kidney disease, stage 2 (mild) 2 Chronic kidney disease, stage 2 (mild) 1 Essential (primary) hypertension 12/03/2020 Acute nontraumatic kidney injury 10/15/2020 Family History Medical History Relation Comments Diabetes Mother Heart disease Mother Relation Status Comments Father Mother Social History Tobacco Use Types Packs/Day Years Used Date Smoking Tobacco: Never Alcohol Use Standard Drinks/Week Comments No 0 (1 standard drink = 0.6 oz pur e alcohol) Sex and Gender Information Value Date Recorded Sex Assigned at Not on file Legal Sex Male 4:56 PM EST Gender Identity Not on file Sexual Orientation Not on file Last Filed Vital Signs Vital Sign Reading Time Taken Comments Blood Pressure 134/65 02/24/2022 4:09 PM EDT Pulse 84 02/24/2022 4:09 PM EDT Temperature - - Respiratory Rate - - Oxygen Saturation 98% 02/24/2022 4:09 PM EDT Inhaled Oxygen Concentration - - Weight 101 kg (223 lb 6.4 oz) 02/24/2022 4:09 PM EDT Height 182.9 cm (6') 08/04/2019 12:00 PM EST Body Mass Index 30.3 08/04/2019 12:00 PM EST Plan of Treatment Health Maintenance Due Date Last Done Comments Pneumococcal Vaccine: Pediat rics (0 to 5 Years) and At-Risk Patients (6 to 64 Years) (1 of 2 - PCV) 1971 Hepatitis B Vaccine (1 of 3 - 19+ 3-dose series) 09/24 Colorectal Cancer Screening: Annual FOBT 2014 Colorectal Cancer Screening: Colonoscopy 2014 Colorectal Cancer Screening: Sigmoidoscopy 2014 Influenza Vaccine (#1) 2024 Insurance MEDICAID MEDICAID Care Teams Traffic Rate Analyst Relationship Specialty Start Date End Date Juan David Samaniego MD [address] [place] PCP - General Cardiology 12/03/20
== END 2024-08-24 08:51 | disposition home or self-care (01) ==
LOC: HO.ACS 08:39
PROVIDERS: PCP Internal Medicine; Visit Provider Internal Medicine
DX: Z79.01 Long term (current) use of anticoagulants (principal)

== ENCOUNTER → 2024-08-24 08:39 | Outpatient (BNVA) | payer OTHER, SELFPAY | PROVIDERS: PCP Internal Medicine; Visit Provider Internal Medicine | DX: Z95.2 Presence of prosthetic heart valve (principal); Z79.01 Long term (current) use of anticoagulants; Z51.81 Encounter for therapeutic drug level monitoring | CPT/HCPCS: 85610; 99211 ==

== ENCOUNTER → 2024-09-07 08:39 | Outpatient (BNVA) | payer OTHER, SELFPAY | PROVIDERS: PCP Internal Medicine; Visit Provider Internal Medicine | DX: Z95.2 Presence of prosthetic heart valve (principal); Z79.01 Long term (current) use of anticoagulants; Z51.81 Encounter for therapeutic drug level monitoring | CPT/HCPCS: 85610; 99211 ==

== ENCOUNTER 2024-09-14 08:38 | Outpatient (AMB) | payer OTHER, SELFPAY ==
[2024-09-14 08:47] LABS: Prothrombin Time Whole Bld POC 33.1 sec (11.1-13.5); ~PT, ~INR - Anti Coag Clinic 2.8 (0.9-1.1)
--- NOTE | 2024-09-14 08:51 | MHC.OFFVISCO ---
Intake Intake Visit Reasons: Anticoagulation Allergies No Known Allergies [No Known Allergies*] Allergy (Verified 09/14/24 08:43) Medication List - Last Reconciled 09/14/24 by Kamla Petersen RN alprazolam 0.25 mg PO DAILY PRN lisinopril 20 mg PO DAILY metoprolol tartrate 25 mg PO BID sildenafil 50 mg PO DAILY PRN warfarin 7.5 mg See Protocol PO DAILY 90 days Nursing Note NO CP,SOB,DIET/MED CHANGES,FALLS OR SX OF BLEEDING. CONTINUE PRESENT DOSE AND FOLLOW-UP IN 2 WEEKS. GOOD UNDERSTANDING OF DOSING INSTR. Anti-Coag Initial Assessment Social Hx Patient Tobacco Use Status: Never used Tobacco Tobacco use type: Cigarette alcohol intake: never Alcohol intake frequency: does not drink Coding Level of Care Code Est Patient Level 1 Diagnoses Current use of anticoagulant therapy Z79.01 Results AMB INR Fingerstick AMB INR Fingerstick 2.8 Last Edit by Kamla Petersen RN on 09/14/24 08:49 Assessment & Plan Assessment & Plan (1) Current use of anticoagulant therapy: Code(s): Z79.01 - jail (current) use of anticoagulants Category: Medical
--- OUTSIDE RECORDS SUMMARY | 2024-09-14 09:29 | XMS_ITS | Clinical Summary ---
Author Organization 175 [facility] Address [address] [place] [address] Phone Care Team Providers Care Rotary Drill Operator Helper Name Role Phone Kuldip Pendleton MD Primary Care Provider [phone] Social History Tobacco Use Types Packs/Day Years Used Date Smoking Tobacco: Never Assessed Sex and Gender Information Value Date Recorded Sex Assigned at Not on file Legal Sex Male 6:57 AM EST Gender Identity Not on file Sexual Orientation Not on file Plan of Treatment Upcoming Encounters Date Type Department Care Team ([facility] Contact Info) Description 09/27/2024 9:30 AM EST Office Visit Orthopedic Surgery - [place] [id number] [address] Bogdan Linn, DPM [address] [address] Health Maintenance Due Date Last Done Comments DTaP,Tdap,and Td Vaccines (1 - Tdap) 1984 Hepatitis B Vaccines (1 of 3 - 19+ 3-dose series) 1984 Pneumococcal Vaccine: 50+ Ye ars (1 of 1 - PCV) 2015 Zoster Vaccines (1 of 2) 2015 COVID-19 Vaccine ( - 2023-2 5 season) 2024 Influenza Vaccine (#1) 2024 [...] patient's age to complete this topic Meningococcal B Vacine Aged Out No lo nger eligible based on patient's age to complete [...] on patient's age to complete this topic Insurance [employer] Care Teams Rotary Drill Operator Helper Relationship Specialty Start Date End Date Kuldip Pendleton MD [address] [place] [address] [address] [facility] [place] [address] PCP - General Internal Medicine 06/13/24
--- OUTSIDE RECORDS SUMMARY | 2024-09-14 09:29 | XMS_ITS | Clinical Summary ---
Author Organization [facility] Facility Address [address] [place] [id number] Care Team Providers Care Chainsaw Mechanic Name Role Phone Juan David Samaniego MD Primary Care Provider [phone] Allergies No known active allergies Medications aspirin [...] (#1) 2024 Insurance MEDICAID MEDICAID Care Teams Chainsaw Mechanic Relationship Specialty Start Date End Date Juan David Samaniego MD [address] [place] PCP - General Cardiology 12/03/20
== END 2024-09-14 08:55 | disposition home or self-care (01) ==
LOC: HO.ACS 08:38
PROVIDERS: PCP Internal Medicine; Visit Provider Internal Medicine
DX: Z79.01 Long term (current) use of anticoagulants (principal)

== ENCOUNTER → 2024-09-14 08:38 | Outpatient (BNVA) | payer OTHER, SELFPAY | PROVIDERS: PCP Internal Medicine; Visit Provider Internal Medicine | DX: Z95.2 Presence of prosthetic heart valve (principal); Z79.01 Long term (current) use of anticoagulants; Z51.81 Encounter for therapeutic drug level monitoring | CPT/HCPCS: 85610; 99211 ==

== ENCOUNTER 2024-09-26 09:35 | Outpatient (AMB) | payer OTHER, SELFPAY ==
[2024-09-26 09:45] VITALS: BP 138/82; PULSE 68; O2SAT 98; BMI 30.4
--- NOTE | 2024-09-26 09:45 | A.OFFPC_ITS ---
Vital Signs 09/26/24 09:45 Height 6 ft Weight 224 lb BMI 30.4 BP 138/82 Blood Pressure Location Lt brachial Position Sitting Pulse 68 Pulse Source Pulse Oximeter Pulse Oximetry (%) 98 Oxygen Delivery Method Room Air Intake Visit Reasons: 3mth f/u Allergies No Known Allergies [No Known Allergies*] Allergy (Verified 09/26/24 09:46) Tobacco use date assessed: 09/26/24 Dental Screening Dental Screen Date: 09/26/24 Did you have a dental visit in the last 12 months?: Yes Did you have a dental problem in the last 6 months where you did not have access to dental care?: No Was dental information given to patient?: Patient has dentist HPI 3mth f/u HPI Details R shoulder pain x 2 months deny fall or trauma. The patient is a 59-year-old male presenting with impaired glucose tolerance. Previously, the blood glucose level was found to be mildly elevated at 111 mg/dL. Despite not being diabetic, due to a hemoglobin A1c of 5.9% (with diabetes being diagnosed at 6.5% or greater), monitoring has been suggested. Over time, the A1c has risen to 6.1%. Health interventions have been advised to control sugar intake and improve exercise habits. He also has a history of hypertension; his blood pressure was recorded at 138/82 mmHg during this visit, which is slightly elevated given the target of 120/80 mmHg. The patient has a history of using metoprolol and lisinopril to manage blood pressure. He has undergone a mitral valve replacement with a mechanical valve and continues on anticoagulation therapy with warfarin. The last echocardiogram in December demonstrated a widened blood vessel needing further evaluation with a follow-up echocardiogram. Furthermore, he reported experiencing intermittent shoulder pain for the last couple of months, exacerbated by certain positions during sleep but without any trauma. Examination revealed pain upon lifting the arm slightly. - Discussed the importance of a heart-he althy diet and exercise for weight management and cardiovascular health. - Encouraged regular home monitoring of blood pressure to manage hypertension. - Recommended obtaining a home blood pre ssure monitor as patient did not possess one. - Explained the rationale and significan ce of blood glucose monitoring, particularly HbA1c trends. - Advised on balanced dietary intake to manage glucose levels effectively, with emphasis on portion control. - Discussion on avoiding respiratory inf ections by being cautious during flu and RSV season. - The patient has started walking as par t of his exercise routine. - Reports issues with his foot for which he has an upcoming podiatry appointment. - Plans to travel soon, highlighting the importance of managing health during travel. - Musculoskeletal: Reports shoulder pain , particularly at night. - General: Denies any trauma or signific ant exertion as related to shoulder pain. - Skin: Denies any rashes or redness. [facility] Medical History (Updated 09/26/24 @ 10:06 by Kuldip Pendleton MD) Obesity (BMI 30-39.9) Pneumonia Overweight (BMI 25.0-29.9) GERD (gastroesophageal reflux disease) Erectile dysfunction Obesity (BMI 30-39.9) Impaired glucose tolerance Anxiety COVID-19 HTN (hypertension) Surgical History Hx laparoscopic cholecystectomy H/O mitral valve replacement with mechanical valve H/O mitral valve repair Hx of varicose vein ligation and stripping H/O cardiac catheterization (~2019) Family History Father CVD (cardiovascular disease) Mother HTN (hypertension) CVD (cardiovascular disease) Diabetes Brother CVD (cardiovascular disease) Brother CVD (cardiovascular disease) Social History Household Members: Spouse Housing: House Are you a primary field care coordinator to a significant other at home: No Do you presently have visiting nurse or other home services: No Alcohol intake: never Patient Tobacco Use Status: Never used Tobacco Tobacco use type: Cigarette e-Cigarette/Vaping Use: Never Used Second Hand Smoke Exposure: No service: No Current occupational status: employed Current occupation: [employer] Cognitive needs: No Hearing needs: No Vision needs: Yes (reading glasses) Questionnaire PHQ-9 Over the last 2 weeks, how often have you been bothered by any of the following problems? 1. Little interest or pleasure in doing things: not at all 2. Feeling down, depressed, or hopeless: not at all 3. Trouble falling or staying asleep, or sleeping too much: not at all 4. Feeling tired or having little energy: not at all 5. Poor appetite or overeating: not at all 6. Feeling bad about yourself - or that you are a failure or have let yourself or your family down: not at all 7. Trouble concentrating on things, such as reading the newspaper or watching television: not at all 8. Moving or speaking so slowly that other people could have noticed. Or the opposite - being so fidgety or restless that you have been moving around a lot more than usual: not at all 9. Thoughts that you would be better off or of hurting yourself in some way: not at all Total score: 0 Depression Screening Interpretation: Negative Depression Screening Done: Yes Source: Developed by Drs. Jasper Hanna, Amber Cooper, Sumanth Zhang and colleagues, with an educational reuben from [employer]. Thrive Questionnaire Date Thrive assessed: 09/26/24 I am a: Patient What is your living situation today?: I have a steady place to live Within the past 12 months, did the food you bought not last and you didn't have the money to get more?: Never true Within the past 12 months, did you worry whether your food would run out before you got money to buy more?: Never true Do you have trouble paying for medicines?: No Do you have trouble getting transportation to medical appointments?: No Do you have trouble paying your heating and electricity bill?: No Do you have trouble taking care of your child, family member or friend?: No Do you have trouble with day-to-day activities such as bathing, preparing meals, shopping, managing finances, etc.?: No Are you currently unemployed and looking for a job?: No Are you interested in more education?: No Currently or been in a relationship where the following occur: No concerns reported THRIVE Score: 0 AUDIT C Alcohol Use Questionnaire (AUDIT-C) 3. How often do you have six or more drinks on one occasion?: Never Total Score: 0 LISET-7 AMB Questionnaire LISET-7 Date LISET - 7 assessed: 09/26/24 Feeling nervous, anxious, or on edge: 0 = Not at all Not being able to stop or control worryin = Not at all Worrying too much about different things: 0 = Not at all Trouble relaxin = Not at all Being so restless that it is hard to sit still: 0 = Not at all Becoming easily annoyed or irritable: 0 = Not at all Feeling afraid as if something awful might happen: 0 = Not at all Total LISET-7 score (0-4 normal; 5-9 mild; 10-14 moderate; 15-21 severe): 0 Source: Developed by Drs. Jasper Hanna, Amber Cooper, Sumanth Zhang and colleagues, with an educational reuben from [employer]. Physical exam (Primary Care) Vital Signs: Last Vital Signs Pulse 68 09/26/24 09:45 BP 138/82 09/26/24 09:45 Pulse Ox 98 09/26/24 09:45 Oxygen Delivery Method Room Air 09/26/24 09:45 BMI result Body Mass Index 30.4 Tobacco/Smoking Status: Tobacco use Status Tobacco use date assessed 09/26/24 09/26/24 09:49 Patient Tobacco Use Status Never used Tobacco 09/26/24 09:49 Tobacco use type Cigarette 09/26/24 09:49 e-Cigarette/Vaping Use Never Used 09/26/24 09:49 PHQ-9: PHQ-9 Score PHQ-9: Total score 0 09/26/24 09:56 Depression Screening Interpretation: Negative Thrive Assessment: Date of Thrive Assessment Date Thrive assessed 09/26/24 09/26/24 09:49 Currently or been in a relationship where the following occur: No concerns reported Const General: alert; No acute distress Eyes Conjunctivae: conjunctivae normal Resp Auscultation: clear to auscultation bilaterally Cardio Rate: regular rate Rhythm: regular rhythm GI Inspection: Yes normal to inspection Extrem General: Yes normal to inspection and No edema Results AMB Hemoglobin A1c AMB Hemoglobin A1c 6.1 % Last Edit by MICHAEL Wan on 09/26/24 10:1 0 Coding Level of Care Code Est Pt Level 4 (32192) Complex EM visit Add On G2211 Diagnoses H/O mitral valve replacement with mechanical valve Z95.2 Essential hypertension I10 Hypertension type: essential hypertension Ascending aorta dilatation I77.810 Obesity (BMI 30-39.9) E66.9 Impaired glucose tolerance R73.02 Gastroesophageal reflux disease without esophagitis K21.9 Esophagitis presence: without esophagitis Bicipital tendinitis, right shoulder M75.21 Generalized anxiety disorder F41.1 Assessment & Plan Assessment & Plan (1) H/O mitral valve replacement with mechanical valve: Comment: recurrent mitral regurgitation leading to [place] mitral valve replacement with 25 mm valve INR 2.5-3.5 Code(s): Z95.2 - Presence of prosthetic heart valve Category: Surgical Plan: Continue with anticoagulation with Coumadin (2) HTN (hypertension): Code(s): I10 - Essential (primary) hypertension Category: Medical Qualifiers: Hypertension type: essential hypertension Qualified Code(s): I10 - Essential (primary) hypertension Plan: Continue with blood pressure medication. Decrease salt intake and exercise on metoprolol 25 mg twice a day lisinopril 20 mg once a day.. Advised patient to check blood pressure at home and handed a prescription for blood pressure monitor. Please record (3) Ascending aorta dilatation: Comment: 12/21/2023 4.1 cm Code(s): I77.810 - Thoracic aortic ectasia Category: Medical Plan: Continue to monitor 12/21/2023 last echocardiogram.. Scheduled echocardiogram in 3 months' time (4) Obesity (BMI 30-39.9): Code(s): E66.9 - Obesity, unspecified Category: Medical Plan: Diet and exercise (5) Impaired glucose tolerance: Code(s): R73.02 - Impaired glucose tolerance (oral) Category: Medical Plan: Decrease the amount of carbohydrate intake, pasta, bread, rice and potatoes are all sugar and that is aside from all the sweet stuff, remember that fruits are good but they are Sweet also. Discussed concerns about the hemoglobin A1c rising up to 6.1 (6) GERD (gastroesophageal reflux disease): Code(s): K21.9 - Gastro-esophageal reflux disease without esophagitis Category: Medical Qualifiers: Esophagitis presence: without esophagitis Qualified Code(s): K21.9 - Gastro-esophageal reflux disease without esophagitis Plan: Avoid the foods that causes that usually spicy foods, tomato products, juices, coffee, soda and foods that your sensitive to. After eating do not lie down, allow 3-4 hours before in lie down. And keep the head of bed above 30 degrees to avoid the acid from going up. (7) Bicipital tendinitis, right shoulder: Code(s): M75.21 - Bicipital tendinitis, right shoulder Category: Medical Plan: Discussed with the patient about exercise and be aware of the positioning of the right shoulder. Declined any referral for physical therapy nor orthopedic referral. (8) Generalized anxiety disorder: Code(s): F41.1 - Generalized anxiety disorder Category: Medical Plan: Prescription sent as patient has an upcoming trip Plan History of Present Illness The patient is a 59-year-old male presenting with impaired glucose tolerance. Previously, the blood glucose level was found to be mildly elevated at 111 mg/dL. Despite not being diabetic, due to a hemoglobin A1c of 5.9% (with diabetes being diagnosed at 6.5% or greater), monitoring has been suggested. Over time, the A1c has risen to 6.1%. Health interventions have been advised to control sugar intake and improve exercise habits. He also has a history of hypertension; his blood pressure was recorded at 138/82 mmHg during this visit, which is slightly elevated given the target of 120/80 mmHg. The patient has a history of using metoprolol and lisinopril to manage blood pressure. He has undergone a mitral valve replacement with a mechanical valve and continues on anticoagulation therapy with warfarin. The last echocardiogram in December demonstrated a widened blood vessel needing further evaluation with a follow-up echocardiogram. Furthermore, he reported experiencing intermittent shoulder pain for the last couple of months, exacerbated by certain positions during sleep but without any trauma. Examination revealed pain upon lifting the arm slightly. Health Maintenance - Discussed the importance of a heart-healthy diet and exercise for weight management and cardiovascular health. - Encouraged regular home monitoring of blood pressure to manage hypertension. - Recommended obtaining a home blood pressure monitor as patient did not possess one. - Explained the rationale and significance of blood glucose monitoring, particularly HbA1c trends. - Advised on balanced dietary intake to manage glucose levels effectively, with emphasis on portion control. - Discussion on avoiding respiratory infections by being cautious during flu and RSV season. Social History - The patient has started walking as part of his exercise routine. - Reports issues with his foot for which he has an upcoming podiatry appointment. - Plans to travel soon, highlighting the importance of managing health during travel. Review of Systems - Musculoskeletal: Reports shoulder pain, particularly at night. - General: Denies any trauma or significant exertion as related to shoulder pain. - Skin: Denies any rashes or redness. Physical Exam - Musculoskeletal- Pain noted upon elevation of the right shoulder. Results - Labs: Hemoglobin A1c last recorded at 6.1%, previously at 5.9%. - Previous echocardiogram showed a widened blood vessel, last performed in December. Plan Patient was informed and verbally consented to the use of an ambient scribe for clinic note documentation during this visit. 1. Essential Hypertension Continues on metoprolol and lisinopril therapy. Instructed on regular home monitoring of blood pressure with a target of < 140/90 mmHg at home. Follow-up recommended in three months with blood work. 2. Shoulder Pain Suggested using heating pads and considering exercises or physical therapy. A dvised to monitor pain and re-evaluate if symptoms worsen. 3. Gastroesophageal Reflux Disease Gerd Lifestyle modifications to include dietary adjustments and weight management. Medication regimen maintained. 4. Status Post Mitral Valve Replacement Continues anticoagulation therapy, requiring periodic INR monitoring. Echocardiogram scheduled before January appointment. 5. Anxiety Acknowledged patient anxiety and provided reassurance regarding current management approach. 6. Impaired Glucose Tolerance Continued monitoring and control of diet and exercise are crucial. Discussed the importance of managing carbohydrate intake and increasing physical activity to prevent progression to diabetes. Discussion Notes I discussed with the patient the progression in his hemoglobin A1c levels and stressed the importance of lifestyle changes to prevent further rise. The patient was advised on portion control and physical activity to manage blood glucose levels effectively. We reviewed the current management of his blood pressure and confirmed that his readings, while slightly elevated here, would be best monitored at home. The need for consistent medication and lifestyle adjustments for hypertension control was discussed. For the shoulder pain, I explained the possible tendon inflammation and encouraged continued monitoring, with potential options for therapies or orthopedic consultation if needed. Discussion on ensuring all health maintenance activities were up to date, including his echocardiogram and blood work. Addressed his concerns about anxiety and reiterated the importance of mental well-being during his travels. I ensured that the patient understood all aspects of his care plan and was agreeable to the outlined steps. Patient Instructions - Monitor your blood glucose and blood pressure at home regularly. - Maintain a balanced diet; try to avoid high carbohydrates and sugar and include portion control. - Increase physical activity, such as walking, to help with weight management and overall health. - Use heating pads to ease shoulder pain, and be mindful of movements that exacerbate the pain. - Follow-up with your podiatry appointment as scheduled. - Return for follow-up blood work and echocardiogram as will be scheduled for December. - Be cautious during flu season and follow respiratory hygiene to avoid infections. - Contact the office if your blood pressure consistently exceeds 140/90 mmHg or if shoulder pain worsens. Orders: Orders Complete Blood Count Auto Diff 3 Months I10 - Essential (primary) hypertension Comprehensive Met. Panel 3 Months I10 - Essential (primary) hypertension Free T4 (Free Thyroxine) 3 Months I10 - Essential (primary) hypertension Lipid Panel 3 Months E78.00 - Pure hypercholesterolemia, unspecified, I10 - Essential (primary) hypertension Thyroid Stimulating Hormone 3 Months I10 - Essential (primary) hypertension Vitamin B12 and Folate 3 Months I10 - Essential (primary) hypertension Hemoglobin A1c 3 Months I10 - Essential (primary) hypertension AMB Hemoglobin A1c Today Z13.9 - Encounter for screening, unspecified Prostate Specific Antigen Scr 3 Months I10 - Essential (primary) hypertension Medications: New blood pressure monitor (Blood Pressure Kit) As directed 1 ea 0RF I10 - Essential (primary) hypertension, I77.810 - Thoracic aortic ectasia Refilled alprazolam 0.25 mg PO DAILY PRN 10 tabs 0RF anxiety M20.41 - Other hammer toe(s) (acquired), right foot
--- OUTSIDE RECORDS SUMMARY | 2024-09-26 10:25 | XMS_ITS | Clinical Summary ---
Author Organization [facility] Facility Address [address] [place] [address] Care Team Providers Care Medical Lead Name Role Phone Juan David Samaniego MD Primary Care Provider [phone] Allergies No known active allergies Medications aspirin [...] (#1) 2024 Insurance MEDICAID MEDICAID Care Teams Medical Lead Relationship Specialty Start Date End Date Juan David Samaniego MD [address] [place] PCP - General Cardiology 12/03/20
--- OUTSIDE RECORDS SUMMARY | 2024-09-26 10:25 | XMS_ITS | Clinical Summary ---
Author Organization [address] [facility] Address [address] [place] [address] Phone Care Team Providers Care Community Nurse Name Role Phone Kuldip Pendleton MD Primary Care Provider [phone] Social History Tobacco Use Types Packs/Day Years Used Date Smoking Tobacco: Never Assessed Sex and Gender Information Value Date Recorded Sex Assigned at Not on file Legal Sex Male 6:57 AM EST Gender Identity Not on file Sexual Orientation Not on file Plan of Treatment Upcoming Encounters Date Type Department Care Team ([facility] Contact Info) Description 09/27/2024 9:30 AM EST Office Visit Orthopedic Surgery - [place] [id number] [id number] Bogdan Linn, DPM [address] [address] Health Maintenance Due Date Last Done Comments [...] 06/13/2024 Social Influencers of Health Screening 06/13/2024 RSV Immunization Patients 60 + Years Old (1 - 1-dose 75+ series) 2040 HIB Vaccines Aged Out No longer eligi [...] patient's age to complete this topic Insurance [facility] [place] [address] Care Teams Community Nurse Relationship Specialty Start Date End Date Kuldip Pendleton MD [address] [place] [address] [address] [facility] [place] [address] PCP - General Internal Medicine 06/13/24
== END 2024-09-26 10:19 | disposition home or self-care (01) ==
PROVIDERS: PCP Internal Medicine; Visit Provider Internal Medicine
DX: I10 Essential (primary) hypertension (principal); I77.810 Thoracic aortic ectasia; E66.9 Obesity, unspecified; Z68.30 Body mass index [BMI] 30.0-30.9, adult; Z95.2 Presence of prosthetic heart valve; R73.02 Impaired glucose tolerance (oral); K21.9 Gastro-esophageal reflux disease without esophagitis; M75.21 Bicipital tendinitis, right shoulder; F41.1 Generalized anxiety disorder

== ENCOUNTER → 2024-09-26 09:35 | Outpatient (BNVA) | payer OTHER, SELFPAY | PROVIDERS: PCP Internal Medicine; Visit Provider Internal Medicine | DX: Z95.2 Presence of prosthetic heart valve (principal); I10 Essential (primary) hypertension; I77.810 Thoracic aortic ectasia; E66.9 Obesity, unspecified; R73.02 Impaired glucose tolerance (oral); K21.9 Gastro-esophageal reflux disease without esophagitis; M75.21 Bicipital tendinitis, right shoulder; F41.1 Generalized anxiety disorder | CPT/HCPCS: 83036; 99212 ==

== ENCOUNTER 2024-09-28 08:47 | Outpatient (AMB) | payer OTHER, SELFPAY ==
[2024-09-28 08:59] LABS: ~PT, ~INR - Anti Coag Clinic 2.3 (0.9-1.1)
--- NOTE | 2024-09-28 08:59 | MHC.OFFVISCO ---
Intake Intake Visit Reasons: Anticoagulation Allergies No Known Allergies [No Known Allergies*] Allergy (Verified 09/28/24 08:52) Medication List - Last Reconciled 09/28/24 by Jossie Robbins RN alprazolam 0.25 mg PO DAILY PRN blood pressure monitor (Blood Pressure Kit) As directed lisinopril 20 mg PO DAILY metoprolol tartrate 25 mg PO BID sildenafil 50 mg PO DAILY PRN warfarin 7.5 mg See Protocol PO DAILY 90 days Nursing Note INR 2.3-? out of therapeutic range of 2.5-3.5 Medications and supplements reviewed Patient status: pt states cortisone injection right foot yesterday Medications or supplements: no changes Diet: same Denies any signs and symptoms of bleeding or clotting or unusual bruising Bleeding, bruising, clotting discussed Nutritional guidance given: no greens for 2 days, eat reds to raise Dose: 10mg today then cont 5mg x 6, 7.5mg x1 F/U INR Date : 2 weeks? Patient verbalizing understanding of instructions given. 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
--- OUTSIDE RECORDS SUMMARY | 2024-09-28 09:30 | XMS_ITS | Clinical Summary ---
Author Organization [facility] Facility Address [address] [place] [address] Care Team Providers Care Hip Hop Dancer Name Role Phone Juan David Samaniego MD Primary Care Provider [phone] Allergies No known active allergies Medications aspirin [...] (#1) 2024 Insurance MEDICAID MEDICAID Care Teams Hip Hop Dancer Relationship Specialty Start Date End Date Juan David Samaniego MD [address] [place] PCP - General Cardiology 12/03/20
--- OUTSIDE RECORDS SUMMARY | 2024-09-28 09:30 | XMS_ITS | Encounter Summary ---
Author Organization [facility] Address [address] [place] [address] Care Team Providers Care Director Video Name Role Phone Kuldip Pendleton MD Primary Care Provider [phone] Reason for Visit * Reason Comments Consult Hammer toe right hernan t * Orthopedic (Routine) - Authorized Specialty Diagnoses / Procedures Referred By Contact Referred To Contact Podiatry / Orthopaedic Surgery Diagnoses Other hammer toe(s) (acquired), right foot Procedures AMB Referral to Podiatry Kuldip Pendleton MD [address] [place] [address] [address] [facility] [place] [address] Phone: tel: fax: Bogdan Linn DPM [address] [address] Phone: tel: fax: Referral ID Status Reason Start Date Expiration Date Visits Requested Visits Authorized [id number] Authorized Consult and Treat 06/13/2024 06/13/2025 1 1 Encounter Details Date Type Department Care Team (Late st Contact Info) Description 09/27/2024 9:30 AM EST Office Visit Orthopedic Surgery - [place] [address] [phone] Bogdan Linn DPM [address] [address] Dermatophytosis of nail (Primary Dx); Tinea pedis of right foot; Arthritis of right ankle; Acquired hammer toe of right foot; Hammer toe of left foot; Acquired hallux valgus of left foot; Acquired hallux valgus of right foot; Tendinitis of right ankle Social History Tobacco Use Types Packs/Day Years Used Date Smoking Tobacco: Never Assessed Sex and Gender Information Value Date Recorded Sex Assigned at Not on file Legal Sex Male 6:57 AM EST Gender Identity Not on file Sexual Orientation Not on file documented as of this encounter Last Filed Vital Signs Vital Sign Reading Time Taken Comments Blood Pressure - - Pulse - - Temperature - - Respiratory Rate - - Oxygen Saturation - - Inhaled Oxygen Concentration - - Weight 102 kg (224 lb) 09/27/2024 9:50 AM EST Height 182.9 cm (6') 09/27/2024 9:50 AM EST Body Mass Index 30.38 09/27/2024 9:50 AM EST documented in this encounter Ordered Prescriptions Prescription Sig Dispense Quantity Refills Last Filled Start Date End Date miconazole (Lotrimin AF) 2 % powder Apply topically 2 (two) times a day for 28 days. 70 g 3 09/27/2024 documented in this encounter Progress Notes * Bogdan Linn DPM - 09/27/2024 9:30 AM EST Last PCP visit:Referring MD: Kuldip Pendleton MD 06/13/2024 IDENTIFIER: Kacey is a 59 y.o. year old male who presents for consultation. CC: Foot pain HPI: Patient presents here multiple complaints he reports he is getting pain in his right foot is referred for evaluation has severe bunion and hammertoe contractures does not the most of the pain is in the back and his right foot denies trauma to either area does note that he does have itchiness and achiness of his skin as well as thickness of his nails who presents today with his present pain discomfort is a 7 out of 10 on a visual analog scale ROS: GENERAL: Pt denies nausea, fever, vomiting, chills, or shortness of breath. Pt in NAD. CARDIOLOGY: pt denies chest pain, palpitations LUNGS: pt denies shortness of breath MUSCULOSKELETAL: See HPI, otherwise no joint pain or swelling, back pain, or muscle pain. SKIN: see HPI, otherwise no lesions, rash or itching NEURO: No persistent headache, weakness or numbness The remainder of the review of systems is noncontributory PAST MEDICAL HISTORY: There is no problem list on file for this patient. Pneumonia obesity overweight GERD erectile dysfunction. Glucose intolerance anxiety COVID-19 hypertension SOCIAL HISTORY: Social History Tobacco Use Smoking status: Not on file Smokeless tobacco: Not on file Substance Use Topics Alcohol use: Not on file ACTIVE MEDICATIONS: No outpatient medications have been marked as taking for the 09/27/24 encounter (Office Visit) with Bogdan Linn DPM. ALLERGIES: No Known Allergies PHYSICAL EXAM: Visit Vitals Ht 1.829 m (72 ) Wt 102 kg (224 lb) BMI 30.38 kg/m?? BSA 2.24 m?? PODIATRIC EXAMINATION: GENERAL: Patient appears well nourished, with NAD. VASCULAR: Dorsalis pedis pulses are 2/4 bilaterally and Posterior tibial pulses are 2/4 bilaterally. Capillary filling time within normal limits the digits. No pallor on elevation or rubor on dependency. No varicosities. Denies rest pain or claudication pain. NEUROLOGICAL: Sharp/dull sensation intact, protective sensation intact 10/10 with 5.07 semmes yaya bilaterally, vibratory sensation with tuning fork intact to the tibial tuberosity. ORTHOPEDIC: Good muscle strength 5/5 of all flexors and extensors. Dorsi flexion of ankle ,10 degrees, plantar flexion WNL. No muscle atrophy. DERMATOLOGICAL:.And additional macerations with annular scaling both feet BIOMECHANICS: Ankle ROM WNL, STJ ROM pain on palpation crepitation right, MTJ ROM severe crepitation right mild crepitation left, 1st MPJ ROM severe. Severe hammertoe contractures 2 through 5 bilateral severe bunion deformity bilateral Irritation of extensor peroneus tertius right IMAGING: IMPRESSION: 1. Dermatophytosis of nail 2. Tinea pedis of right foot 3. Arthritis of right ankle 4. Acquired hammer toe of right foot 5. Hammer toe of left foot 6. Acquired hallux valgus of left foot 7. Acquired hallux valgus of right foot 8. Tendinitis of right ankle PLAN: Pt was seen and examined, history reviewed. X-rays ordered both feet 3 views Treatment options were discussed and reviewed including stretching exercises demonstrated for patient anti-inflammatory medications steroid injections orthotics and insoles Recommendations given for prefabricated insoles Referral offered physical therapy patient declined Prescription given for anti-inflammatory medication X-rays ordered and reviewed Lotrimin powder prescribed for dermatophytosis of nails and skin Follow-up in 4 to 6 weeks Injection of cervical interosseous ligament right subtalar joint was performed after consent was obtained. Risks and benefits discussed in detail with patient and include but are not limited to risk of infection risk of recurrence . Injection given of half cc 1% lidocaine half cc of Kenalog 40 Strapping padding performed right foot and ankle Bogdan Linn DPM documented in this encounter Plan of Treatment Upcoming Encounters Date Type Department Care Team (Late st Contact Info) Description 10/31/2024 9:30 AM EDT Office Visit Orthopedic Surgery - [place] [address] [phone] Bogdan Linn DPM [address] [address] documented as of this encounter Visit Diagnoses Diagnosis Dermatophytosis of nail- Primary Tinea pedis of right foot Arthritis of right ankle Acquired hammer toe of right foot Hammer toe of left foot Acquired hallux valgus of left foot Acquired hallux valgus of right foot Tendinitis of right ankle documented in this encounter Care Teams Director Video Relationship Specialty Start Date End Date Kuldip Pendleton MD [address] [place] [address] [address] [facility] [place] [address] PCP - General Internal Medicine 06/13/24 documented as of this encounter
--- OUTSIDE RECORDS SUMMARY | 2024-09-28 09:30 | XMS_ITS | Clinical Summary ---
Author Organization 175 [facility] Address 175 [place] [address] Phone Care Team Providers Care Tuck Pointer Helper Name Role Phone Kuldip Pendleton MD Primary Care Provider [phone] Allergies No known active allergies Medications miconazole (Lotrimin AF) 2 % powder Apply topically 2 (two) times a day for 28 days. 70 g 3 10/26/19 Active Encounters Date Type Department Care Team Description 09/27/2024 9:30 AM EST Office Visit Orthopedic Surgery [facility] [address] [phone] Bogdan Linn, DPM Dermatophytosis of nail (Primary Dx); Tinea pedis of right foot; Arthritis of right ankle; Acquired hammer toe of right foot; Hammer toe of left foot; Acquired hallux valgus of left foot; Acquired hallux valgus of right foot; Tendinitis of right ankle from Last 3 Months Social History Tobacco Use Types Packs/Day Years [...] Mass Index 30.38 09/27/2024 9:50 AM EST Plan of Treatment Upcoming Encounters Date Type Department Care Team ([facility] st Contact Info) Description 10/31/2024 9:30 AM EDT Office Visit Orthopedic Surgery - [place] 250 175 [facility] 250 [place] [phone] Bogdan Linn, DPJackson [address] [address] Health Maintenance Due Date Last Done Comments Hepatitis B Vaccines (1 of 3 - 19+ 3-dose series) 1984 Zoster Vaccines (1 of 2) 2015 Pneumococcal Vaccine: 50+ Years (2 of 2 - PCV) 11/21/2020 11/22/2019 Cholesterol Screening (Lipid Panel) 06/13/2024 Colorectal Cancer Screening: Colonoscopy 06/13/2024 Depression Screening 06/13/2024 HIV Screening 06/13/2024 Hepatitis C Screening 06/13/2024 Social Influencers of Health Screening 06/13/2024 Hypertension/CHF/CAD Annual BMP Blood Test 09/27/2024 DTaP,Tdap,and Td Vaccines (2 - Td or Tdap) 10/10/2032 10/10/2022 RSV Immunization Patients 60+ Years Old (1 - 1-dose 75+ series) 2040 Pneumococcal Vaccine: Pediatrics (0 to 5 Years) and At-Risk Patients (6 to 64 Years) Aged Out 11/22/2019 No longer eligible based on patient's age to complete this topic Influenza Vaccine Completed 05/09/2024, , 05/10/2022, Additional history exists COVID-19 Vaccine Completed 06/17/2024, , 07/09/2021, Additional history exists HIB Vaccines Aged Out No longer eligi [...] to complete this topic RSV Immunization Patients Under 20 months Aged Out No longer eligible based on patient's age to complete this topic Varicella Vaccines Aged Out No longer eligible based on patient's age to complete this topic Insurance [facility] PL[facility] Care Teams Tuck Pointer Helper Relationship Specialty Start Date End Date Kuldip Pendleton MD [address] [place] [address] [address] [facility] [place] [address] PCP - General Internal Medicine 06/13/24
== END 2024-09-28 09:08 | disposition home or self-care (01) ==
LOC: HO.ACS 08:47
PROVIDERS: PCP Internal Medicine; Visit Provider Internal Medicine
DX: Z79.01 Long term (current) use of anticoagulants (principal)

== ENCOUNTER → 2024-09-28 08:47 | Outpatient (BNVA) | payer OTHER, SELFPAY | PROVIDERS: PCP Internal Medicine; Visit Provider Internal Medicine | DX: Z95.2 Presence of prosthetic heart valve (principal); Z79.01 Long term (current) use of anticoagulants; Z51.81 Encounter for therapeutic drug level monitoring | CPT/HCPCS: 85610; 99211 ==

== ENCOUNTER 2024-10-12 08:14 | Outpatient (AMB) | payer OTHER, SELFPAY ==
--- NOTE | 2024-10-12 08:31 | MHC.OFFVISCO ---
Intake Intake Visit Reasons: Anticoagulation Allergies No Known Allergies [No Known Allergies*] Allergy (Verified 10/12/24 08:28) Medication List - Last Reconciled 10/12/24 by Jossie Robbins RN alprazolam 0.25 mg PO DAILY PRN blood pressure monitor (Blood Pressure Kit) As directed lisinopril 20 mg PO DAILY metoprolol tartrate 25 mg PO BID sildenafil 50 mg PO DAILY PRN warfarin 7.5 mg See Protocol PO DAILY 90 days Nursing Note INR: 2.5- in therapeutic range of 2.5-3.5 Medications and supplements reviewed- no changes No changes in health, diet, medications, or supplements, Denies any signs and symptoms of bleeding or bruising or clotting. Bleeding, bruising, clotting discussed Nutritional guidance given - no greens for 2 days, eat reds to raise Dose: 5mg x 6, 7.5mg x 1 F/U INR: 2 weeks Patient verbalizes understanding of instructions given Anti-Coag Initial Assessment Social Hx Patient Tobacco Use Status: Never used Tobacco Tobacco use type: Cigarette alcohol intake: never Alcohol intake frequency: does not drink Coding Level of Care Code Est Patient Level 1 Diagnoses Current use of anticoagulant therapy Z79.01 Results AMB INR Fingerstick AMB INR Fingerstick 2.5 Last Edit by Jossie Robbins RN on 10/12/24 08:34 Assessment & Plan Assessment & Plan (1) Current use of anticoagulant therapy: Code(s): Z79.01 - oil heaterman (current) use of anticoagulants Category: Medical
[2024-10-12 08:33] LABS: Prothrombin Time Whole Bld POC 30.1 sec (11.1-13.5); ~PT, ~INR - Anti Coag Clinic 2.5 (0.9-1.1)
--- OUTSIDE RECORDS SUMMARY | 2024-10-12 08:36 | XMS_ITS | Encounter Summary ---
Author Organization [facility] Address [address] [place] [address] Care Team Providers Care Service Center Manager Name Role Phone Kuldip Pendleton MD Primary Care Provider [phone] Reason for Visit * Reason Comments Consult Hammer toe right hernan t * Orthopedic (Routine) - Closed Specialty Diagnoses / Procedures Referred By Contact Referred To Contact Podiatry / Orthopaedic Surgery Diagnoses Other hammer toe(s) (acquired), right foot Procedures AMB Referral to Podiatry Kuldip Pendleton MD [address] [place] [address] [address] [facility] [place] [address] Phone: tel: fax: Bogdan Linn DPM [address] [address] Phone: tel: fax: Referral ID Status Reason Start Date Expiration Date V isits Requested Visits Authorized [id number] Closed Consult and Treat 06/13/2024 06/13/2025 1 1 Encounter Details Date Type Department Care Team (Late st Contact Info) Description 09/27/2024 9:30 AM EST Office Visit Orthopedic Surgery - [place] [address] [phone] Bogdan Linn DPM [address] [address] Dermatophytosis of nail (Primary Dx); Tinea pedis [...] AM EDT Office Visit Orthopedic Surgery - [place] [address] [phone] Bogdan Linn DPM [address] [address] documented as of this encounter Visit Diagnoses Diagnosis Dermatophytosis of nail- Primary Tinea pedis of right foot Arthritis of right ankle Acquired hammer toe of right foot Hammer toe of left foot Acquired hallux valgus of left foot Acquired hallux valgus of right foot Tendinitis of right ankle documented in this encounter Care Teams Service Center Manager Relationship Specialty Start Date End Date Kuldip Pendleton MD [address] [place] [address] [address] [facility] [place] [address] PCP - General Internal Medicine 06/13/24 documented as of this encounter
--- OUTSIDE RECORDS SUMMARY | 2024-10-12 08:36 | XMS_ITS | Clinical Summary ---
Author Organization 175 [facility] Address 175 [place] [address] Phone Care Team Providers Care White Sugar Pan Tank Operator Name Role Phone Kuldip Pendleton MD Primary Care Provider Allergies No known active allergies Medications miconazole (Lotrimin AF) 2 % powder Apply topically 2 (two) times a day for 28 days. 70 g 3 10/26/19 Active Encounters Date Type Department Care Team Description 09/27/2024 9:30 AM EST Office Visit Orthopedic Surgery [facility] [address] [phone] Bogdan Linn, DPM Dermatophytosis of nail (Primary [...] Upcoming Encounters Date Type Department Care Team ([facility] st Contact Info) Description 10/31/2024 9:30 AM EDT Office Visit Orthopedic Surgery - [place] 250 175 [facility] 250 [place] [phone] Bogdan Linn, DPJackson [address] [address] Health Maintenance Due Date Last Done Comments [...] patient's age to complete this topic Insurance [facility] PLAN Care Teams White Sugar Pan Tank Operator Relationship Specialty Start Date End Date Kuldip Pendleton MD [address] [place] [address] [address] [facility] [place] [address] PCP - General Internal Medicine 06/13/24
--- OUTSIDE RECORDS SUMMARY | 2024-10-12 08:36 | XMS_ITS | Clinical Summary ---
Author Organization [facility] Address [address] [place] [address] Care Team Providers Care Manager School Name Role Phone Juan David Samaniego MD Primary Care Provider [phone] Allergies No known active allergies Medications aspirin [...] (#1) 2024 Insurance MEDICAID MEDICAID Care Teams Manager School Relationship Specialty Start Date End Date Juan David Samaniego MD [address] [place] PCP - General Cardiology 12/03/20
== END 2024-10-12 08:38 | disposition home or self-care (01) ==
LOC: HO.ACS 08:14
PROVIDERS: PCP Internal Medicine; Visit Provider Internal Medicine
DX: Z79.01 Long term (current) use of anticoagulants (principal)

== ENCOUNTER → 2024-10-12 08:14 | Outpatient (BNVA) | payer OTHER, SELFPAY | PROVIDERS: PCP Internal Medicine; Visit Provider Internal Medicine | DX: Z95.2 Presence of prosthetic heart valve (principal); Z79.01 Long term (current) use of anticoagulants; Z51.81 Encounter for therapeutic drug level monitoring | CPT/HCPCS: 85610; 99211 ==

== ENCOUNTER 2024-10-26 08:30 | Outpatient (AMB) | payer OTHER, SELFPAY ==
--- NOTE | 2024-10-26 08:45 | MHC.OFFVISCO ---
Intake Intake Visit Reasons: Anticoagulation Allergies No Known Allergies [No Known Allergies*] Allergy (Verified 10/26/24 08:34) Medication List - Last Reconciled 10/26/24 by Kamla Petersen RN alprazolam 0.25 mg PO DAILY PRN blood pressure monitor (Blood Pressure Kit) As directed lisinopril 20 mg PO DAILY metoprolol tartrate 25 mg PO BID sildenafil 50 mg PO DAILY PRN warfarin 7.5 mg See Protocol PO DAILY 90 days Nursing Note NO CP,SOB,DIET/MED CHANGES,FALLS OR SX OF BLEEDING. CONTINUE PRESENT DOSING And follow-up in 2 weeks. good understanding of dosing instr. Anti-Coag Initial Assessment Social Hx Patient Tobacco Use Status: Never used Tobacco Tobacco use type: Cigarette alcohol intake: never Alcohol intake frequency: does not drink Coding Level of Care Code Est Patient Level 1 Diagnoses Current use of anticoagulant therapy Z79.01 Results AMB INR Fingerstick AMB INR Fingerstick 2.5 Last Edit by Kamla Petersen RN on 10/26/24 08:43 Assessment & Plan Assessment & Plan (1) Current use of anticoagulant therapy: Code(s): Z79.01 - prison (current) use of anticoagulants Category: Medical
[2024-10-26 08:50] LABS: ~PT, ~INR - Anti Coag Clinic 2.5 (0.9-1.1)
--- OUTSIDE RECORDS SUMMARY | 2024-10-26 08:55 | XMS_ITS | Clinical Summary ---
Author Organization [facility] Address [address] [place] [address] Care Team Providers Care Technical Sales Specialist Name Role Phone Juan David Samaniego MD Primary Care Provider Allergies No known active allergies Medications aspirin [...] (#1) 2024 Insurance MEDICAID MEDICAID Care Teams Technical Sales Specialist Relationship Specialty Start Date End Date Juan David Samaniego MD [address] [place] PCP - General Cardiology 12/03/20
--- OUTSIDE RECORDS SUMMARY | 2024-10-26 08:55 | XMS_ITS | Encounter Summary ---
Author Organization [facility] Address [address] [place] [address] Care Team Providers Care Lacemaker Name Role Phone Kuldip Pendleton MD Primary Care Provider [phone] Reason for Visit * Reason Comments Consult Hammer toe right hernan t * Orthopedic (Routine) - Closed Specialty Diagnoses / Procedures Referred By Contact Referred To Contact Podiatry / Orthopaedic Surgery Diagnoses Other hammer toe(s) (acquired), right foot Procedures AMB Referral to Podiatry Kuldip Pendleton MD [address] [place] [address] [address] [facility] [place] [address] Phone: tel: fax: Bogdan Linn DPM [address] [address] Phone: tel: fax: Referral ID Status Reason Start Date Expiration Date V isits Requested Visits Authorized [id number] Closed Consult and Treat 06/13/2024 06/13/2025 1 1 Encounter Details Date Type Department Care Team (Late st Contact Info) Description 09/27/2024 9:30 AM EST Office Visit Orthopedic Surgery - [place] [address] [phone] Bogdan Linn DPM [address] [address] Dermatophytosis of nail (Primary Dx); Tinea pedis [...] AM EDT Office Visit Orthopedic Surgery - [place] [address] [phone] Bogdan Linn DPM [address] [address] documented as of this encounter Visit Diagnoses Diagnosis Dermatophytosis of nail- Primary Tinea pedis of right foot Arthritis of right ankle Acquired hammer toe of right foot Hammer toe of left foot Acquired hallux valgus of left foot Acquired hallux valgus of right foot Tendinitis of right ankle documented in this encounter Care Teams Lacemaker Relationship Specialty Start Date End Date Kuldip Pendleton MD [address] [place] [address] [address] [facility] [place] [address] PCP - General Internal Medicine 06/13/24 documented as of this encounter
--- OUTSIDE RECORDS SUMMARY | 2024-10-26 08:55 | XMS_ITS | Clinical Summary ---
Author Organization 175 [facility] Address 175 [place] [address] Phone Care Team Providers Care Bag Worker Name Role Phone Kuldip Pendleton MD Primary Care Provider Allergies No known active allergies Medications miconazole (Lotrimin AF) 2 % powder Apply topically 2 (two) times a day for 28 days. 70 g 3 10/26/19 25 Encounters Date Type Department Care Team Description 09/27/2024 9:30 AM EST Office Visit Orthopedic Surgery [facility] [address] [phone] Bogdan Linn, DPM Dermatophytosis of nail (Primary [...] Upcoming Encounters Date Type Department Care Team ([facility] st Contact Info) Description 10/31/2024 9:30 AM EDT Office Visit Orthopedic Surgery - [place] 250 175 [facility] 250 [place] [phone] Bogdan Linn, DPJackson [address] [address] Health Maintenance Due Date Last Done Comments [...] patient's age to complete this topic Insurance [facility] PLAN Care Teams Bag Worker Relationship Specialty Start Date End Date Kuldip Pendleton MD [address] [place] [address] [address] [facility] [place] [address] PCP - General Internal Medicine 06/13/24
== END 2024-10-26 08:50 | disposition home or self-care (01) ==
LOC: HO.ACS 08:30
PROVIDERS: PCP Internal Medicine; Visit Provider Internal Medicine Medical Oncology
DX: Z79.01 Long term (current) use of anticoagulants (principal)

== ENCOUNTER → 2024-10-26 08:30 | Outpatient (BNVA) | payer OTHER, SELFPAY | PROVIDERS: PCP Internal Medicine; Visit Provider Internal Medicine Medical Oncology | DX: Z95.2 Presence of prosthetic heart valve (principal); Z79.01 Long term (current) use of anticoagulants; Z51.81 Encounter for therapeutic drug level monitoring | CPT/HCPCS: 85610; 99211 ==

== ENCOUNTER 2024-11-09 08:25 | Outpatient (AMB) | payer OTHER, SELFPAY ==
--- NOTE | 2024-11-09 08:29 | MHC.OFFVISCO ---
Intake Intake Visit Reasons: Anticoagulation Allergies No Known Allergies [No Known Allergies*] Allergy (Verified 11/09/24 08:26) Medication List - Last Reconciled 11/09/24 by Jossie Robbins RN alprazolam 0.25 mg PO DAILY PRN blood pressure monitor (Blood Pressure Kit) As directed lisinopril 20 mg PO DAILY metoprolol tartrate 25 mg PO BID sildenafil 50 mg PO DAILY PRN warfarin 7.5 mg See Protocol PO DAILY 90 days Nursing Note INR: 3.0- in therapeutic range 2.5- 3.5 Medications and supplements reviewed- no changes No changes in health, diet, medications, or supplements, Denies any signs and symptoms of bleeding or bruising or clotting. Bleeding, bruising, clotting discussed Nutritional guidance given Dose: 7.5mg x 1. 5mg x 6 F/U INR: pt req 2 weeks Patient verbalizes understanding of instructions given Anti-Coag Initial Assessment Social Hx Patient Tobacco Use Status: Never used Tobacco Tobacco use type: Cigarette alcohol intake: never Alcohol intake frequency: does not drink Coding Level of Care Code Est Patient Level 1 Diagnoses Current use of anticoagulant therapy Z79.01 Results AMB INR Fingerstick AMB INR Fingerstick 3.0 Last Edit by Jossie Robbins RN on 11/09/24 08:31 interface delay Assessment & Plan Assessment & Plan (1) Current use of anticoagulant therapy: Code(s): Z79.01 - prison (current) use of anticoagulants Category: Medical
[2024-11-09 08:30] LABS: Prothrombin Time Whole Bld POC 35.6 sec (11.1-13.5)
--- OUTSIDE RECORDS SUMMARY | 2024-11-09 08:35 | XMS_ITS | Clinical Summary ---
Author Organization [facility] Facility Address [address] [place] [address] Care Team Providers Care Balloon Tester Name Role Phone Juan David Samaniego MD Primary Care Provider [phone] Allergies No known active allergies Medications aspirin [...] Colorectal Cancer Screening: Sigmoidoscopy 2014 Influenza Vaccine (Season Ended) 2025 Insurance MEDICAID MEDICAID Care Teams Balloon Tester Relationship Specialty Start Date End Date Juan David Samaniego MD [address] [place] PCP - General Cardiology 12/03/20
--- OUTSIDE RECORDS SUMMARY | 2024-11-09 08:35 | XMS_ITS | Clinical Summary ---
Author Organization 175 [facility] Address 175 [place] [address] Phone Care Team Providers Care Clerical Adjuster Name Role Phone Kuldip Pendleton MD Primary Care Provider [phone] Allergies No known active allergies Medications miconazole (Lotrimin AF) 2 % powder Apply topically 2 (two) times a day for 28 days. 70 g 3 10/26/19 Encounters Date Type Department Care Team Description 10/31/2024 9:30 AM EDT Office Visit Orthopedic Surgery [place] [address] [phone] Bogdan Linn DPM Arthritis of right ankle (Primary Dx); Follow-up exam; Dermatophytosis of nail; Tendinitis of right ankle 09/27/2024 9:30 AM EST Office Visit [place] [address] [phone] Bogdan [place]inn DPM Dermatophytosis of nail (Primary Dx); Tinea [...] Upcoming Encounters Date Type Department Care Team ([facility] st Contact Info) Description 02/06/2025 9:45 AM EDT Office Visit Orthopedic Surgery - [place] [address] [phone] Bogdan [place]inn, DPM [address] [address] Health Maintenance Due Date Last Done Comments [...] Td or Tdap) 10/10/2032 10/10/2022 RSV Immunization Adult Patients (1 - 1-dose 75+ series) 2040 Pneumococcal [...] age to complete this topic Meningococcal B Vaccine Aged Out No l onger eligible based on patient's age to complete this topic RSV Immunization Patients Under 20 months Aged Out No longer eligible based on patient's age to complete this topic Varicella Vaccines Aged Out No longer eligible based on patient's age to complete this topic Procedures Procedure Name Priority Date/Time Associated Diagnosis Comments XR FOOT 3+ VIEWS BILAT Routine 10/31/2024 9:43 AM EDT Follow-up exam from Last 3 Months Results * XR Foot 3+ Views bilat (10/31/2024 9:43 AM EDT) Anatomical Region Laterality Modality Lower Extremities, Foot Bilateral Computed Radiography Narrative 10/31/2024 12:05 PM EDT Right foot ??3 views Severe bunion deformity with increased intermetatarsal angulation Severe hammertoe contractures 2 through 5 right foot joint spaces 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 Left foot 3 views No fracture. No radiopaque foreign joint spaces mild arthritis Moderate to severe hammertoe contractures of the lesser digits Foot position Pes planus with Talus navicular uncovering decreased calcaneal inclination anterior displaced symes line talus navicular joint to calcaneal cuboid joint ?? Bogdan CONCEPCIONM IMG XR PROCEDURES Final R esult from Last 3 Months Insurance [facility] Care Teams Clerical Adjuster Relationship Specialty Start Date End Date Kuldip Pendleton MD [address] [place] [address] [address] [facility] [place] [address] PCP - General Internal Medicine 06/13/24
== END 2024-11-09 08:34 | disposition home or self-care (01) ==
LOC: HO.ACS 08:25
PROVIDERS: PCP Internal Medicine; Visit Provider Internal Medicine Medical Oncology
DX: Z79.01 Long term (current) use of anticoagulants (principal)

== ENCOUNTER → 2024-11-09 08:25 | Outpatient (BNVA) | payer OTHER, SELFPAY | PROVIDERS: PCP Internal Medicine; Visit Provider Internal Medicine Medical Oncology | DX: Z95.2 Presence of prosthetic heart valve (principal); Z79.01 Long term (current) use of anticoagulants; Z51.81 Encounter for therapeutic drug level monitoring | CPT/HCPCS: 85610; 99211 ==

== ENCOUNTER 2024-11-23 08:21 | Outpatient (AMB) | payer OTHER, SELFPAY ==
--- NOTE | 2024-11-23 08:32 | MHC.OFFVISCO ---
Intake Intake Visit Reasons: Anticoagulation Allergies No Known Allergies [No Known Allergies*] Allergy (Verified 11/23/24 08:29) Medication List - Last Reconciled 11/23/24 by Jossie Robbins RN alprazolam 0.25 mg PO DAILY PRN blood pressure monitor (Blood Pressure Kit) As directed lisinopril 20 mg PO DAILY metoprolol tartrate 25 mg PO BID sildenafil 50 mg PO DAILY PRN warfarin 7.5 mg See Protocol PO DAILY 90 days Nursing Note INR: 3.0- in therapeutic range of 2.5-3.5 Medications and supplements reviewed No changes in health, diet, medications, or supplements, Denies any signs and symptoms of bleeding or bruising or clotting. Bleeding, bruising, clotting discussed Nutritional guidance given Dose: 5mg x 6, 7.5mg x 1 F/U INR: 2 weeks Patient verbalizes understanding of instructions given Anti-Coag Initial Assessment Social Hx Patient Tobacco Use Status: Never used Tobacco Tobacco use type: Cigarette alcohol intake: never Alcohol intake frequency: does not drink Coding Level of Care Code Est Patient Level 1 Diagnoses Current use of anticoagulant therapy Z79.01 Results AMB INR Fingerstick AMB INR Fingerstick 3.0 Last Edit by Jossie Robbins RN on 11/23/24 08:34 interface delay Assessment & Plan Assessment & Plan (1) Current use of anticoagulant therapy: Code(s): 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
--- OUTSIDE RECORDS SUMMARY | 2024-11-23 08:37 | XMS_ITS | Clinical Summary ---
Author Organization [facility] Facility Address [address] [place] [address] Care Team Providers Care Stocking And Box Shop Supervisor Name Role Phone Juan David Samaniego MD Primary Care Provider [phone] Allergies No known active allergies Medications aspirin [...] Due Date Last Done Comments Hepatitis B Vaccine (1 of 3 - 19+ 3-dose series) 09/24 Pneumococcal Vaccine: 50+ Years (1 of 2 - PCV) 985 Colorectal Cancer Screening: Annual FOBT 2014 Colorectal Cancer Screening: Colonoscopy 2014 Colorectal Cancer Screening: Sigmoidoscopy 2014 Influenza Vaccine (Season Ended) 2025 Insurance Medicaid Medicaid Care Teams Stocking And Box Shop Supervisor Relationship Specialty Start Date End Date Juan David Samaniego MD [address] [place] [address] PCP - General Cardiology 12/03/20
--- OUTSIDE RECORDS SUMMARY | 2024-11-23 08:37 | XMS_ITS | Clinical Summary ---
Author Organization 175 [facility] Address 175 [place] [address] Phone Care Team Providers Care Industrial Equipment Mechanic Name Role Phone Kuldip Pendleton MD Primary Care Provider [phone] Allergies No known active allergies Medications miconazole (Lotrimin AF) 2 % powder Apply topically 2 (two) times a day for 28 days. 70 g 3 10/26/19 25 Encounters Date Type Department Care Team Description 10/31/2024 9:30 AM EDT Office Visit Orthopedic Surgery [place] [address] [phone] Bogdan [place] DPM Arthritis of right ankle (Primary Dx); Follow-up exam; Dermatophytosis of nail; Tendinitis of right ankle 09/27/2024 9:30 AM EST Office Visit [place] [address] [phone] Bogdan [place] DPM Dermatophytosis of nail (Primary [...] Upcoming Encounters Date Type Department Care Team ([facility] st Contact Info) Description 02/06/2025 9:45 AM EDT Office Visit Orthopedic Surgery - [place] [address] [phone] Bogdan [place], DPM [address] [address] Health Maintenance Due Date Last Done Comments [...] R esult from Last 3 Months Insurance [facility] Care Teams Industrial Equipment Mechanic Relationship Specialty Start Date End Date Kuldip Pendleton MD [address] [place] [address] [address] [facility] [place] [address] PCP - General Internal Medicine 06/13/24
== END 2024-11-23 08:53 | disposition home or self-care (01) ==
LOC: HO.ACS 08:21
PROVIDERS: PCP Internal Medicine; Visit Provider Internal Medicine Medical Oncology
DX: Z79.01 Long term (current) use of anticoagulants (principal)

== ENCOUNTER → 2024-11-23 08:21 | Outpatient (BNVA) | payer OTHER, SELFPAY | PROVIDERS: PCP Internal Medicine; Visit Provider Internal Medicine Medical Oncology | DX: Z95.2 Presence of prosthetic heart valve (principal); Z79.01 Long term (current) use of anticoagulants; Z51.81 Encounter for therapeutic drug level monitoring | CPT/HCPCS: 85610; 99211 ==

== ENCOUNTER 2024-12-07 08:29 | Outpatient (AMB) | payer OTHER, SELFPAY ==
--- OUTSIDE RECORDS SUMMARY | 2024-12-07 08:43 | XMS_ITS | Clinical Summary ---
Author Organization 175 [facility] Address 175 [place] [address] Phone Care Team Providers Care Ply Cutter Name Role Phone Kuldip Pendleton MD Primary Care Provider [phone] Allergies No known active allergies Medications No known medications Encounters Date Type Department Care Team Description 10/31/2024 9:30 AM EDT Office Visit Orthopedic Surgery [place] [address] [phone] Bogdan [place] DPM Arthritis of right ankle (Primary Dx); Follow-up exam; Dermatophytosis of nail; Tendinitis of right ankle 09/27/2024 9:30 AM EST Office Visit Orthopedic Surgery [facility] [address] [phone] Bogdan [place] DPM Dermatophytosis of nail (Primary [...] Care Team (Late st Contact Info) Description 02/06/2025 9:45 AM EDT Office Visit Orthopedic Surgery - [place] 250 175 [facility] 250 [place] [phone] Bogdan [place], DPM [address] [address] Health Maintenance Due Date Last Done Comments [...] joint to calcaneal cuboid joint ?? Bogdan Linn DPM IMG XR PROCEDURES Final R esult from Last 3 Months Insurance [facility] Care Teams Ply Cutter Relationship Specialty Start Date End Date Kuldip Pendleton MD [address] [place] [address] [address] [facility] [place] [address] PCP - General Internal Medicine 06/13/24
--- OUTSIDE RECORDS SUMMARY | 2024-12-07 08:43 | XMS_ITS | Clinical Summary ---
Author Organization [facility] Facility Address [address] [place] [address] Care Team Providers Care Heat Curer Name Role Phone Juan David Samaniego MD Primary Care Provider [phone] Allergies No known active allergies Medications aspirin [...] Ended) 2025 Insurance Medicaid Medicaid Care Teams Heat Curer Relationship Specialty Start Date End Date Juan David Samaniego MD [address] [place] [address] PCP - General Cardiology 12/03/20
--- NOTE | 2024-12-07 08:44 | MHC.OFFVISCO ---
Intake Intake Visit Reasons: Anticoagulation Allergies No Known Allergies [No Known Allergies*] Allergy (Verified 12/07/24 08:40) Medication List - Last Reconciled 12/07/24 by Jossie Robbins RN alprazolam 0.25 mg PO DAILY PRN blood pressure monitor (Blood Pressure Kit) As directed lisinopril 20 mg PO DAILY metoprolol tartrate 25 mg PO BID sildenafil 50 mg PO DAILY PRN warfarin 7.5 mg See Protocol PO DAILY 90 days Nursing Note INR: 3.0- in therapeutic range 2.5-3.5 Medications and supplements reviewed No changes in health, diet, medications, or supplements, Denies any signs and symptoms of bleeding or bruising or clotting. Bleeding, bruising, clotting discussed Nutritional guidance given Dose: 7.5mg x 1. 5mg x 6 F/U INR: pt req 3 weeks pt has home coag meter and was enc to call acs with any questions/issues Patient verbalizes understanding of instructions given Anti-Coag Initial Assessment Social Hx Patient Tobacco Use Status: Never used Tobacco Tobacco use type: Cigarette alcohol intake: never Alcohol intake frequency: does not drink Coding Level of Care Code Est Patient Level 1 Diagnoses Current use of anticoagulant therapy Z79.01 Results AMB INR Fingerstick AMB INR Fingerstick 3.0 Last Edit by Jossie Robbins RN on 12/07/24 08:46 interface delay Assessment & Plan Assessment & Plan (1) Current use of anticoagulant therapy: Code(s): Z79.01 - penitentiary (current) use of anticoagulants Category: Medical
[2024-12-07 08:46] LABS: Prothrombin Time Whole Bld POC 35.9 sec (11.1-13.5)
== END 2024-12-07 08:51 | disposition home or self-care (01) ==
LOC: HO.ACS 08:29
PROVIDERS: PCP Internal Medicine; Visit Provider Internal Medicine Medical Oncology
DX: Z79.01 Long term (current) use of anticoagulants (principal)

== ENCOUNTER → 2024-12-07 08:29 | Outpatient (BNVA) | payer OTHER, SELFPAY | PROVIDERS: PCP Internal Medicine; Visit Provider Internal Medicine Medical Oncology | DX: Z95.2 Presence of prosthetic heart valve (principal); Z51.81 Encounter for therapeutic drug level monitoring; Z79.01 Long term (current) use of anticoagulants | CPT/HCPCS: 85610; 99211 ==

== ENCOUNTER → 2024-12-15 09:43 | Outpatient (REF) | payer OTHER, SELFPAY ==
--- NOTE | 2024-12-15 09:45 | CA_ITS ---
Transthoracic Echocardiogram Patient (Last, First, Middle): Cinda Erazo, Gender: Male Date of : 1965 Age: 59 Procedure Date: 12/15/2024 Procedure Type: Transthoracic Echocardiogram Location: OP Height: 182.88 cm Weight: 101.61 kg BSA: 2.24 m2 Heart Rate: 70 bpm BP: 152 / 78 mmHg Silver Service Waiter: SB/RC Referring MD: Juan David Samaniego MD Tank Car Loader: Juan Daivd Samaniego MD Symptoms: Z95.2 - Presence of prosthetic heart valve Study Quality: Adequate w contrast ECG Rhythm: Sinus Conclusions: - 1. Normal LV ejection fraction of 60 65% with moderate LVH 2. Moderately dilated left atrium 3. Normally functioning mechanical mitral prosthesis with mean gradient of 8 mm Hg 4. Mildly dilated ascending aorta 5. No gross pericardial effusion Findings Procedure Information Contrast agent, definity, is being given per protocol without apparent complications. Left Ventricle Normal left ventricular size and systolic function. There is moderately increased left ventricular wall thickness. The visually estimated ejection fraction is between 60-65%. There is paradoxical septal motion consistent with post-operative status. Diastolic function is indeterminate on the basis of available data. Right Ventricle Normal right ventricular cavity size and systolic function. Atria The left atrium is moderately dilated. There is no evidence of interatrial shunt. The right atrium is normal in size. Aortic Valve Normal aortic valve structure and function. There is no aortic valve stenosis. There is no aortic valve regurgitation. Mitral Valve A mechanical prosthetic mitral valve is present. mean gradient across the mitral valve appears to be mildly elevated 8 mm Hg although overall leaflet mobility appears to be preserved Pulmonic Valve The pulmonic valve is likely normal. There is trace to mild pulmonic valve regurgitation. Tricuspid Valve Normal tricuspid valve structure. There is trace tricuspid valve regurgitation. Tricuspid regurgitation envelope is inadequate for calculation of right ventricular systolic pressure. Normal right atrial pressure. Great Vessels The pulmonary artery was not well visualized. There is mild dilatation of the ascending aorta measuring 4.10 cm. Venous The inferior vena cava is normal in size and collapses greater than 50% with inspiration. Pericardium/Pleural There is no evidence of pericardial effusion. Prior Study Comparison No significant change compared to prior study dated: 12/21/2023. Measurements 2D Linear Measurements IVSd: 1.48 0.6-0.9/0.6-1.0 cm LVIDd: 4.99 3.9-5.3/4.2-5.9 cm LVIDd Index: 2.23 2.4-3.2/2.2-3.1 cm/m2 LVIDs: 3.43 2.0-3.6 cm LVPWd: 1.50 0.7-1.1 cm LA Diam: 5.90 2.7-3.8/3.0-4.0 cm LAIDs Index: 2.63 1.5-2.3 cm/m2 LV Mass: 397.29 67-162/88-224 g LV Mass Index: 177.36 43-95/49-115 g/m2 LVOT Diam: 2.40 3.0+(-)1.3 cm 2D Systolic Function EF 4C: 63.20 >55% EF 2C: 64.80 >55% EF BiP: 63.70 >55% Mitral Valve MV VTI: 0.73 MV Pk Stewart: 2.19 MV Mn Stewart: 1.47 MV Pk Grad: 19.00 MV Mn Grad: 9.00 MV Pk E: 1.78 MV PK A: 1.53 MV Decel Time: 447.00 E/A: 1.20 PHT: 131.00 MVA PHT: 1.68 MVA Continuity: 1.31 Decel [place]: 3.98 Aortic Valve AoV Pk Stewart: 1.18 AoV Mn Stewart: 0.88 AoV VTI: 0.28 AoV Pk Grad: 6.00 Aov Mn Grad: 3.00 MINAL Cont.VTI: 3.39 LVOT LVOT Pk Stewart: 1.03 LVOT Mn Stewart: 0.79 LVOT VTI: 0.21 LVOT Pk Grad: 4.00 LVOT Mn Grad: 3.00 LVOT Diam: 2.40 LVOT Area: 4.52 Diastolic Function MV Pk E: 1.78 MV Pk A: 1.53 E/A: 1.20 Right Ventricle TAPSE (mm): 21.90 TVS' Stewart: 11.70 Tricuspid Valve RA Press: 3.00 Great Vessels Aorta Sinus of Valsalva: 4.10 2.0-3.5 cm Ao Asc: 4.10 2.1-3.4 cm Pulmonary Valve PV Pk Stewart: 1.10 Peak PV Grad: 5.00 Updated in Other Vendor System with Status of Final Juan David Aden MD electronically signed on 12/15/2024 6:50:35 PM with status of Final
--- OUTSIDE RECORDS SUMMARY | 2024-12-15 10:35 | XMS_ITS | Clinical Summary ---
Author Organization 175 [facility] Address 175 [place] [address] Phone Care Team Providers Care Nuclear Powerplant Mechanic Name Role Phone Kuldip Pendleton MD Primary Care Provider [phone] Allergies No known active allergies Medications No known medications Encounters Date Type Department Care Team Description 10/31/2024 9:30 AM EDT Office Visit Orthopedic Surgery [place] [address] [phone] Bogdan [place] DPM Arthritis of right ankle (Primary Dx); Follow-up exam; Dermatophytosis of nail; Tendinitis of right ankle 09/27/2024 9:30 AM EST Office Visit Orthopedic Surgery [facility] [address] [phone] Bogdan [place] DPM Dermatophytosis of nail (Primary [...] AM EDT Office Visit Orthopedic Surgery - [place] 250 175 [facility] 250 [place] [phone] Bogdan [place], DPM [address] [address] Health Maintenance Due Date Last Done Comments [...] R esult from Last 3 Months Insurance [facility] PLAN Care Teams Nuclear Powerplant Mechanic Relationship Specialty Start Date End Date Kuldip Pendleton MD [address] [place] [address] [address] [facility] [place] [address] PCP - General Internal Medicine 06/13/24
--- OUTSIDE RECORDS SUMMARY | 2024-12-15 10:35 | XMS_ITS | Clinical Summary ---
Author Organization [facility] Facility Address [address] [place] [address] Care Team Providers Care Material Distributor Name Role Phone Juan David Samaniego MD Primary Care Provider [phone] Allergies No known active allergies Medications aspirin [...] Ended) 2025 Insurance Medicaid Medicaid Care Teams Material Distributor Relationship Specialty Start Date End Date Juan David Samaniego MD [address] [place] [address] PCP - General Cardiology 12/03/20
== END ==
LOC: HO.CARD 09:43
PROVIDERS: PCP Internal Medicine; Visit Provider Internal Medicine Cardiovascular Disease
DX: Z95.2 Presence of prosthetic heart valve (principal)
CPT/HCPCS: 93306; Q9957

== ENCOUNTER → 2024-12-15 09:45 | Outpatient (BNV) | payer OTHER, SELFPAY | PROVIDERS: PCP Internal Medicine; Visit Provider Internal Medicine Cardiovascular Disease | DX: Z95.2 Presence of prosthetic heart valve (principal) | CPT/HCPCS: 93306 ==

== ENCOUNTER 2024-12-28 08:26 | Outpatient (AMB) | payer OTHER, SELFPAY ==
--- OUTSIDE RECORDS SUMMARY | 2024-12-28 08:43 | XMS_ITS | Clinical Summary ---
Author Organization 175 [facility] Address 175 [place] [address] Phone Care Team Providers Care Circular Knife Cutter Machine Name Role Phone Kuldip Pendleton MD Primary Care Provider [phone] Allergies No known active allergies Medications No known medications Encounters Date Type Department Care Team Description 10/31/2024 9:30 AM EDT Office Visit Orthopedic [facility] [address] [phone] Bogdan [place] DPM Arthritis of right ankle (Primary Dx); Follow-up exam; Dermatophytosis of nail; Tendinitis of right ankle from Last 3 [...] Upcoming Encounters Date Type Department Care Team ([facility] st Contact Info) Description 02/06/2025 9:45 AM EDT Office Visit Orthopedic [facility] [address] [phone] Bogdan [place] DPM [address] [address] Health Maintenance Due Date Last Done Comments [...] R esult from Last 3 Months Insurance [facility] Care Teams Circular Knife Cutter Machine Relationship Specialty Start Date End Date Kuldip Pendleton MD [address] [place] [address] Arabella Blackmon [facility] [place] [address] PCP - General Internal Medicine 06/13/24
[2024-12-28 08:56] LABS: Prothrombin Time Whole Bld POC 35.9 sec (11.1-13.5)
--- NOTE | 2024-12-28 08:59 | MHC.OFFVISCO ---
Intake Intake Visit Reasons: Anticoagulation Allergies No Known Allergies [No Known Allergies*] Allergy (Verified 12/28/24 08:42) Medication List - Last Reconciled 12/28/24 by Kamla Petersen RN alprazolam 0.25 mg PO DAILY PRN blood pressure monitor (Blood Pressure Kit) As directed lisinopril 20 mg PO DAILY metoprolol tartrate 25 mg PO BID sildenafil 50 mg PO DAILY PRN warfarin 7.5 mg See Protocol PO DAILY 90 days Nursing Note NO CP,SOB,DIET/MED CHANGESMFALLS OR SX OF BVLEEDING. CONTINUE PRESENT DOSE ANDF FOLLOW-UP IN 3 WEEKD. GHOOD UNDERSTANDING OF DOSING INSTR. Anti-Coag Initial Assessment Social Hx Patient Tobacco Use Status: Never used Tobacco Tobacco use type: Cigarette alcohol intake: never Alcohol intake frequency: does not drink Coding Level of Care Code Est Patient Level 1 Diagnoses Current use of anticoagulant therapy Z79.01 Assessment & Plan Assessment & Plan (1) Current use of anticoagulant therapy: Code(s): Z79.01 - 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
== END 2024-12-28 09:39 | disposition home or self-care (01) ==
LOC: HO.ACS 08:26
PROVIDERS: PCP Internal Medicine; Visit Provider Internal Medicine Medical Oncology
DX: Z79.01 Long term (current) use of anticoagulants (principal)

== ENCOUNTER → 2024-12-28 08:26 | Outpatient (BNVA) | payer OTHER, SELFPAY | PROVIDERS: PCP Internal Medicine; Visit Provider Internal Medicine Medical Oncology | DX: Z95.2 Presence of prosthetic heart valve (principal); Z79.01 Long term (current) use of anticoagulants; Z51.81 Encounter for therapeutic drug level monitoring | CPT/HCPCS: 85610; 99211 ==

== ENCOUNTER 2025-01-06 08:51 | Outpatient (AMB) | payer OTHER, SELFPAY ==
[2025-01-06 08:53] VITALS: BP 140/94; PULSE 67; O2SAT 96; BMI 29.7
--- NOTE | 2025-01-06 08:53 | A.OFFPC_ITS ---
Vital Signs 01/06/25 08:53 Height 6 ft Weight 219 lb 0.8 oz BMI 29.7 BP 140/94 H Blood Pressure Location Lt brachial Position Sitting Pulse 67 Pulse Source Pulse Oximeter Pulse Oximetry (%) 96 Oxygen Delivery Method Room Air Intake Visit Reasons: Annual Exam Concrete Engineer Required: No Accompanied by: Spouse Allergies No Known Allergies [No Known Allergies*] Allergy (Verified 01/06/25 09:05) Medication List - Last Reconciled 01/06/25 by Kuldip Pendleton MD alprazolam 0.25 mg PO DAILY PRN blood pressure monitor (Blood Pressure Kit) As directed lisinopril 20 mg PO DAILY metoprolol tartrate 25 mg PO BID sildenafil 50 mg PO DAILY PRN warfarin 7.5 mg See Protocol PO DAILY 90 days Tobacco use date assessed: 01/06/25 Dental Screening Dental Screen Date: 01/06/25 Did you have a dental visit in the last 12 months?: No Did you have a dental problem in the last 6 months where you did not have access to dental care?: No Was dental information given to patient?: Patient has dentist HPI Annual Exam HPI Details dizziness [facility] Medical History (Updated 01/06/25 @ 09:20 by Kuldip Pendleton MD) Obesity (BMI 30-39.9) Pneumonia Overweight (BMI 25.0-29.9) GERD (gastroesophageal reflux disease) Erectile dysfunction Obesity (BMI 30-39.9) Impaired glucose tolerance Anxiety COVID-19 HTN (hypertension) Surgical History Hx laparoscopic cholecystectomy H/O mitral valve replacement with mechanical valve H/O mitral valve repair Hx of varicose vein ligation and stripping H/O cardiac catheterization (~2019) Family History Father CVD (cardiovascular disease) Mother HTN (hypertension) CVD (cardiovascular disease) Diabetes Brother CVD (cardiovascular disease) Brother CVD (cardiovascular disease) Social History Household Members: Spouse Housing: House Are you a primary progressive care unit registered nurse to a significant other at home: No Do you presently have visiting nurse or other home services: No Alcohol intake: never Patient Tobacco Use Status: Never used Tobacco Tobacco use type: Cigarette e-Cigarette/Vaping Use: Never Used Second Hand Smoke Exposure: No service: No Current occupational status: employed Current occupation: Cognitive needs: No Hearing needs: No Vision needs: Yes (reading glasses) Questionnaire PHQ-9 Over the last 2 weeks, how often have you been bothered by any of the following problems? 1. Little interest or pleasure in doing things: not at all 2. Feeling down, depressed, or hopeless: not at all 3. Trouble falling or staying asleep, or sleeping too much: not at all 4. Feeling tired or having little energy: several days 5. Poor appetite or overeating: not at all 6. Feeling bad about yourself - or that you are a failure or have let yourself or your family down: not at all 7. Trouble concentrating on things, such as reading the newspaper or watching television: not at all 8. Moving or speaking so slowly that other people could have noticed. Or the opposite - being so fidgety or restless that you have been moving around a lot more than usual: not at all 9. Thoughts that you would be better off or of hurting yourself in some way: not at all Total score: 1 Depression Screening Interpretation: Positive Depression Screening Done: Yes Source: Developed by Drs. Jasper Hanna, Amber Cooper, Sumanth Zhang and colleagues, with an educational reuben from [employer]. Thrive Questionnaire Date Thrive assessed: 01/06/25 I am a: Patient What is your living situation today?: I have a steady place to live Within the past 12 months, did the food you bought not last and you didn't have the money to get more?: Never true Within the past 12 months, did you worry whether your food would run out before you got money to buy more?: Never true Do you have trouble paying for medicines?: No Do you have trouble getting transportation to medical appointments?: No Do you have trouble paying your heating and electricity bill?: No Do you have trouble taking care of your child, family member or friend?: No Do you have trouble with day-to-day activities such as bathing, preparing meals, shopping, managing finances, etc.?: No Are you currently unemployed and looking for a job?: No Are you interested in more education?: No Please select the resources that you would like help with: None Currently or been in a relationship where the following occur: No concerns reported THRIVE Score: 0 AUDIT C Alcohol Use Questionnaire (AUDIT-C) 1. How often do you have a drink containing alcohol?: Never 3. How often do you have six or more drinks on one occasion?: Never Total Score: 0 LISET-7 AMB Questionnaire LISET-7 Date LISET - 7 assessed: 01/06/25 Feeling nervous, anxious, or on edge: 0 = Not at all Not being able to stop or control worryin = Not at all Worrying too much about different things: 0 = Not at all Trouble relaxin = Not at all Being so restless that it is hard to sit still: 0 = Not at all Becoming easily annoyed or irritable: 0 = Not at all Feeling afraid as if something awful might happen: 0 = Not at all Total LISET-7 score (0-4 normal; 5-9 mild; 10-14 moderate; 15-21 severe): 0 Source: Developed by Drs. Jasper Hanna, Amber Cooper, Sumanth Zhang and colleagues, with an educational reuben from [employer]. Review of Systems Const Denies poor appetite and Denies weakness Eyes Denies no additional complaints ENT Reports Normal hearing present, Denies dizziness, Denies nasal congestion, Denies tinnitus and Denies sore throat Card Denies chest pain, Denies syncope, Denies rapid heart rate and Denies dyspnea Resp Denies cough and Denies dyspnea GI Denies change in stool character, Reports constipation, Denies diarrhea, Denies nausea and Denies vomiting Denies dysuria and Denies urinary frequency Neuro Reports Normal hearing present, Denies confusion, Denies dizziness, Denies syncope and Denies weakness Psych Denies confusion Physical exam (Primary Care) Vital Signs: Last Vital Signs Pulse 67 01/06/25 08:53 BP 140/94 H 01/06/25 08:53 Pulse Ox 96 01/06/25 08:53 Oxygen Delivery Method Room Air 01/06/25 08:53 BMI result Body Mass Index 29.7 Tobacco/Smoking Status: Tobacco use Status Tobacco use date assessed 01/06/25 01/06/25 08:57 Patient Tobacco Use Status Never used Tobacco 01/06/25 08:57 Tobacco use type Cigarette 01/06/25 08:57 e-Cigarette/Vaping Use Never Used 01/06/25 08:57 PHQ-9: PHQ-9 Score PHQ-9: Total score 1 01/06/25 09:21 Depression Screening Interpretation: Positive Thrive Assessment: Date of Thrive Assessment Date Thrive assessed 01/06/25 01/06/25 08:57 Currently or been in a relationship where the following occur: No concerns reported Const General: No confusion Orientation/consciousness: No confusion HENMT Head: Yes normocephalic Ears: external ears normal and TM's normal bilaterally Face and sinus: Yes normal facial exam Mouth: moist mucous membranes Throat: Yes tonsils normal Eyes Conjunctivae: conjunctivae normal Pupils: Equal, round and reactive pupils present and Pupil accommodation reflex normal Direct Ophthalmoscopy: normal light reflex Neck Neck: No lymphadenopathy Thyroid: Thyroid normal Chest Chest palpation & inspection: normal inspection of the chest Resp Effort & Inspection: normal respiratory effort and no audible wheezes Auscultation: clear to auscultation bilaterally, no crackles, no wheezes and lung sounds not diminished Cardio Rate: regular rate Rhythm: regular rhythm Peripheral pulses: radial pulses present and dorsalis pedis present GI Other: guaiac negative prostrate N Palpation (GI): no masses Auscultation: normal bowel sounds and normoactive bowel sounds Male General Exam: Yes normal external exam Skin General skin exam: no rashes or lesions noted Rashes: no rashes Neuro General: No confusion Cranial nerves: Yes Equal, round and reactive pupils present and Yes Normal hearing present Cognition (Neuro): normal cognition Gait exam (Neuro): Normal gait present Motor exam (neuro): 5/5 motor strength present throughout Deep tendon reflexes (DTR's): Right brachioradialis reflex intensity grade: 2+, Left brachioradialis reflex intensity grade: 2+, Right patellar reflex intensity grade: 2+ and Left patellar reflex intensity grade: 2+ Extrem General: No edema Coding Level of Care Code Est Pt Prev Care 40-64y(66736) Diagnoses Annual physical exam Z00.00 Ascending aorta dilatation I77.810 H/O mitral valve replacement with mechanical valve Z95.2 Impaired glucose tolerance R73.02 Gastroesophageal reflux disease without esophagitis K21.9 Esophagitis presence: without esophagitis Overweight (BMI 25.0-29.9) E66.3 Essential hypertension I10 Hypertension type: essential hypertension Generalized anxiety disorder F41.1 Assessment & Plan Assessment & Plan (1) Annual physical exam: Code(s): Z00.00 - Encounter for general adult medical examination without abnormal findings Category: Medical Plan: Patient is advised to eat healthy, keep well hydrated, keep active and have adequate sleep. (2) Ascending aorta dilatation: Comment: 12/21/2023 4.1 cm December 2024 4.1 Code(s): I77.810 - Thoracic aortic ectasia Category: Medical Plan: Continue to monitor but no changes since last year (3) H/O mitral valve replacement with mechanical valve: Comment: recurrent mitral regurgitation leading to [place] mitral valve replacement with 25 mm valve INR 2.5-3.5 Code(s): Z95.2 - Presence of prosthetic heart valve Category: Surgical Plan: Continue to monitor echocardiogram done December 2024 on anticoagulation (4) Impaired glucose tolerance: Code(s): R73.02 - Impaired glucose tolerance (oral) Category: Medical Plan: Decrease the amount of carbohydrate intake, pasta, bread, rice and potatoes are all sugar and that is aside from all the sweet stuff, remember that fruits are good but they are Sweet also. (5) GERD (gastroesophageal reflux disease): Code(s): K21.9 - Gastro-esophageal reflux disease without esophagitis Category: Medical Qualifiers: Esophagitis presence: without esophagitis Qualified Code(s): K21.9 - Gastro-esophageal reflux disease without esophagitis Plan: Avoid the foods that causes that usually spicy foods, tomato products, juices, coffee, soda and foods that your sensitive to. After eating do not lie down, allow 3-4 hours before in lie down. And keep the head of bed above 30 degrees to avoid the acid from going up. (6) Overweight (BMI 25.0-29.9): Code(s): E66.3 - Overweight Category: Medical Plan: Diet and exercise (7) HTN (hypertension): Code(s): I10 - Essential (primary) hypertension Category: Medical Qualifiers: Hypertension type: essential hypertension Qualified Code(s): I10 - Essential (primary) hypertension Plan: Continue with lisinopril 20 mg once a day metoprolol 25 mg twice a day (8) Generalized anxiety disorder: Code(s): F41.1 - Generalized anxiety disorder Category: Medical Plan: Continue with therapy as needed Plan History of Present Illness The patient is a 59-year-old male presenting with hypertension and for routine follow-up of chronic conditions. He has a history of a mechanical valve replacement and uses anticoagulant therapy as part of its management. His impaired glucose tolerance has been monitored with his hemoglobin A1c recorded at 6.1% in September, and he is not presently diagnosed with diabetes. The patient does not report any new symptoms like dizziness or shortness of breath, and his home blood pressure monitoring adherence has been suboptimal. Additionally, the patient maintains a history of GERD and generalized anxiety disorder, for which he uses medications as needed. He reports an echocardiogram revealing a mildly dilated ascending aorta, stable from the last assessment, measuring 4.1 cm. He engages in weight management by losing approximately 5 pounds and restricts his dietary salt intake as part of his management plan. Acknowledgment of a family history of significant cardiac issues supplements his healthcare focus. He is compliant with lisinopril and metoprolol dosages and adheres to regular wellness visits. Health Maintenance - Blood pressure monitoring at home with a goal of 120/80 mmHg. - Hemoglobin A1c monitoring; last recorded value was 6.1%. - Recommendation to maintain salt intake at a minimum level. - Continued weight management and exercise encouragement. - Discussion on shingles vaccination at a pharmacy; shingles vaccine recommended and effective. - Prior echocardiogram noted a mildly dilated ascending aorta at 4.1 cm, stable from last year. - Quarterly follow-up for anticoagulation management and routine blood work. Social History - Does not use alcohol, tobacco, or recreational drugs. - Has difficulty maintaining regular exercise but is encouraged to remain active. - Lost approximately 5 pounds through weight management efforts. - Reports no new changes in social conditions affecting health. Review of Systems - Cardiovascular: Denies chest pain, dyspnea on exertion, edema. - Neurological: Reports occasional dizziness; denies headaches, syncope. - Gastrointestinal: Denies dysphagia, heartburn, abdominal pain. - Respiratory: Denies shortness of breath, cough, wheezing. - Genitourinary: Denies hematuria, dysuria; nocturia reporting varies. - Musculoskeletal: Denies new pain or weakness. - Psychiatric: Anxiety disorder managed with medication as needed. Physical Exam General: Cooperative, healthy appearing, comfortable, no acute distress and well developed Orientation: Patient oriented x3 Limitations: No limitations Head: Normal to inspection Ears: Hearing grossly normal bilaterally Nose: Normal external nose present Face and sinus: Normal facial exam Eyes: Appearance normal, both eyes and all related structures Neck: Normal visual inspection and Yes full ROM Respiratory: Normal respiratory effort and able to speak in complete sentences. Clear to auscultation bilaterally Cardiovascular: Regular rate and rhythm. Normal S1 and S2 GI: Normal to inspection. Soft to palpation and nontender Skin: No rashes or lesions noted Neuro: Patient oriented x3 Extremities: Normal to inspection, some swelling noted due to a hit, antibiotic ointment applied. Results - Labs: Hemoglobin A1c was 6.1% in September. - Tests: Echocardiogram showed normal left ventricular ejection fraction and mildly dilated ascending aorta (4.1 cm). Plan For hypertension management, I recommended continuation of the current regimen with lisinopril and metoprolol, alongside improved adherence to home blood pressure monitoring, aiming for readings near 120/80 mmHg. Impaired glucose tolerance was discussed, focusing on preventing diabetes with dietary measures and regular hemoglobin A1c checks. Regular INR monitoring will continue for his anticoagulation regimen. Consideration for the shingles vaccine was advised, noting its effectiveness. Weight management efforts should be sustained, and salt intake should remain restricted. We will continue to monitor his mildly di lated ascending aorta, given current stability. Patient was informed and verbally consented to the use of an ambient scribe for clinic note documentation during this visit. Discussion Notes During our discussion, I emphasized the importance of home blood pressure monitoring to better manage the patient's hypertension and highlighted the long- term goal of achieving readings of 120/80 mmHg. We reviewed his glucose tolerance status and the significance of dietary control to remain below diabetes threshold levels. For anticoagulation management, the need for consistent INR checks was reaffirmed. I recommended the shingles vaccination, discussing its benefits and potential for mild post-vaccination symptoms. We also discussed the importance of weight loss and salt reduction in overall cardi ovascular health. Finally, the stability of the aortic dilation was discussed, with continued monitoring outlined as part of long-term management. Patient Instructions - Monitor blood pressure regularly at home and aim for a target reading of 120/80 mmHg. - Continue taking lisinopril and metoprolol as prescribed. - Watch your sugar levels and keep an eye on your A1c. - Stick to a low-salt diet and continue with weight loss efforts. - Discuss with your pharmacy about getting the shingles vaccine. - Follow up for regular INR checks to manage your medication for your mechanical heart valve. - Stay active and try to incorporate more physical activities into your routine. - Report any new symptoms to my office as soon as possible.
--- OUTSIDE RECORDS SUMMARY | 2025-01-06 09:07 | XMS_ITS | Clinical Summary ---
Author Organization [address] [facility] Address [address] [place] [address] Phone Care Team Providers Care Manager Costing Name Role Phone Kuldip Pendleton MD Primary Care Provider [phone] Allergies No known active allergies Medications No known medications Encounters Date Type Department Care Team Description 10/31/2024 9:30 AM EDT Office Visit [facility] [address] [address] Bogdan Linn DPM Arthritis of [...] Upcoming Encounters Date Type Department Care Team ([facility] st Contact Info) Description 02/06/2025 9:45 AM EDT Office Visit [facility] [address] [address] Bogdan Linn DPM [address] [address] Health Maintenance Due Date Last Done Comments [...] R esult from Last 3 Months Insurance [facility] [employer] Care Teams Manager Costing Relationship Specialty Start Date End Date Kuldip Pendleton MD [address] [place] [address] Arabella Blackmon [facility] [place] [address] PCP - General Internal Medicine 06/13/24
== END 2025-01-06 09:44 | disposition home or self-care (01) ==
LOC: HO.HMCH 08:52
PROVIDERS: PCP Internal Medicine; Visit Provider Internal Medicine
DX: Z00.00 Encounter for general adult medical examination without abnormal findings (principal); I77.810 Thoracic aortic ectasia; Z95.2 Presence of prosthetic heart valve; R73.02 Impaired glucose tolerance (oral); K21.9 Gastro-esophageal reflux disease without esophagitis; E66.3 Overweight; I10 Essential (primary) hypertension; F41.1 Generalized anxiety disorder

== ENCOUNTER → 2025-01-06 08:51 | Outpatient (BNVA) | payer OTHER, SELFPAY | PROVIDERS: PCP Internal Medicine; Visit Provider Internal Medicine | DX: Z00.00 Encounter for general adult medical examination without abnormal findings (principal); I77.810 Thoracic aortic ectasia; R73.02 Impaired glucose tolerance (oral); K21.9 Gastro-esophageal reflux disease without esophagitis; E66.3 Overweight; I10 Essential (primary) hypertension; F41.1 Generalized anxiety disorder; Z68.29 Body mass index [BMI] 29.0-29.9, adult; Z95.2 Presence of prosthetic heart valve | CPT/HCPCS: 99396 ==

== ENCOUNTER 2025-01-09 12:47 | Outpatient (AMB) | payer OTHER, SELFPAY ==
[2025-01-09 12:58] VITALS: BP 124/78; PULSE 62; BMI 29.6
--- NOTE | 2025-01-09 12:58 | A.OFFVIS_ITS ---
Vital Signs 01/09/25 12:58 Height 6 ft Weight 218 lb 4.122 oz BMI 29.6 BP 124/78 Blood Pressure Location Lt brachial Position Sitting Pulse 62 Intake Visit Reasons: 1 yr s/p echo Intake Note: 1 year follow-up with ekg feeling good Music Assistant Required: No Reproduction Order Processor: Reproduction Order Processor Present Accompanied by: Spouse Allergies No Known Allergies [No Known Allergies*] Allergy (Verified 01/06/25 09:05) Medication List - Last Reconciled 01/09/25 by Juan David Samaniego MD alprazolam 0.25 mg PO DAILY PRN blood pressure monitor (Blood Pressure Kit) As directed lisinopril 20 mg PO DAILY metoprolol tartrate 25 mg PO BID sildenafil 50 mg PO DAILY PRN warfarin 7.5 mg See Protocol PO DAILY 90 days HPI Comments Details: Cinda comes for follow-up, accompanied by his . Recent echocardiogram shows normally functioning mechanical mitral prosthesis with mildly enlarged thoracic aorta. was concerned about this enlarged thoracic aorta. He has no new symptoms. Denies any exertional chest pain or shortness of breath. Exercise on a regular basis. Blood pressure is generally well controlled at [facility] although last visit was elevated because he was anxious. Denies any prolonged palpitation irregular heartbeat. No bleeding issues or neurologic events. Warfarin is well managed as per him. [facility] Medical History Obesity (BMI 30-39.9) Pneumonia Overweight (BMI 25.0-29.9) GERD (gastroesophageal reflux disease) Erectile dysfunction Obesity (BMI 30-39.9) Impaired glucose tolerance Anxiety COVID-19 HTN (hypertension) Surgical History Hx laparoscopic cholecystectomy H/O mitral valve replacement with mechanical valve H/O mitral valve repair Hx of varicose vein ligation and stripping H/O cardiac catheterization (~2019) Family History Father CVD (cardiovascular disease) Mother HTN (hypertension) CVD (cardiovascular disease) Diabetes Brother CVD (cardiovascular disease) Brother CVD (cardiovascular disease) Social History Household Members: Spouse Housing: House Are you a primary medication care manager to a significant other at home: No Do you presently have visiting nurse or other home services: No Alcohol intake: never Patient Tobacco Use Status: Never used Tobacco Tobacco use type: Cigarette e-Cigarette/Vaping Use: Never Used Second Hand Smoke Exposure: No service: No Current occupational status: employed Current occupation: Cognitive needs: No Hearing needs: No Vision needs: Yes (reading glasses) Review of Systems Const Denies chills, Denies fatigue, Denies fever(s), Denies frequent falls, Denies weakness, Denies weight gain and Denies weight loss ENT Denies dizziness Card Denies chest pain, Denies leg edema, Denies lightheadedness, Denies palpitations, Denies dyspnea, Denies dyspnea on exertion, Denies orthopnea and Denies other (loss of consciousness) Resp Denies cough, Denies dyspnea and Denies dyspnea on exertion GI Denies hematochezia and Denies change in stool character Musc Denies abnormal gait, Denies muscle weakness, Denies numbness, Denies radiating pain into limb and Denies tingling Neuro Denies abnormal gait, Denies dizziness, Denies frequent falls, Denies numbness, Denies tingling and Denies weakness Endo Denies fatigue and Denies palpitations Physical Exam Vital Signs: Last Vital Signs Pulse 62 01/09/25 12:58 BP 124/78 01/09/25 12:58 BMI result Body Mass Index 29.6 Const General: cooperative, comfortable, no acute distress, alert, awake and well groomed Nutritional Appearance: obese Orientation/consciousness: patient oriented x3 Limitations: no limitations Neck Neck: Yes trachea midline, Yes supple and Yes no JVD Resp Effort & Inspection: normal respiratory effort Auscultation: clear to auscultation bilaterally Cardio Jugular venous distension: no JVD Palpation: normal PMI Rate: regular rate Rhythm: regular rhythm Heart sounds: S2 normal heart sound present and Other heart sounds present (Normal opening and closing click of [place] mitral valve) GI Inspection: Yes obesity Auscultation: normal bowel sounds Skin General skin exam: no rashes or lesions noted Neuro General: patient oriented x3 and no focal motor deficits Extrem General: Yes no clubbing, cyanosis or edema Psych Appearance: grossly normal Office Procedures EKG Details: EKG shows normal sinus rhythm with right axis deviation with poor R-wave progression due to lead placement [id number], Complete Assessment & Plan Assessment & Plan (1) H/O mitral valve replacement with mechanical valve: Comment: recurrent mitral regurgitation leading to [place] mitral valve replacement with 25 mm valve INR 2.5-3.5 Code(s): Z95.2 - Presence of prosthetic heart valve Category: Surgical Plan: Mechanical mitral valve in place, working well clinically as well as by recent echocardiogram. Continue warfarin therapy with target INR between 2.5 and 3.5 being followed by [facility]. SBE prophylaxis as per ACC/[facility] guidelines. (2) Ascending aorta dilatation: Comment: 12/21/2023 4.1 cm December 2024 4.1 Code(s): I77.810 - Thoracic aortic ectasia Category: Medical Plan: Mildly enlarged thoracic aorta suggestive of connective tissue disease of the heart given his prior history of mitral valve prolapse. We discussed about management. Continue aggressive blood pressure control which is currently well optimized. Advised to avoid sudden strenuous isometric exercise. Will continue monitor by echocardiogram on annual basis. No surgical interventions required at this point time. Continue participate in regular physical activity. Low- salt diet was discussed. Will follow up in the clinic in 1 year's time, sooner p.r.n.. Thank you for allowing me to partake in his care Coding Level of Care Code Est Pt Level 4 (47793) Complex EM visit Add On G2211 Diagnoses H/O mitral valve replacement with mechanical valve Z95.2 Ascending aorta dilatation I77.810 CPT Codes EKG - CPT: 40305-[id number], Complete ([id number])
--- OUTSIDE RECORDS SUMMARY | 2025-01-09 14:25 | XMS_ITS | Clinical Summary ---
Author Organization 175 [facility] Address 175 [place] [address] Phone Care Team Providers Care Semi Truck Driver Name Role Phone Kuldip Pendleton MD Primary Care Provider [phone] Allergies No known active allergies Medications No known medications Encounters Date Type Department Care Team Description 10/31/2024 9:30 AM EDT Office Visit Orthopedic [facility] [address] [phone] Bogdan Linn DPM Arthritis of [...] Upcoming Encounters Date Type Department Care Team ([facility] st Contact Info) Description 02/06/2025 9:45 AM EDT Office Visit Orthopedic [facility] [address] [phone] Bogdan Linn DPM [address] [address] Health Maintenance Due Date Last Done Comments [...] R esult from Last 3 Months Insurance [facility] PL[facility] Care Teams Semi Truck Driver Relationship Specialty Start Date End Date Kuldip Pendleton MD [address] [place] [address] Arablela Blackmon [facility] [place] [address] PCP - General Internal Medicine 06/13/24
== END 2025-01-09 13:26 | disposition home or self-care (01) ==
LOC: HO.HCS 12:48
PROVIDERS: PCP Internal Medicine; Visit Provider Internal Medicine Cardiovascular Disease
DX: Z95.2 Presence of prosthetic heart valve (principal); I77.810 Thoracic aortic ectasia
CPT/HCPCS: 93010; 99214; G2211

== ENCOUNTER → 2025-01-09 12:47 | Outpatient (BNVA) | payer OTHER, SELFPAY | PROVIDERS: PCP Internal Medicine; Visit Provider Internal Medicine Cardiovascular Disease | DX: Z95.2 Presence of prosthetic heart valve (principal); I77.810 Thoracic aortic ectasia | CPT/HCPCS: 93005; 99212 ==

== ENCOUNTER 2025-01-18 08:22 | Outpatient (AMB) | payer OTHER, SELFPAY ==
--- NOTE | 2025-01-18 08:36 | MHC.OFFVISCO ---
Intake Intake Visit Reasons: Anticoagulation Allergies No Known Allergies (No Known Allergies*) Allergy (Verified 01/18/25 08:32) Medication List - Last Reconciled 01/18/25 by Jossie Robbins RN alprazolam 0.25 mg PO DAILY PRN blood pressure monitor (Blood Pressure Kit) As directed lisinopril 20 mg PO DAILY metoprolol tartrate 25 mg PO BID sildenafil 50 mg PO DAILY PRN warfarin 7.5 mg See Protocol PO DAILY 90 days Nursing Note INR: 2.9- in therapeutic range of 2.5-3.5 Medications and supplements reviewed- no changes No changes in health, diet, medications, or supplements, Denies any signs and symptoms of bleeding or bruising or clotting. Bleeding, bruising, clotting discussed Nutritional guidance given Dose: cont reg dosing- 7.5mg x 1. 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
[2025-01-18 08:37] LABS: ~PT, ~INR - Anti Coag Clinic 2.9 (0.9-1.1)
--- OUTSIDE RECORDS SUMMARY | 2025-01-18 08:38 | XMS_ITS | Clinical Summary ---
Author Organization 175 [facility] Address 175 [place] [address] Phone Care Team Providers Care Systems Trainer Name Role Phone Kuldip Pendleton MD Primary Care Provider [phone] Allergies No known active allergies Medications No known medications Encounters Date Type Department Care Team Description 10/31/2024 9:30 AM EDT Office Visit Orthopedic [facility] [address] [phone] Bogdan Linn DPM Arthritis of [...] Upcoming Encounters Date Type Department Care Team ([facility] st Contact Info) Description 02/06/2025 9:45 AM EDT Office Visit Orthopedic [facility] [address] [address] Bogdan Linn DPM [address] [address] Health Maintenance Due Date Last Done Comments [...] Narrative 10/31/2024 12:05 PM EDT Right foot 3 views Severe bunion deformity with increased intermetatarsal angulation Severe hammertoe contractures 2 through 5 right foot joint spaces 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 No radiopaque foreign joint spaces mild arthritis Moderate to severe hammertoe contractures of the lesser digits Foot position Pes planus with Talus navicular uncovering decreased calcaneal inclination anterior displaced symes line talus navicular joint to calcaneal cuboid joint Bogdan Linn DPM IMG XR PROCEDURES Final R esult from Last 3 Months Insurance [facility] PLAN Care Teams Systems Trainer Relationship Specialty Start Date End Date Kuldip Pendleton MD [address] [place] [address] [address] [facility] [place] [address] PCP - General Internal Medicine 06/13/24
== END 2025-01-18 08:41 | disposition home or self-care (01) ==
LOC: HO.ACS 08:22
PROVIDERS: PCP Internal Medicine; Visit Provider Internal Medicine Medical Oncology
DX: Z79.01 Long term (current) use of anticoagulants (principal)

== ENCOUNTER → 2025-01-18 08:22 | Outpatient (BNVA) | payer OTHER, SELFPAY | PROVIDERS: PCP Internal Medicine; Visit Provider Internal Medicine Medical Oncology | DX: Z95.2 Presence of prosthetic heart valve (principal); Z79.01 Long term (current) use of anticoagulants; Z51.81 Encounter for therapeutic drug level monitoring | CPT/HCPCS: 85610; 99211 ==

== ENCOUNTER 2025-02-07 08:37 | Outpatient (AMB) | payer OTHER, SELFPAY ==
[2025-02-07 08:48] LABS: Prothrombin Time Whole Bld POC 49.6 sec (11.1-13.5); ~PT, ~INR - Anti Coag Clinic 4.1 (0.9-1.1)
--- OUTSIDE RECORDS SUMMARY | 2025-02-07 08:49 | XMS_ITS | Clinical Summary ---
Author Organization 175 [facility] Address 175 [place] [address] Phone Care Team Providers Care Weekend Caregiver Name Role Phone Kuldip Pendleton MD Primary Care Provider [phone] Allergies No known active allergies Medications miconazole (Lotrimin AF) 2 % powder Apply topically 2 (two) times a day for 28 days. 70 g 3 5 03/06/20 25 Active Encounters Date Type Department Care Team Description 02/06/2025 9:45 AM EDT Office Visit Orthopedic Surgery [facility] 250 175 [facility] [address] [place] [phone] Bogdan Linn, DPM Tinea pedis of both feet (Primary Dx); Dermatophytosis of nail; Tendinitis of right ankle; Arthritis of right ankle; Acquired hallux valgus of left foot; Acquired hallux valgus of right foot; Hammer toe of left foot; Acquired hammer toe of right foot from Last 3 Months Social History Tobacco [...] Care Team (Late st Contact Info) Description 04/11/2025 8:45 AM EDT Office Visit Orthopedic Surgery - [place] [address] [phone] Bogdan Linn, DPM [address] [address] Health Maintenance Due Date Last Done Comments [...] 06/13/2024 Hypertension/CHF/CAD Annual BMP Blood Test 09/27/2024 Influenza Vaccine (#1) 2025 , 05/20/2023, 05/10/2022, Additional history exists DTaP,Tdap,and Td Vaccines (2 - Td or Tdap) 10/10/2032 10/10/2022 RSV Immunization Adult Patients (1 - 1-dose 75+ series) 2040 COVID-19 Vaccine Completed 06/17/2024, , 07/09/2021, Additional [...] patient's age to complete this topic Insurance [facility] [place] [address] Care Teams Weekend Caregiver Relationship Specialty Start Date End Date Kuldip Pendleton MD [address] [place] [address] [address] [facility] [place] [address] PCP - General Internal Medicine 06/13/24
--- OUTSIDE RECORDS SUMMARY | 2025-02-07 08:49 | XMS_ITS | Clinical Summary ---
Author Organization [facility] Address [address] [place] [address] Care Team Providers Care Log Cut Off Sawyer Name Role Phone Juan David Samaniego MD Primary Care Provider [phone] Allergies No known active allergies Medications aspirin [...] Cancer Screening: Sigmoidoscopy 2014 Influenza Vaccine (#1) 2025 Insurance Medicaid Medicaid Care Teams Log Cut Off Sawyer Relationship Specialty Start Date End Date Juan David Samaniego MD [address] [place] [address] PCP - General Cardiology 12/03/20
--- OUTSIDE RECORDS SUMMARY | 2025-02-07 08:49 | XMS_ITS | Patient Health Record ---
Author Organization [facility] Address [address] [place] [address] Care Team Providers Care Electric Stop Installer Name Role Phone Kuldip Pendleton MD Primary Care Provider Jasper Blackman [phone] Reason For Referral No Information Medications Medication SIG (Take, Route, Frequency, Duration) Notes Start Date End Date Status Fish Oil 1000 MG 1 capsule Orally Onc e a day for 30 day(s) Active MiraLax (colon prep) 8.3 ounce ((238) grams mixed with Gatorade or Crystal Light orally begin at 5:00 p.m. the day before the procedure for 1 day 08/12/2018 Active Dulcolax (colon prep) 5 MG take at 3:00 p.m and 7:00p.m. Orally two tablets twice a day for one day for 1 day 08/12/2018 Active Lisinopril 2.5 MG TAKE 1 TABLET EVERY DAY Oral Once a day Active Aspirin Adult Low Dose 81 MG 1 tablet Orally Once a day for 30 day(s) Active Immunizations Vaccine Route Administration Date Status Comme nts Influenza Unknown 05/03/2018 Administered Social History Tobacco Use: Social History Observation Description Date Details (start date - stop date) Never Smoker NA - NA Tobacco Use/Smoking Question Answer Notes Patient is a nonsmoker Alcohol Screen Question Answer Notes Did you have a drink containing alcohol in the p ast year? No Points 0 Interpretation Negative Section Notes: Nonsmoker; no sig alcohol Problems Problem Type SNOMED Code ICD Code Onset Dates Problem Status W/U Status Risk Notes Problem [id number] Encounter for screening for malignant neoplasm of colon (Z12.11) Active confirmed Problem [id number] Pre-procedural examination (Z01.818) Active confirmed Plan Of Treatment Pending Test Test Name Order Date GI BIOPSY 08/23/2018 Future Test Test Name Order Date COLONOSCOPY 08/12/2018 Insurance Providers Payer Name Payer Address Payer Phone Subscriber Number Group Number Insured Name Patient Relationship to Insured Coverage Start Date Coverage End Date [facility] [address] [address] [place], [place] [id number] [phone] [id number] GRIS ERAZO Self - patient is the insured MEDICAID OF [facility] [address] [place] [address] [id number] GRIS ERAZO Self - patient is the insured Medical (General) History Medical History History ICD Code Hypertension Denies [place],DM,CVA,Lung disease,renal dise ase Mitral valve disease--he had surgery as below, and may be needing a mitral valve replacement at some point--he is scheduled to see Dr. Samaniego on 08/16/18 for that issue Surgical History Surgery Date(Month/Year) Mitral valve repair at [facility] 2010
--- NOTE | 2025-02-07 08:51 | MHC.OFFVISCO ---
Intake Intake Visit Reasons: Anticoagulation Allergies No Known Allergies (No Known Allergies*) Allergy (Verified 02/07/25 08:43) Medication List - Last Reconciled 02/07/25 by Ciara Salguero RN alprazolam 0.25 mg PO DAILY PRN blood pressure monitor (Blood Pressure Kit) As directed lisinopril 20 mg PO DAILY metoprolol tartrate 25 mg PO BID sildenafil 50 mg PO DAILY PRN warfarin 7.5 mg See Protocol PO DAILY 90 days Nursing Note INR: 4.1?out of therapeutic range of 2.5-3.5 INR high due to 03 of February green party pt went to and had some alcoholic beverages Medications and supplements reviewed Patient status: well Medications or supplements: no change Diet: usual diet for pt Denies any signs and symptoms of bleeding or clotting or unusual bruising Bleeding, bruising, clotting discussed Nutritional guidance given: to have a serving of greens today. Pt states he will have broccoli. Dose: decrease today's dose to 2.5mg (5mg) then usual dose of 5mg X 6 days and 7.5mg X 1 day (Thu) F/U INR Date: 3 weeks? Patient verbalizing understanding of instructions given. 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
== END 2025-02-07 08:56 | disposition home or self-care (01) ==
LOC: HO.ACS 08:37
PROVIDERS: PCP Internal Medicine; Visit Provider Internal Medicine Medical Oncology
DX: Z79.01 Long term (current) use of anticoagulants (principal)

== ENCOUNTER → 2025-02-07 08:37 | Outpatient (BNVA) | payer OTHER, SELFPAY | PROVIDERS: PCP Internal Medicine; Visit Provider Internal Medicine Medical Oncology | DX: Z95.2 Presence of prosthetic heart valve (principal); Z51.81 Encounter for therapeutic drug level monitoring; Z79.01 Long term (current) use of anticoagulants | CPT/HCPCS: 85610; 99211 ==

== ENCOUNTER 2025-02-14 06:32 | Outpatient (REF) | payer OTHER, SELFPAY ==
--- OUTSIDE RECORDS SUMMARY | 2025-02-14 06:34 | XMS_ITS | Clinical Summary ---
Author Organization 175 [facility] Address 175 [place] [address] Phone Care Team Providers Care Correctional Casework Specialist Name Role Phone Kuldip Pendleton MD Primary Care Provider [phone] Allergies No known active allergies Medications miconazole (Lotrimin AF) 2 % powder Apply topically 2 (two) times a day for 28 days. 70 g 3 5 03/06/20 25 Active Encounters Date Type Department Care Team Description 02/06/2025 9:45 AM EDT Office Visit Orthopedic Surgery [facility] 250 175 [facility] [address] [place] [phone] Bogdan Linn, DPM Tinea pedis of both [...] AM EDT Office Visit Orthopedic Surgery - [place] [address] [phone] Bogdan Linn, DPM [address] [address] Health Maintenance Due Date Last Done Comments [...] patient's age to complete this topic Insurance [facility] PL[facility] Care Teams Correctional Casework Specialist Relationship Specialty Start Date End Date Kuldip Pendleton MD [address] [place] [address] [address] [facility] [place] [address] PCP - General Internal Medicine 06/13/24
--- OUTSIDE RECORDS SUMMARY | 2025-02-14 06:34 | XMS_ITS | Patient Health Record ---
Author Organization [facility] Address [address] [place] [address] Care Team Providers Care Environmental Remediation Consultant Name Role Phone Po Kuldip QUINTERO Primary Care Provider Jasper Blackman [phone] Reason For Referral No Information Medications Medication SIG (Take, Route, Frequency, Duration) Notes Start Date End Date Status Fish Oil 1000 MG 1 capsule Orally Onc e a day for 30 day(s) Active MiraLax (colon prep) 8.3 ounce (238) grams mixed with Gatorade or Crystal Light [...] Problem Status W/U Status Risk Notes Problem [id number] Encounter for screening for malignant neoplasm of colon (Z12.11) Active confirmed Problem [id number] Pre-procedural examination (Z01.818) Active confirmed Plan Of Treatment Pending Test Test Name Order Date GI BIOPSY 08/23/2018 Future Test Test Name Order Date COLONOSCOPY 08/12/2018 Insurance Providers Payer Name Payer Address Payer Phone Subscriber Number Group Number Insured Name Patient Relationship to Insured Coverage Start Date Coverage End Date [facility] [address] [address] [place], [place] [id number] [phone] [id number] GRIS ERAZO Self - patient is the insured MEDICAID OF [facility] [address] [place] [address] [id number] GRIS ERAZO Self - patient is the insured Medical (General) History Medical History History ICD Code Hypertension Denies [place],DM,CVA,Lung disease,renal dise ase Mitral valve disease--he had surgery as below, and may be needing a mitral valve replacement at some point--he is scheduled to see Dr. Samaniego on 08/16/18 for that issue Surgical History Surgery Date(Month/Year) Mitral valve repair at [facility] 2010
--- OUTSIDE RECORDS SUMMARY | 2025-02-14 06:34 | XMS_ITS | Clinical Summary ---
Author Organization [facility] Address [address] [place] [address] Care Team Providers Care Distribution Superintendent Name Role Phone Juan David aSmaniego MD Primary Care Provider Allergies No known [...] (#1) 2025 Insurance Medicaid Medicaid Care Teams Distribution Superintendent Relationship Specialty Start Date End Date Juan David Samaniego MD [address] [place] [address] PCP - General Cardiology 12/03/20
[2025-02-14 10:13] LABS: MANUAL DIFF FLAG NO
[2025-02-14 10:21] LABS: Appearance Urine Clear; Glucose Urine UA Negative (Negative); PH 5.5 (5.0-9.0); Specific Gravity - Urine 1.015 (1.005-1.025); UMIC TRIGGER UACC YES
[2025-02-14 10:22] LABS: Hemoglobin A1C 151.8022 umol/L; Total Hemoglobin (HGBA1C) 3659.5746 umol/L
[2025-02-14 10:38] LABS: Hematocrit 42.8 % (42.0-52.0); Hemoglobin 13.7 g/dl (14.0-18.0); Imm Gran Abs Auto 0.03 X10*3/uL (0.00-0.03); Imm Gran Pct Auto 0.4 % (0.0-0.4); Lymphocytes Absolute Auto 2.2 X10*3/uL (1.2-4.9); Mean Corpuscular HGB Conc 32.0 g/dl (31.0-36.0); Mean Corpuscular Hemoglobin 26.6 pg (27.0-33.0); Mean Corpuscular Volume 83.1 fL (80.0-98.0); NRBC Abs Auto 0.000 X10*3/uL (0.0-0.012); NRBC Pct Auto 0.0 /100WBC (0.0-0.2); Platelet Count 241 X10*3/uL (160-400); Red Blood Count 5.15 X10*6/uL (4.60-5.80); White Blood Count 7.1 X10*3/uL (4.8-10.8)
[2025-02-14 11:04] LABS: Alanine Aminotransferase 37 U/L (0-40); Albumin Level 4.0 g/dL (3.5-5.0); Alkaline Phosphatase 77 U/L (39-117); Anion Gap 12 (12-20); Aspartate Amino Transferase 42 U/L (5-37); Blood Urea Nitrogen 14 mg/dL (9-16); Calcium 9.0 mg/dL (8.4-10.2); Carbon Dioxide 27 mmol/L (22-29); Chloride 109 mmol/L (96-108); Cholesterol 152 mg/dL (<200); Estimated Glomerular Filt Rate > 60; Free T4 (Free Thyroxine) 0.96 ng/dL (0.71-1.85); HDL Cholesterol 41 mg/dL (>40); Potassium 4.7 mmol/L (3.3-5.1); Sodium 143 mmol/L (135-145); Thyroid Stimulating Hormone 3.76 uIU/mL (0.32-4.0); Total Protein 6.9 g/dL (6.5-8.0); Triglycerides 104 mg/dL (<150)
[2025-02-14 11:30] LABS: Folate 14.6 ng/mL (> or = 4.0); Vitamin B12 513 pg/mL (200-900)
== END 2025-02-14 06:33 | disposition home or self-care (01) ==
LOC: HO.HMGCLDS 06:32
PROVIDERS: PCP Internal Medicine; Visit Provider Internal Medicine
DX: I10 Essential (primary) hypertension (principal); E78.00 Pure hypercholesterolemia, unspecified
CPT/HCPCS: 36415; 80053; 80061; 81001; 82607; 82746; 83036; 84153; 84439; 84443; 85025

== ENCOUNTER 2025-02-28 08:24 | Outpatient (AMB) | payer OTHER, SELFPAY ==
[2025-02-28 08:34] LABS: Prothrombin Time Whole Bld POC 32.1 sec (11.1-13.5); ~PT, ~INR - Anti Coag Clinic 2.7 (0.9-1.1)
--- OUTSIDE RECORDS SUMMARY | 2025-02-28 08:35 | XMS_ITS | Clinical Summary ---
Author Organization [facility] Address [address] [place] [address] Care Team Providers Care Educational Guidance Counselor Name Role Phone Juan David Samaniego MD Primary Care Provider [phone] Allergies No known active allergies Medications aspirin [...] (#1) 2025 Insurance Medicaid Medicaid Care Teams Educational Guidance Counselor Relationship Specialty Start Date End Date Juan David Samaniego MD [address] [place] [address] PCP - General Cardiology 12/03/20
--- OUTSIDE RECORDS SUMMARY | 2025-02-28 08:35 | XMS_ITS | Clinical Summary ---
Author Organization 175 [facility] Address 175 [place] [address] Phone Care Team Providers Care Certified Personal Finance Counselor Name Role Phone Kuldip Pendleton MD Primary Care Provider [phone] Allergies No known active allergies Medications miconazole (Lotrimin AF) 2 % powder Apply topically 2 (two) times a day for 28 days. 70 g 3 5 03/06/20 25 Active Encounters Date Type Department Care Team Description 02/06/2025 9:45 AM EDT Office Visit Orthopedic Surgery [facility] 250 175 [facility] [address] [place] [phone] Bogdan Linn, DPM Tinea pedis of both [...] AM EDT Office Visit Orthopedic Surgery - [place] [address] [phone] Bogdan Linn, DPM [address] [address] Health Maintenance Due Date Last Done Comments Hepatitis B Vaccines (1 of 3 - 19+ 3-dose series) 1984 Zoster Vaccines (1 of 2) 2015 Pneumococcal Vaccine: 50+ Years (2 of 2 - PCV) 11/21/2020 11/22/2019 Cholesterol Screening (Lipid Panel) 06/13/2024 Colorectal Cancer Screening: Colonoscopy 06/13/2024 HIV Screening 06/13/2024 Hepatitis C Screening 06/13/2024 Social Influencers of Health Screening 06/13/2024 Depression Screening 08/03/2024 Hypertension/CHF/CAD Annual BMP Blood Test 09/27/2024 Influenza [...] patient's age to complete this topic Insurance [facility] PL[facility] Care Teams Certified Personal Finance Counselor Relationship Specialty Start Date End Date Kuldip Pendleton MD [address] [place] [address] [address] [facility] [place] [address] PCP - General Internal Medicine 06/13/24
--- OUTSIDE RECORDS SUMMARY | 2025-02-28 08:36 | XMS_ITS | Patient Health Record ---
Author Organization [facility] Address [address] [place] [address] Care Team Providers Care Material Mixer Name Role Phone Po Kuldip QUINTERO Primary Care Provider Jasper Blackman [phone] Reason For Referral No Information Medications Medication [...] Problem Status W/U Status Risk Notes Problem [id number] Encounter for screening for malignant neoplasm of colon (Z12.11) Active confirmed Problem [id number] Pre-procedural examination (Z01.818) Active confirmed Plan Of Treatment Pending Test Test Name Order Date GI BIOPSY 08/23/2018 Future Test Test Name Order Date COLONOSCOPY 08/12/2018 Insurance Providers Payer Name Payer Address Payer Phone Subscriber Number Group Number Insured Name Patient Relationship to Insured Coverage Start Date Coverage End Date [facility] [address] [address] [place], [place] [id number] [phone] [id number] GRIS ERAZO Self - patient is the insured MEDICAID OF [facility] [address] [place] [address] [id number] GRIS ERAZO Self - patient is the insured Medical (General) History Medical History History ICD Code Hypertension Denies [place],DM,CVA,Lung disease,renal dise ase Mitral valve disease--he had surgery as below, and may be needing a mitral valve replacement at some point--he is scheduled to see Dr. Samaniego on 08/16/18 for that issue Surgical History Surgery Date(Month/Year) Mitral valve repair at [facility] 2010
--- NOTE | 2025-02-28 08:41 | MHC.OFFVISCO ---
Intake Intake Visit Reasons: Anticoagulation Allergies No Known Allergies (No Known Allergies*) Allergy (Verified 02/28/25 08:27) Medication List - Last Reconciled 02/28/25 by Ingrid Cisneros RN alprazolam 0.25 mg PO DAILY PRN blood pressure monitor (Blood Pressure Kit) As directed lisinopril 20 mg PO DAILY metoprolol tartrate 25 mg PO BID miconazole nitrate 2% (Antifungal (miconazole)) topical BID sildenafil 50 mg PO DAILY PRN warfarin 7.5 mg See Protocol PO DAILY 90 days Nursing Note INR: 2.7 in therapeutic range Medications and supplements reviewed No changes in health, diet, medications, or supplements, Denies any signs and symptoms of bleeding or bruising or clotting. Bleeding, bruising, clotting discussed Nutritional guidance given - EAT A MIX OF FRUITS AND VEGETABLES, WHEN INR JUST SLIGHTLY OVER RANGE LIKE 3.6 ON YOUR HOME METER EAT GREENS RATHER THAN ADJUST DOSE Dose: KEEP SAME DOSE 7.5MG X 1 DAY/ 5MG X 6 DAYS F/U INR: []Patient verbalizes understanding of instructions given Anti-Coag Initial Assessment Social Hx Patient Tobacco Use Status: Never used Tobacco Tobacco use type: Cigarette alcohol intake: never Alcohol intake frequency: does not drink Questionnaires HAS-BLED Does the patient had uncontrolled Hypertension?: No Does the patient have renal disease?: No Does the patient have liver disease?: No Does the patient have a history of stroke?: No Has the patient had major bleeding or predisposition to bleeding?: No Does the patient have labile INRs?: Yes Is the patient over 65 years of age?: No Is the patient on medications that gives them a predisposition to bleeding?: Yes Does the patient use alcohol?: No HAS-BLED Score: 2 CHADSVASC Age: <65 Gender: Male Does the patient have a history of CHF?: No Does the patient have a history of Hypertension?: Yes Does the patient have a history of Stroke/TIA/Thromboembolism?: No Does the patient have a history of Vascular Disease (prior VA, PAD or aortic plaque)?: No Does the patient have a history of Diabetes?: No CHADS VACS Score: 1 Keo Prediction Score Rsk VTE Active Cancer: No Previous VTE, excluding superficial vein thrombosis: No Reduced mobility: No 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 , hx of acute infections in the past ) With-in last month Trauma and/or Surgery: No Elderly 70 year or older: No Heart and/or Respiratory Failure: No Acute Myocardial infarction and/or Ischemic Stroke: No Acute Infection and/or Rheumatologic Disorder: No Obesity (BMI 30 or greater): No Ongoing Hormonal Treatment: No Score: 3 Keo Score less than 4; Low Risk of VTE Keo Score 4 or greater; High Risk of VTE Coding Level of Care Code Est Patient Level 1 Diagnoses Current use of anticoagulant therapy Z79.01 Results AMB INR Fingerstick AMB INR Fingerstick 2.7 Last Edit by Ingrid Cisneros RN on 02/28/25 08:35 Assessment & Plan Assessment & Plan (1) Current use of anticoagulant therapy: Code(s): 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
== END 2025-02-28 08:47 | disposition home or self-care (01) ==
LOC: HO.ACS 08:24
PROVIDERS: PCP Internal Medicine; Visit Provider Internal Medicine Medical Oncology
DX: Z79.01 Long term (current) use of anticoagulants (principal)

== ENCOUNTER → 2025-02-28 08:24 | Outpatient (BNVA) | payer OTHER, SELFPAY | PROVIDERS: PCP Internal Medicine; Visit Provider Internal Medicine Medical Oncology | DX: Z95.2 Presence of prosthetic heart valve (principal); Z79.01 Long term (current) use of anticoagulants; Z51.81 Encounter for therapeutic drug level monitoring | CPT/HCPCS: 85610; 99211 ==

== ENCOUNTER 2025-03-28 08:30 | Outpatient (AMB) | payer OTHER, SELFPAY ==
[2025-03-28 08:40] LABS: Prothrombin Time Whole Bld POC 30.4 sec (11.1-13.5); ~PT, ~INR - Anti Coag Clinic 2.5 (0.9-1.1)
--- NOTE | 2025-03-28 08:41 | MHC.OFFVISCO ---
Intake Intake Visit Reasons: Anticoagulation Allergies No Known Allergies (No Known Allergies*) Allergy (Verified 03/28/25 08:35) Medication List - Last Reconciled 03/28/25 by Ciara Salguero RN alprazolam 0.25 mg PO DAILY PRN blood pressure monitor (Blood Pressure Kit) As directed lisinopril 20 mg PO DAILY metoprolol tartrate 25 mg PO BID miconazole nitrate 2% (Antifungal (miconazole)) topical BID sildenafil 50 mg PO DAILY PRN warfarin 7.5 mg See Protocol PO DAILY 90 days Nursing Note INR: 2.5 in therapeutic range OF 2.5-3.5 Medications and supplements reviewed No changes in health, diet, medications, or supplements, Denies any signs and symptoms of bleeding or bruising or clotting. Bleeding, bruising, clotting discussed Nutritional guidance given to avoid greens today and to have a serving of foods that raise the INR. Food list discussed. Dose: 5mg X 6 days and 7.5mg X 1 day. F/U INR: 1 month Patient verbalizes understanding of instructions given Anti-Coag Initial Assessment Social Hx Patient Tobacco Use Status: Never used Tobacco Tobacco use type: Cigarette alcohol intake: never Alcohol intake frequency: does not drink Coding Level of Care Code Est Patient Level 1 Diagnoses Current use of anticoagulant therapy Z79.01 Assessment & Plan Assessment & Plan (1) Current use of anticoagulant therapy: Code(s): Z79.01 - longterm (current) use of anticoagulants Category: Medical
--- OUTSIDE RECORDS SUMMARY | 2025-03-28 08:41 | XMS_ITS | Patient Health Record ---
Author Organization [facility] Address [address] [place] [address] Care Team Providers Care Rug Cleaner Name Role Phone Kuldip Pendleton MD Primary Care Provider Jasper Blackman [phone] Reason For Referral No Information Medications Medication [...] Problem Status W/U Status Risk Notes Problem [id number] Encounter for screening for malignant neoplasm of colon (Z12.11) Active confirmed Problem [id number] Pre-procedural examination (Z01.818) Active confirmed Plan Of Treatment Pending Test Test Name Order Date GI BIOPSY 08/23/2018 Future Test Test Name Order Date COLONOSCOPY 08/12/2018 Insurance Providers Payer Name Payer Address Payer Phone Subscriber Number Group Number Insured Name Patient Relationship to Insured Coverage Start Date Coverage End Date [facility] [address] [address] [place], [place] [id number] [phone] [id number] GRIS ERAZO Self - patient is the insured MEDICAID OF [facility] [address] [place] [address] [id number] GRIS ERAZO Self - patient is the insured Medical (General) History Medical History History ICD Code Hypertension Denies [place],DM,CVA,Lung disease,renal dise ase Mitral valve disease--he had surgery as below, and may be needing a mitral valve replacement at some point--he is scheduled to see Dr. Samaniego on 08/16/18 for that issue Surgical History Surgery Date(Month/Year) Mitral valve repair at [facility] 2010
--- OUTSIDE RECORDS SUMMARY | 2025-03-28 08:41 | XMS_ITS | Clinical Summary ---
Author Organization [facility] Facility Address [address] [place] [address] Care Team Providers Care Portrait Artist Name Role Phone Juan David Samaniego MD Primary Care Provider [phone] Allergies No known active allergies Medications aspirin [...] (#1) 2025 Insurance Medicaid Medicaid Care Teams Portrait Artist Relationship Specialty Start Date End Date Juan David Samaniego MD [address] [place] [address] PCP - General Cardiology 12/03/20
--- OUTSIDE RECORDS SUMMARY | 2025-03-28 08:41 | XMS_ITS | Clinical Summary ---
Author Organization 175 [facility] Address 175 [place] [address] Phone Care Team Providers Care Coal Miner Name Role Phone Kuldip Pendleton MD Primary Care Provider [phone] Allergies No known active allergies Medications miconazole (Lotrimin AF) 2 % powder Apply topically 2 (two) times a day for 28 days. 70 g 3 5 03/06/20 25 Encounters Date Type Department Care Team Description 02/06/2025 9:45 AM EDT Office Visit Orthopedic Surgery [facility] 250 [address] [facility] [address] [place] [phone] Bogdan Linn, DPM Tinea pedis of both [...] AM EDT Office Visit Orthopedic Surgery - [place] [address] [place] [phone] Bogdan Linn, DPM [address] [place] [address] Health Maintenance Due Date Last Done Comments [...] Blood Test 09/27/2024 Influenza Vaccine (#1) 2025 4, 05/20/2023, 05/10/2022, Additional history exists DTaP,Tdap,and Td [...] patient's age to complete this topic Insurance [facility] Care Teams Coal Miner Relationship Specialty Start Date End Date Kuldip Pendleton MD [address] [place] [address] [address] [facility] [place] [address] PCP - General Internal Medicine 06/13/24
== END 2025-03-28 08:46 | disposition home or self-care (01) ==
LOC: HO.ACS 08:30
PROVIDERS: PCP Internal Medicine; Visit Provider Internal Medicine Medical Oncology
DX: Z79.01 Long term (current) use of anticoagulants (principal)

== ENCOUNTER → 2025-03-28 08:30 | Outpatient (BNVA) | payer OTHER, SELFPAY | PROVIDERS: PCP Internal Medicine; Visit Provider Internal Medicine Medical Oncology | DX: Z95.2 Presence of prosthetic heart valve (principal); Z79.01 Long term (current) use of anticoagulants; Z51.81 Encounter for therapeutic drug level monitoring | CPT/HCPCS: 85610; 99211 ==

== ENCOUNTER 2025-03-30 15:43 | Outpatient (REF) | payer OTHER, SELFPAY ==
--- NOTE | ~2025-03-30 | US_ITS ---
EXAMINATION: US RETROPERITONEUM HISTORY: R31.9 - Hematuria, unspecified TECHNIQUE: Real-time grayscale ultrasound imaging of the kidneys was performed and images were reviewed. COMPARISON: Correlation is made with an abdominal ultrasound dated 11/29/2019. FINDINGS: Right kidney: The right kidney measures 11.5 x 6.3 x 5.6 cm. Renal parenchymal echotexture and thickness are normal. There are no masses. There is no hydronephrosis or renal calculi. Left Kidney: The left kidney measures 10.3 x 5.5 x 4.9 cm. Renal parenchymal echotexture and thickness are normal. There are no masses. There is no hydronephrosis or renal calculi. The urinary bladder is unremarkable. Bilateral ureteral jets are identified. Before voiding, the urinary bladder measured 9.0 x 6.3 x 8.9 cm, for an estimated volume of 263 mL. After voiding, the urinary bladder measured 3.8 x 2.4 x 2.7 cm, for an estimated volume of 12.7 mL. The prostate measures 4.5 x 4.0 x 3.6 cm, for an estimated volume of 33.9 mL. US/US retroperitoneal comp IMPRESSION: 1. Unremarkable retroperitoneal ultrasound. 2. Post void bladder residual of 12.7 mL. 3. Prostate volume of 33.9 mL. Electronically signed by: Jasper Tse MD 03/31/2025 07:00 AM EDT
--- OUTSIDE RECORDS SUMMARY | 2025-03-30 16:05 | XMS_ITS | Clinical Summary ---
Author Organization [address] [facility] Address 175 [place] [address] Phone Care Team Providers Care Financial Services Technician Name Role Phone Kuldip Pendleton MD Primary Care Provider [phone] Allergies No known active allergies Medications miconazole (Lotrimin AF) 2 % powder Apply topically 2 (two) times a day for 28 days. 70 g 3 5 03/06/20 25 Encounters Date Type Department Care Team Description 02/06/2025 9:45 AM EDT Office Visit Orthopedic Surgery [facility] 250 175 [facility] [address] [place] [phone] Bogdan Linn, DPM Tinea pedis of both [...] AM EDT Office Visit Orthopedic Surgery - [place] [address] [place] [phone] Bogdan Linn, DPM [address] [place] [address] Health Maintenance Due Date Last Done Comments [...] patient's age to complete this topic Insurance [facility] Care Teams Financial Services Technician Relationship Specialty Start Date End Date Kuldip Pendleton MD [address] [place] [address] [address] [facility] [place] [address] PCP - General Internal Medicine 06/13/24
--- OUTSIDE RECORDS SUMMARY | 2025-03-30 16:05 | XMS_ITS | Clinical Summary ---
Author Organization [facility] Facility Address [address] [place] [address] Care Team Providers Care Water Vessel Captain Name Role Phone Juan David Samaniego MD Primary Care Provider [phone] Allergies No known active allergies Medications aspirin [...] (#1) 2025 Insurance Medicaid Medicaid Care Teams Water Vessel Captain Relationship Specialty Start Date End Date Juan David Samaniego MD [address] [place] [address] PCP - General Cardiology 12/03/20
--- OUTSIDE RECORDS SUMMARY | 2025-03-30 16:05 | XMS_ITS | Patient Health Record ---
Author Organization [facility] Address [address] [place] [address] Care Team Providers Care Foot Miter Operator Name Role Phone Kuldip Pendleton MD Primary Care Provider Jasper Blackman [phone] Reason For Referral No Information Medications Medication [...] Problem Status W/U Status Risk Notes Problem [id number] Encounter for screening for malignant neoplasm of colon (Z12.11) Active confirmed Problem [id number] Pre-procedural examination (Z01.818) Active confirmed Plan Of Treatment Pending Test Test Name Order Date GI BIOPSY 08/23/2018 Future Test Test Name Order Date COLONOSCOPY 08/12/2018 Insurance Providers Payer Name Payer Address Payer Phone Subscriber Number Group Number Insured Name Patient Relationship to Insured Coverage Start Date Coverage End Date [facility] [address] [address] [place], [place] [id number] [phone] [id number] GRIS ERAZO Self - patient is the insured MEDICAID OF [facility] [address] [place] [address] [id number] GRIS ERAZO Self - patient is the insured Medical (General) History Medical History History ICD Code Hypertension Denies MN,DM,CVA,Lung disease,renal dise ase Mitral valve disease--he had surgery as below, and may be needing a mitral valve replacement at some point--he is scheduled to see Dr. Samaniego on 08/16/18 for that issue Surgical History Surgery Date(Month/Year) Mitral valve repair at [facility] 2010
== END 2025-03-30 15:44 | disposition home or self-care (01) ==
LOC: HO.US 15:43
PROVIDERS: PCP Internal Medicine; Visit Provider Internal Medicine
DX: R31.9 Hematuria, unspecified (principal)
CPT/HCPCS: 76770

== ENCOUNTER → 2025-03-30 15:47 | Outpatient (BNV) | payer OTHER, SELFPAY | PROVIDERS: PCP Internal Medicine; Visit Provider Radiology Diagnostic Radiology | DX: R31.9 Hematuria, unspecified (principal) | CPT/HCPCS: 76770 ==

== ENCOUNTER 2025-04-18 15:45 | Outpatient (AMB) | payer OTHER, SELFPAY ==
[2025-04-18 15:49] VITALS: BP 124/74; PULSE 72; TEMP 36.4; O2SAT 95; BMI 29.9
--- NOTE | 2025-04-18 15:50 | MHC.PC.OV ---
Vital Signs 04/18/25 15:49 Height 6 ft Weight 220 lb 4 oz BMI 29.9 BP 124/74 Blood Pressure Location Lt brachial Position Sitting Pulse 72 Pulse Source Pulse Oximeter Temp 97.5 F Temp Source Temporal Artery Scan Pulse Oximetry (%) 95 Oxygen Delivery Method Room Air Intake Visit Reasons: Hypertension Accompanied by: Spouse Allergies No Known Allergies (No Known Allergies*) Allergy (Verified 04/18/25 15:53) Medication List - Last Reconciled 04/18/25 by Kuldip Pendleton MD alprazolam 0.25 mg PO DAILY PRN blood pressure monitor (Blood Pressure Kit) As directed lisinopril 20 mg PO DAILY metoprolol tartrate 25 mg PO BID miconazole nitrate 2% (Antifungal (miconazole)) topical BID sildenafil 50 mg PO DAILY PRN warfarin 7.5 mg See Protocol PO DAILY 90 days Tobacco use date assessed: 04/18/25 Dental Screening Dental Screen Date: 04/18/25 Did you have a dental visit in the last 12 months?: No Did you have a dental problem in the last 6 months where you did not have access to dental care?: No Was dental information given to patient?: Patient has dentist HPI Hypertension HPI Details Patient is going for a cruise and would like the anxiety medication prescription sent in. PFS Medical History Obesity (BMI 30-39.9) Pneumonia Overweight (BMI 25.0-29.9) GERD (gastroesophageal reflux disease) Erectile dysfunction Obesity (BMI 30-39.9) Impaired glucose tolerance Anxiety COVID-19 HTN (hypertension) Surgical History Hx laparoscopic cholecystectomy H/O mitral valve replacement with mechanical valve H/O mitral valve repair Hx of varicose vein ligation and stripping H/O cardiac catheterization (~2019) Family History Father CVD (cardiovascular disease) Mother HTN (hypertension) CVD (cardiovascular disease) Diabetes Brother CVD (cardiovascular disease) Brother CVD (cardiovascular disease) Social History Household Members: Spouse Housing: House Are you a primary career services manager to a significant other at home: No Do you presently have visiting nurse or other home services: No Alcohol intake: never Patient Tobacco Use Status: Never used Tobacco Tobacco use type: Cigarette e-Cigarette/Vaping Use: Never Used Second Hand Smoke Exposure: No service: No Current occupational status: employed Current occupation: [employer] Cognitive needs: No Hearing needs: No Vision needs: Yes (reading glasses) Questionnaire PHQ-9 Over the last 2 weeks, how often have you been bothered by any of the following problems? 1. Little interest or pleasure in doing things: not at all 2. Feeling down, depressed, or hopeless: not at all 3. Trouble falling or staying asleep, or sleeping too much: not at all 4. Feeling tired or having little energy: several days 5. Poor appetite or overeating: not at all 6. Feeling bad about yourself - or that you are a failure or have let yourself or your family down: not at all 7. Trouble concentrating on things, such as reading the newspaper or watching television: not at all 8. Moving or speaking so slowly that other people could have noticed. Or the opposite - being so fidgety or restless that you have been moving around a lot more than usual: not at all 9. Thoughts that you would be better off or of hurting yourself in some way: not at all Total score: 1 Depression Screening Interpretation: Positive Depression Screening Done: Yes Source: Developed by Drs. Jasper Hanna, Amber Cooper, Sumanth Zhang and colleagues, with an educational reuben from [employer]. Thrive Questionnaire Date Thrive assessed: 01/06/25 I am a: Patient What is your living situation today?: I have a steady place to live Within the past 12 months, did the food you bought not last and you didn't have the money to get more?: Never true Within the past 12 months, did you worry whether your food would run out before you got money to buy more?: Never true Do you have trouble paying for medicines?: No Do you have trouble getting transportation to medical appointments?: No Do you have trouble paying your heating and electricity bill?: No Do you have trouble taking care of your child, family member or friend?: No Do you have trouble with day-to-day activities such as bathing, preparing meals, shopping, managing finances, etc.?: No Are you currently unemployed and looking for a job?: No Are you interested in more education?: No Please select the resources that you would like help with: None Currently or been in a relationship where the following occur: No concerns reported THRIVE Score: 0 AUDIT C Alcohol Use Questionnaire (AUDIT-C) 1. How often do you have a drink containing alcohol?: Never 3. How often do you have six or more drinks on one occasion?: Never Total Score: 0 LISET-7 AMB Questionnaire LISET-7 Date LISET - 7 assessed: 01/06/25 Feeling nervous, anxious, or on edge: 0 = Not at all Not being able to stop or control worryin = Not at all Worrying too much about different things: 0 = Not at all Trouble relaxin = Not at all Being so restless that it is hard to sit still: 0 = Not at all Becoming easily annoyed or irritable: 0 = Not at all Feeling afraid as if something awful might happen: 0 = Not at all Total LISET-7 score (0-4 normal; 5-9 mild; 10-14 moderate; 15-21 severe): 0 Source: Developed by Drs. Jasper Hanna, Amber Cooper, Sumanth Zhang and colleagues, with an educational reuben from [employer]. Physical exam (Primary Care) Vital Signs: Last Vital Signs Temp 97.5 F 04/18/25 15:49 Pulse 72 04/18/25 15:49 BP 124/74 04/18/25 15:49 Pulse Ox 95 04/18/25 15:49 Oxygen Delivery Method Room Air 04/18/25 15:49 BMI result Body Mass Index 29.9 Tobacco/Smoking Status: Tobacco use Status Tobacco use date assessed 04/18/25 04/18/25 15:54 Patient Tobacco Use Status Never used Tobacco 04/18/25 15:54 Tobacco use type Cigarette 04/18/25 15:54 e-Cigarette/Vaping Use Never Used 04/18/25 15:54 PHQ-9: PHQ-9 Score PHQ-9: Total score 1 04/18/25 16:30 Depression Screening Interpretation: Positive Thrive Assessment: Date of Thrive Assessment Date Thrive assessed 01/06/25 04/18/25 15:54 Currently or been in a relationship where the following occur: No concerns reported Const General: alert; No acute distress Eyes Conjunctivae: conjunctivae normal Resp Auscultation: clear to auscultation bilaterally Cardio Other: Regular systolic click noted Rate: regular rate Rhythm: regular rhythm GI Inspection: Yes normal to inspection Extrem General: Yes normal to inspection and No edema Coding Level of Care Code Est Pt Level 4 (66683) Complex EM visit Add On G2211 Diagnoses Essential hypertension I10 Hypertension type: essential hypertension H/O mitral valve replacement with mechanical valve Z95.2 Ascending aorta dilatation I77.810 Impaired glucose tolerance R73.02 Gastroesophageal reflux disease without esophagitis K21.9 Esophagitis presence: without esophagitis Tinea pedis B35.3 Assessment & Plan Assessment & Plan (1) HTN (hypertension): Code(s): I10 - Essential (primary) hypertension Category: Medical Qualifiers: Hypertension type: essential hypertension Qualified Code(s): I10 - Essential (primary) hypertension Plan: Continue with blood pressure medication. Decrease salt intake and exercise patient on lisinopril 20 mg once a day metoprolol 20 mg twice a day (2) H/O mitral valve replacement with mechanical valve: Comment: recurrent mitral regurgitation leading to [place] mitral valve replacement with 25 mm valve INR 2.5-3.5 Code(s): Z95.2 - Presence of prosthetic heart valve Category: Surgical Plan: Continuing with anticoagulation (3) Ascending aorta dilatation: Comment: 12/21/2023 4.1 cm December 2024 4.1 Code(s): I77.810 - Thoracic aortic ectasia Category: Medical Plan: Continue to monitor December 2024 last echocardiogram (4) Impaired glucose tolerance: Code(s): R73.02 - Impaired glucose tolerance (oral) Category: Medical Plan: Decrease the amount of carbohydrate intake, pasta, bread, rice and potatoes are all sugar and that is aside from all the sweet stuff, remember that fruits are good but they are Sweet also. (5) GERD (gastroesophageal reflux disease): Code(s): K21.9 - Gastro-esophageal reflux disease without esophagitis Category: Medical Qualifiers: Esophagitis presence: without esophagitis Qualified Code(s): K21.9 - Gastro-esophageal reflux disease without esophagitis Plan: Avoid the foods that causes that usually spicy foods, tomato products, juices, coffee, soda and foods that your sensitive to. After eating do not lie down, allow 3-4 hours before in lie down. And keep the head of bed above 30 degrees to avoid the acid from going up. (6) Tinea pedis: Code(s): B35.3 - Tinea pedis Category: Medical Plan: on antifungal powder and helps Plan History of Present Illness The patient is a 59-year-old male presenting for a routine follow-up and management of chronic conditions. The patient has a history of Gastroesophageal Reflux Disease (GERD) and peripheral vascular disease. He underwent mitral valve replacement with a mechanical valve and has a history of hypertension, which is currently well controlled. The patient also has a history of anxiety disorder and was last seen for a physical exam on January 06, 2025. He reports a history of hematuria, for which an abdominal ultrasound was performed, showing unremarkable results. The patient has mild anemia with a hemoglobin level of 13.7, and his liver function tests show mild elevation with a diagnosis of fatty liver. His cholesterol levels are within acceptable limits, with an LDL of 91. He has a history of fungal infection of the feet, for which he has been using antifungal powder and cream. Health Maintenance - Preventative care: Colonoscopy last performed in August 2018 - Vaccinations: Annual flu shot scheduled for May - Vaccinations: Shingles vaccine discussed, available at pharmacy Social History - Travel: Patient is planning a cruise Review of Systems - General: Denies nausea, vomiting, fevers - Cardiovascular: Denies chest pain, palpitations - Genitourinary: Denies current hematuria Physical Exam - Cardiovascular: Normally functioning mechanical valve - Blood Pressure: Well controlled Results - Labs: Hemoglobin 13.7 indicating mild anemia - Labs: LDL cholesterol 91 mg/dL - Imaging: Abdominal ultrasound unremarkable - Imaging: Liver ultrasound showing fatty liver Plan Patient was informed and verbally consented to the use of an ambient scribe for clinic note documentation during this visit. 1. Gastroesophageal Reflux Disease (Gerd) The patient has a history of Gastroesophageal Reflux Disease (GERD). 2. Peripheral Vascular Disease The patient has a history of peripheral vascular disease. 3. Mitral Valve Replacement With Mechanical Valve The patient underwent mitral valve replacement with a mechanical valve, which is functioning normally. 4. Hypertension The patient has a history of hypertension, which is well controlled with current medication regimen. 5. Anxiety Disorder The patient has a history of anxiety disorder and is considering medication management for an upcoming cruise. 6. Hematuria The patient had a history of hematuria, with an abdominal ultrasound showing unremarkable results. 7. Fatty Liver The patient has a diagnosis of fatty liver, with mildly elevated liver function tests. 8. Mild Anemia The patient has mild anemia with a hemoglobin level of 13.7. 9. Fungal Infection Of The Feet The patient has a fungal infection of the feet, managed with antifungal powder and cream. Discussion Notes During the visit, we discussed the patient's chronic conditions, including GERD, peripheral vascular disease, and hypertension, which is well controlled with current medications. We also reviewed the patient's anxiety disorder and the potential need for medication management during his upcoming cruise. The importance of regular follow-ups and preventative care, including vaccinations and screenings, was emphasized. Patient Instructions - Continue current medications for hypertension and anxiety as prescribed. - Consider getting the shingles vaccine from the pharmacy. - Schedule a follow-up appointment for routine monitoring and management of chronic conditions. - Maintain a healthy diet and exercise regularly to manage weight and liver health. Medications: Refilled alprazolam 0.25 mg PO DAILY PRN 10 tabs 0RF anxiety M20.41 - Other hammer toe(s) (acquired), right foot
--- OUTSIDE RECORDS SUMMARY | 2025-04-18 18:55 | XMS_ITS | Clinical Summary ---
Author Organization 175 [facility] Address [address] [place] [address] Phone Care Team Providers Care Oracle Ebs Consultant Name Role Phone Kuldip Pendleton MD Primary Care Provider [phone] Allergies No known active allergies Medications ALPRAZolam (XANAX) 0.25 mg tablet take 1 tablet orally daily as needed for anxiety 5 Active aspirin 81 mg EC tablet Take 1 tablet (81 mg total) by mouth 1 (one) time each day. Active metoprolol tartrate (LOPRESSOR) 25 mg tablet Take 1 tablet (25 mg total) by mouth 2 (two) times a day. Active sildenafiL (VIAGRA) 50 mg tablet TAKE 1 TABLET BY MOUTH EVERY DAY NEEDED FOR SEXUAL ACTIVITY 5 Active warfarin (COUMADIN) 5 mg tablet Active miconazole (Lotrimin AF) 2 % powder Apply topically 2 (two) times a day for 28 days. 70 g 3 5 05/09/20 25 Active Hospital, Clinic, or Other Facility Administered Medication Ordered Dose Route Frequency Start Date End Date Status lidocaine (PF) (XYLOCAINE-MPF) 1 % injection 0.5 mLIndications:Arthri tis of right ankle .5 mL inj Once PRN Procedure 04/11/2025 04/11/2025 Ended triamcinolone acetonide (KENALOG-40) 40 mg/mL injection 20 mgIndications:Arthri tis of right ankle 20 mg IAtc Once PRN Procedure 04/11/2025 04/11/2025 Ended Encounters Date Type Department Care Team Description 04/11/2025 8:45 AM EDT Office Visit Orthopedic Surgery [facility] [address] [phone] Bogdan Linn DPM Dermatophytosis of nail (Primary Dx); Tinea pedis of both feet; Arthritis of right ankle; Tendinitis of right ankle 02/06/2025 9:45 AM EDT Office Visit [facility] [address] [phone] Bogdan Linn DPM Tinea pedis of both feet (Primary [...] Care Team (Late st Contact Info) Description 05/29/2025 8:45 AM EDT Office Visit Orthopedic Surgery [place] [address] [address] Bogdan Linn DPM [address] [phone] Health Maintenance Due Date Last Done Comments [...] Procedure Name Priority Date/Time Associated Diagnosis Comments INJECTION TENDON OR LIGAMENT Routine 04/11/2025 8:45 AM EDT Arthritis of right ankle from Last 3 Months Results * Injection tendon or ligament (04/11/2025 8:45 AM EDT) Narrative Bogdan Linn DPM - 04/11/2025 8:45 AM EDT Bogdan Linn DPM 04/11/2025 12:50 PM Injection tendon or ligament Indications: pain Details: 25 G needle Medications: 0.5 mL lidocaine (PF) 1 %; 20 mg triamcinolone acetonide 40 mg/mL Informed Consent: Site: Foot ligament tendon us Bogdan Linn DPM IN CLINIC/BEDSIDE ORDERAB LES Final Result from Last 3 Months Insurance [facility] Care Teams Oracle Ebs Consultant Relationship Specialty Start Date End Date Kuldip Pendleton MD [address] [place] [address] [address] [facility] [place] [address] PCP - General Internal Medicine 06/13/24
--- OUTSIDE RECORDS SUMMARY | 2025-04-18 18:55 | XMS_ITS | Clinical Summary ---
Author Organization [facility] Facility Address [address] [place] [address] Care Team Providers Care Medicine Worker Name Role Phone Juan David Samaniego MD Primary Care Provider [phone] Allergies No known active allergies Medications aspirin [...] (#1) 2025 Insurance Medicaid Medicaid Care Teams Medicine Worker Relationship Specialty Start Date End Date Juan David Samaniego MD [address] [place] [address] PCP - General Cardiology 12/03/20
--- OUTSIDE RECORDS SUMMARY | 2025-04-18 18:55 | XMS_ITS | Patient Health Record ---
Author Organization [facility] Address [address] [place] [address] Care Team Providers Care Chip Bin Conveyor Tender Name Role Phone Po Kuldip QUINTERO Primary Care Provider Jasper Blackman [phone] Reason For Referral No Information Medications Medication [...] Problem Status W/U Status Risk Notes Problem [id number] Encounter for screening for malignant neoplasm of colon (Z12.11) Active confirmed Problem [id number] Pre-procedural examination (Z01.818) Active confirmed Plan Of Treatment Pending Test Test Name Order Date GI BIOPSY 08/23/2018 Future Test Test Name Order Date COLONOSCOPY 08/12/2018 Insurance Providers Payer Name Payer Address Payer Phone Subscriber Number Group Number Insured Name Patient Relationship to Insured Coverage Start Date Coverage End Date [facility] [address] [address] [place], [place] [id number] [phone] [id number] GRIS ERAZO Self - patient is the insured MEDICAID OF [facility] [address] [place] [address] [phone] [id number] RGIS ERAZO Self - patient is the insured Medical (General) History Medical History History ICD Code Hypertension Denies [place],DM,CVA,Lung disease,renal dise ase Mitral valve disease--he had surgery as below, and may be needing a mitral valve replacement at some point--he is scheduled to see Dr. Samaniego on 08/16/18 for that issue Surgical History Surgery Date(Month/Year) Mitral valve repair at [facility] 2010
== END 2025-04-18 16:46 | disposition home or self-care (01) ==
LOC: HO.HMCH 15:46
PROVIDERS: PCP Internal Medicine; Visit Provider Internal Medicine
DX: I10 Essential (primary) hypertension (principal); Z95.2 Presence of prosthetic heart valve; I77.810 Thoracic aortic ectasia; R73.02 Impaired glucose tolerance (oral); K21.9 Gastro-esophageal reflux disease without esophagitis; B35.3 Tinea pedis

== ENCOUNTER → 2025-04-18 15:45 | Outpatient (BNVA) | payer OTHER, SELFPAY | PROVIDERS: PCP Internal Medicine; Visit Provider Internal Medicine | DX: I10 Essential (primary) hypertension (principal); I73.9 Peripheral vascular disease, unspecified; I77.810 Thoracic aortic ectasia; R73.02 Impaired glucose tolerance (oral); K21.9 Gastro-esophageal reflux disease without esophagitis; B35.3 Tinea pedis; F41.9 Anxiety disorder, unspecified; K76.0 Fatty (change of) liver, not elsewhere classified; D64.9 Anemia, unspecified; M20.41 Other hammer toe(s) (acquired), right foot; Z95.2 Presence of prosthetic heart valve | CPT/HCPCS: 99212 ==

== ENCOUNTER 2025-04-25 09:00 | Outpatient (AMB) | payer OTHER, SELFPAY ==
--- NOTE | 2025-04-25 09:23 | MHC.OFFVISCO ---
Intake Intake Visit Reasons: Anticoagulation Allergies No Known Allergies (No Known Allergies*) Allergy (Verified 04/25/25 09:10) Medication List - Last Reconciled 04/25/25 by Ciara Salguero RN alprazolam 0.25 mg PO DAILY PRN blood pressure monitor (Blood Pressure Kit) As directed lisinopril 20 mg PO DAILY metoprolol tartrate 25 mg PO BID miconazole nitrate 2% (Antifungal (miconazole)) topical BID sildenafil 50 mg PO DAILY PRN warfarin 7.5 mg See Protocol PO DAILY 90 days Nursing Note INR: 3.6 in therapeutic range of 2.5-3.5 Pt brought in his own meter from home. He uses his meter when he travels but is not connected to [employer]. Pt set up his meter himself and test performed. Pt meter INR: 3.6. ACS meter INR: 3.6. Pt meter correlated with ACS meter. Medications and supplements reviewed No changes in health, diet, medications, or supplements, Denies any signs and symptoms of bleeding or bruising or clotting. Bleeding, bruising, clotting discussed Nutritional guidance given to have a serving of greens today Dose: 5mg X 6 days and 7.5mg X 1 day (Thu) F/U INR: 1 month Patient verbalizes understanding of instructions given Anti-Coag Initial Assessment Social Hx Patient Tobacco Use Status: Never used Tobacco Tobacco use type: Cigarette alcohol intake: never Alcohol intake frequency: does not drink Coding Level of Care Code Est Patient Level 2 Diagnoses Current use of anticoagulant therapy Z79.01 Time Spent (min) 25 Comment meter to meter comparison. Pt's own meter with ACS meter. Assessment & Plan Assessment & Plan (1) Current use of anticoagulant therapy: Code(s): Z79.01 - [facility] (current) use of anticoagulants Category: Medical
--- OUTSIDE RECORDS SUMMARY | 2025-04-25 10:21 | XMS_ITS | Patient Health Record ---
Author Organization [facility] Address [address] [place] [address] Care Team Providers Care Glove Former Name Role Phone Po Kuldip QUINTERO Primary Care Provider Jasper Blackman [phone] Reason For Referral No Information Medications Medication [...] Problem Status W/U Status Risk Notes Problem [id number] Encounter for screening for malignant neoplasm of colon (Z12.11) Active confirmed Problem [id number] Pre-procedural examination (Z01.818) Active confirmed Plan Of Treatment Pending Test Test Name Order Date GI BIOPSY 08/23/2018 Future Test Test Name Order Date COLONOSCOPY 08/12/2018 Insurance Providers Payer Name Payer Address Payer Phone Subscriber Number Group Number Insured Name Patient Relationship to Insured Coverage Start Date Coverage End Date [facility] [address] [address] [place], [place] [id number] [phone] [id number] GRIS ERAZO Self - patient is the insured MEDICAID OF [facility] [address] [place] [address] [id number] GRIS ERAZO Self - patient is the insured Medical (General) History Medical History History ICD Code Hypertension Denies [place],DM,CVA,Lung disease,renal dise ase Mitral valve disease--he had surgery as below, and may be needing a mitral valve replacement at some point--he is scheduled to see Dr. Samaniego on 08/16/18 for that issue Surgical History Surgery Date(Month/Year) Mitral valve repair at [facility] 2010
--- OUTSIDE RECORDS SUMMARY | 2025-04-25 10:21 | XMS_ITS | Clinical Summary ---
Author Organization 175 [facility] Address [address] [place] [address] Phone Care Team Providers Care Family Service Aide Name Role Phone Kuldip Pendleton MD Primary Care Provider [phone] Allergies No known active allergies Medications ALPRAZolam [...] 8:45 AM EDT Office Visit Orthopedic Surgery [facility] [address] [phone] Bogdan Linn DPM Dermatophytosis of nail (Primary Dx); Tinea pedis of both feet; Arthritis of right ankle; Tendinitis of right ankle 02/06/2025 9:45 AM EDT Office Visit [facility] [address] [phone] Bogdan Linn DPM Tinea pedis of both [...] 8:45 AM EDT Office Visit Orthopedic [place] [address] [phone] Bogdan Linn DPM [address] [address] Health Maintenance Due Date Last Done Comments [...] Final Result from Last 3 Months Insurance [facility] Care Teams Family Service Aide Relationship Specialty Start Date End Date Kuldip Pendleton MD [address] [place] [address] [address] [facility] [place] [address] PCP - General Internal Medicine 06/13/24
--- OUTSIDE RECORDS SUMMARY | 2025-04-25 10:21 | XMS_ITS | Clinical Summary ---
Author Organization [facility] Facility Address [address] [place] [address] Care Team Providers Care Web Press Operator Helper Offset Name Role Phone Juan David Samaniego MD [...] (#1) 2025 Insurance Medicaid Medicaid Care Teams Web Press Operator Helper Offset Relationship Specialty Start Date End Date Juan David Samaniego MD [address] [place] [address] PCP - General Cardiology 12/03/20
== END 2025-04-25 09:28 | disposition home or self-care (01) ==
LOC: HO.ACS 09:00
PROVIDERS: PCP Internal Medicine; Visit Provider Internal Medicine Medical Oncology
DX: Z79.01 Long term (current) use of anticoagulants (principal)

== ENCOUNTER → 2025-04-25 09:00 | Outpatient (BNVA) | payer OTHER, SELFPAY | PROVIDERS: PCP Internal Medicine; Visit Provider Internal Medicine Medical Oncology | DX: Z95.2 Presence of prosthetic heart valve (principal); Z79.2 Long term (current) use of antibiotics; Z79.01 Long term (current) use of anticoagulants | CPT/HCPCS: 85610; 99211; 99212 ==

== ENCOUNTER → 2025-05-23 09:11 | Outpatient (BNVA) | payer OTHER, SELFPAY | PROVIDERS: PCP Internal Medicine; Visit Provider Internal Medicine Medical Oncology | DX: Z79.01 Long term (current) use of anticoagulants (principal) | CPT/HCPCS: 85610; 99211 ==

== ENCOUNTER 2025-06-09 08:37 | Outpatient (AMB) | payer OTHER, SELFPAY ==
[2025-06-09 08:54] VITALS: BP 132/70; PULSE 72; TEMP 36.7; O2SAT 97; BMI 31.2
--- NOTE | 2025-06-09 08:54 | MHC.OFFWIV ---
Intake Vital Signs 06/09/25 08:54 Height 6 ft Weight 230 lb BMI 31.2 BP 132/70 Blood Pressure Location Rt brachial Position Sitting Pulse 72 Pulse Source Pulse Oximeter Temp 98.1 F Temp Source Oral Pulse Oximetry (%) 97 Oxygen Delivery Method Room Air Intake Visit Reasons: EP-cough, body ache, sore throat Intake Note: pt presents with bilateral ear pain, body aches/soreness, sore throat with the worst symptom of chest congestion and coughing x1 wk Patient Tobacco Use Status: Never used Tobacco Allergies No Known Allergies (No Known Allergies*) Allergy (Verified 06/09/25 09:07) Do you need a note to return to daycare/school/sports/work: No HPI EP-cough, body ache, sore throat HPI Details This is a 59-year-old male patient who presents to the walk-in clinic today with report of a one-week history of productive cough, body aches, itching ears, mildly sore throat. Denies any known exposure to sick contacts. Denies any fevers/chills. Denies any GI symptoms. Has not taken any igwb-bvo-jjercue medication. States the cough is productive at times with a green/brown sputum, and severe at nighttime and keeping him awake. Denies shortness of breath at rest or with activity. [facility] Medical History Obesity (BMI 30-39.9) Pneumonia Overweight (BMI 25.0-29.9) GERD (gastroesophageal reflux disease) Erectile dysfunction Obesity (BMI 30-39.9) Impaired glucose tolerance Anxiety COVID-19 HTN (hypertension) Surgical History Hx laparoscopic cholecystectomy H/O mitral valve replacement with mechanical valve H/O mitral valve repair Hx of varicose vein ligation and stripping H/O cardiac catheterization (~2019) Family History Father CVD (cardiovascular disease) Mother HTN (hypertension) CVD (cardiovascular disease) Diabetes Brother CVD (cardiovascular disease) Brother CVD (cardiovascular disease) Social History Household Members: Spouse Housing: House Are you a primary manager wound care to a significant other at home: No Do you presently have visiting nurse or other home services: No Alcohol intake: never Patient Tobacco Use Status: Never used Tobacco Tobacco use type: Cigarette e-Cigarette/Vaping Use: Never Used Second Hand Smoke Exposure: No service: No Current occupational status: employed Current occupation: [employer] Cognitive needs: No Hearing needs: No Vision needs: Yes (reading glasses) Review of Systems Const All systems reviewed & are unremarkable except as noted in HPI and below Physical Exam Vital Signs: Last Vital Signs Temp 98.1 F 06/09/25 08:54 Pulse 72 06/09/25 08:54 BP 132/70 06/09/25 08:54 Pulse Ox 97 06/09/25 08:54 Oxygen Delivery Method Room Air 06/09/25 08:54 BMI result Body Mass Index 31.2 Const General: cooperative, healthy appearing, comfortable, no acute distress and well developed Limitations: no limitations HEENT Head: Yes normal to inspection and Yes normocephalic Ears: hearing grossly normal bilaterally, external ears normal and TM's normal bilaterally General nose exam: Normal external nose present Face and sinus: Yes normal facial exam Mouth: Normal oral and palatal mucosa present Throat: Yes posterior oropharynx normal Neck Neck: Yes no lymphadenopathy Resp Effort & Inspection: normal respiratory effort and Actively coughing Quality: actively coughing Auscultation: clear to auscultation bilaterally Cardio Rate: regular rate Rhythm: regular rhythm Heart sounds: S1 normal heart sound present and S2 normal heart sound present Skin General skin exam: no rashes or lesions noted Extrem General: Yes capillary refill normal and Yes no clubbing, cyanosis or edema Psych Appearance: grossly normal Mental Status: mental status grossly normal Speech and movement: Normal speech and movement present Assessment & Plan Assessment & Plan (1) Upper respiratory infection, viral: Code(s): J06.9 - Acute upper respiratory infection, unspecified Plan: Symptoms consistent with viral upper respiratory infection. COVID/flu/RSV swab was obtained, and patient aware he will be notified of results once these are available. Advised him ocka-cfh-wowdrsn cough medicine/lozenges, and I have also prescribed him a short course of prednisone. We reviewed indications, use, possible side effects of this medication. If he does not improve with treatment, or if symptoms worsen/new symptoms such as shortness of breath or fever develop, he should return to the clinic for further evaluation. Patient verbalizes understanding and agrees to plan. (2) Cough: Code(s): R05.9 - Cough, unspecified Qualifiers: Cough type: acute Qualified Code(s): R05.1 - Acute cough Plan: As above. Orders: Orders SARS-CoV2/FLU/RSV Today R05.9 - Cough, unspecified Medications: New prednisone 40 mg (2 x 20 mg) PO DAILY 10 tabs 0RF 5 days J06.9 - Acute upper respiratory infection, unspecified, R05.9 - Cough, unspecified Coding Level of Care Code Est Pt Level 4 (56739) Diagnoses Upper respiratory infection, viral J06.9 Acute cough R05.1 Cough type: acute
--- OUTSIDE RECORDS SUMMARY | 2025-06-09 09:09 | XMS_ITS | Clinical Summary ---
Author Organization [facility] Facility Address [address] [place] [address] Care Team Providers Care Field Artillery Fire Control Man Name Role Phone Juan David Samaniego MD Primary Care Provider [phone] Allergies No known active allergies Medications aspirin [...] (#1) 2025 Insurance Medicaid Medicaid Care Teams Field Artillery Fire Control Man Relationship Specialty Start Date End Date Juan David Samaniego MD [address] [place] [address] PCP - General Cardiology 12/03/20
--- OUTSIDE RECORDS SUMMARY | 2025-06-09 09:09 | XMS_ITS | Clinical Summary ---
Author Organization 175 [facility] Address [address] [place] [address] Phone Care Team Providers Care Government Affairs Manager Name Role Phone Kuldip Pendleton MD Primary Care Provider [phone] Allergies No known active allergies Medications ALPRAZolam (XANAX) 0.25 mg tablet take 1 tablet orally daily as needed for anxiety 09/26/2024 Active aspirin 81 mg EC tablet Take 1 tablet (81 mg total) by mouth 1 (one) time each day. Active metoprolol tartrate (LOPRESSOR) 25 mg tablet Take 1 tablet (25 mg total) by mouth 2 (two) times a day. Active sildenafiL (VIAGRA) 50 mg tablet TAKE 1 TABLET BY MOUTH EVERY DAY NEEDED FOR SEXUAL ACTIVITY 03/31/2025 Active warfarin (COUMADIN) 5 mg tablet Active Encounters Date Type Department Care Team Description 05/29/2025 8:45 AM EDT Office Visit Orthopedic Surgery [address] [phone] Bogdan Linn DPM Tendinitis of right ankle (Primary Dx); Acquired hallux valgus of left foot; Hammer toe of left foot; Acquired hallux valgus of right foot; Dermatophytosis of nail; Arthritis of right ankle 04/11/2025 8:45 AM EDT Office Visit [facility] [address] [phone] Bogdan Linn DPM Dermatophytosis of nail (Primary Dx); Tinea pedis of both feet; Arthritis of right ankle; Tendinitis of right ankle from Last 3 [...] 09/27/2024 9:50 AM EST Plan of Treatment Health Maintenance Due Date Last Done Comments Colorectal Cancer Screening: Colonoscopy 1965 Hepatitis B Vaccines (1 of 3 - 19+ 3-dose series) 1984 Zoster Vaccines (1 of 2) 2015 Pneumococcal Vaccine: 50+ Years (2 of 2 - PCV) 11/21/2020 11/22/2019 Cholesterol Screening (Lipid Panel) 06/13/2024 HIV Screening 06/13/2024 Hepatitis C Screening 06/13/2024 Social Influencers of Health Screening 06/13/2024 Depression Screening 08/03/2024 Hypertension/CHF/CAD Annual BMP Blood Test 09/27/2024 DTaP,Tdap,and Td Vaccines (2 - Td or Tdap) 10/10/2032 10/10/2022 RSV Immunization Adult Patients (1 - 1-dose 75+ series) 2040 Influenza Vaccine Completed 05/02/2025, , 05/20/2023, Additional history exists COVID-19 Vaccine Completed 05/12/2025, , 05/30/2022, Additional history exists HIB Vaccines Aged Out [...] Final Result from Last 3 Months Insurance [facility] Care Teams Government Affairs Manager Relationship Specialty Start Date End Date Kuldip Pendleton MD [address] [place] [address] [address] [facility] [place] [address] PCP - General Internal Medicine 06/13/24
--- OUTSIDE RECORDS SUMMARY | 2025-06-09 09:10 | XMS_ITS | Patient Health Record ---
Author Organization [facility] Address [address] [place] [address] Care Team Providers Care Banjo Repairer Name Role Phone Po Kuldip QUINTERO Primary Care Provider Jasper Blackman [phone] Reason For Referral No Information Medications Medication SIG (Take, Route, Frequency, Duration) Notes Start Date End Date Status Fish Oil 1000 MG 1 capsule Orally Onc e a day; Duration: 30 day(s) Active MiraLax (colon prep) 8.3 ounce ((238) grams mixed with Gatorade or Crystal Light orally begin at 5:00 p.m. the day before the procedure; Duration: 1 day 08/12/2018 Active Dulcolax (colon prep) 5 MG take at 3:00 p.m and 7:00p.m. Orally two tablets twice a day for one day; Duration: 1 day 08/12/2018 Active Lisinopril 2.5 MG TAKE 1 TABLET EVERY DAY Oral Once a day Active Aspirin Adult Low Dose 81 MG 1 tablet Orally Once a day; Duration: 30 day(s) Active Immunizations Vaccine Route Administration [...] Problem Status W/U Status Risk Notes Problem Screening for malignant neoplasm of colon (772383503) Encounter for screening for malignant neoplasm of colon (Z12.11) Active confirmed Problem Pre-procedure evaluation check (030801664) Pre-procedural examination (Z01.818) Active confirmed Plan Of Treatment Pending Test Test Name Order Date GI BIOPSY 08/23/2018 Future Test Test Name Order Date COLONOSCOPY 08/12/2018 Insurance Providers Payer Name Payer Address Payer Phone Subscriber Number Group Number Insured Name Patient Relationship to Insured Coverage Start Date Coverage End Date [facility] [address] [address] [place], [place] [id number] GRIS ERAZO Self - patient is the insured MEDICAID OF [facility] [address] [place] [address] [id number] GRIS ERAZO Self - patient is the insured Medical (General) History Medical History History ICD Code Hypertension Denies [place],DM,CVA,Lung disease,renal dise ase Mitral valve disease--he had surgery as below, and may be needing a mitral valve replacement at some point--he is scheduled to see Dr. Samaniego on 08/16/18 for that issue Surgical History Surgery Date(Month/Year) Mitral valve repair at [facility] 2010
== END 2025-06-09 09:34 | disposition home or self-care (01) ==
PROVIDERS: PCP Internal Medicine; Visit Provider Nurse Practitioner Family
DX: J06.9 Acute upper respiratory infection, unspecified (principal); R05.1 Acute cough

== ENCOUNTER 2025-06-09 08:37 | Outpatient (REF) | payer OTHER, SELFPAY ==
[2025-06-09 14:13] LABS: Resp Syncy Virus RNA Qual PCR NEGATIVE (Negative); SARS COV2 PCR INHOUSE NEGATIVE (Negative)
== END 2025-06-09 08:38 | disposition home or self-care (01) ==
LOC: HO.LAB 08:37
PROVIDERS: PCP Internal Medicine; Visit Provider Nurse Practitioner Family
DX: R05.1 Acute cough (principal); J02.9 Acute pharyngitis, unspecified; R09.81 Nasal congestion; H92.03 Otalgia, bilateral
CPT/HCPCS: 87637; 99212

== ENCOUNTER 2025-06-20 08:24 | Outpatient (AMB) | payer OTHER, SELFPAY ==
[2025-06-20 08:29] LABS: Prothrombin Time Whole Bld POC 38.2 sec (11.1-13.5); ~PT, ~INR - Anti Coag Clinic 3.2 (0.9-1.1)
--- NOTE | 2025-06-20 08:32 | MHC.OFFVISCO ---
Intake Intake Visit Reasons: Anticoagulation Allergies No Known Allergies (No Known Allergies*) Allergy (Verified 06/20/25 08:25) Medication List - Last Reconciled 06/20/25 by Ciara Salguero RN alprazolam 0.25 mg PO DAILY PRN blood pressure monitor (Blood Pressure Kit) As directed lisinopril 20 mg PO DAILY metoprolol tartrate 25 mg PO BID miconazole nitrate 2% (Antifungal (miconazole)) topical BID prednisone 40 mg (2 x 20 mg) PO DAILY 5 days sildenafil 50 mg PO DAILY PRN warfarin 7.5 mg See Protocol PO DAILY 90 days Nursing Note INR: 3.2 in therapeutic range 2.5-3.5 Medications and supplements reviewed No changes in health, diet, medications, or supplements, Denies any signs and symptoms of bleeding or bruising or clotting. 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
== END 2025-06-20 08:35 | disposition home or self-care (01) ==
LOC: HO.ACS 08:24
PROVIDERS: PCP Internal Medicine; Visit Provider Internal Medicine Medical Oncology
DX: Z79.01 Long term (current) use of anticoagulants (principal)

== ENCOUNTER → 2025-06-20 08:24 | Outpatient (BNVA) | payer OTHER, SELFPAY | PROVIDERS: PCP Internal Medicine; Visit Provider Internal Medicine Medical Oncology | DX: Z95.2 Presence of prosthetic heart valve (principal); Z51.81 Encounter for therapeutic drug level monitoring; Z79.01 Long term (current) use of anticoagulants | CPT/HCPCS: 85610; 99211 ==

== ENCOUNTER 2025-07-19 07:59 | Outpatient (AMB) | payer OTHER, SELFPAY ==
--- OUTSIDE RECORDS SUMMARY | 2025-07-19 08:03 | XMS_ITS | Clinical Summary ---
Author Organization 175 [facility] Address [address] [place] [address] Phone Care Team Providers Care Human Relations Professor Name Role Phone Kuldip Pendleton MD Primary Care Provider [phone] Allergies No known active allergies Medications ALPRAZolam [...] 8:45 AM EDT Office Visit Orthopedic Surgery [facility] [address] [phone] Bogdan Linn, DPM Tendinitis of right ankle (Primary Dx); Acquired hallux valgus of left foot; Hammer toe of left foot; Acquired hallux valgus of right foot; Dermatophytosis of nail; Arthritis of right ankle from Last 3 [...] complete this topic Insurance [facility] Care Teams Human Relations Professor Relationship Specialty Start Date End Date Kuldip Pendleton MD [address] [place] [address] [address] [facility] [place] [address] PCP - General Internal Medicine 06/13/24
--- OUTSIDE RECORDS SUMMARY | 2025-07-19 08:03 | XMS_ITS | Patient Health Record ---
Author Organization [facility] Address [address] [place] [address] Care Team Providers Care Phosphorus Processing Supervisor Name Role Phone Po Kuldpi QUINTERO Primary Care Provider Jasper Blackman [phone] Reason For Referral No Information Medications Medication SIG (Take, Route, Frequency, Duration) Notes Start Date End Date Status Fish Oil 1000 MG Capsule 1 capsule Orall y Once a day; Duration: 30 day(s) Active MiraLax (colon prep) 8.3 ounce ((238) grams mixed with Gatorade or Crystal Light orally begin at 5:00 p.m. the day before the procedure; Duration: 1 day 08/12/2018 Active Dulcolax (colon prep) 5 MG Tablet Delayed Release take at 3:00 p.m and 7:00p.m. Orally two tablets twice a day for one day; Duration: 1 day 08/12/2018 Active Lisinopril 2.5 MG Tablet TAKE 1 TABLET E VERY DAY Oral Once a day Active Aspirin Adult Low Dose 81 MG Tablet Delayed Release 1 tablet Orally Once a day; Duration: 30 day(s) Active Immunizations Vaccine Route Administration Date Status Comme nts Influenza Unknown 05/03/2018 Administered Social History Tobacco Use: Social History Observation Description Date Details (start date - stop date) Never Smoker NA - NA Social History Drugs/Alcohol: Social Info Question Answer Notes Alcohol Screen Did you have a drink containing alcohol in the past year? 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 [employer] Notes: Nonsmoker; no sig alcohol Problems Problem Type SNOMED Code ICD Code Onset Dates Problem Status W/U Status Risk Notes Problem Screening for malignant neoplasm of colon ([id number]) Encounter for screening for malignant neoplasm of colon (Z12.11) Active confirmed Problem Pre-procedure evaluation check (712035093) Pre-procedural examination (Z01.818) Active confirmed Plan Of Treatment Pending Test Test Name Order Date GI BIOPSY 08/23/2018 Future Test Test Name Order Date COLONOSCOPY 08/12/2018 Insurance Providers Payer Name Payer Address Payer Phone Subscriber Number Group Number Insured Name Patient Relationship to Insured Coverage Start Date Coverage End Date [facility] [address] [address] [place], [place] [id number] GRSI ERAZO Self - patient is the insured MEDICAID [facility] [address] [place] [address] [id number] GRIS ERAZO Self - patient is the insured Medical (General) History Medical History History ICD Code Hypertension Denies [place],DM,CVA,Lung disease,renal dise ase Mitral valve disease--he had surgery as below, and may be needing a mitral valve replacement at some point--he is scheduled to see Dr. Samaniego on 08/16/18 for that issue Surgical History Surgery Date(Month/Year) Mitral valve repair at [facility] 2010
--- NOTE | 2025-07-19 08:10 | MHC.OFFVISCO ---
Intake Intake Visit Reasons: Anticoagulation Allergies No Known Allergies (No Known Allergies*) Allergy (Verified 07/19/25 08:05) Medication List - Last Reconciled 07/19/25 by Jossie Robbins RN alprazolam 0.25 mg PO DAILY PRN blood pressure monitor (Blood Pressure Kit) As directed lisinopril 20 mg PO DAILY metoprolol tartrate 25 mg PO BID miconazole nitrate 2% (Antifungal (miconazole)) topical BID prednisone 40 mg (2 x 20 mg) PO DAILY 5 days sildenafil 50 mg PO DAILY PRN warfarin 7.5 mg See Protocol PO DAILY 90 days Nursing Note INR: 2.6- in therapeutic range 2.5-3.5 Medications and supplements reviewed- no changes No changes in health, diet, medications, or supplements, Denies any signs and symptoms of bleeding or bruising or clotting. Bleeding, bruising, clotting discussed Nutritional guidance given Dose: 7.5mg x 1. 5mg x 6 F/U INR: 4 weeks Patient verbalizes understanding of instructions given Anti-Coag Initial Assessment Social Hx Patient Tobacco Use Status: Never used Tobacco Tobacco use type: Cigarette alcohol intake: never Alcohol intake frequency: does not drink Coding Level of Care Code Est Patient Level 1 Diagnoses Current use of anticoagulant therapy Z79.01 Assessment & Plan Assessment & Plan (1) Current use of anticoagulant therapy: Code(s): Z79.01 - custodial (current) use of anticoagulants Category: Medical
[2025-07-19 08:12] LABS: Prothrombin Time Whole Bld POC 31.2 sec (11.1-13.5); ~PT, ~INR - Anti Coag Clinic 2.6 (0.9-1.1)
== END 2025-07-19 08:26 | disposition home or self-care (01) ==
LOC: HO.ACS 07:59
PROVIDERS: PCP Internal Medicine; Visit Provider Internal Medicine Medical Oncology
DX: Z79.01 Long term (current) use of anticoagulants (principal)

== ENCOUNTER → 2025-07-19 07:59 | Outpatient (BNVA) | payer OTHER, SELFPAY | PROVIDERS: PCP Internal Medicine; Visit Provider Internal Medicine Medical Oncology | DX: Z95.2 Presence of prosthetic heart valve (principal); Z51.81 Encounter for therapeutic drug level monitoring; Z79.01 Long term (current) use of anticoagulants | CPT/HCPCS: 85610; 99211 ==